=== PATIENT | male | born 1960 | race Caucasian/White ===

== ENCOUNTER 2017-07-04 10:42 | Inpatient (IN) | payer SELFPAY ==
[~2017-07-04] VITALS: Ht 180.3 cm; Wt 61.4 kg
[~2017-07-04 10:42] MED LIST: NAPR500T2 PO
[2017-07-04 10:56] VITALS: BP 108/61; PULSE 98; RESP 20; TEMP 97.9; O2SAT 97
--- NOTE | 2017-07-04 11:17 | PD ---
HPI Chief Complaint: Pain: Acute or Chronic Time Seen by Provider: 11:16 Travel History International Travel<30 days: No Contact w/Intl Traveler<30days: No Traveled to known affect area: No History of Present Illness HPI 57-year-old homeless male with history of alcohol abuse emergency Department with generalized malaise, body aches, and multiple crusting and draining sores to multiple areas of body. Patient states he's been coming on over the past 2 weeks. Patient has had chills. He does not know he's had fever. Patient has history of chronic left hip pain with history of avascular necrosis. He is here today due to sores which are painful and has overall generalized fever and chills. Patient did have 1 drink this morning. Patient has history of seizure from alcohol withdrawal. Patient denies upper respiratory symptoms. Chest pain, shortness of breath, abdominal pain, or nausea or vomiting. Patient has no known drug allergies. PFSH Past Medical History COPD: Yes Diabetes: No Diminished Hearing: No Immune Disorder: No Musculoskeletal: Yes Respiratory: Yes Immunizations Current: No Tetanus Vaccination: < 5 Years Past Surgical History Joint Replacement: Yes (R HIP REPLACEMENT ) Social History Alcohol Use: Yes (today) Tobacco Use: Yes (1/2 PPD ) Substance Use: No Allergies-Medications (Allergen,Severity, Reaction): Coded Allergies: No Known Allergies (Verified Allergy, Unknown, 07/04/17) Reported Meds & Prescriptions Reported Meds & Active Scripts Active Naproxen 500 Mg Tab 500 Mg PO BID PRN Review of Systems Except as stated in HPI: all other systems reviewed are Neg General / Constitutional: Positive: Fever (subjective), Chills Eyes: No: Visual changes HENT: No: Headaches Cardiovascular: No: Chest Pain or Discomfort, Palpitations, Irregular Rhythm, Tachycardia, Diaphoresis Respiratory: No: Cough, Shortness of Breath, Wheezing Gastrointestinal: No: Nausea, Vomiting, Diarrhea, Abdominal Pain Genitourinary: No: Dysuria Musculoskeletal: No: Pain Skin: Positive Lesions (see history present illness), No Rash Neurologic: No: Weakness Psychiatric: No: Depression Endocrine: No: Polydipsia Hematologic/Lymphatic: No: Easy Bruising Physical Exam Narrative GENERAL: Patient appears genuinely ill and possibly septic. SKIN: Warm and dry. Normal color. Decreased turgor with tenting present. Patient has multiple open crusty wounds to both upper and lower extremities and anterior abdomen. There are no signs of deep abscess. The largest wound is on the left anterior lower madden with purulent drainage noted. Wound culture is obtained. HEAD: Atraumatic. Normocephalic. EYES: Pupils equal and round. No scleral icterus. No injection or drainage. ENT: No nasal bleeding or discharge. Mucous membranes pink and moist. Pharynx is clear. Airway is patent. NECK: Trachea midline. Supple and nontender. CARDIOVASCULAR: Regular rate and rhythm. No murmurs gallops or rubs appreciated. RESPIRATORY: No accessory muscle use. Clear to auscultation. Breath sounds equal bilaterally. GASTROINTESTINAL: Abdomen soft, non-tender, nondistended. Hepatic and splenic margins not palpable. MUSCULOSKELETAL: Extremities without clubbing, cyanosis, or edema. No obvious deformities. NEUROLOGICAL: Awake and alert. No obvious cranial nerve deficits. Motor grossly within normal limits. Five out of 5 muscle strength in the arms and legs. Normal speech. PSYCHIATRIC: Appropriate mood and affect; insight and judgment normal. Data Data Last Documented VS Vital Signs Date Time Temp Pulse Resp B/P (MAP) Pulse Ox O2 Delivery O2 Flow Rate FiO2 07/04/17 12:41 97 Room Air 07/04/17 10:56 97.9 98 20 108/61 (77) Orders Orders Sepsis Workup Initiated (07/04/17 ) Electrocardiogram (07/04/17 11:23) Complete Blood Count With Diff (07/04/17 11:23) Comprehensive Metabolic Panel (07/04/17 11:23) Prothrombin Time / Inr (Pt) (07/04/17 11:23) Act Partial Throm Time (Ptt) (07/04/17 11:23) Lactic Acid Sepsis Protocol (07/04/17 11:23) Magnesium (Mg) (07/04/17 11:23) Lipase (07/04/17 11:23) Urinalysis - C+S If Indicated (07/04/17 11:23) Blood Culture (07/04/17 11:23) Wound Culture And Gram Stain (07/04/17 11:23) Chest, Single Ap (07/04/17 11:23) Blood Glucose (07/04/17 11:23) Ecg Monitoring (07/04/17 11:23) Iv Access Insert/Monitor (07/04/17 11:23) Oximetry (07/04/17 11:23) Oxygen Administration (07/04/17 11:23) Morphine Inj (Morphine Inj) (07/04/17 11:30) Ondansetron Inj (Zofran Inj) (07/04/17 11:30) Piperacil-Tazo 4.5 Gm Premix (Zosyn 4.5 (07/04/17 11:23) Vancomycin Inj (Vancomycin Inj) (07/04/17 11:23) Sodium Chlor 0.9% 1000 Ml Inj (Ns 1000 M (07/04/17 11:23) Sodium Chlor 0.9% 1000 Ml Inj (Ns 1000 M (07/04/17 11:23) Thiamine Inj (Thiamine Inj) (07/04/17 11:30) Alcohol Withdrawal Asmt-Ciwa Q4HX18 (07/04/17 11:23) Flumazenil Inj (Romazicon Inj) (07/04/17 11:30) Lorazepam (Ativan) (07/04/17 11:30) Lorazepam Inj (Ativan Inj) (07/04/17 11:30) Lorazepam (Ativan) (07/04/17 11:30) Lorazepam Inj (Ativan Inj) (07/04/17 11:30) Lorazepam Inj (Ativan Inj) (07/04/17 11:30) Lorazepam Inj (Ativan Inj) (07/04/17 11:30) Admit Order (Ed Use Only) (07/04/17 13:38) Labs Laboratory Tests Test 07/04/17 11:30 White Blood Count 12.3 TH/MM3 Red Blood Count 4.06 MIL/MM3 Hemoglobin 14.1 GM/DL Hematocrit 40.7 % Mean Corpuscular Volume 100.3 FL Mean Corpuscular Hemoglobin 34.8 PG Mean Corpuscular Hemoglobin Concent 34.7 % Red Cell Distribution Width 13.1 % Platelet Count 243 TH/MM3 Mean Platelet Volume 9.1 FL Neutrophils (%) (Auto) 63.0 % Lymphocytes (%) (Auto) 23.3 % Monocytes (%) (Auto) 9.5 % Eosinophils (%) (Auto) 3.3 % Basophils (%) (Auto) 0.9 % Neutrophils # (Auto) 7.8 TH/MM3 Lymphocytes # (Auto) 2.9 TH/MM3 Monocytes # (Auto) 1.2 TH/MM3 Eosinophils # (Auto) 0.4 TH/MM3 Basophils # (Auto) 0.1 TH/MM3 CBC Comment DIFF FINAL Differential Comment Prothrombin Time 10.7 SEC Prothromb Time International Ratio 1.1 RATIO Activated Partial Thromboplast Time 30.8 SEC Blood Urea Nitrogen 4 MG/DL Creatinine 0.45 MG/DL Random Glucose 74 MG/DL Total Protein 8.4 GM/DL Albumin 2.9 GM/DL Calcium Level 8.8 MG/DL Magnesium Level 1.7 MG/DL Alkaline Phosphatase 199 U/L Aspartate Amino Transf (AST/SGOT) 88 U/L Alanine Aminotransferase (ALT/SGPT) 32 U/L Total Bilirubin 0.6 MG/DL Sodium Level 134 MEQ/L Potassium Level 4.4 MEQ/L Chloride Level 103 MEQ/L Carbon Dioxide Level 23.3 MEQ/L Anion Gap 8 MEQ/L Estimat Glomerular Filtration Rate 194 ML/MIN Lactic Acid Level 1.1 mmol/L Lipase 323 U/L [facility] Medical Decision Making Medical Screen Exam Complete: Yes Emergency Medical Condition: Yes Medical Record Reviewed: Yes Differential Diagnosis Cellulitis. MRSA. Sepsis. Bacteremia. History of EtOH abuse. Alcohol dependence. Narrative Course Sepsis protocol was initiated based on the patient's history and physical. Labs ordered per sepsis protocol. IV access is obtained patient is given 4.5 g Zosyn IV as well as 1000 mg vancomycin IV. 2 L IV normal saline bolus is ordered. 100 mg thiamine IV is ordered. 5 mg IV morphine is ordered for pain. 4 mg Zofran IV is ordered. CIWA protocol is initiated. CBC shows leukocytosis of 12.3. CMP shows sodium 134, BUN 4, creatinine 0.45. AST is elevated at 88, possible 99. Lipase is normal. Lactic acid is 1.1. Coagulation studies are unremarkable. Chest x-ray shows no acute process. EKG shows normal sinus rhythm without ST changes. Call was placed hospitalist for admission as I feel the patient warrants IV antibiotics based on my exam. Patient discussed with the residents. The patient was accepted for observation status. Diagnosis Primary Impression: Cellulitis Qualified Codes: L03.90 - Cellulitis, unspecified Additional Impressions: MRSA elsewhere/NOS H/O ETOH abuse Admitting Information Admitting Physician Requests: Observation Condition: Stable Slick Brenner Jul 04, 2017 11:17
[2017-07-04] MEDS ORDERED: SODIUM CHLOR 0.9% 1000 ML INJ 1,000 ML IV ONE ×2 (11:23)
[2017-07-04] MEDS ORDERED: VANCOMYCIN INJ 1,000 MG in SODIUM CHLOR 0.9% 250 ML INJ 250 ML IV STA (11:23)
[2017-07-04] MEDS ORDERED: PIPERACIL-TAZO 4.5 GM PREMIX 100 ML IV STA (11:23)
[2017-07-04] MEDS ORDERED: LORazepam 2 MG/ML VIAL IV PUSH PRN ×8 (11:30→14:15)
[2017-07-04] MEDS ORDERED: LORazepam 2 MG TAB PO PRN ×2 (11:30→14:15)
[2017-07-04] MEDS ORDERED: MORPHINE SULFATE 8 MG/ML INJ IV PUSH ONE (11:30)
[2017-07-04] MEDS ORDERED: ONDANSETRON HCL 4 MG/2 ML VIAL IV PUSH ONE (11:30)
[2017-07-04] MEDS ORDERED: LORazepam 1 MG TAB PO PRN ×2 (11:30→14:15)
[2017-07-04] MEDS ORDERED: FLUMAZENIL 0.5 MG/5 ML VIAL IV PUSH PRN ×2 (11:30→14:15)
[2017-07-04] MEDS ORDERED: THIAMINE INJ 100 MG in SODIUM CHLORIDE 0.9% INJ 100 ML IV ONE (11:30)
[2017-07-04 11:52] LABS: AUTOMATED NEUTROPHIL # 7.8 TH/MM3 (1.8-7.7); BASOPHIL # 0.1 TH/MM3 (0-0.2); BASOPHIL % 0.9 % (0.0-2.0); EOSINOPHIL # 0.4 TH/MM3 (0-0.4); EOSINOPHIL % 3.3 % (0.0-4.0); HEMATOCRIT 40.7 % (39.0-51.0); HEMO FLAGS DIFF FINAL; LYMPH % 23.3 % (9.0-44.0); LYMPHOCYTE # 2.9 TH/MM3 (1.0-4.8); MEAN CELL VOLUME 100.3 FL (80.0-100.0); MEAN CORPUSCULAR HEMOGLOBIN 34.8 PG (27.0-34.0); MEAN CORPUSCULAR HGB CONC 34.7 % (32.0-36.0); MONO % 9.5 % (0.0-8.0); PLATELET COUNT 243 TH/MM3 (150-450); RED BLOOD COUNT 4.06 MIL/MM3 (4.50-5.90); RED CELL DISTRIBUTION WIDTH 13.1 % (11.6-17.2); WHITE BLOOD COUNT 12.3 TH/MM3 (4.0-11.0)
[2017-07-04 12:01] LABS: APTT (PATIENT) 30.8 SEC (24.3-30.1); INTERNATIONAL NORMALIZED RATIO 1.1 RATIO; PROTHROMBIN TIME - PATIENT 10.7 SEC (9.8-11.6)
[2017-07-04 12:10] LABS: ALT (GPT) 32 U/L (12-78); ANION GAP 8 MEQ/L (5-15); AST (GOT) 88 U/L (15-37); BICARBONATE 23.3 MEQ/L (21.0-32.0); BLOOD UREA NITROGEN 4 MG/DL (7-18); CHLORIDE 103 MEQ/L (98-107); GLOMERULAR FILTRATION RATE 194 ML/MIN (>89); MAGNESIUM 1.7 MG/DL (1.5-2.5); SODIUM (NA) 134 MEQ/L (136-145)
[2017-07-04 12:11] LABS: ALKALINE PHOSPHATASE 199 U/L (45-117); TOTAL BILIRUBIN ADULT 0.6 MG/DL (0.2-1.0)
--- NOTE | 2017-07-04 12:14 | RADRPT ---
EXAM DATE/TIME: 07/04/2017 11:53 [facility] COMPARISON: No previous studies available for comparison. INDICATIONS : Cough. MEDICAL HISTORY : Chronic obstructive pulmonary disease. Emphysema. SURGICAL HISTORY : None. ENCOUNTER: Initial ACUITY: 1 day PAIN SCORE: 6/10 LOCATION: Bilateral chest FINDINGS: A single view of the chest demonstrates the lungs to be symmetrically aerated without evidence of mas s, infiltrate or effusion. The cardiomediastinal contours are unremarkable. Osseous structures are intact. CONCLUSION: No acute disease. Manuel Dougherty MD on July 04, 2017 at 12:12 Board Certified Radiologist. This report was verified electronically.
[2017-07-04 12:18] LABS: POTASSIUM 4.4 MEQ/L (3.5-5.1)
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
[2017-07-04] MEDS ORDERED: GADODIAMIDE PF 287 MG/ML 10 ML VIAL (for RAD MRI) IVCONTRAST ONE (13:40)
[2017-07-04] MEDS ORDERED: Vancomycin Consult Pharmacy 1 EA OTHER SCH (14:15)
[2017-07-04 14:43] VITALS: BP 129/74
[2017-07-04 14:55] LABS: BLOOD, URINE NEG (NEG); COMMENT (UR) CATH-CULT NOT IND; CULTURE IF INDICATED CATH CULTURE NOT IND; GLUCOSE,URINE NEG (NEG); HYALINE CAST, URINE 1 /lpf (RARE); KETONE, URINE NEG (NEG); NITRITE,URINE NEG (NEG); PH, URINE 5.5 (5.0-8.5); URINE COLOR YELLOW (YELLW/STRAW)
[2017-07-04] MEDS: NICOTINE 14 MG/24 HR PATCH T-DERMAL SCH (15:00)
[2017-07-04 15:38] VITALS: BP 116/63; PULSE 101; RESP 20; TEMP 98; O2SAT 98
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
--- NOTE | 2017-07-04 16:03 | RADRPT ---
EXAM DATE/TIME: 07/04/2017 15:19 [facility] COMPARISON: No previous studies available for comparison. INDICATIONS : Right lower leg pain. MEDICAL HISTORY : ETOH abuse. SURGICAL HISTORY : None. ENCOUNTER: Initial ACUITY: 1 day PAIN SCORE: 6/10 LOCATION: Right tibia/fibula. FINDINGS: There is a central intramedullary lesion in T. tibial metaphysis with well-defined serpiginous border without evidence for endosteal scalloping consistent with a bone infarct. Osseous structures are int act without evidence for acute bony fracture. Visualized joint spaces are maintained. No significant soft tissue normality. CONCLUSION: 1. 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 2. No acute fracture or dislocation. Martin Wilks MD on July 04, 2017 at 15:57 Board Certified Radiologist. This report was verified electronically.
[2017-07-04] MEDS ORDERED: DOCUSATE SODIUM 50 MG/SENNA 8.6 MG TAB PO PRN (16:15)
[2017-07-04] MEDS ORDERED: cloNIDine HCL 0.1 MG TAB PO PRN (16:15)
[2017-07-04] MEDS ORDERED: ONDANSETRON HCL 4 MG/2 ML VIAL IV PUSH PRN (16:15)
[2017-07-04] MEDS: MULTIVITAMIN TAB PO SCH (16:31)
[2017-07-04] MEDS: FOLIC ACID 1 MG TAB PO SCH (16:31)
[2017-07-04] MEDS: PIPERACIL-TAZO 3.375 GM PREMIX 50 ML IV SCH ×2 (16:31→23:14)
[2017-07-04] MEDS: THIAMINE HCL 100 MG TAB PO SCH (16:31)
[2017-07-04] MEDS: HEPARIN SODIUM - SQ 10,000 UNITS/ML VIAL SQ SCH ×2 (16:32→23:14)
[2017-07-04] MEDS: SODIUM CHLOR 0.9% 1000 ML INJ 1,000 ML IV SCH (16:32)
[2017-07-04] MEDS: KETOROLAC TROMETHAMINE 30 MG/ML (IVP) VIAL IV PUSH PRN (19:36)
[2017-07-04] MEDS: SODIUM CHLORIDE 0.9% FLUSH 10 ML FLUSH IV FLUSH PRN (19:36)
[2017-07-04] MEDS: SODIUM CHLORIDE 0.9% FLUSH 10 ML FLUSH IV FLUSH SCH (20:03)
[2017-07-04 20:33] VITALS: BP 146/75; PULSE 81; RESP 18; TEMP 98.3; O2SAT 95
[2017-07-04] MEDS: REMOVE OLD PATCH T-DERMAL SCH (21:00)
[2017-07-04 21:55] VITALS: PULSE 77
[2017-07-04 23:59] VITALS: BP 154/78; PULSE 88; RESP 18; TEMP 98.3; O2SAT 96
[2017-07-05] MEDS: VANCOMYCIN INJ 1,000 MG in SODIUM CHLOR 0.9% 250 ML INJ 250 ML IV SCH ×2 (02:00→14:00)
[2017-07-05] MEDS: SODIUM CHLOR 0.9% 1000 ML INJ 1,000 ML IV SCH ×2 (03:11→10:03)
[2017-07-05 03:21] VITALS: BP 158/74; PULSE 82; RESP 18; TEMP 98.1; O2SAT 92
[2017-07-05] MEDS: KETOROLAC TROMETHAMINE 30 MG/ML (IVP) VIAL IV PUSH PRN ×4 (03:51→23:28)
[2017-07-05] MEDS: PIPERACIL-TAZO 3.375 GM PREMIX 50 ML IV SCH ×4 (05:09→23:28)
[2017-07-05 07:17] LABS: AUTOMATED NEUTROPHIL # 7.1 TH/MM3 (1.8-7.7); BASOPHIL # 0.1 TH/MM3 (0-0.2); BASOPHIL % 0.9 % (0.0-2.0); EOSINOPHIL # 0.2 TH/MM3 (0-0.4); HEMATOCRIT 36.4 % (39.0-51.0); HEMO FLAGS DIFF FINAL; LYMPHOCYTE # 1.7 TH/MM3 (1.0-4.8); MEAN CELL VOLUME 100.6 FL (80.0-100.0); MEAN CORPUSCULAR HEMOGLOBIN 35.2 PG (27.0-34.0); MONO % 12.8 % (0.0-8.0); NEUT % 68.3 % (16.0-70.0); PLATELET COUNT 190 TH/MM3 (150-450); RED BLOOD COUNT 3.61 MIL/MM3 (4.50-5.90); RED CELL DISTRIBUTION WIDTH 13.2 % (11.6-17.2); WHITE BLOOD COUNT 10.4 TH/MM3 (4.0-11.0)
[2017-07-05 07:31] VITALS: BP 158/84; PULSE 78; RESP 20; TEMP 97.9; O2SAT 96
[2017-07-05 07:47] LABS: ALT (GPT) 24 U/L (12-78); ANION GAP 6 MEQ/L (5-15); AST (GOT) 49 U/L (15-37); BICARBONATE 28.5 MEQ/L (21.0-32.0); BLOOD UREA NITROGEN 8 MG/DL (7-18); CHLORIDE 103 MEQ/L (98-107); GLOMERULAR FILTRATION RATE 154 ML/MIN (>89); POTASSIUM 4.1 MEQ/L (3.5-5.1); SODIUM (NA) 137 MEQ/L (136-145)
[2017-07-05 07:59] LABS: ALKALINE PHOSPHATASE 157 U/L (45-117)
[2017-07-05] MEDS: REMOVE OLD PATCH T-DERMAL SCH (09:00)
[2017-07-05] MEDS: SODIUM CHLORIDE 0.9% FLUSH 10 ML FLUSH IV FLUSH SCH ×2 (09:00→21:00)
[2017-07-05] MEDS: NICOTINE 14 MG/24 HR PATCH T-DERMAL SCH (09:37)
[2017-07-05] MEDS: FOLIC ACID 1 MG TAB PO SCH (09:37)
[2017-07-05] MEDS: THIAMINE HCL 100 MG TAB PO SCH (09:37)
[2017-07-05] MEDS: MULTIVITAMIN TAB PO SCH (09:37)
[2017-07-05] MEDS: HEPARIN SODIUM - SQ 10,000 UNITS/ML VIAL SQ SCH ×3 (09:39→23:28)
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
[2017-07-05 11:30] VITALS: BP 158/75; PULSE 67; RESP 20; TEMP 98.3; O2SAT 97
--- NOTE | 2017-07-05 11:50 | RADRPT ---
EXAM DATE/TIME: 07/04/2017 00:00 [place] COMPARISON: No previous studies available for comparison. INDICATIONS : MRSA, Cellulitis, ETOH Abuse TECHNIQUE: Four-cuff ankle and brachial pressures were obtained. Pulse cuff waveform tracings of the ankles were recorded, and ankle-brachial indices were calculated. PRESSURES (mmHg): Brachial (arm): Right 112 Left IV SITE Ankle: Right 192 Left 145 EILEEN: Right 1.71 Left 1.29 TBI: Right 1.09 Left 1.36 PULSED CUFF WAVEFORMS: Demonstrate normal amplitude bilaterally. CONCLUSION: Unremarkable ankle brachial indices. Martin Wilks MD on July 05, 2017 at 11:48 Board Certified Radiologist. This report was verified electronically.
[2017-07-05 15:41] VITALS: BP 189/95; PULSE 82; RESP 21; TEMP 98; O2SAT 93
--- NOTE | 2017-07-05 15:59 | EKG ---
Date Performed: 07/04/2017 Time Performed: 12:56:07 PTAGE: 57 years EKG: Sinus rhythm NORMAL ECG NO PREVIOUS TRACING DOCTOR: Eugene Nolan Interpretating Date/Time 07/05/2017 15:57:46
--- NOTE | 2017-07-05 16:25 | PD.WCN.NOT ---
Wound Consult Description: Wound consult ordered by for Diffuse cellulitis, focal at R hand and R madden Communicated with: Rosario [facility]U H pod ED Recommendation: Please consult Infectious Disease. Cleanse all open wounds (bilateral upper extremities) with normal saline, Apply Xeroform to wound base cover with dry 4x4 gauze secure with rolled gauze/tape. Right madden apply skin prep leave open to air. Additional Information: Patient was seen today in H pod by residential mortgage underwriter and Susy LIU,[facility]. Patient presents with multiple intact scabs to bilateral upper extremities. ~7 superficial small open wounds with pink tissue with the largest measuring ~1cm x ~1cm x~< 0.1cm.Open areas were cleansed with normal saline Xeroform cut to fit applied to wound base,covered with 4x4 gauze secured with rolled gauze tape. Right lower madden area present intact purulent blister ~ 6cm x ~5cm with erythema ~4cm circumferential. Erythema was marked previously and appears reducing in size.Skin prep applied left open to air. Patient tolerated wound care well. Almita Verde [facility] Jul 05, 2017 16:25
[2017-07-05 17:46] VITALS: BP 158/83
[2017-07-05 20:54] VITALS: BP 137/76; PULSE 70; RESP 18; TEMP 98.3; O2SAT 97
--- NOTE | 2017-07-05 21:03 | MB ---
cc: DAVID BAPTISTE MD DATE OF CONSULTATION 07/05/2017 REASON FOR CONSULTATION Multiple skin lesions both hands. HISTORY OF THE PRESENT ILLNESS The patient is a 57-year-old right-hand dominant male admitted to the hospital 2 days ago with history of generalized body pain with chills, nausea, vomiting for the past [id number] days. He gives a history of multiple lesions involving both upper extremities, trunk and scalp which has been opening up and draining purulent material. Complains of pain involving both hands. Denies any injury. Denies any history of similar complaints in the past. PAST MEDICAL AND SURGICAL HISTORY His past medical history and surgical history are noted significant for: 1. COPD. 2. Arthritis. 3. And surgical history significant for right hip replacement. PHYSICAL EXAMINATION GENERAL: The patient is alert, oriented x3. EXTREMITIES: Examination of the left upper extremity reveals multiple wounds with ulceration and crusting over the dorsal aspect of the fingers and hand. There is also evidence of purulent material underneath the skin over the ring finger dorsal aspect. Mild surrounding erythema noted. No surrounding swelling noted. He is able to make a full fist with the fingers. He has full extension of the fingers. Examination of right upper extremity reveals multiple skin lesions with ulcerations and crusting with surrounding erythema. No surrounding swelling noted. He is able to make full fist except for the little finger. no tenderness noted over the proximal phalanx of the little finger. He has full extension of the fingers. He has intact sensation distally. LABORATORY DATA His lab work was reviewed trending down to 10.4 from 12.3. He has neutrophils shift of 63%. X-rays of the right hand was reviewed: no evidence of fracture. questionable lucency involving the cortex of the proximal phalanx little finger. ASSESSMENT A 57-year-old male with multiple skin lesions with crusting involving both hands. The pocket of pus over the left ring finger was unroofed. Dry dressing was applied. The patient needs wound care with dry dressings and no active hand surgical management needed at present time. Hand surgery will follow up on as-needed basis. David Baptiste MD [facility] /5:24 PM 8:09 PM [facility]
[2017-07-06] VITALS (14 sets, daily range): BP systolic 141–202; BP diastolic 73–105; PULSE 61–81; RESP 16–20; TEMP 97.8–98.6; O2SAT 93–98
[2017-07-06] MEDS ORDERED: PHARMACY ORDERED LAB ONE (01:45)
[2017-07-06] MEDS: VANCOMYCIN INJ 1,000 MG in SODIUM CHLOR 0.9% 250 ML INJ 250 ML IV SCH ×3 (02:49→22:20)
[2017-07-06] MEDS: PIPERACIL-TAZO 3.375 GM PREMIX 50 ML IV SCH ×3 (06:26→17:41)
[2017-07-06 07:05] LABS: HEMATOCRIT 37.2 % (39.0-51.0); MEAN CELL VOLUME 102.7 FL (80.0-100.0); MEAN CORPUSCULAR HEMOGLOBIN 34.2 PG (27.0-34.0); MEAN CORPUSCULAR HGB CONC 33.3 % (32.0-36.0); PLATELET COUNT 209 TH/MM3 (150-450); RED BLOOD COUNT 3.62 MIL/MM3 (4.50-5.90); RED CELL DISTRIBUTION WIDTH 13.1 % (11.6-17.2); REVIEW FLAG FINAL; WHITE BLOOD COUNT 11.7 TH/MM3 (4.0-11.0)
[2017-07-06] MEDS: SODIUM CHLOR 0.9% 1000 ML INJ 1,000 ML IV SCH ×2 (08:10→17:04)
[2017-07-06] MEDS: HEPARIN SODIUM - SQ 10,000 UNITS/ML VIAL SQ SCH ×2 (08:28→16:00)
[2017-07-06] MEDS: FOLIC ACID 1 MG TAB PO SCH (08:28)
[2017-07-06] MEDS: THIAMINE HCL 100 MG TAB PO SCH (08:29)
[2017-07-06] MEDS: NICOTINE 14 MG/24 HR PATCH T-DERMAL SCH (08:29)
[2017-07-06] MEDS: SODIUM CHLORIDE 0.9% FLUSH 10 ML FLUSH IV FLUSH SCH ×2 (08:29→21:00)
[2017-07-06] MEDS: REMOVE OLD PATCH T-DERMAL SCH (08:29)
[2017-07-06] MEDS: MULTIVITAMIN TAB PO SCH (08:29)
[2017-07-06] MEDS: KETOROLAC TROMETHAMINE 30 MG/ML (IVP) VIAL IV PUSH PRN ×2 (08:30→19:19)
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
[2017-07-06] MEDS: ACETAMINOPHEN 500 MG CPLT PO PRN (17:39)
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
[2017-07-07] VITALS (9 sets, daily range): BP systolic 98–173; BP diastolic 51–91; PULSE 64–93; RESP 16–24; TEMP 97.8–99.8; O2SAT 89–99
[2017-07-07] MEDS: PIPERACIL-TAZO 3.375 GM PREMIX 50 ML IV SCH ×3 (00:53→11:50)
[2017-07-07] MEDS: SODIUM CHLOR 0.9% 1000 ML INJ 1,000 ML IV SCH ×3 (01:01→16:48)
[2017-07-07] MEDS: RESP: ALBUTEROL 2.5 MG/IPRATROPIUM 0.5 MG NEB (PRN) NEB ×4 (01:13→23:43)
[2017-07-07] MEDS: ACETAMINOPHEN 500 MG CPLT PO PRN ×2 (04:52→21:11)
[2017-07-07] MEDS: VANCOMYCIN INJ 1,000 MG in SODIUM CHLOR 0.9% 250 ML INJ 250 ML IV SCH (04:54)
[2017-07-07 07:12] LABS: HEMATOCRIT 33.7 % (39.0-51.0); MEAN CELL VOLUME 101.3 FL (80.0-100.0); MEAN CORPUSCULAR HEMOGLOBIN 33.9 PG (27.0-34.0); MEAN CORPUSCULAR HGB CONC 33.4 % (32.0-36.0); PLATELET COUNT 200 TH/MM3 (150-450); RED BLOOD COUNT 3.33 MIL/MM3 (4.50-5.90); RED CELL DISTRIBUTION WIDTH 13.2 % (11.6-17.2); REVIEW FLAG FINAL; WHITE BLOOD COUNT 17.7 TH/MM3 (4.0-11.0)
[2017-07-07 07:36] LABS: BICARBONATE 22.9 MEQ/L (21.0-32.0); POTASSIUM 3.4 MEQ/L (3.5-5.1)
[2017-07-07] MEDS: HEPARIN SODIUM - SQ 10,000 UNITS/ML VIAL SQ SCH ×3 (08:00→16:00)
[2017-07-07] MEDS: REMOVE OLD PATCH T-DERMAL SCH (09:00)
[2017-07-07] MEDS: THIAMINE HCL 100 MG TAB PO SCH (11:37)
[2017-07-07] MEDS: MULTIVITAMIN TAB PO SCH (11:37)
[2017-07-07] MEDS: FOLIC ACID 1 MG TAB PO SCH (11:37)
[2017-07-07] MEDS: SODIUM CHLORIDE 0.9% FLUSH 10 ML FLUSH IV FLUSH SCH ×2 (11:37→21:00)
[2017-07-07] MEDS: NICOTINE 14 MG/24 HR PATCH T-DERMAL SCH (11:38)
[2017-07-07] MEDS ORDERED: PHARMACY ORDERED LAB ONE (11:45)
[2017-07-07] MEDS: KETOROLAC TROMETHAMINE 30 MG/ML (IVP) VIAL IV PUSH PRN (11:49)
--- NOTE | 2017-07-07 12:16 | HHI.FPPN ---
Subjective Remarks Patient was seen and evaluated this morning. He is feeling "lousy." He reports vomiting several times and explosive diarrhea overnight. Nurse confirms explosive diarrhea. Diarrhea is described as nonbloody, brown liquid. Patient reports left-sided, non-radiating, sharp chest pain that takes his breath away. He states that chest pain has been present for the past two days but he has forgotten to mention it to anyone until now. He reports shortness of breath, improved by breathing treatments. Patient denies heart palpitations. Patient denies cough, runny nose. All questions were answered. (Samia Trimble MD R1) Objective Vitals Vital Signs Date Time Temp Pulse Resp B/P (MAP) Pulse Ox O2 Delivery O2 Flow Rate FiO2 07/07/17 09:32 99.2 78 20 170/82 (111) 92 07/07/17 07:09 98.4 07/07/17 04:25 97.8 81 18 138/60 (86) 99 07/07/17 03:54 64 07/06/17 23:29 61 07/06/17 23:19 98.1 63 17 151/85 (107) 94 07/06/17 19:53 69 07/06/17 19:42 98.2 67 16 158/73 (101) 96 07/06/17 16:52 98.6 62 20 185/89 (121) 98 07/06/17 16:15 65 I/O 07/06/17 07/06/17 07/06/17 07/07/17 07/07/17 07/07/17 07:00 15:00 23:00 07:00 15:00 23:00 Intake Total 50 ml 300 ml 877 ml 1200 ml Output Total 300 ml 425 ml Balance -250 ml 300 ml 877 ml 775 ml Intake Oral 1200 ml IV Total 50 ml 300 ml 877 ml Output Urine Total 300 ml 425 ml # Bowel Movements 1 3 (Samia Trimble MD R1) Result Diagram: 07/07/17 0632 07/07/17 0632 Imaging Last Impressions Chest X-Ray 07/04/17 1123 Signed Impressions: Service Date/Time: Tuesday, July 04, 2017 11:53 - CONCLUSION: No acute disease. Manuel Dougherty MD Tibia/Fibula X-Ray 07/04/17 0000 Signed Impressions: Service Date/Time: Tuesday, July 04, 2017 15:19 - CONCLUSION: 1. 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 2. No acute fracture or dislocation. Martin Wilks MD Hand X-Ray 07/04/17 0000 Signed Impressions: Service Date/Time: Tuesday, July 04, 2017 15:14 - CONCLUSION: 1. Findings suggesting healing nondisplaced left fifth proximal phalanx fracture . 2. No acute fracture or dislocation. Martin Wilks MD Objective Remarks GENERAL: Well-nourished, well-developed patient. No acute distress. SKIN: 2x2.5 area of pyoderma of the right hand proximal 5th digit. 4x6cm are of pyoderma of the right distal tibia. Erythema and warmth at both places. Multiple other areas of ulceration concerning for cellulitis. All areas tender to palpation per patient. No active bleeding or purulent drainage. HEENT: Atraumatic, normocephalic with extraocular motion intact. Mucus membranes moist. No rhinorrhea. No visible lymphadenopathy or JVD appreciated. CARDIOVASCULAR: Regular rate and rhythm without obvious murmurs, gallops, or rubs. RESPIRATORY: Clear to auscultation bilaterally. No increased work of breathing. GASTROINTESTINAL: Abdomen soft, non-tender, nondistended with positive bowel sounds. No masses appreciated. MUSCULOSKELETAL: No cyanosis or edema. Strength grossly within normal limits. Ambulating well. NEURO/PSYCH: Awake, alert, and oriented x3. Medications and IVs Current Medications Medications (Trade) Dose Ordered Sig/Jozef Route Start Time Stop Time Status Last Admin (Romazicon Inj) 0.2 mg Q1M PRN IV PUSH 07/04/17 11:30 (Ativan) 1 mg Q4H PRN PO 07/04/17 11:30 (Ativan Inj) 1 mg Q4H PRN IV PUSH 07/04/17 11:30 (Ativan) 2 mg Q2H PRN PO 07/04/17 11:30 (Ativan Inj) 2 mg Q2H PRN IV PUSH 07/04/17 11:30 (Ativan Inj) 2 mg Q1H PRN IV PUSH 07/04/17 11:30 (Ativan Inj) 2 mg Q15M PRN IV PUSH 07/04/17 11:30 (NS Flush) 2 ml BID IV FLUSH 07/04/17 21:00 07/07/17 11:37 (NS Flush) 2 ml UNSCH PRN IV FLUSH 07/04/17 14:15 07/04/17 19:36 Sodium Chloride 1,000 ml @ 100 mls/hr Q10H IV 07/04/17 14:03 07/07/17 01:01 Pharmacy Profile Note 0 ml @ 0 mls/hr UNSCH OTHER 07/04/17 14:15 (Tylenol) 500 mg Q4H PRN PO 07/04/17 14:15 07/07/17 04:52 (Heparin Inj) 5,000 units Q8H SQ 07/04/17 16:00 07/06/17 08:28 (Romazicon Inj) 0.2 mg Q1M PRN IV PUSH 07/04/17 14:15 (Theragran) 1 tab DAILY PO 07/04/17 14:15 07/07/17 11:37 (Folate) 1 mg DAILY PO 07/04/17 14:15 07/07/17 11:37 (Vitamin B1) 100 mg DAILY PO 07/04/17 14:15 07/07/17 11:37 (Toradol Inj) 30 mg Q6H PRN IV PUSH 07/04/17 14:15 07/09/17 14:14 07/07/17 11:49 (Habitrol 14 Mg Patch.24 Hr) 1 patch DAILY T-DERMAL 07/04/17 15:00 07/07/17 11:38 Miscellaneous Information 1 DAILY T-DERMAL 07/04/17 21:00 07/05/17 09:00 (Catapres) 0.1 mg Q6H PRN PO 07/04/17 16:15 (Duoneb Neb) 1 ampule Q4HR NEB PRN NEB 07/04/17 16:15 07/07/17 07:23 (Vistaril) 50 mg HS PRN PO 07/04/17 16:15 (Zofran Inj) 4 mg Q6HR PRN IV PUSH 07/04/17 16:15 (Jennyfer-Colace) 2 tab BID PRN PO 07/04/17 16:15 Vancomycin HCl 1000 mg/Sodium Chloride 250 ml @ 250 mls/hr Q8H IV 07/06/17 12:00 07/07/17 04:54 (Pepcid) 20 mg BID PO 07/07/17 21:00 (Samia Tirmble MD R1) Urinary Catheter: No (Samia Trimble MD R1) Vascular Central Line Catheter: No (Samia Trimble MD R1) A/P Assessment and Plan Mr. Zhou is a 57 year old male admitted for multiple areas of purulent cellulitis with focal lesions on the R hand and R madden. (Samia Trimble MD R1) Attending Attestation Patient seen and examined. Case reviewed and discussed with the resident team. Agree with plan of care as discussed with me and documented in the resident note. (Ry Gonzales MD) Problem List: (1) Cellulitis ICD Codes: L03.90 - Cellulitis, unspecified Status: Acute Plan: Patient with skin lesions all over body - see physical exam. Vital signs within normal limits. Labs/Microbiology: * On admission, WBC 12.3, hemoglobin 14.1, hematocrit 40.7, platelet count 243. * CBC on 07/07: WBC 17.7, hemoglobin 11.3, hematocrit 33.7, platelet count 200. * ESR 58. * Lactic acid 1.1. * CRP 4.09. * Wound culture: Staphylococcus Aureus and Group A Beta Strep. Sensitivities available. * Blood culture: No growth to date. Imaging: * Hand x-ray: Findings suggesting healing nondisplaced left fifth proximal phalanx fracture. No acute fracture dislocation. 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 No acute fracture or dislocation. Medications: * Vancomycin 1,000 mg q8hr IV (07/04 - ). * Zosyn 3.375 gm q6hr IV (07/04 - 07/07). * Patient to be discharged on Bactrim. * Acetaminophen 500 mg q4hr PO PRN Pain 1-10/ Fever >101F. * Toradol 30 mg q6hr IV PRN Breakthrough Pain. Orders: * ID consulted: Continue with current antibiotic regimen. (2) Fracture of proximal phalanx of digit of left hand ICD Codes: S62.619A - Displaced fracture of proximal phalanx of unspecified finger, initial encounter for closed fracture Plan: Subacute/healing nondisplaced left fifth proximal phalanx fracture visualized on Hand X-ray. * See Plan for Cellulitis. (3) Chest pain ICD Codes: R07.9 - Chest pain, unspecified Status: Acute Plan: Patient complaining of chest pain 2 days. He "forgot" to mention pain during previous encounters. Differential diagnosis: * Cardiac origin versus pulmonary origin versus malingering. Labs: * Troponin 1 negative. Imaging/studies: * Chest x-ray: No acute disease. * EKG pending. (4) Diarrhea ICD Codes: R19.7 - Diarrhea, unspecified Status: Acute Plan: Explosive diarrhea overnight 07/06. Differential diagnosis: * Alcohol withdrawal versus C. difficile versus enterogastritis Labs: * C. difficile PCR pending. Medications: * Famotidine 20 mg PO BID. * Lactobacillus Acidophilus 1 tab PO q12hr. (5) Chronic left hip pain ICD Codes: M25.552 - Pain in left hip; G89.29 - Other chronic pain Status: Chronic Plan: Patient with history of chronic left hip pain. * For pain control, see Plan for Cellulitis. (6) Alcohol abuse ICD Codes: F10.10 - Alcohol abuse, uncomplicated Status: Chronic Plan: Patient with extensive alcohol abuse and history of withdrawal. Medications: * CIWA protocol in place. * Vitamin supplementation. (7) Tobacco abuse ICD Codes: Z72.0 - Tobacco use Status: Chronic Plan: Patient with extensive tobacco abuse history including 50 years of 1 pack per day. Medications: * Nicotine patch daily, patient acknowledges possible wound healing delayed due to nicotine use. (8) Nutrition, metabolism, and development symptoms ICD Codes: R63.8 - Other symptoms and signs concerning food and fluid intake Status: Acute Plan: Fluids: * Good PO intake. Diet: * Regular diet as tolerated. Electrolytes: * Monitor and replete as necessary. DVT Prophylaxis: * Heparin 5,000 q8hr SQ - patient refusing. (Samia Trimble MD R1) Problem Qualifiers (1) Cellulitis: Qualified Codes: L03.90 - Cellulitis, unspecified Samia Trimble MD R1 Jul 07, 2017 12:16 Ry Gonzales MD Jul 09, 2017 13:39
[2017-07-07] MEDS: FAMOTIDINE 20 MG TAB PO SCH (21:00)
[2017-07-07] MEDS: LACTOBACILLUS ACIDOPHILUS TAB PO SCH (21:00)
[2017-07-08] VITALS (12 sets, daily range): BP systolic 97–165; BP diastolic 68–90; PULSE 71–142; RESP 18–38; TEMP 98–101.6; O2SAT 85–100
[2017-07-08] MEDS: KETOROLAC TROMETHAMINE 30 MG/ML (IVP) VIAL IV PUSH PRN ×2 (01:25→10:04)
[2017-07-08] MEDS: SODIUM CHLOR 0.9% 1000 ML INJ 1,000 ML IV SCH (03:04)
[2017-07-08] MEDS: RESP: ALBUTEROL 2.5 MG/IPRATROPIUM 0.5 MG NEB (PRN) NEB ×4 (04:04→15:25)
[2017-07-08 07:16] LABS: AUTOMATED NEUTROPHIL # 16.1 TH/MM3 (1.8-7.7); BASOPHIL # 0.1 TH/MM3 (0-0.2); BASOPHIL % 0.5 % (0.0-2.0); EOSINOPHIL # 0.1 TH/MM3 (0-0.4); EOSINOPHIL % 0.5 % (0.0-4.0); HEMATOCRIT 35.7 % (39.0-51.0); LYMPH % 7.3 % (9.0-44.0); LYMPHOCYTE # 1.5 TH/MM3 (1.0-4.8); MEAN CORPUSCULAR HEMOGLOBIN 34.8 PG (27.0-34.0); MEAN CORPUSCULAR HGB CONC 33.5 % (32.0-36.0); MONO % 13.5 % (0.0-8.0); NEUT % 78.2 % (16.0-70.0); PLATELET COUNT 193 TH/MM3 (150-450); RED BLOOD COUNT 3.44 MIL/MM3 (4.50-5.90); RED CELL DISTRIBUTION WIDTH 13.3 % (11.6-17.2); WHITE BLOOD COUNT 20.5 TH/MM3 (4.0-11.0)
[2017-07-08 07:22] LABS: HEMO FLAGS AUTO DIFF
[2017-07-08] MEDS: HEPARIN SODIUM - SQ 10,000 UNITS/ML VIAL SQ SCH ×3 (08:00→19:00)
[2017-07-08] MEDS: FOLIC ACID 1 MG TAB PO SCH (08:14)
[2017-07-08] MEDS: MULTIVITAMIN TAB PO SCH (08:14)
[2017-07-08] MEDS: SODIUM CHLORIDE 0.9% FLUSH 10 ML FLUSH IV FLUSH SCH ×2 (08:14→21:04)
[2017-07-08] MEDS: THIAMINE HCL 100 MG TAB PO SCH (08:14)
[2017-07-08] MEDS: LACTOBACILLUS ACIDOPHILUS TAB PO SCH ×2 (08:14→21:05)
[2017-07-08] MEDS: FAMOTIDINE 20 MG TAB PO SCH (08:14)
[2017-07-08] MEDS: REMOVE OLD PATCH T-DERMAL SCH (08:15)
[2017-07-08] MEDS: NICOTINE 14 MG/24 HR PATCH T-DERMAL SCH (08:16)
[2017-07-08 08:48] LABS: SCAN/DIFF AUTO DIFF CONFIRMED
[2017-07-08 09:47] LABS: BICARBONATE 21.1 MEQ/L (21.0-32.0); POTASSIUM 3.2 MEQ/L (3.5-5.1)
[2017-07-08] MEDS ORDERED: PIPERACIL TAZO IV SCH (10:00)
--- NOTE | 2017-07-08 10:21 | HHI.FPPN ---
Subjective Remarks Patient seen and examined this morning. No acute events overnight. Upon arriving to the bedside, nursing staff for medical team patient has become tachypnea and tachycardic. Per report, patient was started on 6 L nasal cannula with oxygen saturations in the low 90s. His heart rate has increased to 111 with a blood pressure of 165/86. Patient currently has baca positive review of systems stating that he has had chest pain, shortness of breath, diarrhea, headaches, and "allover body pain" for the last 4 days. However, patient has only mention the symptoms over the last 24 hours. Upon further investigation chest pain is with his current cough which has developed over the last 24 hours. He does appear anxious, with a tremor and tachycardia resulting in a CIWA score of approximately 11 which is concerning for possible withdrawals. He does endorse increased pain in his right lower extremity which is also concerning for possible osteomyelitis. (Rasta Gilliland MD R2) Objective Vitals Vital Signs Date Time Temp Pulse Resp B/P (MAP) Pulse Ox O2 Delivery O2 Flow Rate FiO2 07/08/17 08:33 98.0 111 38 165/86 (112) 91 07/08/17 07:17 Nasal Cannula 6.00 07/08/17 03:45 71 07/08/17 03:37 98.2 94 18 141/71 (94) 93 07/08/17 00:00 94 07/07/17 23:57 97.9 93 18 146/70 (95) 96 07/07/17 21:30 88 07/07/17 20:03 94 Nasal Cannula 5.00 07/07/17 16:49 99.8 87 24 173/91 (118) 90 07/07/17 12:27 99.8 79 16 147/72 (97) 92 I/O 07/07/17 07/07/17 07/07/17 07/08/17 07/08/17 07/08/17 07:00 15:00 23:00 07:00 15:00 23:00 Intake Total 1200 ml 480 ml Output Total 425 ml 900 ml Balance 775 ml -900 ml 480 ml Intake Oral 1200 ml 480 ml Output Urine Total 425 ml 900 ml # Bowel Movements 3 3 (Rasta Gilliland MD R2) Result Diagram: 07/08/17 0635 07/08/17 0830 Objective Remarks GENERAL: Disheveled gentleman lying in bed in mild respiratory distress. SKIN: 2x2.5 area of pyoderma of the right hand proximal 5th digit. 4x6cm are of pyoderma of the right distal tibia. Erythema and warmth at both places. Multiple other areas of ulceration concerning for cellulitis. All areas tender to palpation per patient. No active bleeding or purulent drainage. All areas appear improved since admission. HEENT: Atraumatic, normocephalic with EOMI. His membranes strep. No rhinorrhea. No visible LAD or JVD appreciated. CARDIOVASCULAR: Tachycardia to 110s with regular rhythm. No MGR appreciated. 2+ pulses in all 4 extremities. RESPIRATORY: Patient With poor aeration bilaterally. Expiratory wheezes bilaterally. Nonproductive cough throughout exam. No crackles or rhonchi. Patient able to converse and full sentences. GASTROINTESTINAL: Abdomen soft, non-tender, nondistended with positive bowel sounds. No masses appreciated. MUSCULOSKELETAL: No cyanosis or edema. Strength grossly within normal limits. Ambulating well. NEURO/PSYCH: Awake, alert, and oriented x3. Normal speech and judgment. Moderate tremor with hand extension, increased from prior exams. (Rasta Gilliland MD R2) A/P Assessment and Plan Mr. Zhou is a 57 year old male admitted for multiple areas of purulent cellulitis with focal lesions on the R hand and R madden. (Rasta Gilliland MD R2) Attending Attestation Patient seen and examined. Case reviewed and discussed with the resident team. Agree with plan of care as discussed with me and documented in the resident note. (Ry Gonzales MD) Problem List: (1) Cellulitis ICD Codes: L03.90 - Cellulitis, unspecified Status: Acute Plan: Patient with skin lesions all over body - see physical exam. Patient with increased pain per report today Labs/Microbiology: * WBC increasing up to 20.5 today * ESR 58. * Lactic acid 1.1. * CRP 4.09. * Wound culture: Staphylococcus Aureus and Group A Beta Strep. Sensitivities available. * Blood culture: No growth to date. * Blood culture 07/08: Ordered Imaging: * Hand x-ray: Findings suggesting healing nondisplaced left fifth proximal phalanx fracture. No acute fracture dislocation. 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 No acute fracture or dislocation. * ABIs: Ordered * MRI of RLE: Ordered * CXR: Ordered Medications: * Vancomycin 1,000 mg q8hr IV (07/04 - ). * Zosyn 3.375 gm q6hr IV (07/04 - 07/07). Restarted due to new onset sepsis(- ) * Patient to be discharged on Bactrim. * Acetaminophen 500 mg q4hr PO PRN Pain 1-10/ Fever >101F. * Toradol 30 mg q6hr IV PRN Breakthrough Pain. Orders: * ID consulted: Continue with current antibiotic regimen. (2) Sepsis ICD Codes: A41.9 - Sepsis, unspecified organism Status: Acute Plan: Patient currently meeting sepsis criteria with leukocytosis, tachypnea, and tachycardia. Suspected source of infection related to areas of cellulitis. -Please see plan as above -Repeat blood cultures, chest x-ray, and sepsis protocol ordered -Patient currently on vancomycin and Zosyn -BP currently stable 156/86 during examination with IV fluids ordered -Wells criteria: 3, moderate risk. Patient refusing heparin over the last 48 hours. Low threshold to order CTA if symptoms due not improve with Ativan administration as currently his appears to be having alcohol withdrawal symptoms. (3) Alcohol abuse ICD Codes: F10.10 - Alcohol abuse, uncomplicated Status: Chronic Plan: Patient with extensive alcohol abuse and history of withdrawal. Patient with increasing CIWA score likely due to withdrawals. Medications: * CIWA protocol in place. * Vitamin supplementation. (4) Fracture of proximal phalanx of digit of left hand ICD Codes: S62.619A - Displaced fracture of proximal phalanx of unspecified finger, initial encounter for closed fracture Plan: Subacute/healing nondisplaced left fifth proximal phalanx fracture visualized on Hand X-ray. * See Plan for Cellulitis. * Hand surgery does not recommend intervention at this time. (5) Chest pain ICD Codes: R07.9 - Chest pain, unspecified Status: Acute Plan: Patient complaining of chest pain 2 days. He "forgot" to mention pain during previous encounters. Differential diagnosis: * Cardiac origin versus pulmonary origin versus malingering. Labs: * Troponin 1 negative 07/07 * Troponin x1: ordered Imaging/studies: * Chest x-ray: Pending * EKG pending. (6) Diarrhea ICD Codes: R19.7 - Diarrhea, unspecified Status: Acute Plan: Explosive diarrhea overnight 07/06. Differential diagnosis: * Alcohol withdrawal versus C. difficile versus enterogastritis Labs: * C. difficile PCR ordered, sample not sent as BMs are semisolid therefore C. difficile infection not likely Medications: * Famotidine 20 mg PO BID. * Lactobacillus Acidophilus 1 tab PO q12hr. (7) Chronic left hip pain ICD Codes: M25.552 - Pain in left hip; G89.29 - Other chronic pain Status: Chronic Plan: Patient with history of chronic left hip pain. * For pain control, see Plan for Cellulitis. (8) Tobacco abuse ICD Codes: Z72.0 - Tobacco use Status: Chronic Plan: Patient with extensive tobacco abuse history including 50 years of 1 pack per day. Medications: * Nicotine patch daily, patient acknowledges possible wound healing delayed due to nicotine use. (9) Nutrition, metabolism, and development symptoms ICD Codes: R63.8 - Other symptoms and signs concerning food and fluid intake Status: Acute Plan: Fluids: * Good PO intake. Diet: * Regular diet as tolerated. Electrolytes: * Monitor and replete as necessary. * Hypokalemia, replaced DVT Prophylaxis: * Heparin 5,000 q8hr SQ - patient refusing. (Rasta Gilliland MD R2) Problem Qualifiers (1) Cellulitis: Qualified Codes: L03.90 - Cellulitis, unspecified (2) Sepsis: Qualified Codes: A41.9 - Sepsis, unspecified organism Rasta Gilliland MD R2 Jul 08, 2017 10:21 Ry Gonzales MD Jul 09, 2017 13:43
[2017-07-08] MEDS ORDERED: POTASSIUM CHLORIDE 10 MEQ CONTROLLED RELEASE TAB PO ONE ×2 (10:30→16:00)
--- NOTE | 2017-07-08 11:07 | RADRPT ---
EXAM DATE/TIME: 07/08/2017 10:07 [facility] COMPARISON: CHEST SINGLE AP, July 04, 2017, 11:53. INDICATIONS : Shortness of breath. MEDICAL HISTORY : Chronic obstructive pulmonary disease. Emphysema. SURGICAL HISTORY : None. ENCOUNTER: Subsequent ACUITY: 4 - 6 days PAIN SCORE: 0/10 LOCATION: Bilateral chest FINDINGS: Extensive pulmonary infiltrates are noted bilaterally suggestive of diffuse pneumonia or severe pulmo nary edema. Clinical correlation is recommended. CONCLUSION: Extensive pulmonary infiltrates are noted bilaterally suggestive of diffuse pneumonia or severe pulmo nary edema. Clinical correlation is recommended. Manuel Dougherty MD on July 08, 2017 at 11:04 Board Certified Radiologist. This report was verified electronically.
[2017-07-08] MEDS ORDERED: FUROSEMIDE 40 MG/4 ML VIAL IV PUSH ONE (11:30)
--- NOTE | 2017-07-08 12:49 | RADRPT ---
EXAM DATE/TIME: 07/08/2017 10:30 [facility] COMPARISON: TIBIA/FIBULA RIGHT (AP/LAT), July 04, 2017, 15:19. INDICATIONS : Cellulitis CONTRAST: 10 cc Omniscan (gadodiamide) IV MEDICAL HISTORY : Chronic obstructive pulmonary disease. SURGICAL HISTORY : Hip replacement. ENCOUNTER: Initial ACUITY: 1 day PAIN SCORE: 5/10 LOCATION: Right leg TECHNIQUE: Multiplanar multisequence MRI examination of the lower leg was performed with and without contrast. FINDINGS: A serpiginous-appearing lesion is noted within the distal tibial metadiaphysis which has the appearan ce of a probable bone infarct. The remainder of the tibia is unremarkable without focal lesion. The f ibula is also unremarkable. There is no evidence of marrow edema to suggest osteomyelitis of the tibi a or fibula. No deep soft tissue abscess collection is noted. Mild cellulitis of the lower calf and u pper ankle posteriorly is noted. Some edema is noted throughout the anterior and posterior tibial mus culature raising the possibility of myositis or muscle strain. Clinical correlation is recommended. CONCLUSION: 1. Some edema is noted throughout the anterior and posterior tibial musculature raising the possibili ty of myositis or muscle strain. Clinical correlation is recommended. 2. Mild cellulitis of the lower calf and upper ankle posteriorly. 3. No evidence of osteomyelitis. 4. Serpiginous-appearing lesion within the distal tibial metadiaphysis which has the appearance of pr obable bone infarct. 5. No soft tissue abscess noted. Manuel Dougherty MD on July 08, 2017 at 12:37 Board Certified Radiologist. This report was verified electronically.
[2017-07-08] MEDS ORDERED: PIPERACILLIN/TAZ 3.375 GM VIAL 3.375 GM in SODIUM CHLORIDE 0.9% INJ 50 ML IV SCH (14:00)
--- NOTE | 2017-07-08 15:24 | RADRPT ---
EXAM DATE/TIME: 07/08/2017 00:00 [facility] COMPARISON: [facility] ANKLE BRACHIAL INDEX, July 04, 2017, 0:00. INDICATIONS : Cellulitis, MRSA TECHNIQUE: Four-cuff ankle and brachial pressures were obtained. Pulse cuff waveform tracings of the ankles were recorded, and ankle-brachial indices were calculated. PRESSURES (mmHg): Brachial (arm): Right IV SITE Left 161 Ankle: Right 149 Left 153 EILEEN: Right 0.93 Left 0.95 TBI: Right 0.85 Left 0.88 PULSED CUFF WAVEFORMS: Demonstrate normal amplitude bilaterally. CONCLUSION: Unremarkable ankle brachial indices. Martin Wilks MD on July 08, 2017 at 15:21 Board Certified Radiologist. This report was verified electronically.
[2017-07-08] MEDS: PIPERACIL-TAZO 3.375 GM PREMIX 50 ML IV SCH ×2 (16:17→21:04)
[2017-07-08 16:19] LABS: BLOOD GAS BASE EXCESS -1.3 mmol/L (-2-2); BLOOD GAS CARBOXYHEMOGLOBIN 1.9 % (0-4); BLOOD GAS HCO3 21 mmol/L (22-26); BLOOD GAS METHEMOGLOBIN 0.8 % (0-2); BLOOD GAS O2 HGB SATURATION 81 % (90-100); BLOOD GAS OXYGEN CONTENT 13.1 Vol % (12.0-20.0); BLOOD GAS PCO2 26 mmHg (38-42); BLOOD GAS PO2 46 mmHg (61-120); BLOOD GAS TOTAL HGB 11.5 G/DL (12.0-16.0); TEMP CORR TO 98.6
[2017-07-08 16:20] LABS: CRITICAL VALUE YES; DRAW SITE LT RADIAL; LITER FLOW 6 L/M; NUMBER OF ARTERIAL PUNCTURES 1; OXYGEN DEVICE NASAL CANNULA; STAT YES; ULNAR PULSE PRESENT
--- NOTE | 2017-07-08 16:37 | RADRPT ---
EXAM DATE/TIME: 07/08/2017 16:24 [facility] COMPARISON: CHEST SINGLE AP, July 08, 2017, 10:07. INDICATIONS : Short of breath. Respiratory distress. MEDICAL HISTORY : None. SURGICAL HISTORY : None. ENCOUNTER: Subsequent ACUITY: 4 - 6 days PAIN SCORE: 8/10 LOCATION: Bilateral chest FINDINGS: A single view of the chest demonstrates heart size within normal limits. Bilateral airspace disease, left greater than right is similar to exam from earlier today. Small effusions. No pneumothorax. CONCLUSION: 1. Bilateral airspace disease similar to earlier exam considering differences in technique. Small eff usions. No pneumothorax. Jax Marcum MD on July 08, 2017 at 16:34 Board Certified Radiologist. This report was verified electronically.
[2017-07-08] MEDS ORDERED: ROCURONIUM INJ 50 MG/5 ML VIAL ONE (16:51)
[2017-07-08] MEDS ORDERED: ETOMIDATE 40 MG/20 ML VIAL ONE (16:51)
[2017-07-08] MEDS ORDERED: ROCURONIUM INJ 100 MG/10 ML VIAL IV ONE (17:00)
[2017-07-08] MEDS ORDERED: ETOMIDATE 40 MG/20 ML VIAL IV PUSH ONE (17:00)
[2017-07-08] MEDS: fentaNYL DRIP 250 ML IV PRN ×2 (17:20→19:00)
[2017-07-08] MEDS: PROPOFOL 1000 MG/100 ML INJ 100 ML IV PRN ×2 (17:20→19:00)
--- NOTE | 2017-07-08 17:49 | PD.PROCEDR ---
Central Line Procedure REASON FOR PROCEDURE Central venous access PROCEDURE PERFORMED Central line placement: Left IJ CVL CONSENT Informed consent for procedure was obtained. The risks and benefits of the procedure were discussed to include but limited to bleeding, clot formation, infection, and even . ANESTHESIA Local injection of 1% Lidocaine DESCRIPTION OF THE PROCEDURE The patient was placed in supine, mild Trendelenburg position. The area was exposed and cleansed with ChloraPrep, times two. Large sterile drape was used to cover the patient, with the site exposed, under sterile conditions including cap, face mask, sterile gown, and sterile gloves. On single attempt, the introducer needle was inserted with negative pressure in syringe and venous flash was obtained. The guide wire was then advanced without any restriction and the needle was removed. The dilator was used without any complications. Using Seldinger technique the antibiotic coated triple-lumen catheter was advanced over the guide wire to a depth of 20 centimeters. The guide wire was removed. All ports were aspirated with dark venous blood return and flushed easily with sterile saline. All ports were capped. Antibiotic disc was placed around central line at puncture site. The central line was secured to the skin with two interrupted 2.0 silk sutures. The area was bandaged with sterile see- through central line bandage. RADIOLOGICAL DATA Ultrasound guidance was used to locate left internal jugular vein. Doppler/ color flow was used to confirm venous flow. COMPLICATIONS: No apparent complications ESTIMATED BLOOD LOSS: Less than 1 cc. Marquis Finn MD Jul 08, 2017 17:49
--- NOTE | 2017-07-08 17:51 | PD.PROCEDR ---
Procedure Note Procedure DATE: 07/08/2017 PROCEDURE: Orotracheal intubation INDICATION: Hypoxemic respiratory failure/acute DETAILS OF PROCEDURE The patient was placed in optimal position and preoxygenated with 100% FiO2 via bag valve mask. At the start oxygen saturation was 100%. The patient was administered 20 mg etomidate IV and 50 milligrams rocuronium IV. I entered the oropharynx with a size 4 GVL glidescope blade and obtained a grade 2 view of the airway. On single attempt a size 8.0 cuffed endotracheal tube was passed through the vocal cords. Correct tube location was confirmed with end tidal CO2 detector and by auscultating over bilateral lung chavarria. The endotracheal tube was secured with adhesive tape at a depth of 24 cm at the lips. The patient was connected to the ventilator. The patient tolerated the procedure well without any apparent complications. Oxygen saturations were maintained greater than 95% all times. STAT chest x-ray pending at time of dictation. Marquis Finn MD Jul 08, 2017 17:50
[2017-07-08] MEDS ORDERED: SODIUM CHLORIDE 0.9% FLUSH 10 ML FLUSH IV FLUSH PRN (18:00)
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
[2017-07-08 18:11] LABS: BLOOD GAS BASE EXCESS -2.1 mmol/L (-2-2); BLOOD GAS CARBOXYHEMOGLOBIN 1.1 % (0-4); BLOOD GAS HCO3 22 mmol/L (22-26); BLOOD GAS METHEMOGLOBIN 1.2 % (0-2); BLOOD GAS O2 HGB SATURATION 96 % (90-100); BLOOD GAS PCO2 40 mmHg (38-42); BLOOD GAS PO2 122 mmHg (61-120); BLOOD GAS TOTAL HGB 11.8 G/DL (12.0-16.0); CRITICAL VALUE NO; DRAW SITE LT RADIAL; FIO2 100 %; NUMBER OF ARTERIAL PUNCTURES 1; OXYGEN DEVICE VENTILATOR; STAT NO; TEMP CORR TO 98.6; ULNAR PULSE PRESENT; VENT SETTINGS PRVC 16/500/5+/1.0IT
[2017-07-08] MEDS ORDERED: POTASSIUM PHOSPHATE MONOBASIC 500 MG TAB PO PRN (18:15)
[2017-07-08] MEDS ORDERED: POTASSIUM PHOSPHATE INJ 30 MMOL in SODIUM CHLOR 0.9% 250 ML INJ 250 ML IV PRN (18:15)
[2017-07-08] MEDS ORDERED: GLUCAGON 1 MG/ML VIAL OTHER PRN (18:15)
[2017-07-08] MEDS ORDERED: POTASSIUM CHLORIDE 25 MEQ EFFERVESCENT TAB PO PRN (18:15)
[2017-07-08] MEDS ORDERED: POTASSIUM CHLOR 40 MEQ PREMIX 100 ML IV PRN (18:15)
[2017-07-08] MEDS ORDERED: MAGNESIUM OXIDE 400 MG TAB PO PRN (18:15)
[2017-07-08] MEDS ORDERED: POTASSIUM PHOSPHATE MONOBASIC 500 MG TAB PO/TUBE PRN (18:15)
[2017-07-08] MEDS ORDERED: POTASSIUM CHLOR 20 MEQ PREMIX 100 ML IV PRN ×2 (18:15)
[2017-07-08] MEDS ORDERED: SODIUM PHOSPHATE INJ 30 MMOL in SODIUM CHLOR 0.9% 250 ML INJ 240 ML IV PRN (18:15)
[2017-07-08] MEDS ORDERED: MAGNESIUM SULFATE INJ 4 GM in SODIUM CHLORIDE 0.9% INJ 92 ML IV PRN (18:15)
--- NOTE | 2017-07-08 18:51 | RADRPT ---
EXAM DATE/TIME: 07/08/2017 18:07 [place] COMPARISON: CHEST SINGLE AP, July 08, 2017, 16:24. INDICATIONS : Central line placement. MEDICAL HISTORY : Chronic Obstructive Pulmonary Disease. Emphysema. SURGICAL HISTORY : None. ENCOUNTER: Subsequent ACUITY: 1 day PAIN SCORE: Non-responsive. LOCATION: Bilateral chest FINDINGS: Lung bases are excluded from the image. Patient has been intubated with ETT at the level of the clavi cles. Interval placement of left IJ central line with tip in the proximal SVC. No significant pneumot horax. Redemonstration of diffuse bilateral patchy airspace disease. Remainder of the exam is unchang ed. CONCLUSION: 1. ETT in good position. 2. Right IJ central line in the proximal SVC without significant pneumothorax. 3. No significant interval change. Martin Wilks MD on July 08, 2017 at 18:48 Board Certified Radiologist. This report was verified electronically.
[2017-07-08] MEDS: MIDAZOLAM 100 MG/100 ML INJ 100 ML IV PRN (19:00)
[2017-07-08] MEDS: VANCOMYCIN INJ 1,250 MG in SODIUM CHLOR 0.9% 250 ML INJ 250 ML IV SCH (19:00)
[2017-07-08] MEDS: RESP: ALBUTEROL 2.5 MG/IPRATROPIUM 0.5 MG NEB (SCH) NEB ×2 (19:53→23:36)
[2017-07-08] MEDS: DOCUSATE SODIUM 100 MG/10 ML UDC PO SCH (21:04)
[2017-07-08] MEDS: CHLORHEXIDINE 0.12% (ORAL KIT) 15 ML CUP MT SCH (21:04)
[2017-07-08] MEDS: ARTIFICIAL TEARS OPTH SOLN 15 ML BTL EACH EYE SCH (21:05)
[2017-07-08] MEDS: POTASSIUM CHLOR 40 MEQ PREMIX 100 ML IV PRN (21:28)
[2017-07-08] MEDS: INSULIN NovoLIN REGULAR SUPPLEMENTAL SCALE SQ SCH (23:55)
[2017-07-09] VITALS (21 sets, daily range): BP systolic 84–106; BP diastolic 56–71; PULSE 106–123; RESP 15–16; TEMP 98.8–102.4; O2SAT 92–100
[2017-07-09] MEDS: ACETAMINOPHEN 500 MG CPLT PO PRN ×2 (00:01→08:51)
[2017-07-09] MEDS: HEPARIN SODIUM - SQ 10,000 UNITS/ML VIAL SQ SCH ×4 (00:01→23:30)
[2017-07-09] MEDS: PROPOFOL 1000 MG/100 ML INJ 100 ML IV PRN (00:54)
[2017-07-09] MEDS: PIPERACIL-TAZO 3.375 GM PREMIX 50 ML IV SCH ×4 (00:54→20:19)
[2017-07-09] MEDS: POTASSIUM CHLOR 40 MEQ PREMIX 100 ML IV PRN (01:35)
[2017-07-09] MEDS: VANCOMYCIN INJ 1,250 MG in SODIUM CHLOR 0.9% 250 ML INJ 250 ML IV SCH ×2 (03:08→17:12)
[2017-07-09] MEDS: RESP: ALBUTEROL 2.5 MG/IPRATROPIUM 0.5 MG NEB (SCH) NEB ×6 (04:01→23:06)
[2017-07-09 05:02] LABS: AUTOMATED NEUTROPHIL # 16.9 TH/MM3 (1.8-7.7); BASOPHIL # 0.1 TH/MM3 (0-0.2); BASOPHIL % 0.5 % (0.0-2.0); EOSINOPHIL # 0.1 TH/MM3 (0-0.4); EOSINOPHIL % 0.5 % (0.0-4.0); LYMPH % 9.9 % (9.0-44.0); LYMPHOCYTE # 2.2 TH/MM3 (1.0-4.8); MEAN CELL VOLUME 102.5 FL (80.0-100.0); MEAN CORPUSCULAR HEMOGLOBIN 34.6 PG (27.0-34.0); MEAN CORPUSCULAR HGB CONC 33.8 % (32.0-36.0); NEUT % 76.1 % (16.0-70.0); PLATELET COUNT 184 TH/MM3 (150-450); RED BLOOD COUNT 3.12 MIL/MM3 (4.50-5.90); RED CELL DISTRIBUTION WIDTH 13.4 % (11.6-17.2); WHITE BLOOD COUNT 22.2 TH/MM3 (4.0-11.0)
[2017-07-09 05:12] LABS: HEMO FLAGS AUTO DIFF
[2017-07-09 05:16] LABS: INTERNATIONAL NORMALIZED RATIO 1.3 RATIO; PROTHROMBIN TIME - PATIENT 12.7 SEC (9.8-11.6)
[2017-07-09 05:18] LABS: APTT (PATIENT) 36.6 SEC (24.3-30.1)
[2017-07-09 05:35] LABS: ALKALINE PHOSPHATASE 104 U/L (45-117); ALT (GPT) 19 U/L (12-78); AMYLASE 79 U/L (25-115); ANION GAP 8 MEQ/L (5-15); AST (GOT) 45 U/L (15-37); BICARBONATE 23.7 MEQ/L (21.0-32.0); BLOOD UREA NITROGEN 11 MG/DL (7-18); CHLORIDE 106 MEQ/L (98-107); GLOMERULAR FILTRATION RATE 78 ML/MIN (>89); MAGNESIUM 1.1 MG/DL (1.5-2.5); POTASSIUM 4.3 MEQ/L (3.5-5.1); SODIUM (NA) 138 MEQ/L (136-145); TOTAL BILIRUBIN ADULT 1.6 MG/DL (0.2-1.0)
[2017-07-09 05:36] LABS: CREATINE KINASE 75 U/L (39-308)
[2017-07-09] MEDS: INSULIN NovoLIN REGULAR SUPPLEMENTAL SCALE SQ SCH ×4 (05:49→23:29)
[2017-07-09] MEDS: ARTIFICIAL TEARS OPTH SOLN 15 ML BTL EACH EYE SCH ×3 (05:49→20:19)
[2017-07-09 06:00] LABS: BANDS 9 % (0-6); BASOPHILS 1 % (0-2); METAMYELOCYTES 2 % (0-1); NEUTROPHIL # MANUAL DIFF 18.2 TH/MM3 (1.8-7.7); POLYS (SEG NEUTROPHILS) 71 % (16-70); WBC DIFF SAMPLE 100
--- NOTE | 2017-07-09 06:01 | HHI.PR ---
Addendum to Inpatient Note Addendum Reason: Additional Documentation Additional Information ALEXANDER NOTE S: Medical Team paged to [facility] at approximately 1600 on 07/09. Medical team at the bedside when ALEXANDER called for respiratory distress. Earlier that morning patient was respiratory distress during morning evaluations with stat troponin, EKG, lactic acid, blood culture, and chest x-ray ordered. Laboratory studies were not completed, however chest x-ray concerning for worsening pneumonia versus pulmonary edema. Patient was administered IV Lasix and his fluid decreased to 5 mL per hour to keep his IV access open. Patient had appropriate response with improved vital signs at approximately 1300. However, patient's IV fluids were not decreased and continued running at 100 mL per hour likely putting him into respiratory distress at the time of NUBIAT. Patient also under the CIWA protocol and is currently exhibiting signs of withdrawal, however per chart patient has not been evaluated and administered Ativan since 1000 this morning. Due to worsening respiratory status, ALEXANDER was called to assist with transport to the ICU. O: Vitals: Temperature 101.6 degrees, 142 bpm, respiratory rate approximately 40 breaths per minute, blood pressure 146/80, oxygen saturation 84% on 10 L. GENERAL: Disheveled man lying in bed in acute respiratory distress unable to speak in complete sentences. SKIN: Warm and dry. Hyperpigmented with multiple areas of cellulitis. HEENT: No visible LAD or JVD appreciated. CARDIOVASCULAR: Tachycardic with regular rhythm. No MGR appreciated. RESPIRATORY: Patient with diffuse crackles bilaterally throughout all lung chavarria. Patient tachypnea to roughly 40 breaths per minute. Increased work of breathing with accessory muscle use. Patient unable to communicate in complete sentences. GASTROINTESTINAL: Abdomen nondistended. MUSCULOSKELETAL: Strength grossly WNL. NEURO/PSYCH: Afocal. Awake, alert, and oriented x3. A/P: Mr. Zhou is a 57 y/o M admitted or alcohol withdrawal and cellulitis presents in acute respiratory failure. -Stat chest x-ray per medical team read, shows worsening pulmonary edema versus pneumonia. -AB.52/26/46/21 -CTA ordered as patient has been refusing his anticoagulation -BiPAP ordered, however due to worsening respiratory status, immediate transfer order to ICU for likely intubation -Speech Pathologist Assistant consulted and contacted for sign out, discussed with Dr. Cha Update: Medical team to evaluate patient in ICU. Patient with worsening respiratory status and requiring intubation at this time. Discussed with Dr. Finn, Speech Pathologist Assistant. Rasta Gilliland MD R2 Jul 09, 2017 06:01
[2017-07-09 06:02] LABS: DOHLE BODIES PRESENT (NONE SEEN); PLATELET ESTIMATE SMEAR NORMAL (NORMAL); PLATELET MORPHOLOGY ENLARGED (NORMAL); SCAN/DIFF FINAL DIFF MANUAL
[2017-07-09 08:04] LABS: BLOOD, URINE SMALL (NEG); GLUCOSE,URINE NEG (NEG); HYALINE CAST, URINE 1 /lpf (RARE); KETONE, URINE NEG (NEG); MUCUS URINE FEW /lpf (OCC); NITRITE,URINE NEG (NEG); PH, URINE 5.5 (5.0-8.5); URINE COLOR YELLOW (YELLW/STRAW)
[2017-07-09 08:10] LABS: COMMENT (UR) CATH-CULT NOT IND; CULTURE IF INDICATED CATH CULTURE NOT IND
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
[2017-07-09] MEDS: DOCUSATE SODIUM 100 MG/10 ML UDC PO SCH ×2 (08:47→20:19)
[2017-07-09] MEDS: REMOVE OLD PATCH T-DERMAL SCH (08:47)
[2017-07-09] MEDS: NICOTINE 14 MG/24 HR PATCH T-DERMAL SCH (08:47)
[2017-07-09] MEDS: FOLIC ACID 1 MG TAB PO SCH (08:47)
[2017-07-09] MEDS: MULTIVITAMIN TAB PO SCH (08:47)
[2017-07-09] MEDS: LACTOBACILLUS ACIDOPHILUS TAB PO SCH ×2 (08:47→20:19)
[2017-07-09] MEDS: SODIUM CHLORIDE 0.9% FLUSH 10 ML FLUSH IV FLUSH SCH ×3 (08:48→20:19)
[2017-07-09] MEDS: LANSOPRAZOLE SOLUTAB 30 MG TAB NG SCH (08:48)
--- NOTE | 2017-07-09 09:19 | PD.PROCEDR ---
Procedure Note Procedure Procedure: Fiberoptic Bronchoscopy Diagnosis: Hypoxemic respiratory failure Indications: Same Consent: Emergent Anesthesia: See [facility] Description of the Procedure: The patient was sedated and mechanically ventilated. The patient was placed on 100% FIO2 and a volume control mode of ventilation. The fiberoptic bronchoscopy was inserted via 8.0 ETT. The trachea, right and left mainstem bronchi, and sub-segmental bronchi were evaluated. The endobronchial anatomy was normal. Findings: Thick yellowish moderate secretions. Normal anatomy BAL samples: 2 The patient tolerated the procedure well with no hemodynamic instability or hypoxia. There were no immediate complications noted. At the conclusion of the procedure, the patient was placed back on their pre-procedure ventilatory settings. There was minimal EBL. A chest x-ray has been ordered. I personally performed the procedure. Gale Beauchamp MD Jul 09, 2017 09:19
[2017-07-09] MEDS: CHLORHEXIDINE 0.12% (ORAL KIT) 15 ML CUP MT SCH ×2 (10:00→20:19)
--- NOTE | 2017-07-09 10:30 | RADRPT ---
EXAM DATE/TIME: 07/09/2017 09:17 [facility] COMPARISON: CHEST SINGLE AP, July 08, 2017, 18:07. INDICATIONS : Post bronchoscope MEDICAL HISTORY : Chronic obstructive pulmonary disease. SURGICAL HISTORY : None. ENCOUNTER: Subsequent ACUITY: 2 days PAIN SCORE: Non-responsive. LOCATION: chest FINDINGS: Diffuse infiltrates are noted bilaterally consistent with severe pulmonary edema or pneumonia. No pne umothorax is noted. An endotracheal tube has its tip 4 cm above the david in good position. A left i nternal jugular central line has its tip in the superior vena cava. The nasogastric tube has its tip below the diaphragm. The heart is stable. CONCLUSION: Diffuse pulmonary infiltrates consistent with severe pulmonary edema or pneumonia. Clinical correlati on is recommended. Manuel Dougherty MD on July 09, 2017 at 10:26 Board Certified Radiologist. This report was verified electronically.
[2017-07-09 11:06] LABS: BLOOD, URINE MOD (NEG); COMMENT (UR) CATH-CULT NOT IND; CULTURE IF INDICATED CATH CULTURE NOT IND; GLUCOSE,URINE NEG (NEG); KETONE, URINE NEG (NEG); MUCUS URINE FEW /lpf (OCC); NITRITE,URINE NEG (NEG); PH, URINE 5.5 (5.0-8.5); SQUAMOUS EPITHELIAL CELL URINE 1 /hpf (0-5); URINE COLOR YELLOW (YELLW/STRAW)
--- NOTE | 2017-07-09 11:48 | HHI.FPPN ---
Subjective Remarks Nursing states patient underwent bronchoscopy earlier this morning. A Kurtz was placed and he is now tube feeding with Jevity. Patient currently sedated on propofol. (John Martin MD, R3) Objective Vitals Vital Signs Date Time Temp Pulse Resp B/P (MAP) Pulse Ox O2 Delivery O2 Flow Rate FiO2 07/09/17 10:02 99 90 07/09/17 10:00 117 07/09/17 09:10 99 100 07/09/17 08:00 121 07/09/17 08:00 101.9 121 16 105/69 (81) 93 07/09/17 08:00 123 106/59 (75) 07/09/17 08:00 50 07/09/17 07:57 92 50 07/09/17 06:00 118 07/09/17 05:04 95 50 07/09/17 04:00 100.6 114 15 102/71 (81) 94 07/09/17 04:00 50 07/09/17 04:00 114 07/09/17 02:00 113 84/58 (67) 07/09/17 02:00 106 07/09/17 00:48 98 50 07/09/17 00:00 50 07/09/17 00:00 102.4 113 15 97/65 (76) 99 07/09/17 00:00 113 07/08/17 22:00 70 07/08/17 22:00 106 07/08/17 21:21 100 100 07/08/17 20:00 113 97/68 (78) 07/08/17 20:00 100.8 113 19 97/68 (78) 100 Manual Cuff/Auscultation 07/08/17 20:00 100 07/08/17 20:00 113 07/08/17 17:15 100 100 07/08/17 17:10 100 07/08/17 17:00 131 07/08/17 16:16 101.6 142 18 146/80 (102) 85 07/08/17 12:56 98.9 126 20 156/90 (112) 94 I/O 07/08/17 07/08/17 07/08/17 07/09/17 07/09/17 07/09/17 07:00 15:00 23:00 07:00 15:00 23:00 Intake Total 480 ml 682.5 ml 688.1 ml 50 ml Output Total 300 ml Balance 480 ml 682.5 ml 388.1 ml 50 ml Intake Oral 480 ml 320 ml IV Total 362.5 ml 688.1 ml 50 ml Output Urine Total 300 ml # Bowel Movements 0 (John Martin MD, R3) Result Diagram: 07/09/17 0435 07/09/17 0435 Imaging Last 24 hours Impressions Chest X-Ray 07/09/17 0000 Signed Impressions: Service Date/Time: Sunday, July 09, 2017 09:17 - CONCLUSION: Diffuse pulmonary infiltrates consistent with severe pulmonary edema or pneumonia. Clinical correlation is recommended. Manuel Dougherty MD Chest X-Ray 07/08/17 1753 Signed Impressions: Service Date/Time: Saturday, July 08, 2017 18:07 - CONCLUSION: 1. ETT in good position. 2. Right IJ central line in the proximal SVC without significant pneumothorax. 3. No significant interval change. Martin Wilks MD Objective Remarks GENERAL: Disheveled male intubated and sedated. SKIN: 2x2.5 area of pyoderma of the right hand proximal 5th digit. 4x6cm are of pyoderma of the right distal tibia. Improving Erythema at both places. Multiple other areas of ulceration concerning for No active bleeding or purulent drainage. All areas appear improved since admission. HEENT: Atraumatic, normocephalic. No visible LAD or JVD appreciated. CARDIOVASCULAR: RRR. No MGR appreciated. 2+ pulses in all 4 extremities. RESPIRATORY: slightly coarse anteriorly GASTROINTESTINAL: Abdomen soft, non-tender, nondistended with positive bowel sounds. No masses appreciated. MUSCULOSKELETAL: No cyanosis or edema. Strength grossly within normal limits. Ambulating well. NEURO/PSYCH: intubated and sedated (John Martin MD, R3) Date of Insertion: Jul 09, 2017 (John Martin MD, R3) A/P Assessment and Plan Mr. Zhou is a 57 year old male with previous history of alcohol abuse being admitted for multiple areas of purulent cellulitis with focal lesions on the R hand and R madden. Transferred to ICU and intubated with on 07/09 secondary to respiratory failure. Critical care primary managers at this time. (John Martin MD, R3) Attending Attestation Patient seen and examined. Case reviewed and discussed with the resident team. Agree with plan of care as discussed with me and documented in the resident note. (Ry Gonzales MD) Problem List: (1) Respiratory failure ICD Codes: J96.90 - Respiratory failure, unspecified, unspecified whether with hypoxia or hypercapnia Status: Acute Plan: Current management by CC. Currently on propofol at 50 mu./kg per minute, fentanyl at 250 mg an hour and midazolam drips at 5 mg an hour for sedation/analgesia was intubated. Planned discontinuation of propofol secondary to hypotension Bronchoscopy performed 07/09, results pending (2) Elevated troponin ICD Codes: R74.8 - Abnormal levels of other serum enzymes Status: Acute Plan: Care transferred to CC. Troponin 0.12-->0.71-->0.64 ECHO ordered (3) Cellulitis ICD Codes: L03.90 - Cellulitis, unspecified Status: Acute Plan: Patient with skin lesions all over body - see physical exam. Improvement daily. Labs/Microbiology: * ESR 58. * Lactic acid 1.1. * CRP 4.09. * Wound culture: Staphylococcus Aureus and Group A Beta Strep. Sensitivities available. * Blood culture: No growth to date. * Blood culture 07/08: Ordered Imaging: * Hand x-ray: Findings suggesting healing nondisplaced left fifth proximal phalanx fracture. No acute fracture dislocation. 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 No acute fracture or dislocation. * ABIs: Ordered * MRI of RLE: edema throughout the anterior and posterior tibial musculature raising concern for myositis or muscle strain. Mild cellulitis. No osteo. * CXR: Ordered Medications: * Vancomycin 1,000 mg q8hr IV (07/04 - ). * Zosyn 3.375 gm q6hr IV (07/04 - 07/07). Restarted due to new onset sepsis(- ) * Acetaminophen 500 mg q4hr PO PRN Pain 1-10/ Fever >101F. * Toradol 30 mg q6hr IV PRN Breakthrough Pain. Orders: * ID consulted: Continue with current antibiotic regimen. (4) Sepsis ICD Codes: A41.9 - Sepsis, unspecified organism Status: Acute Plan: Patient currently meeting sepsis criteria with leukocytosis, tachypnea, and tachycardia. Suspected source of infection related to areas of cellulitis. -Please see plan as above -Patient currently on vancomycin and Zosyn -Wells criteria: 3, moderate risk. Patient previously refusing heparin. Low threshold to order CTA. (5) Alcohol abuse ICD Codes: F10.10 - Alcohol abuse, uncomplicated Status: Chronic Plan: Patient with extensive alcohol abuse and history of withdrawal. Patient with increasing CIWA score likely due to withdrawals. Medications: * CIWA protocol in place. * Vitamin supplementation. (6) Fracture of proximal phalanx of digit of left hand ICD Codes: S62.619A - Displaced fracture of proximal phalanx of unspecified finger, initial encounter for closed fracture Plan: Subacute/healing nondisplaced left fifth proximal phalanx fracture visualized on Hand X-ray. * See Plan for Cellulitis. * Hand surgery does not recommend intervention at this time. (7) Diarrhea ICD Codes: R19.7 - Diarrhea, unspecified Status: Acute Plan: Explosive diarrhea overnight 07/06. Differential diagnosis: * Alcohol withdrawal versus C. difficile versus enterogastritis Labs: * C. difficile PCR ordered, sample not sent as BMs are semisolid therefore C. difficile infection not likely Medications: * Famotidine 20 mg PO BID. * Lactobacillus Acidophilus 1 tab PO q12hr. (8) Chronic left hip pain ICD Codes: M25.552 - Pain in left hip; G89.29 - Other chronic pain Status: Chronic Plan: Patient with history of chronic left hip pain. * For pain control, see Plan for Cellulitis. (9) Tobacco abuse ICD Codes: Z72.0 - Tobacco use Status: Chronic Plan: Patient with extensive tobacco abuse history including 50 years of 1 pack per day. Medications: * Nicotine patch daily, patient acknowledges possible wound healing delayed due to nicotine use. (10) Nutrition, metabolism, and development symptoms ICD Codes: R63.8 - Other symptoms and signs concerning food and fluid intake Status: Acute Plan: Fluids: * Per CC Diet: * Jevity tube feeds Electrolytes: * Monitor and replete as necessary. DVT Prophylaxis: * Heparin 5,000 q8hr SQ - (John Martin MD, R3) Problem Qualifiers (1) Respiratory failure: Qualified Codes: J96.01 - Acute respiratory failure with hypoxia (2) Cellulitis: Qualified Codes: L03.90 - Cellulitis, unspecified (3) Sepsis: Qualified Codes: A41.9 - Sepsis, unspecified organism John Martin MD, R3 Jul 09, 2017 11:48 Ry Gonzales MD Jul 09, 2017 13:50
[2017-07-09] MEDS: THIAMINE HCL 100 MG TAB PO SCH (12:36)
--- NOTE | 2017-07-09 12:47 | HHI.FPPN ---
Addendum to progress note ADDENDUM Reason for addendum: Additonal documentation Additional information OFF SERVICE NOTE: Patient is 57 year old alcoholic, and likely homeless, male admitted 07/05 with multiple areas of cellulitis and alcohol abuse. Hand surgery saw the infection of the hand and had no surgical intervention was needed. Imaging studies of the hand show a previous fracture. MRI of the lower extremity did not show osteomylelitis. ID was consulted and the patient was continued on vanc and zosyn. The patient's infection appeared to be improving with abx, however on 07/09/17 at 0600, the patient had a change in status. A halicat was called (see halicat note). He was determined to have acute respiratoy failure. A stat chest xray showed worsening pulmonary edema. His troponins also mildly bumped. CC was immediately contacted for intubation and they resumed care of this patient. He is currently in the ICU. The patient had a bronchoscopy on 07/[address] Beauchamp. Results pending in the EMR currently. A ibanez was recently placed b/c of retention and [facility] John Martin MD, R3 Jul 09, 2017 12:47
[2017-07-09] MEDS: SODIUM CHLOR 0.9% 1000 ML INJ 1,000 ML IV SCH (12:57)
[2017-07-09] MEDS: MIDAZOLAM 100 MG/100 ML INJ 100 ML IV PRN (17:13)
[2017-07-09] MEDS: DEXTROSE 50% IN WATER 50 ML VIAL(D50) IV PUSH PRN ×2 (17:49→18:05)
[2017-07-10] VITALS (20 sets, daily range): BP systolic 79–137; BP diastolic 39–78; PULSE 63–114; RESP 15–22; TEMP 97.5–103; O2SAT 98–100
[2017-07-10] MEDS: PIPERACIL-TAZO 3.375 GM PREMIX 50 ML IV SCH ×4 (01:17→21:30)
[2017-07-10] MEDS: RESP: ALBUTEROL 2.5 MG/IPRATROPIUM 0.5 MG NEB (SCH) NEB ×6 (02:53→23:17)
[2017-07-10] MEDS: ACETAMINOPHEN 500 MG CPLT PO PRN (03:16)
[2017-07-10] MEDS: VANCOMYCIN INJ 1,250 MG in SODIUM CHLOR 0.9% 250 ML INJ 250 ML IV SCH (03:43)
[2017-07-10] MEDS ORDERED: PHARMACY ORDERED LAB ONE (03:45)
[2017-07-10 04:18] LABS: BLOOD GAS BASE EXCESS -2.3 mmol/L (-2-2); BLOOD GAS CARBOXYHEMOGLOBIN 1.2 % (0-4); BLOOD GAS HCO3 24 mmol/L (22-26); BLOOD GAS METHEMOGLOBIN 1.1 % (0-2); BLOOD GAS O2 HGB SATURATION 95 % (90-100); BLOOD GAS OXYGEN CONTENT 13.6 Vol % (12.0-20.0); BLOOD GAS PCO2 54 mmHg (38-42); BLOOD GAS PO2 102 mmHg (61-120); BLOOD GAS TOTAL HGB 10.1 G/DL (12.0-16.0); TEMP CORR TO 98.6
[2017-07-10 04:20] LABS: CRITICAL VALUE YES; DRAW SITE RT RADIAL; FIO2 50 %; NUMBER OF ARTERIAL PUNCTURES 1; OXYGEN DEVICE VENTILATOR; STAT NO; ULNAR PULSE PRESENT; VENT SETTINGS PRVC16/500/1.2/+8
[2017-07-10 04:54] LABS: AUTOMATED NEUTROPHIL # 12.2 TH/MM3 (1.8-7.7); BASOPHIL # 0.1 TH/MM3 (0-0.2); BASOPHIL % 0.7 % (0.0-2.0); EOSINOPHIL # 0.3 TH/MM3 (0-0.4); EOSINOPHIL % 1.7 % (0.0-4.0); HEMATOCRIT 29.4 % (39.0-51.0); HEMO FLAGS DIFF FINAL; LYMPH % 8.1 % (9.0-44.0); LYMPHOCYTE # 1.3 TH/MM3 (1.0-4.8); MEAN CELL VOLUME 103.8 FL (80.0-100.0); MEAN CORPUSCULAR HEMOGLOBIN 34.6 PG (27.0-34.0); MEAN CORPUSCULAR HGB CONC 33.4 % (32.0-36.0); MONO % 11.9 % (0.0-8.0); NEUT % 77.6 % (16.0-70.0); PLATELET COUNT 184 TH/MM3 (150-450); RED BLOOD COUNT 2.83 MIL/MM3 (4.50-5.90); RED CELL DISTRIBUTION WIDTH 13.6 % (11.6-17.2); WHITE BLOOD COUNT 15.8 TH/MM3 (4.0-11.0)
[2017-07-10] MEDS: ARTIFICIAL TEARS OPTH SOLN 15 ML BTL EACH EYE SCH ×3 (04:57→21:32)
[2017-07-10] MEDS: fentaNYL DRIP 250 ML IV PRN (04:57)
[2017-07-10] MEDS: MIDAZOLAM 100 MG/100 ML INJ 100 ML IV PRN (04:57)
[2017-07-10 05:27] LABS: BICARBONATE 25.9 MEQ/L (21.0-32.0); POTASSIUM 3.9 MEQ/L (3.5-5.1)
[2017-07-10 05:28] LABS: VANCOMYCIN TROUGH 19.5 MCG/ML (5.0-10.0)
--- NOTE | 2017-07-10 05:28 | RADRPT ---
EXAM DATE/TIME: 07/10/2017 03:54 [facility] COMPARISON: CHEST SINGLE AP, July 09, 2017, 9:17. INDICATIONS : Shortness of breath, possible pulmonary disease. MEDICAL HISTORY : Chronic obstructive pulmonary disease. SURGICAL HISTORY : None. ENCOUNTER: Subsequent ACUITY: 3 days PAIN SCORE: Non-responsive. LOCATION: Bilateral chest FINDINGS: The ET tube, NG tube and left internal jugular central line are well placed. There is diffuse mixed i nterstitial and alveolar consolidation. The costophrenic angles are grossly clear. CONCLUSION: Diffuse consolidation likely related to edema. Compared to the prior exam, there has been some improv ement. Adan James MD on July 10, 2017 at 5:25 Board Certified Radiologist. This report was verified electronically.
[2017-07-10] MEDS: INSULIN NovoLIN REGULAR SUPPLEMENTAL SCALE SQ SCH ×3 (05:29→18:51)
[2017-07-10] MEDS: RESP: ALBUTEROL 2.5 MG/3 ML NEB (PRN) NEB (05:30)
[2017-07-10] MEDS ORDERED: methylPREDNISolone SOD SUCC 125 MG/2 ML VIAL IV PUSH ONE (05:45)
[2017-07-10] MEDS: HEPARIN SODIUM - SQ 10,000 UNITS/ML VIAL SQ SCH ×2 (08:00→16:20)
[2017-07-10] MEDS: SODIUM CHLOR 0.9% 1000 ML INJ 1,000 ML IV SCH (08:03)
[2017-07-10] MEDS: SODIUM CHLORIDE 0.9% FLUSH 10 ML FLUSH IV FLUSH SCH ×3 (09:00→21:31)
[2017-07-10] MEDS: FOLIC ACID 1 MG TAB PO SCH (09:00)
[2017-07-10] MEDS: REMOVE OLD PATCH T-DERMAL SCH (09:00)
[2017-07-10] MEDS: LACTULOSE SYRUP 20 GM/30 ML CUP PO SCH ×2 (09:30→21:00)
[2017-07-10] MEDS: LANSOPRAZOLE SOLUTAB 30 MG TAB NG SCH (09:34)
[2017-07-10] MEDS: THIAMINE HCL 100 MG TAB PO SCH (09:34)
[2017-07-10] MEDS: MULTIVITAMIN TAB PO SCH (09:34)
[2017-07-10] MEDS: CHLORHEXIDINE 0.12% (ORAL KIT) 15 ML CUP MT SCH ×2 (09:34→21:31)
[2017-07-10] MEDS: DOCUSATE SODIUM 100 MG/10 ML UDC PO SCH ×2 (09:34→21:31)
[2017-07-10] MEDS: LACTOBACILLUS ACIDOPHILUS TAB PO SCH ×2 (09:34→21:32)
[2017-07-10] MEDS: NICOTINE 14 MG/24 HR PATCH T-DERMAL SCH (09:35)
[2017-07-10] MEDS ORDERED: FUROSEMIDE 40 MG/4 ML VIAL IV PUSH ONE (09:45)
[2017-07-10] MEDS ORDERED: TERBUTALINE INJ 1 MG/ML AMP SQ PRN (09:45)
[2017-07-10] MEDS ORDERED: NOREPINEPHRINE INJ 8 MG in SODIUM CHLOR 0.9% 250 ML INJ 246 ML IV PRN (09:45)
[2017-07-10] MEDS ORDERED: NOREPINEPHRINE INJ 8 MG in SODIUM CHLOR 0.9% 250 ML INJ 242 ML IV PRN (10:00)
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
[2017-07-10] MEDS ORDERED: IOHEXOL 350 MG/ML 10 ML VIAL (for RAD DIAG) IVCONTRAST ONE (10:41)
--- NOTE | 2017-07-10 10:43 | RADRPT ---
EXAM DATE/TIME: 07/10/2017 10:13 [facility] COMPARISON: No previous studies available for comparison. INDICATIONS : Altered mental status. RADIATION DOSE: 48.24 CTDIvol (mGy) MEDICAL HISTORY : Non-responsive. SURGICAL HISTORY : Non-responsive. ENCOUNTER: Initial ACUITY: 1 day PAIN SCALE: Non-responsive LOCATION: Bilateral head TECHNIQUE: Multiple contiguous axial images were obtained of the head. Using automated exposure control and adj ustment of the mA and/or kV according to patient size, radiation dose was kept as low as reasonably a chievable to obtain optimal diagnostic quality images. DICOM format image data is available electro nically for review and comparison. FINDINGS: CEREBRUM: Mild to moderate diffuse cerebral atrophy. The ventricles are normal for age. No evidence of midline shift, mass lesion, hemorrhage or acute infarction. No extra-axial fluid collections are seen. POSTERIOR FOSSA: The cerebellum and brainstem are intact. The 4th ventricle is midline. The cerebellopontine angle i s unremarkable. EXTRACRANIAL: The visualized portion of the orbits is intact. Mild mucoperiosteal thickening involving the maxillar y sinuses and left frontal sinus. The mastoid air cells are opacified bilaterally. No evidence for er osive bony change. SKULL: The calvaria is intact. No evidence of skull fracture. CONCLUSION: 1. Moderate diffuse cerebral atrophy, slightly out of proportion to age. 2. Bilateral mastoiditis. 3. Paranasal sinus mucosal disease. 4. No acute intracranial abnormality. Martin Wilks MD on July 10, 2017 at 10:37 Board Certified Radiologist. This report was verified electronically.
--- NOTE | 2017-07-10 10:58 | RADRPT ---
EXAM DATE/TIME: 07/10/2017 10:23 [facility] COMPARISON: No previous studies available for comparison. INDICATIONS : Respiratory distress. IV CONTRAST: 73 cc Omnipaque 350 (iohexol) IV RADIATION DOSE: 23.29 CTDIvol (mGy) MEDICAL HISTORY : Non-responsive. SURGICAL HISTORY : Non-responsive. ENCOUNTER: Initial ACUITY: 1 day PAIN SCALE: Non-responsive LOCATION: Bilateral chest TECHNIQUE: Volumetric scanning of the chest was performed using a pulmonary embolism protocol MIP images were re constructed. Using automated exposure control and adjustment of the mA and/or kV according to patien t size, radiation dose was kept as low as reasonably achievable to obtain optimal diagnostic quality images. DICOM format image data is available electronically for review and comparison. Follow-up recommendations for detected pulmonary nodules are based at a minimum on nodule size and pa tient risk factors according to Fleischner Society Guidelines. FINDINGS: There is no evidence of central pulmonary emboli. Marked bibasilar consolidative changes with small bilateral pleural effusions. Extensive interstitial changes in both mid and upper lung zones. Extensive mediastinal adenopathy and AP window adenopathy. There is hilar adenopathy on the right. There is no pericardial effusion The portion of the upper abdominal contents visualized unremarkable CONCLUSION: There is no central pulmonary emboli Bibasilar consolidative changes and small bilateral pleural effusions Diffuse interstitial changes, almost honeycomb pattern in both lungs Extensive mediastinal adenopathy. Does this patient have an underlying neoplasm. Jorge Coates MD FACR on July 10, 2017 at 10:52 Board Certified Radiologist. This report was verified electronically.
--- NOTE | 2017-07-10 14:48 | ECHRPT ---
Indication: endocarditis CONCLUSIONS Normal left ventricular size. The left ventricular systolic function is low normal (EF 50%). Mild mitral valve regurgitation. No aortic valve regurgitation. There is mild tricuspid valve regurgitation. The estimated pulmonary arterial pressure is 35 mmHg. No evidence of endocarditis. BP: / HR: Rhythm: MEASUREMENTS (Male / Female) Normal Values Technical Quality:Good 2D ECHO LV Diastolic Diameter PLAX 3.0 cm 4.2 - 5.9 / 3.9 - 5.3 cm LV Systolic Diameter PLAX 2.5 cm IVS Diastolic Thickness 1.5 cm 0.6 - 1.0 / 0.6 - 0.9 cm LVPW Diastolic Thickness 1.1 cm 0.6 - 1.0 / 0.6 - 0.9 cm LV Relative Wall Thickness 0.9 RV Internal Dim ED PLAX 1.9 cm M-MODE Aortic Root Diameter MM 3.6 cm LA Systolic Diameter MM 2.6 cm LA Ao Ratio MM 0.7 AV Cusp Separation MM 1.9 cm DOPPLER Mitral E Point Velocity 92.8 cm/s Mitral A Point Velocity 97.7 cm/s Mitral E to A Ratio 0.9 LV E' Lateral Velocity 11.5 cm/s Mitral E to LV E' Lateral Ratio 8.1 LV E' Septal Velocity 7.9 cm/s Mitral E to LV E' Septal Ratio 11.7 TR Peak Velocity 252.0 cm/s TR Peak Gradient 25.4 mmHg Right Atrial Pressure 10.0 mmHg Pulmonary Artery Systolic Pressu 35.4 mmHg Right Ventricular Systolic Press 35.4 mmHg FINDINGS LEFT VENTRICLE Normal left ventricular size. The left ventricular systolic function is low normal (EF 50%). RIGHT VENTRICLE Normal right ventricular size and systolic function. LEFT ATRIUM The left atrial size is normal. RIGHT ATRIUM The right atrial size is normal. ATRIAL SEPTUM Normal atrial septal thickness without atrial level shunting by limited color doppler interrogation. AORTA The aortic root and proximal ascending aorta are normal in size on limited imaging. MITRAL VALVE Structurally normal mitral valve. Mild mitral valve regurgitation. AORTIC VALVE Trileaflet aortic valve. No aortic valve regurgitation. TRICUSPID VALVE Structurally normal tricuspid valve. There is mild tricuspid valve regurgitation. The estimated pulmonary arterial pressure is 35.4 mmHg. PULMONARY VALVE No pulmonary valve regurgitation or stenosis. VESSELS The inferior vena cava is normal in size. PERICARDIUM No pericardial effusion. Ramila Garsia MD, FACC (Electronically Signed) Final Date:10 July 2017 14:46
[2017-07-10 14:49] LABS: CKMB 6.6 NG/ML (0.5-3.6)
--- NOTE | 2017-07-10 15:00 | HHI.FPPN ---
Subjective Remarks Patient unable to be interviewed this AM due to intubation. Updated on status by Dr. Beauchamp who stated that the patient was having issues with ventilation leading to adjustment of the ventilator. He became unresponsive this AM and a stat CT brain was pending. (Chiqui Aguirre MD R1) Objective Vitals Vital Signs Date Time Temp Pulse Resp B/P (MAP) Pulse Ox O2 Delivery O2 Flow Rate FiO2 07/10/17 11:44 99 45 07/10/17 11:30 99 100 07/10/17 10:00 98 07/10/17 08:19 98 40 07/10/17 08:00 98.7 101 16 94/55 (68) 100 07/10/17 08:00 101 92/52 (65) 07/10/17 08:00 100 07/10/17 08:00 102 07/10/17 06:00 99 07/10/17 05:38 99 50 07/10/17 04:52 98 50 07/10/17 04:00 103.0 112 17 92/54 (67) 98 07/10/17 04:00 100 07/10/17 04:00 112 07/10/17 02:00 114 07/10/17 02:00 114 92/56 (68) 07/10/17 01:11 100 50 07/10/17 00:00 113 07/10/17 00:00 100 07/10/17 00:00 98.3 113 16 89/55 (66) 100 07/09/17 22:42 100 50 07/09/17 22:00 111 07/09/17 20:00 100 07/09/17 20:00 99.9 110 16 89/56 (67) 100 07/09/17 20:00 113 89/56 (67) 07/09/17 20:00 110 07/09/17 19:50 100 50 07/09/17 18:00 109 07/09/17 16:41 100 50 07/09/17 16:00 50 07/09/17 16:00 98.8 109 16 91/58 (69) 100 07/09/17 16:00 109 I/O 07/09/17 07/09/17 07/09/17 07/10/17 07/10/17 07/10/17 06:59 14:59 22:59 06:59 14:59 22:59 Intake Total 688.1 ml 150 ml 863.0 ml 1141.5 ml 120 ml Output Total 300 ml 1375 ml 550 ml Balance 388.1 ml 150 ml -512.0 ml 591.5 ml 120 ml IV Total 688.1 ml 150 ml 725.0 ml 662.5 ml 120 ml Tube Feeding 138 ml 359 ml Other 120 ml Output Urine Total 300 ml 1375 ml 550 ml # Bowel Movements 0 0 0 (Chiqui Aguirre MD R1) Result Diagram: 07/10/17 0340 07/10/17 0340 Imaging Last Impressions Chest X-Ray 07/10/17 0600 Signed Impressions: Service Date/Time: Monday, July 10, 2017 03:54 - CONCLUSION: Diffuse consolidation likely related to edema. Compared to the prior exam, there has been some improvement. Adan James MD Head CT 07/10/17 0000 Signed Impressions: Service Date/Time: Monday, July 10, 2017 10:13 - CONCLUSION: 1. Moderate diffuse cerebral atrophy, slightly out of proportion to age. 2. Bilateral mastoiditis. 3. Paranasal sinus mucosal disease. 4. No acute intracranial abnormality. Martin Wilks MD Lower Extremity MRI 07/08/17 0000 Signed Impressions: Service Date/Time: Saturday, July 08, 2017 10:30 - CONCLUSION: 1. Some edema is noted throughout the anterior and posterior tibial musculature raising the possibility of myositis or muscle strain. Clinical correlation is recommended. 2. Mild cellulitis of the lower calf and upper ankle posteriorly. 3. No evidence of osteomyelitis. 4. Serpiginous-appearing lesion within the distal tibial metadiaphysis which has the appearance of probable bone infarct. 5. No soft tissue abscess noted. Manuel Dougherty MD CT Angiography 07/08/17 0000 Signed Impressions: Service Date/Time: Monday, July 10, 2017 10:23 - CONCLUSION: There is no central pulmonary emboli Bibasilar consolidative changes and small bilateral pleural effusions Diffuse interstitial changes, almost honeycomb pattern in both lungs Extensive mediastinal adenopathy. Does this patient have an underlying neoplasm. Jorge Coates MD FACR Tibia/Fibula X-Ray 07/04/17 0000 Signed Impressions: Service Date/Time: Tuesday, July 04, 2017 15:19 - CONCLUSION: 1. 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 2. No acute fracture or dislocation. Martin Wilks MD Hand X-Ray 07/04/17 0000 Signed Impressions: Service Date/Time: Tuesday, July 04, 2017 15:14 - CONCLUSION: 1. Findings suggesting healing nondisplaced left fifth proximal phalanx fracture . 2. No acute fracture or dislocation. Martin Wilks MD Objective Remarks GENERAL: Disheveled male intubated and non-responsive. SKIN: 2x2.5 area of pyoderma of the right hand proximal 5th digit. 4x6cm are of pyoderma of the right distal tibia. Improving Erythema at both places. Multiple other areas of ulceration concerning for No active bleeding or purulent drainage. HEENT: Atraumatic, normocephalic. No visible LAD or JVD appreciated. CARDIOVASCULAR: RRR. No MGR appreciated. 2+ pulses in all 4 extremities. RESPIRATORY: slightly coarse anteriorly GASTROINTESTINAL: Abdomen soft, nondistended with positive bowel sounds. No masses appreciated. MUSCULOSKELETAL: No cyanosis or edema. Strength grossly within normal limits. (Chiqui Aguirre MD R1) Date of Insertion: Jul 09, 2017 (Chiqui Aguirre MD R1) Line: Central Venous Catheter Side: Left Location: Internal, Jugular (Chiqui Aguirre MD R1) A/P Assessment and Plan Mr. Zhou is a 57 year old male with previous history of alcohol abuse being admitted for multiple areas of purulent cellulitis with focal lesions on the R hand and R madden. Transferred to ICU and intubated with on 07/09 secondary to respiratory failure. Critical care primary managers at this time. (Chiqui Aguirre MD R1) Attending Attestation Patient seen and examined. Case reviewed and discussed with the resident team. Agree with plan of care as discussed with me and documented in the resident note. (Ry Gonzales MD) Problem List: (1) Altered mental status ICD Codes: R41.82 - Altered mental status, unspecified Status: Acute Plan: CC managing: States that it is likely acute toxic metabolic encephalopathy likely secondary to hypoxemia. Patient unresponsive although off sedation since [address] brain w/o contrast on 07/10 showed moderate diffuse cerebral atrophy, slightly out of proportion to age. (2) Respiratory failure ICD Codes: J96.90 - Respiratory failure, unspecified, unspecified whether with hypoxia or hypercapnia Status: Acute Plan: Current management by CC. * Currently on propofol at 50 mu./kg per minute, fentanyl at 250 mg an hour and midazolam drips at 5 mg an hour for sedation/analgesia was intubated. Off since 529 due to change in mental status * CXR on 07/10 showed continued pulmonary edema- Lasix 40mg IV * Bronchoscopy performed 07/09, showed thick yellow secretions and normal anatomy. Cx pending (3) Elevated troponin ICD Codes: R74.8 - Abnormal levels of other serum enzymes Status: Acute Plan: Care transferred to CC. * Troponin 0.12-->0.71-->0.64 * ECHO ordered and pending (4) Cellulitis ICD Codes: L03.90 - Cellulitis, unspecified Status: Acute Plan: Patient with skin lesions all over body - see physical exam. Improvement daily. Labs/Microbiology: * ESR 58. * Lactic acid 1.1. * CRP 4.09. * Wound culture: Staphylococcus Aureus and Group A Beta Strep. Sensitivities available. * Blood culture: No growth to date. * Blood culture 07/08: Ordered Imaging: * Hand x-ray: Findings suggesting healing nondisplaced left fifth proximal phalanx fracture. No acute fracture dislocation. 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 No acute fracture or dislocation. * ABIs: Ordered * MRI of RLE: edema throughout the anterior and posterior tibial musculature raising concern for myositis or muscle strain. Mild cellulitis. No osteo. * CXR: Ordered Medications: * Vancomycin 1,000 mg q8hr IV (07/04 - ). * Zosyn 3.375 gm q6hr IV (07/04 - 07/07). Restarted due to new onset sepsis(- ) * Acetaminophen 500 mg q4hr PO PRN Pain 1-10/ Fever >101F. * Toradol 30 mg q6hr IV PRN Breakthrough Pain. Orders: * ID consulted: Continue with current antibiotic regimen. (5) Sepsis ICD Codes: A41.9 - Sepsis, unspecified organism Status: Acute Plan: Patient currently meeting sepsis criteria with leukocytosis, tachypnea, and tachycardia. Suspected source of infection related to areas of cellulitis. -Please see plan as above -Patient currently on vancomycin and Zosyn -Wells criteria: 3, moderate risk. Patient previously refusing heparin. Low threshold to order CTA. (6) Alcohol abuse ICD Codes: F10.10 - Alcohol abuse, uncomplicated Status: Chronic Plan: Patient with extensive alcohol abuse and history of withdrawal. Patient with increasing CIWA score likely due to withdrawals. Medications: * CIWA protocol in place. * Vitamin supplementation. (7) Fracture of proximal phalanx of digit of left hand ICD Codes: S62.619A - Displaced fracture of proximal phalanx of unspecified finger, initial encounter for closed fracture Plan: Subacute/healing nondisplaced left fifth proximal phalanx fracture visualized on Hand X-ray. * See Plan for Cellulitis. * Hand surgery does not recommend intervention at this time. (8) Diarrhea ICD Codes: R19.7 - Diarrhea, unspecified Status: Acute Plan: Explosive diarrhea overnight 07/06. Differential diagnosis: * Alcohol withdrawal versus C. difficile versus enterogastritis Labs: * C. difficile PCR ordered, sample not sent as BMs are semisolid therefore C. difficile infection not likely Medications: * Famotidine 20 mg PO BID. * Lactobacillus Acidophilus 1 tab PO q12hr. (9) Chronic left hip pain ICD Codes: M25.552 - Pain in left hip; G89.29 - Other chronic pain Status: Chronic Plan: Patient with history of chronic left hip pain. * For pain control, see Plan for Cellulitis. (10) Tobacco abuse ICD Codes: Z72.0 - Tobacco use Status: Chronic Plan: Patient with extensive tobacco abuse history including 50 years of 1 pack per day. Medications: * Nicotine patch daily, patient acknowledges possible wound healing delayed due to nicotine use. (11) Nutrition, metabolism, and development symptoms ICD Codes: R63.8 - Other symptoms and signs concerning food and fluid intake Status: Acute Plan: Fluids: * Per CC Diet: * Jevity tube feeds Electrolytes: * Monitor and replete as necessary. DVT Prophylaxis: * Heparin 5,000 q8hr SQ GI prophylaxis: * Lansoprazole (Chiqui Aguirre MD R1) Problem Qualifiers (1) Respiratory failure: Qualified Codes: J96.01 - Acute respiratory failure with hypoxia (2) Cellulitis: Qualified Codes: L03.90 - Cellulitis, unspecified (3) Sepsis: Qualified Codes: A41.9 - Sepsis, unspecified organism Chiqui Aguirre MD R1 Jul 10, 2017 15:00 Ry Gonzales MD Jul 12, 2017 08:49
[2017-07-10 15:04] LABS: BLOOD GAS BASE EXCESS -1.8 mmol/L (-2-2); BLOOD GAS CARBOXYHEMOGLOBIN 1.1 % (0-4); BLOOD GAS HCO3 24 mmol/L (22-26); BLOOD GAS O2 HGB SATURATION 95 % (90-100); BLOOD GAS OXYGEN CONTENT 13.2 Vol % (12.0-20.0); BLOOD GAS PCO2 57 mmHg (38-42); BLOOD GAS PO2 101 mmHg (61-120); BLOOD GAS TOTAL HGB 9.8 G/DL (12.0-16.0); TEMP CORR TO 98.6
[2017-07-10 15:05] LABS: CRITICAL VALUE YES; OXYGEN DEVICE VENTILATOR
[2017-07-10 15:06] LABS: DRAW SITE ART LINE; FIO2 45 %; STAT NO; ULNAR PULSE PRESENT
[2017-07-10 17:16] LABS: BLOOD GAS BASE EXCESS -2.2 mmol/L (-2-2); BLOOD GAS HCO3 23 mmol/L (22-26); BLOOD GAS METHEMOGLOBIN 1.1 % (0-2); BLOOD GAS O2 HGB SATURATION 96 % (90-100); BLOOD GAS OXYGEN CONTENT 13.9 Vol % (12.0-20.0); BLOOD GAS PCO2 50 mmHg (38-42); BLOOD GAS PO2 128 mmHg (61-120); BLOOD GAS TOTAL HGB 10.1 G/DL (12.0-16.0); CRITICAL VALUE YES; OXYGEN DEVICE VENTILATOR; TEMP CORR TO 98.6
[2017-07-10 17:17] LABS: DRAW SITE ART LINE; FIO2 45 %
[2017-07-10 17:18] LABS: STAT NO
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
[2017-07-11] VITALS (17 sets, daily range): BP systolic 94–144; BP diastolic 49–86; PULSE 54–89; RESP 21–22; TEMP 98.2–99; O2SAT 91–100
[2017-07-11] MEDS: RESP: ALBUTEROL 2.5 MG/IPRATROPIUM 0.5 MG NEB (SCH) NEB ×5 (03:34→20:06)
[2017-07-11] MEDS: MIDAZOLAM 100 MG/100 ML INJ 100 ML IV PRN ×2 (04:10→19:38)
[2017-07-11 04:18] LABS: BLOOD GAS BASE EXCESS -2.9 mmol/L (-2-2); BLOOD GAS CARBOXYHEMOGLOBIN 0.6 % (0-4); BLOOD GAS HCO3 22 mmol/L (22-26); BLOOD GAS METHEMOGLOBIN 0.9 % (0-2); BLOOD GAS O2 HGB SATURATION 98 % (90-100); BLOOD GAS OXYGEN CONTENT 16.1 Vol % (12.0-20.0); BLOOD GAS PCO2 39 mmHg (38-42); BLOOD GAS PO2 404 mmHg (61-120); BLOOD GAS TOTAL HGB 10.9 G/DL (12.0-16.0); CRITICAL VALUE NO; OXYGEN DEVICE VENTILATOR; TEMP CORR TO 98.6
[2017-07-11 04:19] LABS: DRAW SITE ART LINE; FIO2 45 %; STAT NO; ULNAR PULSE PRESENT; VENT SETTINGS PRVC22/575/0.8/+8
[2017-07-11] MEDS: PIPERACIL-TAZO 3.375 GM PREMIX 50 ML IV SCH ×4 (04:31→19:45)
--- NOTE | 2017-07-11 05:08 | RADRPT ---
EXAM DATE/TIME: 07/11/2017 03:55 [facility] COMPARISON: CHEST SINGLE AP, July 10, 2017, 3:54. INDICATIONS : Short of breath. MEDICAL HISTORY : Chronic obstructive pulmonary disease. SURGICAL HISTORY : None. ENCOUNTER: Subsequent ACUITY: 1 week PAIN SCORE: 0/10 LOCATION: Bilateral chest FINDINGS: The ET tube, NG tube and left internal jugular central line are well placed. The heart size is normal . Lungs demonstrate diffuse mixed interstitial and alveolar consolidation being worse at the bases. T his process appears to have worsened. CONCLUSION: Suspected worsening edema. Adan James MD on July 11, 2017 at 5:06 Board Certified Radiologist. This report was verified electronically.
[2017-07-11] MEDS: ARTIFICIAL TEARS OPTH SOLN 15 ML BTL EACH EYE SCH ×3 (05:24→22:00)
[2017-07-11] MEDS: INSULIN NovoLIN REGULAR SUPPLEMENTAL SCALE SQ SCH ×4 (05:24→17:41)
[2017-07-11 07:51] LABS: HEMATOCRIT 31.3 % (39.0-51.0); MEAN CELL VOLUME 103.3 FL (80.0-100.0); MEAN CORPUSCULAR HEMOGLOBIN 34.1 PG (27.0-34.0); PLATELET COUNT 203 TH/MM3 (150-450); RED BLOOD COUNT 3.03 MIL/MM3 (4.50-5.90); RED CELL DISTRIBUTION WIDTH 13.5 % (11.6-17.2); REVIEW FLAG FINAL
[2017-07-11] MEDS: SODIUM CHLOR 0.9% 1000 ML INJ 1,000 ML IV SCH (08:03)
[2017-07-11 08:29] LABS: BICARBONATE 25.5 MEQ/L (21.0-32.0); MAGNESIUM 2.1 MG/DL (1.5-2.5); POTASSIUM 3.5 MEQ/L (3.5-5.1)
[2017-07-11] MEDS: LACTULOSE SYRUP 20 GM/30 ML CUP PO SCH ×2 (08:49→19:47)
[2017-07-11] MEDS: DOCUSATE SODIUM 100 MG/10 ML UDC PO SCH ×2 (08:49→19:47)
[2017-07-11] MEDS: THIAMINE HCL 100 MG TAB PO SCH (08:49)
[2017-07-11] MEDS: MULTIVITAMIN TAB PO SCH (08:49)
[2017-07-11] MEDS: FOLIC ACID 1 MG TAB PO SCH (08:49)
[2017-07-11] MEDS: LANSOPRAZOLE SOLUTAB 30 MG TAB NG SCH (08:49)
[2017-07-11] MEDS: CHLORHEXIDINE 0.12% (ORAL KIT) 15 ML CUP MT SCH ×2 (08:50→19:46)
[2017-07-11] MEDS: SODIUM CHLORIDE 0.9% FLUSH 10 ML FLUSH IV FLUSH SCH ×3 (08:50→19:47)
[2017-07-11] MEDS: HEPARIN SODIUM - SQ 10,000 UNITS/ML VIAL SQ SCH ×3 (08:50→16:32)
[2017-07-11] MEDS: REMOVE OLD PATCH T-DERMAL SCH (08:51)
[2017-07-11] MEDS: NICOTINE 14 MG/24 HR PATCH T-DERMAL SCH (08:51)
[2017-07-11] MEDS: LACTOBACILLUS ACIDOPHILUS TAB PO SCH ×2 (08:51→19:47)
--- NOTE | 2017-07-11 11:25 | HHI.FPPN ---
Subjective Remarks On examination this morning. Patient was responsive, but did open his eyes to sternal rub. Nurse reported that overnight patient had awakened and was agitated therefore was placed back on sedation. (Chiqui Aguirre MD R1) Objective Vitals Vital Signs Date Time Temp Pulse Resp B/P (MAP) Pulse Ox O2 Delivery O2 Flow Rate FiO2 07/11/17 10:00 60 07/11/17 08:08 93 45 07/11/17 08:00 45 07/11/17 08:00 80 97/59 (72) 94/49 (64) 07/11/17 08:00 60 07/11/17 08:00 98.8 71 22 113/65 (81) 92 99/57 (71) 07/11/17 06:00 68 07/11/17 04:00 99.0 62 22 118/66 (83) 100 114/57 (76) 07/11/17 04:00 45 07/11/17 04:00 62 07/11/17 02:00 58 07/11/17 01:30 63 98/49 07/11/17 01:09 100 45 07/11/17 00:00 98.6 68 22 144/86 (105) 100 142/70 (94) 07/11/17 00:00 68 07/11/17 00:00 45 07/10/17 22:00 63 07/10/17 20:38 100 45 07/10/17 20:00 45 07/10/17 20:00 98.2 66 22 137/78 (97) 99 125/61 (82) 07/10/17 20:00 66 07/10/17 18:00 75 07/10/17 16:20 77 82/40 07/10/17 16:00 45 07/10/17 16:00 72 07/10/17 16:00 97.5 70 18 87/54 (65) 99 79/39 (52) 07/10/17 14:56 98 45 07/10/17 14:00 80 07/10/17 14:00 80 92/52 (65) 07/10/17 12:00 100 07/10/17 12:00 90 07/10/17 12:00 97.6 88 15 92/58 (69) 98 07/10/17 11:44 99 45 07/10/17 11:30 99 100 I/O 07/10/17 07/10/17 07/10/17 07/11/17 07/11/17 07/11/17 07:00 15:00 23:00 07:00 15:00 23:00 Intake Total 1261.5 ml 170 ml 360 ml Output Total 550 ml 1500.0 ml 450 ml Balance 711.5 ml -1330.0 ml -90 ml IV Total 782.5 ml 50 ml 125 ml Tube Feeding 359 ml 0 ml 235 ml Other 120 ml 120 ml Output Urine Total 550 ml 1500 ml 450 ml Stool Total 0 ml Tube Feeding Residual Discard 0 ml # Bowel Movements 0 (Chiqui Aguirre MD R1) Result Diagram: 07/11/17 0736 07/11/17 0736 Imaging Last Impressions Chest X-Ray 07/11/17 0600 Signed Impressions: Service Date/Time: Tuesday, July 11, 2017 03:55 - CONCLUSION: Suspected worsening edema. Adan James MD Head CT 07/10/17 0000 Signed Impressions: Service Date/Time: Monday, July 10, 2017 10:13 - CONCLUSION: 1. Moderate diffuse cerebral atrophy, slightly out of proportion to age. 2. Bilateral mastoiditis. 3. Paranasal sinus mucosal disease. 4. No acute intracranial abnormality. Martin Wilks MD Lower Extremity MRI 07/08/17 0000 Signed Impressions: Service Date/Time: Saturday, July 08, 2017 10:30 - CONCLUSION: 1. Some edema is noted throughout the anterior and posterior tibial musculature raising the possibility of myositis or muscle strain. Clinical correlation is recommended. 2. Mild cellulitis of the lower calf and upper ankle posteriorly. 3. No evidence of osteomyelitis. 4. Serpiginous-appearing lesion within the distal tibial metadiaphysis which has the appearance of probable bone infarct. 5. No soft tissue abscess noted. Manuel Dougherty MD CT Angiography 07/08/17 0000 Signed Impressions: Service Date/Time: Monday, July 10, 2017 10:23 - CONCLUSION: There is no central pulmonary emboli Bibasilar consolidative changes and small bilateral pleural effusions Diffuse interstitial changes, almost honeycomb pattern in both lungs Extensive mediastinal adenopathy. Does this patient have an underlying neoplasm. Jorge Coates MD FACR Tibia/Fibula X-Ray 07/04/17 0000 Signed Impressions: Service Date/Time: Tuesday, July 04, 2017 15:19 - CONCLUSION: 1. 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 2. No acute fracture or dislocation. Martin Wilks MD Hand X-Ray 07/04/17 0000 Signed Impressions: Service Date/Time: Tuesday, July 04, 2017 15:14 - CONCLUSION: 1. Findings suggesting healing nondisplaced left fifth proximal phalanx fracture . 2. No acute fracture or dislocation. Martin Wilks MD Objective Remarks GENERAL: Disheveled male intubated and sedated. Opened eyes to sternal rub. SKIN: 2x2.5 area of pyoderma of the right hand proximal 5th digit. 4x6cm are of pyoderma of the right distal tibia. Improving Erythema at both places. Multiple other areas of ulceration concerning for No active bleeding or purulent drainage. HEENT: Atraumatic, normocephalic. No visible LAD or JVD appreciated. CARDIOVASCULAR: RRR. No MGR appreciated. 2+ pulses in all 4 extremities. RESPIRATORY: slightly coarse anteriorly GASTROINTESTINAL: Abdomen soft, nondistended with positive bowel sounds. No masses appreciated. MUSCULOSKELETAL: No cyanosis or edema. Strength grossly within normal limits. Procedures Bronchoscopy on 07/09 (Chiqui Aguirre MD R1) Date of Insertion: Jul 09, 2017 (Chiqui Aguirre MD R1) Line: Central Venous Catheter Side: Left Location: Internal, Jugular (Chiqui Aguirre MD R1) A/P Assessment and Plan Mr. Zhou is a 57 year old male with previous history of alcohol abuse being admitted for multiple areas of purulent cellulitis with focal lesions on the R hand and R madden. Transferred to ICU and intubated with on 07/09 secondary to respiratory failure. Critical care primary managers at this time. (Chiqui Aguirre MD R1) Attending Attestation Patient seen and examined. Case reviewed and discussed with the resident team. Agree with plan of care as discussed with me and documented in the resident note. (Ry Gonzales MD) Problem List: (1) Altered mental status ICD Codes: R41.82 - Altered mental status, unspecified Status: Acute Plan: CC managing: States that it is likely acute toxic metabolic encephalopathy likely secondary to hypoxemia. Patient unresponsive on 07/10 although off sedation since 0530 that morning. Was able to wake up overnight and was placed back on sedation. CT brain w/o contrast on 07/10 showed moderate diffuse cerebral atrophy, slightly out of proportion to age. (2) Respiratory failure ICD Codes: J96.90 - Respiratory failure, unspecified, unspecified whether with hypoxia or hypercapnia Status: Acute Plan: Current management by CC. * Currently on propofol at 50 mu./kg per minute, fentanyl at 250 mg an hour and midazolam drips at 5 mg an hour for sedation/analgesia was intubated. * CXR on 07/11 showed worsening pulmonary edema- on Lasix 40mg IV * Bronchoscopy performed 07/09, showed thick yellow secretions and normal anatomy. Cx pending (3) Elevated troponin ICD Codes: R74.8 - Abnormal levels of other serum enzymes Status: Acute Plan: Care transferred to CC. * Troponin 0.12-->0.71-->0.64 * ECHO on 07/10 showed EF of 50%, mild mitral valve regurgitation, mild tricuspid valve regurgitation, no evidence of endocarditis. (4) Cellulitis ICD Codes: L03.90 - Cellulitis, unspecified Status: Acute Plan: Patient with skin lesions all over body - see physical exam. Improvement daily. Labs/Microbiology: * ESR 58. * Lactic acid 1.1. * CRP 4.09. * Wound culture: Staphylococcus Aureus and Group A Beta Strep. Sensitivities available. * Blood culture: No growth to date. * Blood culture 07/08: Ordered Imaging: * Hand x-ray: Findings suggesting healing nondisplaced left fifth proximal phalanx fracture. No acute fracture dislocation. 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 No acute fracture or dislocation. * ABIs: Ordered * MRI of RLE: edema throughout the anterior and posterior tibial musculature raising concern for myositis or muscle strain. Mild cellulitis. No osteo. * CXR: Ordered Medications: * Vancomycin 1,000 mg q8hr IV (07/04 - ). * Zosyn 3.375 gm q6hr IV (07/04 - 07/07). Restarted due to new onset sepsis(- ) * Acetaminophen 500 mg q4hr PO PRN Pain 1-10/ Fever >101F. * Toradol 30 mg q6hr IV PRN Breakthrough Pain. Orders: * ID consulted: Continue with current antibiotic regimen. (5) Sepsis ICD Codes: A41.9 - Sepsis, unspecified organism Status: Acute Plan: Patient currently meeting sepsis criteria with leukocytosis, tachypnea, and tachycardia. Suspected source of infection related to areas of cellulitis. -Please see plan as above -Patient currently on vancomycin and Zosyn -Wells criteria: 3, moderate risk. Patient previously refusing heparin. Low threshold to order CTA. (6) Alcohol abuse ICD Codes: F10.10 - Alcohol abuse, uncomplicated Status: Chronic Plan: Patient with extensive alcohol abuse and history of withdrawal. Patient with increasing CIWA score likely due to withdrawals. Medications: * CIWA protocol in place. * Vitamin supplementation. (7) Fracture of proximal phalanx of digit of left hand ICD Codes: S62.619A - Displaced fracture of proximal phalanx of unspecified finger, initial encounter for closed fracture Plan: Subacute/healing nondisplaced left fifth proximal phalanx fracture visualized on Hand X-ray. * See Plan for Cellulitis. * Hand surgery does not recommend intervention at this time. (8) Diarrhea ICD Codes: R19.7 - Diarrhea, unspecified Status: Acute Plan: Explosive diarrhea overnight 07/06. Differential diagnosis: * Alcohol withdrawal versus C. difficile versus enterogastritis Labs: * C. difficile PCR ordered, sample not sent as BMs are semisolid therefore C. difficile infection not likely Medications: * Famotidine 20 mg PO BID. * Lactobacillus Acidophilus 1 tab PO q12hr. (9) Chronic left hip pain ICD Codes: M25.552 - Pain in left hip; G89.29 - Other chronic pain Status: Chronic Plan: Patient with history of chronic left hip pain. * For pain control, see Plan for Cellulitis. (10) Tobacco abuse ICD Codes: Z72.0 - Tobacco use Status: Chronic Plan: Patient with extensive tobacco abuse history including 50 years of 1 pack per day. Medications: * Nicotine patch daily, patient acknowledges possible wound healing delayed due to nicotine use. (11) Nutrition, metabolism, and development symptoms ICD Codes: R63.8 - Other symptoms and signs concerning food and fluid intake Status: Acute Plan: Fluids: * Per CC Diet: * Jevity tube feeds Electrolytes: * Monitor and replete as necessary. DVT Prophylaxis: * Heparin 5,000 q8hr SQ GI prophylaxis: * Lansoprazole (Chiqui Aguirre MD R1) Problem Qualifiers (1) Respiratory failure: Qualified Codes: J96.01 - Acute respiratory failure with hypoxia (2) Cellulitis: Qualified Codes: L03.90 - Cellulitis, unspecified (3) Sepsis: Qualified Codes: A41.9 - Sepsis, unspecified organism Chiqui Aguirre MD R1 Jul 11, 2017 11:25 Ry Gonzales MD Jul 12, 2017 09:25
--- NOTE | 2017-07-11 18:08 | HHI.IDPN ---
Subjective Subjective Remarks reconsulted 2/2 febrile illness, leukocytosis event noted Pt developped acute resp distress on Jul 08, was intubated, palced on mech vent was having fever of 102, blood clx from 07/08 with NGTD Also acute urinary retention - now with ibanez: AU not cw infx Pt ruled in for AMI by enzymes CTA showed basilar consolidative changes and small bilateral pleural effusions , diffuse interstitial changes, almost honeycomb pattern in both lungs and extensive mediastinal adenopathy. spp BAL: all negative stains leg/pneumococcal negative as well 2 D echo w/o e/o endocarditis Antibiotics vancomycin zosyn Allergies: Coded Allergies: No Known Allergies (Verified Allergy, Unknown, 07/04/17) Objective . Vital Signs Date Time Temp Pulse Resp B/P (MAP) Pulse Ox O2 Delivery O2 Flow Rate FiO2 07/11/17 15:53 91 45 07/11/17 14:00 54 97/59 (72) 94/49 (64) 07/11/17 14:00 56 108/63 (78) 104/50 (68) 07/11/17 14:00 55 07/11/17 12:00 62 07/11/17 12:00 98.4 66 21 103/61 (75) 96 109/50 (69) 07/11/17 12:00 45 07/11/17 11:59 100 45 07/11/17 10:00 60 07/11/17 08:08 93 45 07/11/17 08:00 45 07/11/17 08:00 80 97/59 (72) 94/49 (64) 07/11/17 08:00 60 07/11/17 08:00 98.8 71 22 113/65 (81) 92 99/57 (71) 07/11/17 06:00 68 07/11/17 04:00 99.0 62 22 118/66 (83) 100 114/57 (76) 07/11/17 04:00 45 07/11/17 04:00 62 07/11/17 02:00 58 07/11/17 01:30 63 98/49 07/11/17 01:09 100 45 07/11/17 00:00 98.6 68 22 144/86 (105) 100 142/70 (94) 07/11/17 00:00 68 07/11/17 00:00 45 07/10/17 22:00 63 07/10/17 20:38 100 45 07/10/17 20:00 45 07/10/17 20:00 98.2 66 22 137/78 (97) 99 125/61 (82) 07/10/17 20:00 66 07/10/17 18:00 75 . Laboratory Tests Test 07/10/17 03:40 07/11/17 07:36 White Blood Count 15.8 TH/MM3 12.0 TH/MM3 Red Blood Count 2.83 MIL/MM3 3.03 MIL/MM3 Hemoglobin 9.8 GM/DL 10.3 GM/DL Hematocrit 29.4 % 31.3 % Mean Corpuscular Volume 103.8 FL 103.3 FL Mean Corpuscular Hemoglobin 34.6 PG 34.1 PG Mean Corpuscular Hemoglobin Concent 33.4 % 33.0 % Red Cell Distribution Width 13.6 % 13.5 % Platelet Count 184 TH/MM3 203 TH/MM3 Mean Platelet Volume 10.3 FL 10.4 FL Neutrophils (%) (Auto) 77.6 % Lymphocytes (%) (Auto) 8.1 % Monocytes (%) (Auto) 11.9 % Eosinophils (%) (Auto) 1.7 % Basophils (%) (Auto) 0.7 % Neutrophils # (Auto) 12.2 TH/MM3 Lymphocytes # (Auto) 1.3 TH/MM3 Monocytes # (Auto) 1.9 TH/MM3 Eosinophils # (Auto) 0.3 TH/MM3 Basophils # (Auto) 0.1 TH/MM3 CBC Comment DIFF FINAL Differential Comment Laboratory Tests Test 07/10/17 03:40 07/10/17 13:37 07/11/17 07:36 Blood Urea Nitrogen 15 MG/DL 26 MG/DL Creatinine 1.07 MG/DL 1.26 MG/DL Random Glucose 82 MG/DL 178 MG/DL Calcium Level 8.2 MG/DL 9.4 MG/DL Sodium Level 140 MEQ/L 143 MEQ/L Potassium Level 3.9 MEQ/L 3.5 MEQ/L Chloride Level 109 MEQ/L 111 MEQ/L Carbon Dioxide Level 25.9 MEQ/L 25.5 MEQ/L Anion Gap 5 MEQ/L 7 MEQ/L Estimat Glomerular Filtration Rate 71 ML/MIN 59 ML/MIN Ammonia 16 MCMOL/L 12 MCMOL/L Total Creatine Kinase 326 U/L Creatine Kinase MB 6.6 NG/ML Creatine Kinase MB % 2.0 % Phosphorus Level 2.6 MG/DL Magnesium Level 2.1 MG/DL Microbiology Date/Time Source Procedure Growth Status 07/09/17 09:15 Bronchial Washings Other Acid Fast Stain - Final NO ACID FAST BACILLI SEEN Resulted 07/09/17 09:15 Bronchial Washings Other Mycobacterial Culture Pending Resulted 07/09/17 09:15 Bronchial Washings Other Fungal Smear - Final NO FUNGAL ELEMENTS SEEN. Resulted 07/09/17 09:15 Bronchial Washings Other Fungal Culture Pending Resulted 07/09/17 09:15 Bronchial Washings Other Gram Stain - Final Complete 07/09/17 09:15 Bronchial Washings Other Bronchial Culture - Final NO GROWTH IN 48 HOURS. Complete 07/09/17 07:40 Urine Clean Catch Legionella Antigen - Final PRESUMPTIVE NEGATIVE FOR LEGIONELLA P... Complete 07/09/17 07:40 Urine Clean Catch Streptococcus pneumoniae Antigen (M - Final PRESUMPTIVE NEGATIVE FOR STREPTOCOCCU... Complete Imaging Last Impressions Chest X-Ray 07/11/17 0600 Signed Impressions: Service Date/Time: Tuesday, July 11, 2017 03:55 - CONCLUSION: Suspected worsening edema. Adan James MD Head CT 07/10/17 0000 Signed Impressions: Service Date/Time: Monday, July 10, 2017 10:13 - CONCLUSION: 1. Moderate diffuse cerebral atrophy, slightly out of proportion to age. 2. Bilateral mastoiditis. 3. Paranasal sinus mucosal disease. 4. No acute intracranial abnormality. Martin Wilks MD Lower Extremity MRI 07/08/17 0000 Signed Impressions: Service Date/Time: Saturday, July 08, 2017 10:30 - CONCLUSION: 1. Some edema is noted throughout the anterior and posterior tibial musculature raising the possibility of myositis or muscle strain. Clinical correlation is recommended. 2. Mild cellulitis of the lower calf and upper ankle posteriorly. 3. No evidence of osteomyelitis. 4. Serpiginous-appearing lesion within the distal tibial metadiaphysis which has the appearance of probable bone infarct. 5. No soft tissue abscess noted. Manuel Dougherty MD CT Angiography 07/08/17 0000 Signed Impressions: Service Date/Time: Monday, July 10, 2017 10:23 - CONCLUSION: There is no central pulmonary emboli Bibasilar consolidative changes and small bilateral pleural effusions Diffuse interstitial changes, almost honeycomb pattern in both lungs Extensive mediastinal adenopathy. Does this patient have an underlying neoplasm. Jorge Coates MD FACR Tibia/Fibula X-Ray 07/04/17 0000 Signed Impressions: Service Date/Time: Tuesday, July 04, 2017 15:19 - CONCLUSION: 1. 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 2. No acute fracture or dislocation. Martin Wilks MD Hand X-Ray 07/04/17 0000 Signed Impressions: Service Date/Time: Tuesday, July 04, 2017 15:14 - CONCLUSION: 1. Findings suggesting healing nondisplaced left fifth proximal phalanx fracture . 2. No acute fracture or dislocation. Martin Wilks MD Physical Exam CONSTITUTIONAL/GENERAL: This is an adequately nourished patient, sedated, [facility] TUBES/LINES/DRAINS: SKIN: No jaundice, rashes, or lesions. Ecchymoses on upper extremities. Multiple skin lesions inclusing b/l hands, R tibia are healing, dry and w/o eryteham Skin temperature appropriate. Not diaphoretic. HEAD: Atraumatic. Normocephalic. EYES: Pupils equal and round and reactive. Extraocular motions intact. ? mild scleral icterus. No injection or drainage. Fundi not examined. ENT: Hearing grossly normal. Nose without bleeding or purulent drainage. Throat without visible erythema, exudates, masses, or lesions. NECK: Trachea midline. Supple, nontender. CARDIOVASCULAR: Regular rate and rhythm without murmurs, gallops, or rubs. No JVD. Peripheral pulses symmetric. RESPIRATORY/CHEST: Symmetric, unlabored respirations. Clear to auscultation. Breath sounds equal bilaterally. No wheezes, rales, or rhonchi. GASTROINTESTINAL: Abdomen soft, non-tender, nondistended. No hepato-splenomegaly , or palpable masses. No guarding. Bowel sounds present. GENITOURINARY: Without palpable bladder distension. Ibanez in place with clear yellowurine MUSCULOSKELETAL: Extremities without clubbing, cyanosis, or edema. No joint tenderness or effusion noted. No calf tenderness. No mottling or clubbing. LYMPHATICS: No palpable cervical or supraclavicular adenopathy. NEUROLOGICAL: sedated. PSYCHIATRIC: unable to assess Assessment & Plan Remarks RIF infection - improving on abx R madden infection - also improving with conservative tx New acute VDRF New NSTEMI Critically ill, unstable Mediastinal lymphadenopathy - oncology is involeve cont abx will adjust per clx fu blood clx azithromycin chk influenza Julia Bush MD Jul 11, 2017 18:08
[2017-07-11] MEDS: fentaNYL DRIP 250 ML IV PRN (19:37)
--- NOTE | 2017-07-11 21:05 | MB ---
cc: NELLY VILLEGAS DATE OF CONSULTATION 07/08/17 REASON FOR CONSULTATION Abnormal chest x-ray and CT scan. HISTORY OF PRESENT ILLNESS Mr. Zhou is a 57-year-old male with known history of COPD. He is homeless, was brought to the emergency department for nausea and vomiting. The patient was admitted with altered mental status and acute metabolic encephalopathy with evidence of hypoxic and hypercarbic respiratory failure requiring intubation and mechanical ventilation. The patient is presently on ventilatory support. A CT scan of the chest revealed honeycombing and extensive mediastinal adenopathy. I am asked to see the patient at this time for same. PAST MEDICAL HISTORY 1. COPD, 2. Anxiety, depression, 3. Osteoarthritis left hip. 4. As mentioned he is homeless. ALLERGIES None to medication. FAMILY HISTORY Mother of a brain malignancy. Father not known to the patient. SOCIAL HISTORY Smokes a pack of cigarettes a day for the last 50 years as well as drinks six beers a day. REVIEW OF SYSTEMS 12-point review of systems as per HPI and past history otherwise negative. PHYSICAL EXAMINATION GENERAL: The patient is sedated on ventilatory support. VITAL SIGNS: Temperature is 98.4, pulse 60, respiration 18, blood pressure 115/70. HEENT: Exam unremarkable. Eyes without icterus. NECK: Without adenopathy or thyroid enlargement. Central trachea. CHEST: Scattered rhonchi bilaterally. CARDIAC: PMI not appreciated. S1, S2 audible. No murmur or rub. ABDOMEN: Lax, audible bowel sounds. EXTREMITIES: No clubbing, cyanosis or edema. LABORATORY DATA White count 12,000, hemoglobin 10, hematocrit 31, platelets at 203,000. Sodium 143, potassium 3.5, BUN 26, creatinine 1.2, INR 1.3. IMAGING STUDIES CT scan of the chest done on July 10 was without evidence of for pulmonary emboli. Diffuse interstitial change, honeycombing in both lungs is noted with extensive mediastinal adenopathy. IMPRESSION 1. Respiratory failure 2. COPD. 3. Extensive fibrotic change and honeycombing both lungs 4. Mediastinal adenopathy, significance unclear 5. Metabolic encephalopathy. PLAN The patient is on ventilatory support at present. Underlying infection should be treated on empiric basis together with pulmonary toilet and weaning process initiated as tolerated. Depending on the length of stay on ventilatory support, decision needs to be made if a biopsy procedure need be done of the mediastinal lymph nodes would be very feasible depending on his condition. Honeycomb lung by definition is end-stage and I do not believe a lung biopsy would be very helpful given the advanced lung disease. However, if one would choose a healthy part of the lung and biopsy that that may be revealing. Sampling of a mediastinal lymph nodes would be helpful as well. However, once the patient is relatively stable he could be taken to the operating room and bronchoscopy undertaken, endobronchial lesion may be found and that can be biopsied or aspiration of the subcarinal lymph nodes may be undertaken as well. The patient's prognosis overall is poor. I do thank you for asking me to partake in Mr. Zhou's care. Nelly Villegas MD WWW/ /7:22 PM /8:45 PM
[2017-07-11] MEDS: AZITHROMYCIN INJ 500 MG in SODIUM CHLOR 0.9% 250 ML INJ 250 ML IV SCH (23:44)
[2017-07-12] VITALS (50 sets, daily range): BP systolic 118–161; BP diastolic 48–108; PULSE 54–91; RESP 8–28; TEMP 97.7–99.4; O2SAT 98–100
[2017-07-12] MEDS: HEPARIN SODIUM - SQ 10,000 UNITS/ML VIAL SQ SCH ×4 (00:45→23:55)
[2017-07-12] MEDS: PIPERACIL-TAZO 3.375 GM PREMIX 50 ML IV SCH ×4 (00:45→20:58)
[2017-07-12] MEDS: RESP: ALBUTEROL 2.5 MG/IPRATROPIUM 0.5 MG NEB (SCH) NEB ×4 (01:25→14:34)
[2017-07-12] MEDS: ARTIFICIAL TEARS OPTH SOLN 15 ML BTL EACH EYE SCH ×3 (05:38→20:58)
[2017-07-12] MEDS: INSULIN NovoLIN REGULAR SUPPLEMENTAL SCALE SQ SCH ×5 (05:38→23:55)
[2017-07-12] MEDS: fentaNYL DRIP 250 ML IV PRN ×2 (07:06→21:01)
[2017-07-12] MEDS: REMOVE OLD PATCH T-DERMAL SCH (09:00)
[2017-07-12] MEDS: DOCUSATE SODIUM 100 MG/10 ML UDC PO SCH ×2 (09:00→19:52)
[2017-07-12] MEDS: FOLIC ACID 1 MG TAB PO SCH (09:43)
[2017-07-12] MEDS: CHLORHEXIDINE 0.12% (ORAL KIT) 15 ML CUP MT SCH ×2 (09:43→20:59)
[2017-07-12] MEDS: LACTOBACILLUS ACIDOPHILUS TAB PO SCH ×2 (09:43→19:52)
[2017-07-12] MEDS: NICOTINE 14 MG/24 HR PATCH T-DERMAL SCH (09:44)
[2017-07-12] MEDS: THIAMINE HCL 100 MG TAB PO SCH (09:44)
[2017-07-12] MEDS: MULTIVITAMIN TAB PO SCH (09:44)
[2017-07-12] MEDS: LANSOPRAZOLE SOLUTAB 30 MG TAB NG SCH (09:44)
[2017-07-12] MEDS: LACTULOSE SYRUP 20 GM/30 ML CUP PO SCH ×2 (09:44→19:53)
[2017-07-12] MEDS: SODIUM CHLORIDE 0.9% FLUSH 10 ML FLUSH IV FLUSH SCH ×3 (09:45→19:53)
--- NOTE | 2017-07-12 11:21 | HHI.FPPN ---
Subjective Remarks Saw and examined pt this morning. He is currently intubated and sedated. He opening his eye to my voice. Nodded when I asked if he had abdominal pain. (Chiqui Aguirre MD R1) Objective Vitals Vital Signs Date Time Temp Pulse Resp B/P (MAP) Pulse Ox O2 Delivery O2 Flow Rate FiO2 07/12/17 08:31 100 40 07/12/17 06:00 61 07/12/17 04:00 98.2 75 28 159/93 (115) 100 07/12/17 04:00 75 07/12/17 04:00 45 07/12/17 03:57 100 40 07/12/17 02:00 70 07/12/17 01:25 100 40 07/12/17 00:00 45 07/12/17 00:00 98.0 72 25 150/84 (106) 100 151/72 (98) 07/12/17 00:00 72 07/11/17 22:00 89 07/11/17 20:06 95 45 07/11/17 20:00 98.2 57 22 127/70 (89) 97 108/78 (88) 07/11/17 20:00 57 07/11/17 20:00 45 07/11/17 18:00 58 07/11/17 16:00 98.5 54 22 115/69 (84) 97 98/61 (73) 07/11/17 16:00 45 07/11/17 16:00 59 07/11/17 15:53 91 45 07/11/17 14:00 54 97/59 (72) 94/49 (64) 07/11/17 14:00 56 108/63 (78) 104/50 (68) 07/11/17 14:00 55 07/11/17 12:00 62 07/11/17 12:00 98.4 66 21 103/61 (75) 96 109/50 (69) 07/11/17 12:00 45 07/11/17 11:59 100 45 I/O 07/11/17 07/11/17 07/11/17 07/12/17 07/12/17 07/12/17 07:00 15:00 23:00 07:00 15:00 23:00 Intake Total 480 ml 150 ml 120 ml 803.5 ml Output Total 450 ml 550.0 ml 750 ml Balance 30 ml 150 ml -430.0 ml 53.5 ml IV Total 245 ml 150 ml 723.5 ml Tube Feeding 235 ml 0 ml 80 ml Other 120 ml Output Urine Total 450 ml 550 ml 550 ml Stool Total 0 ml 200 ml Tube Feeding Residual Discard 0 ml # Bowel Movements 1 1 (Chiqui Aguirre MD R1) Result Diagram: 07/11/17 0736 07/11/17 0736 Imaging Last Impressions Chest X-Ray 07/11/17 0600 Signed Impressions: Service Date/Time: Tuesday, July 11, 2017 03:55 - CONCLUSION: Suspected worsening edema. Adan James MD Head CT 07/10/17 0000 Signed Impressions: Service Date/Time: Monday, July 10, 2017 10:13 - CONCLUSION: 1. Moderate diffuse cerebral atrophy, slightly out of proportion to age. 2. Bilateral mastoiditis. 3. Paranasal sinus mucosal disease. 4. No acute intracranial abnormality. Martin Wilks MD Lower Extremity MRI 07/08/17 0000 Signed Impressions: Service Date/Time: Saturday, July 08, 2017 10:30 - CONCLUSION: 1. Some edema is noted throughout the anterior and posterior tibial musculature raising the possibility of myositis or muscle strain. Clinical correlation is recommended. 2. Mild cellulitis of the lower calf and upper ankle posteriorly. 3. No evidence of osteomyelitis. 4. Serpiginous-appearing lesion within the distal tibial metadiaphysis which has the appearance of probable bone infarct. 5. No soft tissue abscess noted. Manuel Dougherty MD CT Angiography 07/08/17 0000 Signed Impressions: Service Date/Time: Monday, July 10, 2017 10:23 - CONCLUSION: There is no central pulmonary emboli Bibasilar consolidative changes and small bilateral pleural effusions Diffuse interstitial changes, almost honeycomb pattern in both lungs Extensive mediastinal adenopathy. Does this patient have an underlying neoplasm. Jorge Coates MD FACR Tibia/Fibula X-Ray 07/04/17 0000 Signed Impressions: Service Date/Time: Tuesday, July 04, 2017 15:19 - CONCLUSION: 1. 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 2. No acute fracture or dislocation. Martin Wilks MD Hand X-Ray 07/04/17 0000 Signed Impressions: Service Date/Time: Tuesday, July 04, 2017 15:14 - CONCLUSION: 1. Findings suggesting healing nondisplaced left fifth proximal phalanx fracture . 2. No acute fracture or dislocation. Martin Wilks MD Objective Remarks GENERAL: Disheveled male intubated and sedated. Opened eyes to voice, nodded in response to questions. SKIN: 2x2.5 area of pyoderma of the right hand proximal 5th digit. 4x6cm are of pyoderma of the right distal tibia. No Erythema at both places. Multiple other areas of ulceration. No active bleeding or purulent drainage. HEENT: Atraumatic, normocephalic. No visible LAD or JVD appreciated. CARDIOVASCULAR: RRR. No MGR appreciated. 2+ pulses in all 4 extremities. RESPIRATORY: slightly coarse anteriorly GASTROINTESTINAL: Abdomen soft, guarding (patient nodded yes in response to whether there was pain), nondistended with positive bowel sounds. No masses appreciated. MUSCULOSKELETAL: No cyanosis or edema. Strength grossly within normal limits. Procedures Bronchoscopy on 07/09 (Chiqui Aguirre MD R1) Date of Insertion: Jul 09, 2017 (Chiqui Aguirre MD R1) Line: Central Venous Catheter Side: Left Location: Internal, Jugular (Chiqui Aguirre MD R1) A/P Assessment and Plan Mr. Zhou is a 57 year old male with previous history of alcohol abuse being admitted for multiple areas of purulent cellulitis with focal lesions on the R hand and R madden. Transferred to ICU and intubated with on 07/09 secondary to respiratory failure. Critical care primary managers at this time. (Chiqui Aguirre MD R1) Attending Attestation Patient seen and examined. Case reviewed and discussed with the resident team. Agree with plan of care as discussed with me and documented in the resident note. (Ry Gonzales MD) Problem List: (1) Respiratory failure ICD Codes: J96.90 - Respiratory failure, unspecified, unspecified whether with hypoxia or hypercapnia Status: Acute Plan: Current management by CC. * Currently on propofol at 50 mu./kg per minute, fentanyl at 250 mg an hour and midazolam drips at 5 mg an hour for sedation/analgesia was intubated. * CPAP trial to be started today 07/12 * CXR on 07/11 showed worsening pulmonary edema- on Lasix 40mg IV * CT Pulm Angiogram on 07/10 showed no central pulmonary emboli, Bibasilar consolidative changes and small bilateral pleural effusions, Diffuse interstitial changes, almost honeycomb pattern in both lungs, and Extensive mediastinal adenopathy. * Bronchoscopy performed 07/09, showed thick yellow secretions and normal anatomy. * Bronchial cx- NG in 2 days * Fungal cx pending * Mycobacterial cx pending * Negative for Influenza A and B Ag * Pulmonology consulted, appreciate recs * Underlying infection should be treated on empiric basis together with pulmonary toilet and weaning process initiated as tolerated. * decision needs to be made if a biopsy procedure need be done of the mediastinal lymph nodes * once the patient is relatively stable he could be taken to the operating room and bronchoscopy undertaken, endobronchial lesion may be found and that can be biopsied or aspiration of the subcarinal lymph nodes may be undertaken as well. (2) Altered mental status ICD Codes: R41.82 - Altered mental status, unspecified Status: Acute Plan: CC managing: States that it is likely acute toxic metabolic encephalopathy likely secondary to hypoxemia. Patient unresponsive on 07/10 although off sedation since 0530 that morning. Was able to wake up overnight and was placed back on sedation. On 07/12 patient awake and nodded to questioning. CT brain w/o contrast on 07/10 showed moderate diffuse cerebral atrophy, slightly out of proportion to age. (3) Elevated troponin ICD Codes: R74.8 - Abnormal levels of other serum enzymes Status: Acute Plan: Care transferred to . * Troponin 0.12-->0.71-->0.64 * ECHO on 07/10 showed EF of 50%, mild mitral valve regurgitation, mild tricuspid valve regurgitation, no evidence of endocarditis. (4) Cellulitis ICD Codes: L03.90 - Cellulitis, unspecified Status: Acute Plan: Patient with skin lesions all over body - see physical exam. Improvement daily. Labs/Microbiology: * ESR 58. * Lactic acid 1.1. * CRP 4.09. * Wound culture: Staphylococcus Aureus and Group A Beta Strep. Sensitivities available. * Blood culture: No growth to date. * Blood culture 07/08: Ordered Imaging: * Hand x-ray: Findings suggesting healing nondisplaced left fifth proximal phalanx fracture. No acute fracture dislocation. 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 No acute fracture or dislocation. * ABIs: Ordered * MRI of RLE: edema throughout the anterior and posterior tibial musculature raising concern for myositis or muscle strain. Mild cellulitis. No osteo. * CXR: Ordered Medications: * Vancomycin dosed by pharmacy IV (07/04 - ). * Zosyn 3.375 gm q6hr IV (07/04 - 07/07). Restarted due to new onset sepsis(- ) * Azithromycin 500mg q24h (07/11- ) * Acetaminophen 500 mg q4hr PO PRN Pain 1-10/ Fever >101F. * Toradol 30 mg q6hr IV PRN Breakthrough Pain. Orders: * ID consulted: Continue with current antibiotic regimen. Added Azithromycin (5) Sepsis ICD Codes: A41.9 - Sepsis, unspecified organism Status: Acute Plan: Patient currently meeting sepsis criteria with leukocytosis, tachypnea, and tachycardia. Suspected source of infection related to areas of cellulitis. -Please see plan as above -Patient currently on vancomycin and Zosyn -Wells criteria: 3, moderate risk. Patient previously refusing heparin. Low threshold to order CTA. (6) Alcohol abuse ICD Codes: F10.10 - Alcohol abuse, uncomplicated Status: Chronic Plan: Patient with extensive alcohol abuse and history of withdrawal. Patient with increasing CIWA score likely due to withdrawals. Medications: * CIWA protocol in place. * Vitamin supplementation. (7) Fracture of proximal phalanx of digit of left hand ICD Codes: S62.619A - Displaced fracture of proximal phalanx of unspecified finger, initial encounter for closed fracture Plan: Subacute/healing nondisplaced left fifth proximal phalanx fracture visualized on Hand X-ray. * See Plan for Cellulitis. * Hand surgery does not recommend intervention at this time. (8) Diarrhea ICD Codes: R19.7 - Diarrhea, unspecified Status: Acute Plan: Explosive diarrhea overnight 07/06. Differential diagnosis: * Alcohol withdrawal versus C. difficile versus enterogastritis Labs: * C. difficile PCR ordered, sample not sent as BMs are semisolid therefore C. difficile infection not likely Medications: * Famotidine 20 mg PO BID. * Lactobacillus Acidophilus 1 tab PO q12hr. (9) Chronic left hip pain ICD Codes: M25.552 - Pain in left hip; G89.29 - Other chronic pain Status: Chronic Plan: Patient with history of chronic left hip pain. * For pain control, see Plan for Cellulitis. (10) Tobacco abuse ICD Codes: Z72.0 - Tobacco use Status: Chronic Plan: Patient with extensive tobacco abuse history including 50 years of 1 pack per day. Medications: * Nicotine patch daily, patient acknowledges possible wound healing delayed due to nicotine use. (11) Nutrition, metabolism, and development symptoms ICD Codes: R63.8 - Other symptoms and signs concerning food and fluid intake Status: Acute Plan: Fluids: * Per CC Diet: * Jevity tube feeds Electrolytes: * Monitor and replete as necessary. DVT Prophylaxis: * Heparin 5,000 q8hr SQ GI prophylaxis: * Lansoprazole (Chiqui Aguirre MD R1) Problem Qualifiers (1) Respiratory failure: Qualified Codes: J96.01 - Acute respiratory failure with hypoxia (2) Cellulitis: Qualified Codes: L03.90 - Cellulitis, unspecified (3) Sepsis: Qualified Codes: A41.9 - Sepsis, unspecified organism Chiqui Aguirre MD R1 Jul 12, 2017 11:21 Ry Gonzales MD Jul 12, 2017 21:07
[2017-07-12] MEDS: VANCOMYCIN 1,000 MG/NS 250 ML IV SCH ×2 (12:45)
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
[2017-07-12] MEDS ORDERED: POTASSIUM CHLORIDE 25 MEQ EFFERVESCENT TAB PO ONE (17:15)
[2017-07-12] MEDS ORDERED: FUROSEMIDE 40 MG/4 ML VIAL IV PUSH ONE (17:15)
--- NOTE | 2017-07-12 19:35 | HHI.PR ---
Subjective Remarks ON THRE VENT SEDATED Objective Vital Signs Date Time Temp Pulse Resp B/P (MAP) Pulse Ox O2 Delivery O2 Flow Rate FiO2 07/12/17 19:00 62 07/12/17 18:00 68 07/12/17 17:30 62 07/12/17 17:00 72 07/12/17 16:30 81 07/12/17 16:30 81 8 131/69 (89) 99 144/66 (92) 07/12/17 16:15 84 10 134/67 (89) 99 153/73 (99) 07/12/17 16:00 91 07/12/17 16:00 99.1 91 14 145/76 (99) 100 161/80 (107) 07/12/17 16:00 45 07/12/17 15:45 85 9 145/73 (97) 98 150/72 (98) 07/12/17 15:30 67 07/12/17 15:30 67 10 146/74 (98) 100 143/85 (104) 07/12/17 15:15 69 22 155/80 (105) 100 138/80 (99) 07/12/17 15:00 77 07/12/17 15:00 77 22 158/80 (106) 100 152/82 (105) 07/12/17 14:45 69 22 144/74 (97) 100 134/77 (96) 07/12/17 14:35 100 40 07/12/17 14:30 78 22 150/81 (104) 100 135/108 (117) 07/12/17 14:30 78 07/12/17 14:15 60 22 156/84 (108) 100 143/87 (105) 07/12/17 14:00 56 07/12/17 14:00 56 22 148/77 (100) 98 133/78 (96) 07/12/17 13:30 57 07/12/17 13:00 61 07/12/17 13:00 61 22 157/81 (106) 100 145/82 (103) 07/12/17 12:45 56 22 142/77 (98) 100 152/71 (98) 07/12/17 12:31 100 40 07/12/17 12:30 59 22 148/78 (101) 100 157/75 (102) 07/12/17 12:15 58 22 146/77 (100) 100 156/79 (104) 07/12/17 12:00 54 07/12/17 12:00 97.7 54 22 151/78 (102) 99 130/106 (114) 07/12/17 12:00 45 07/12/17 11:45 58 22 142/74 (96) 98 135/91 (106) 07/12/17 11:30 83 07/12/17 11:30 83 25 157/84 (108) 100 119/48 (71) 07/12/17 11:00 54 22 129/68 (88) 99 118/101 (107) 07/12/17 11:00 54 07/12/17 10:45 59 22 143/77 (99) 100 123/87 (99) 07/12/17 10:30 61 07/12/17 10:30 61 22 134/74 (94) 99 125/75 (92) 07/12/17 10:15 61 22 135/72 (93) 98 118/77 (91) 07/12/17 10:00 71 22 141/79 (99) 99 148/82 (104) 07/12/17 10:00 71 07/12/17 09:45 65 23 138/73 (94) 99 141/72 (95) 07/12/17 09:30 63 07/12/17 09:30 63 22 141/71 (94) 99 138/72 (94) 07/12/17 09:15 57 22 145/76 (99) 99 142/72 (95) 07/12/17 09:00 59 07/12/17 09:00 59 22 133/75 (94) 100 145/78 (100) 07/12/17 08:45 58 22 149/74 (99) 100 140/76 (97) 07/12/17 08:31 100 40 07/12/17 08:30 61 07/12/17 08:30 61 22 151/79 (103) 100 153/78 (103) 07/12/17 08:15 57 22 146/76 (99) 100 147/74 (98) 07/12/17 08:00 62 07/12/17 08:00 07/12/17 08:00 07/12/17 08:00 45 07/12/17 08:00 98.9 62 22 151/82 (105) 100 146/80 (102) 07/12/17 07:30 59 07/12/17 07:00 70 07/12/17 06:00 61 07/12/17 04:00 98.2 75 28 159/93 (115) 100 07/12/17 04:00 75 07/12/17 04:00 45 07/12/17 03:57 100 40 07/12/17 02:00 70 07/12/17 01:25 100 40 07/12/17 00:00 45 07/12/17 00:00 98.0 72 25 150/84 (106) 100 151/72 (98) 07/12/17 00:00 72 07/11/17 22:00 89 07/11/17 20:06 95 45 07/11/17 20:00 98.2 57 22 127/70 (89) 97 108/78 (88) 07/11/17 20:00 57 07/11/17 20:00 45 I/O 07/11/17 07/11/17 07/11/17 07/12/17 07/12/17 07/12/17 07:00 15:00 23:00 07:00 15:00 23:00 Intake Total 480 ml 150 ml 120 ml 803.5 ml 242 ml Output Total 450 ml 550.0 ml 750 ml 1750 ml Balance 30 ml 150 ml -430.0 ml 53.5 ml -1508 ml IV Total 245 ml 150 ml 723.5 ml Tube Feeding 235 ml 0 ml 80 ml 122 ml Other 120 ml 120 ml Output Urine Total 450 ml 550 ml 550 ml 1750 ml Stool Total 0 ml 200 ml Tube Feeding Residual Discard 0 ml # Bowel Movements 1 1 2 Result Diagram: 07/11/1773507/11/1736 Objective Remarks GENERAL: SKIN: Warm and dry. HEAD: Atraumatic. Normocephalic. EYES: Pupils equal and round. No scleral icterus. No injection or drainage. ENT: No nasal bleeding or discharge. Mucous membranes pink and moist. NECK: Trachea midline. No JVD. CARDIOVASCULAR: Regular rate and rhythm. RESPIRATORY: No accessory muscle use. Clear to auscultation. Breath sounds equal bilaterally. GASTROINTESTINAL: Abdomen soft, non-tender, nondistended. Hepatic and splenic margins not palpable. MUSCULOSKELETAL: Extremities without clubbing, cyanosis, or edema. No obvious deformities. NEUROLOGICAL: Awake and alert. No obvious cranial nerve deficits. Motor grossly within normal limits. Five out of 5 muscle strength in the arms and legs. Normal speech. PSYCHIATRIC: Appropriate mood and affect; insight and judgment normal. Assessment and Plan Assessment and Plan RESPIRATORY FAILURE PNA MEDIASTINAL ADENOPATHY PLAN VENT SUPPORT ANTIBX BRONCHOSCOPY WHEN POSSIBLE Nelly Villegas MD Jul 12, 2017 19:35
[2017-07-12] MEDS: FUROSEMIDE 40 MG/4 ML VIAL IV PUSH SCH (19:52)
[2017-07-12] MEDS: METOCLOPRAMIDE HCL 10 MG/2 ML VIAL IV PUSH SCH (20:57)
[2017-07-12] MEDS: AZITHROMYCIN INJ 500 MG in SODIUM CHLOR 0.9% 250 ML INJ 250 ML IV SCH (21:00)
[2017-07-13] VITALS (25 sets, daily range): BP systolic 104–171; BP diastolic 58–96; PULSE 67–106; RESP 6–28; TEMP 97.9–98.7; O2SAT 92–100
[2017-07-13] MEDS: PIPERACIL-TAZO 3.375 GM PREMIX 50 ML IV SCH ×4 (01:30→22:11)
[2017-07-13] MEDS: MIDAZOLAM 100 MG/100 ML INJ 100 ML IV PRN (01:32)
[2017-07-13 04:50] LABS: AUTOMATED NEUTROPHIL # 8.6 TH/MM3 (1.8-7.7); BASOPHIL # 0.1 TH/MM3 (0-0.2); BASOPHIL % 0.7 % (0.0-2.0); EOSINOPHIL # 0.3 TH/MM3 (0-0.4); EOSINOPHIL % 2.2 % (0.0-4.0); HEMATOCRIT 31.2 % (39.0-51.0); HEMO FLAGS DIFF FINAL; LYMPH % 16.5 % (9.0-44.0); MEAN CELL VOLUME 100.5 FL (80.0-100.0); MEAN CORPUSCULAR HEMOGLOBIN 34.1 PG (27.0-34.0); MEAN CORPUSCULAR HGB CONC 33.9 % (32.0-36.0); MONO % 7.9 % (0.0-8.0); NEUT % 72.7 % (16.0-70.0); PLATELET COUNT 255 TH/MM3 (150-450); RED BLOOD COUNT 3.11 MIL/MM3 (4.50-5.90); RED CELL DISTRIBUTION WIDTH 13.5 % (11.6-17.2); WHITE BLOOD COUNT 11.9 TH/MM3 (4.0-11.0)
[2017-07-13 05:24] LABS: BICARBONATE 31.9 MEQ/L (21.0-32.0); MAGNESIUM 1.4 MG/DL (1.5-2.5)
[2017-07-13 05:26] LABS: POTASSIUM 2.7 MEQ/L (3.5-5.1)
[2017-07-13] MEDS: VANCOMYCIN 1,000 MG/NS 250 ML IV SCH ×2 (05:38)
[2017-07-13] MEDS: METOCLOPRAMIDE HCL 10 MG/2 ML VIAL IV PUSH SCH ×3 (05:39→22:12)
[2017-07-13] MEDS: POTASSIUM CHLOR 40 MEQ PREMIX 100 ML IV PRN ×4 (05:39→19:17)
[2017-07-13] MEDS: ARTIFICIAL TEARS OPTH SOLN 15 ML BTL EACH EYE SCH ×3 (05:40→22:13)
[2017-07-13] MEDS: INSULIN NovoLIN REGULAR SUPPLEMENTAL SCALE SQ SCH ×3 (06:00→18:00)
[2017-07-13] MEDS: fentaNYL DRIP 250 ML IV PRN (06:34)
[2017-07-13] MEDS: LACTOBACILLUS ACIDOPHILUS TAB PO SCH ×2 (07:54→22:11)
[2017-07-13] MEDS: NICOTINE 14 MG/24 HR PATCH T-DERMAL SCH (07:54)
[2017-07-13] MEDS: LANSOPRAZOLE SOLUTAB 30 MG TAB NG SCH (07:54)
[2017-07-13] MEDS: THIAMINE HCL 100 MG TAB PO SCH (07:54)
[2017-07-13] MEDS: FOLIC ACID 1 MG TAB PO SCH (07:54)
[2017-07-13] MEDS: MULTIVITAMIN TAB PO SCH (07:54)
[2017-07-13] MEDS: SODIUM CHLORIDE 0.9% FLUSH 10 ML FLUSH IV FLUSH SCH ×3 (07:55→22:10)
[2017-07-13] MEDS: HEPARIN SODIUM - SQ 10,000 UNITS/ML VIAL SQ SCH ×2 (07:55→17:10)
[2017-07-13] MEDS: FUROSEMIDE 40 MG/4 ML VIAL IV PUSH SCH ×2 (07:55→22:11)
[2017-07-13] MEDS: REMOVE OLD PATCH T-DERMAL SCH (07:56)
[2017-07-13] MEDS: CHLORHEXIDINE 0.12% (ORAL KIT) 15 ML CUP MT SCH ×2 (07:56→22:10)
[2017-07-13] MEDS: RESP: ALBUTEROL 2.5 MG/3 ML NEB (PRN) NEB ×2 (08:07→20:02)
[2017-07-13] MEDS: DOCUSATE SODIUM 100 MG/10 ML UDC PO SCH ×2 (09:00→21:00)
[2017-07-13] MEDS: LACTULOSE SYRUP 20 GM/30 ML CUP PO SCH ×2 (09:00→21:00)
[2017-07-13] MEDS: MAGNESIUM SULFATE INJ 2 GM in SODIUM CHLORIDE 0.9% INJ 96 ML IV PRN (09:42)
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
--- NOTE | 2017-07-13 16:40 | HHI.FPPN ---
Subjective Remarks Mr. Zhou was mildly tachycardic (HR in 90's-100's) with mild HTN overnight. Discussed with nursing staff; patient was restarted on 50 ug of Fentanyl this morning with plans to uptitrate as needed. Patient would orient to sound but was otherwise not responsive at time of exam. (Juan Cowan MD, R3) Objective Vitals Vital Signs Date Time Temp Pulse Resp B/P (MAP) Pulse Ox O2 Delivery O2 Flow Rate FiO2 07/13/17 13:00 91 07/13/17 12:00 40 07/13/17 12:00 98 07/13/17 12:00 98.7 98 9 145/72 (96) 96 114/96 (102) 07/13/17 11:59 96 40 07/13/17 11:00 102 07/13/17 11:00 102 17 151/73 (99) 92 153/71 (98) 07/13/17 10:00 97 07/13/17 10:00 97 10 160/76 (104) 93 144/68 (93) 07/13/17 09:00 97 07/13/17 09:00 97 13 144/86 (105) 97 152/71 (98) 07/13/17 08:02 40 07/13/17 08:02 97 40 07/13/17 08:00 98.7 79 23 156/79 (104) 98 153/76 (101) 07/13/17 08:00 40 07/13/17 08:00 79 07/13/17 08:00 07/13/17 07:00 80 22 126/63 (84) 96 124/58 (80) 07/13/17 07:00 80 07/13/17 06:00 72 07/13/17 04:35 96 40 07/13/17 04:00 40 07/13/17 04:00 97.9 71 22 135/77 (96) 94 144/70 (94) 07/13/17 04:00 71 07/13/17 02:00 67 105/62 (76) 104/58 (73) 07/13/17 02:00 67 07/13/17 01:16 92 40 07/13/17 00:00 40 07/13/17 00:00 106 07/13/17 00:00 98.0 106 28 171/93 (119) 97 162/88 (112) 07/12/17 22:00 71 07/12/17 20:06 98 40 07/12/17 20:00 64 07/12/17 20:00 40 07/12/17 20:00 99.4 64 22 130/74 (92) 98 135/70 (91) 07/12/17 20:00 64 130/74 (92) 135/70 (91) 07/12/17 19:00 62 07/12/17 18:00 68 07/12/17 17:30 62 07/12/17 17:00 72 I/O 07/12/17 07/12/17 07/12/17 07/13/17 07/13/17 07/13/17 07:00 15:00 23:00 07:00 15:00 23:00 Intake Total 803.5 ml 792 ml 678.5 ml 200 ml Output Total 750 ml 1750 ml 5600 ml Balance 53.5 ml -958 ml -4921.5 ml 200 ml IV Total 723.5 ml 550 ml 606.5 ml 200 ml Tube Feeding 80 ml 122 ml 72 ml Other 120 ml Output Urine Total 550 ml 1750 ml 5600 ml Stool Total 200 ml # Bowel Movements 1 2 1 (Juan Cowan MD, R3) Result Diagram: 07/13/175 07/13/17 0415 Imaging Last Impressions Chest X-Ray 07/11/17 0600 Signed Impressions: Service Date/Time: Tuesday, July 11, 2017 03:55 - CONCLUSION: Suspected worsening edema. Adan James MD Head CT 07/10/17 0000 Signed Impressions: Service Date/Time: Monday, July 10, 2017 10:13 - CONCLUSION: 1. Moderate diffuse cerebral atrophy, slightly out of proportion to age. 2. Bilateral mastoiditis. 3. Paranasal sinus mucosal disease. 4. No acute intracranial abnormality. Martin Wilks MD Lower Extremity MRI 07/08/17 0000 Signed Impressions: Service Date/Time: Saturday, July 08, 2017 10:30 - CONCLUSION: 1. Some edema is noted throughout the anterior and posterior tibial musculature raising the possibility of myositis or muscle strain. Clinical correlation is recommended. 2. Mild cellulitis of the lower calf and upper ankle posteriorly. 3. No evidence of osteomyelitis. 4. Serpiginous-appearing lesion within the distal tibial metadiaphysis which has the appearance of probable bone infarct. 5. No soft tissue abscess noted. Manuel Dougherty MD CT Angiography 07/08/17 0000 Signed Impressions: Service Date/Time: Monday, July 10, 2017 10:23 - CONCLUSION: There is no central pulmonary emboli Bibasilar consolidative changes and small bilateral pleural effusions Diffuse interstitial changes, almost honeycomb pattern in both lungs Extensive mediastinal adenopathy. Does this patient have an underlying neoplasm. Jorge Coates MD FACR Tibia/Fibula X-Ray 07/04/17 0000 Signed Impressions: Service Date/Time: Tuesday, July 04, 2017 15:19 - CONCLUSION: 1. 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 2. No acute fracture or dislocation. Martin Wilks MD Hand X-Ray 07/04/17 0000 Signed Impressions: Service Date/Time: Tuesday, July 04, 2017 15:14 - CONCLUSION: 1. Findings suggesting healing nondisplaced left fifth proximal phalanx fracture . 2. No acute fracture or dislocation. Martin Wilks MD Objective Remarks GENERAL: Disheveled male intubated Neuro: No focal CN defects. Patient awake, would orient to sound. Patient would not follow commands. Motor/sensory function of extremities not assessed. SKIN: Multiple areas of extremity bruising. No active bleeding or visible purulent drainage. HEENT: Atraumatic, normocephalic. No visible LAD or JVD appreciated. CARDIOVASCULAR: RRR. No MGR appreciated. 2+ pulses in all 4 extremities. RESPIRATORY: slightly coarse anteriorly GASTROINTESTINAL: Abdomen firm to palpation; nondistended with positive bowel sounds. No masses appreciated. MUSCULOSKELETAL: No cyanosis or edema. Strength grossly within normal limits. Procedures Bronchoscopy on 07/09 (Juan Cowan MD, R3) Date of Insertion: Jul 09, 2017 (Juan Cowan MD, R3) Line: Central Venous Catheter Side: Left Location: Internal, Jugular (Juan Cowan MD, R3) A/P Assessment and Plan Mr. Zhou is a 57 year old male with previous history of alcohol abuse being admitted for multiple areas of purulent cellulitis with focal lesions on the R hand and R madden. Transferred to ICU and intubated with on 07/09 secondary to respiratory failure. Critical care primary managing at this time. (Juan Cowan MD, R3) Attending Attestation Patient seen and examined. Case reviewed and discussed with the resident team. Agree with plan of care as discussed with me and documented in the resident note. (Ry Gonzales MD) Problem List: (1) Respiratory failure ICD Codes: J96.90 - Respiratory failure, unspecified, unspecified whether with hypoxia or hypercapnia Status: Acute Plan: Current management by CC. * Currently on fentanyl and midazolam sedation/analgesia while intubated. * CPAP trials * CXR on 07/11 showed worsening pulmonary edema- on Lasix 40mg IV BID * CT Pulm Angiogram on 07/10 showed no central pulmonary emboli, Bibasilar consolidative changes and small bilateral pleural effusions, Diffuse interstitial changes, almost honeycomb pattern in both lungs, and Extensive mediastinal adenopathy. * Bronchoscopy performed 07/09, showed thick yellow secretions and normal anatomy. * Negative for Influenza A and B Ag Pulmonology consulted, appreciate recs * Underlying infection should be treated on empiric basis together with pulmonary toilet and weaning process initiated as tolerated. * decision needs to be made if a biopsy procedure need be done of the mediastinal lymph nodes * once the patient is relatively stable he could be taken to the operating room and bronchoscopy undertaken, endobronchial lesion may be found and that can be biopsied or aspiration of the subcarinal lymph nodes may be undertaken as well. Cultures: 07/09- Fungal- negative to date 07/09- Acid fast- negative to date 07/09- Bronchial culture/gram stain- negative to date Flu swab 07/12- negative (2) Altered mental status ICD Codes: R41.82 - Altered mental status, unspecified Status: Acute Plan: CC managing: Continue sedation with Fentanyl/ midazolam for sedation/analgesia with daily sedation vacation -Continue lactulose BID Impression: Unclear etiology. PMH alcohol and polysubstance use CT brain w/o contrast on 07/10 showed moderate diffuse cerebral atrophy, slightly out of proportion to age. Alcohol 87, Tox screen - THC positive, Ammonia 34 07/10 metabolic panel without severe derangements ABG on admission- pH 7.52, O2 46, CO2 26 (3) Elevated troponin ICD Codes: R74.8 - Abnormal levels of other serum enzymes Status: Acute Plan: Care transferred to . * Troponin 0.12-->0.71-->0.64 * ECHO on 07/10 showed EF of 50%, mild mitral valve regurgitation, mild tricuspid valve regurgitation, no evidence of endocarditis. (4) Cellulitis ICD Codes: L03.90 - Cellulitis, unspecified Status: Acute Plan: Patient with multiple skin lesions- see physical exam. Improvement daily. Labs/Microbiology: * ESR 58. * Lactic acid 1.1. * CRP 4.09. * Wound culture: Staphylococcus Aureus and Group A Beta Strep. Sensitivities available. * Blood culture: No growth to date. * Blood culture 07/08: Ordered Imaging: * Hand x-ray: Findings suggesting healing nondisplaced left fifth proximal phalanx fracture. No acute fracture dislocation. 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 No acute fracture or dislocation. * ABIs: Ordered * MRI of RLE: edema throughout the anterior and posterior tibial musculature raising concern for myositis or muscle strain. Mild cellulitis. No osteo. * CXR: Ordered Medications: * Vancomycin dosed by pharmacy IV (07/04 - ). * Zosyn 3.375 gm q6hr IV (07/04 - 07/07). Restarted due to new onset sepsis(- ) * Azithromycin 500mg q24h (07/11- ) * Acetaminophen 500 mg q4hr PO PRN Pain 1-10/ Fever >101F. * Toradol 30 mg q6hr IV PRN Breakthrough Pain. (5) Sepsis ICD Codes: A41.9 - Sepsis, unspecified organism Status: Acute Plan: Patient currently meeting sepsis criteria with leukocytosis, tachypnea, and tachycardia. Suspected source of infection related to areas of cellulitis. -Please see plan as above -ID consulted: Patient currently on Vancomycin, Zosyn, Azithromycin (6) Alcohol abuse ICD Codes: F10.10 - Alcohol abuse, uncomplicated Status: Chronic Plan: Patient with extensive alcohol abuse and history of withdrawal. Medications: * [facility] protocol in place. * Continue Vitamin supplementation. (7) Fracture of proximal phalanx of digit of left hand ICD Codes: S62.619A - Displaced fracture of proximal phalanx of unspecified finger, initial encounter for closed fracture Plan: Subacute/healing nondisplaced left fifth proximal phalanx fracture visualized on Hand X-ray. * See Plan for Cellulitis. * Hand surgery does not recommend intervention at this time. (8) Diarrhea ICD Codes: R19.7 - Diarrhea, unspecified Status: Acute Plan: Explosive diarrhea overnight 07/06. Differential diagnosis: * Alcohol withdrawal versus C. difficile versus enterogastritis Labs: * C. difficile PCR ordered, sample not sent as BMs are semisolid therefore C. difficile infection not likely Medications: * Famotidine 20 mg PO BID. * Lactobacillus Acidophilus 1 tab PO q12hr. (9) Chronic left hip pain ICD Codes: M25.552 - Pain in left hip; G89.29 - Other chronic pain Status: Chronic Plan: Patient with history of chronic left hip pain. * For pain control, see Plan for Cellulitis. (10) Tobacco abuse ICD Codes: Z72.0 - Tobacco use Status: Chronic Plan: Patient with extensive tobacco abuse history including 50 years of 1 pack per day. Medications: * Nicotine patch daily, patient acknowledges possible wound healing delayed due to nicotine use. (11) Nutrition, metabolism, and development symptoms ICD Codes: R63.8 - Other symptoms and signs concerning food and fluid intake Status: Acute Plan: Fluids: * Per CC Diet: * Jevity tube feeds Electrolytes: * Monitor and replete as necessary. DVT Prophylaxis: * Heparin 5,000 q8hr SQ GI prophylaxis: * Lansoprazole (Juan Cowan MD, R3) Problem Qualifiers (1) Respiratory failure: Qualified Codes: J96.01 - Acute respiratory failure with hypoxia (2) Cellulitis: Qualified Codes: L03.90 - Cellulitis, unspecified (3) Sepsis: Qualified Codes: A41.9 - Sepsis, unspecified organism Juan Cowan MD, R3 Jul 13, 2017 16:40 Ry Gonzales MD Jul 13, 2017 19:48
--- NOTE | 2017-07-13 18:12 | HHI.PR ---
Subjective Remarks ON THRE VENT SEDATED Objective Vital Signs Date Time Temp Pulse Resp B/P (MAP) Pulse Ox O2 Delivery O2 Flow Rate FiO2 07/13/17 17:03 96 40 07/13/17 13:00 91 07/13/17 12:00 40 07/13/17 12:00 98 07/13/17 12:00 98.7 98 9 145/72 (96) 96 114/96 (102) 07/13/17 11:59 96 40 07/13/17 11:00 102 07/13/17 11:00 102 17 151/73 (99) 92 153/71 (98) 07/13/17 10:00 97 07/13/17 10:00 97 10 160/76 (104) 93 144/68 (93) 07/13/17 09:00 97 07/13/17 09:00 97 13 144/86 (105) 97 152/71 (98) 07/13/17 08:02 40 07/13/17 08:02 97 40 07/13/17 08:00 98.7 79 23 156/79 (104) 98 153/76 (101) 07/13/17 08:00 40 07/13/17 08:00 79 07/13/17 08:00 07/13/17 07:00 80 22 126/63 (84) 96 124/58 (80) 07/13/17 07:00 80 07/13/17 06:00 72 07/13/17 04:35 96 40 07/13/17 04:00 40 07/13/17 04:00 97.9 71 22 135/77 (96) 94 144/70 (94) 07/13/17 04:00 71 07/13/17 02:00 67 105/62 (76) 104/58 (73) 07/13/17 02:00 67 07/13/17 01:16 92 40 07/13/17 00:00 40 07/13/17 00:00 106 07/13/17 00:00 98.0 106 28 171/93 (119) 97 162/88 (112) 07/12/17 22:00 71 07/12/17 20:06 98 40 07/12/17 20:00 64 07/12/17 20:00 40 07/12/17 20:00 99.4 64 22 130/74 (92) 98 135/70 (91) 07/12/17 20:00 64 130/74 (92) 135/70 (91) 07/12/17 19:00 62 I/O 07/12/17 07/12/17 07/12/17 07/13/17 07/13/17 07/13/17 07:00 15:00 23:00 07:00 15:00 23:00 Intake Total 803.5 ml 792 ml 678.5 ml 200 ml Output Total 750 ml 1750 ml 5600 ml Balance 53.5 ml -958 ml -4921.5 ml 200 ml IV Total 723.5 ml 550 ml 606.5 ml 200 ml Tube Feeding 80 ml 122 ml 72 ml Other 120 ml Output Urine Total 550 ml 1750 ml 5600 ml Stool Total 200 ml # Bowel Movements 1 2 1 Result Diagram: 07/13/17 0415 07/13/17 1622 Objective Remarks GENERAL: SKIN: Warm and dry. HEAD: Atraumatic. Normocephalic. EYES: Pupils equal and round. No scleral icterus. No injection or drainage. ENT: No nasal bleeding or discharge. Mucous membranes pink and moist. NECK: Trachea midline. No JVD. CARDIOVASCULAR: Regular rate and rhythm. RESPIRATORY: No accessory muscle use. Clear to auscultation. Breath sounds equal bilaterally. GASTROINTESTINAL: Abdomen soft, non-tender, nondistended. Hepatic and splenic margins not palpable. MUSCULOSKELETAL: Extremities without clubbing, cyanosis, or edema. No obvious deformities. NEUROLOGICAL: Awake and alert. No obvious cranial nerve deficits. Motor grossly within normal limits. Five out of 5 muscle strength in the arms and legs. Normal speech. PSYCHIATRIC: Appropriate mood and affect; insight and judgment normal. Assessment and Plan Assessment and Plan RESPIRATORY FAILURE PNA MEDIASTINAL ADENOPATHY PLAN VENT SUPPORT ANTIBX BRONCHOSCOPY WHEN POSSIBLE Nelly Villegas MD Jul 13, 2017 18:12
--- NOTE | 2017-07-13 20:01 | HHI.IDPN ---
Subjective Subjective Remarks reconsulted 2/2 febrile illness, leukocytosis event noted Pt developped acute resp distress on Jul 08, was intubated, palced on mech vent was having fever of 102, blood clx from 07/08 with NGTD Also acute urinary retention - now with ibanez: AU not cw infx Pt ruled in for AMI by enzymes CTA showed basilar consolidative changes and small bilateral pleural effusions , diffuse interstitial changes, almost honeycomb pattern in both lungs and extensive mediastinal adenopathy. spp BAL: all negative stains leg/pneumococcal negative as well 2 D echo w/o e/o endocarditis he is tolerating CPAP trial;s WBC going down Antibiotics vancomycin zosyn Allergies: Coded Allergies: No Known Allergies (Verified Allergy, Unknown, 07/04/17) Objective . Vital Signs Date Time Temp Pulse Resp B/P (MAP) Pulse Ox O2 Delivery O2 Flow Rate FiO2 07/13/17 18:00 84 10 161/78 (105) 95 148/70 (96) 07/13/17 18:00 84 07/13/17 17:03 96 40 07/13/17 17:00 95 07/13/17 17:00 95 14 158/76 (103) 94 149/69 (95) 07/13/17 16:01 99 07/13/17 16:00 98.6 99 13 161/81 (107) 93 150/70 (96) 07/13/17 16:00 40 07/13/17 16:00 103 07/13/17 15:00 99 07/13/17 15:00 99 12 144/75 (98) 97 151/70 (97) 07/13/17 14:00 91 07/13/17 14:00 91 6 127/72 (90) 96 131/62 (85) 07/13/17 13:00 91 07/13/17 13:00 91 7 132/73 (92) 93 134/65 (88) 07/13/17 12:00 40 07/13/17 12:00 98 07/13/17 12:00 98.7 98 9 145/72 (96) 96 114/96 (102) 07/13/17 11:59 96 40 07/13/17 11:00 102 07/13/17 11:00 102 17 151/73 (99) 92 153/71 (98) 07/13/17 10:00 97 12/21/17 10:00 97 10 160/76 (104) 93 144/68 (93) 07/13/17 09:00 97 07/13/17 09:00 97 13 144/86 (105) 97 152/71 (98) 07/13/17 08:02 40 07/13/17 08:02 97 40 07/13/17 08:00 98.7 79 23 156/79 (104) 98 153/76 (101) 07/13/17 08:00 40 07/13/17 08:00 79 07/13/17 08:00 07/13/17 07:00 80 22 126/63 (84) 96 124/58 (80) 07/13/17 07:00 80 07/13/17 06:00 72 07/13/17 04:35 96 40 07/13/17 04:00 40 07/13/17 04:00 97.9 71 22 135/77 (96) 94 144/70 (94) 07/13/17 04:00 71 07/13/17 02:00 67 105/62 (76) 104/58 (73) 07/13/17 02:00 67 07/13/17 01:16 92 40 07/13/17 00:00 40 07/13/17 00:00 106 07/13/17 00:00 98.0 106 28 171/93 (119) 97 162/88 (112) 07/12/17 22:00 71 07/12/17 20:06 98 40 07/12/17 20:00 64 07/12/17 20:00 40 07/12/17 20:00 99.4 64 22 130/74 (92) 98 135/70 (91) 07/12/17 20:00 64 130/74 (92) 135/70 (91) 07/13/17 07/13/17 07/14/17 15:00 23:00 07:00 Intake Total 250 ml 510 ml Output Total 2800 ml Balance 250 ml -2290 ml IV Total 250 ml 100 ml Tube Feeding 410 ml Output Urine Total 2800 ml # Bowel Movements 0 . Laboratory Tests Test 07/13/17 04:15 White Blood Count 11.9 TH/MM3 Red Blood Count 3.11 MIL/MM3 Hemoglobin 10.6 GM/DL Hematocrit 31.2 % Mean Corpuscular Volume 100.5 FL Mean Corpuscular Hemoglobin 34.1 PG Mean Corpuscular Hemoglobin Concent 33.9 % Red Cell Distribution Width 13.5 % Platelet Count 255 TH/MM3 Mean Platelet Volume 10.5 FL Neutrophils (%) (Auto) 72.7 % Lymphocytes (%) (Auto) 16.5 % Monocytes (%) (Auto) 7.9 % Eosinophils (%) (Auto) 2.2 % Basophils (%) (Auto) 0.7 % Neutrophils # (Auto) 8.6 TH/MM3 Lymphocytes # (Auto) 2.0 TH/MM3 Monocytes # (Auto) 0.9 TH/MM3 Eosinophils # (Auto) 0.3 TH/MM3 Basophils # (Auto) 0.1 TH/MM3 CBC Comment DIFF FINAL Differential Comment Laboratory Tests Test 07/13/17 04:15 07/13/17 16:22 Blood Urea Nitrogen 32 MG/DL Creatinine 1.30 MG/DL Random Glucose 80 MG/DL Calcium Level 9.7 MG/DL Phosphorus Level 1.9 MG/DL Magnesium Level 1.4 MG/DL Sodium Level 150 MEQ/L Potassium Level 2.7 MEQ/L 3.1 MEQ/L Chloride Level 110 MEQ/L Carbon Dioxide Level 31.9 MEQ/L Anion Gap 8 MEQ/L Estimat Glomerular Filtration Rate 57 ML/MIN Microbiology Date/Time Source Procedure Growth Status 07/12/17 02:30 Nasal Washing Influenza Types A,B Antigen (ROBERTO) - Final NEGATIVE FOR FLU A AND B ANTIGEN.... Complete Imaging Last Impressions Chest X-Ray 07/11/17 0600 Signed Impressions: Service Date/Time: Tuesday, July 11, 2017 03:55 - CONCLUSION: Suspected worsening edema. Adan James MD Head CT 07/10/17 0000 Signed Impressions: Service Date/Time: Monday, July 10, 2017 10:13 - CONCLUSION: 1. Moderate diffuse cerebral atrophy, slightly out of proportion to age. 2. Bilateral mastoiditis. 3. Paranasal sinus mucosal disease. 4. No acute intracranial abnormality. Martin Wilks MD Lower Extremity MRI 07/08/17 0000 Signed Impressions: Service Date/Time: Saturday, July 08, 2017 10:30 - CONCLUSION: 1. Some edema is noted throughout the anterior and posterior tibial musculature raising the possibility of myositis or muscle strain. Clinical correlation is recommended. 2. Mild cellulitis of the lower calf and upper ankle posteriorly. 3. No evidence of osteomyelitis. 4. Serpiginous-appearing lesion within the distal tibial metadiaphysis which has the appearance of probable bone infarct. 5. No soft tissue abscess noted. Manuel Dougherty MD CT Angiography 07/08/17 0000 Signed Impressions: Service Date/Time: Monday, July 10, 2017 10:23 - CONCLUSION: There is no central pulmonary emboli Bibasilar consolidative changes and small bilateral pleural effusions Diffuse interstitial changes, almost honeycomb pattern in both lungs Extensive mediastinal adenopathy. Does this patient have an underlying neoplasm. Jorge Coates MD FACR Tibia/Fibula X-Ray 07/04/17 0000 Signed Impressions: Service Date/Time: Tuesday, July 04, 2017 15:19 - CONCLUSION: 1. 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 2. No acute fracture or dislocation. Martin Wilks MD Hand X-Ray 07/04/17 0000 Signed Impressions: Service Date/Time: Tuesday, July 04, 2017 15:14 - CONCLUSION: 1. Findings suggesting healing nondisplaced left fifth proximal phalanx fracture . 2. No acute fracture or dislocation. Martin Wilks MD Physical Exam CONSTITUTIONAL/GENERAL: This is an adequately nourished patient, sedated, intubated on mech vent'n TUBES/LINES/DRAINS: SKIN: No jaundice, rashes, or lesions. Ecchymoses on upper extremities. Multiple skin lesions inclusing b/l hands, R tibia are healing, dry and w/o eryteham Skin temperature appropriate. Not diaphoretic. HEAD: Atraumatic. Normocephalic. EYES: Pupils equal and round and reactive. Extraocular motions intact. ? mild scleral icterus. No injection or drainage. Fundi not examined. ENT: Hearing grossly normal. Nose without bleeding or purulent drainage. Throat without visible erythema, exudates, masses, or lesions. NECK: Trachea midline. Supple, nontender. CARDIOVASCULAR: Regular rate and rhythm without murmurs, gallops, or rubs. No JVD. Peripheral pulses symmetric. RESPIRATORY/CHEST: Symmetric, unlabored respirations. Clear to auscultation. Breath sounds equal bilaterally. No wheezes, rales, or rhonchi. GASTROINTESTINAL: Abdomen soft, non-tender, nondistended. No hepato-splenomegaly , or palpable masses. No guarding. Bowel sounds present. GENITOURINARY: Without palpable bladder distension. Ibanez in place with clear yellowurine MUSCULOSKELETAL: Extremities without clubbing, cyanosis, or edema. No joint tenderness or effusion noted. No calf tenderness. No mottling or clubbing. LYMPHATICS: No palpable cervical or supraclavicular adenopathy. NEUROLOGICAL: sedated. PSYCHIATRIC: unable to assess Assessment & Plan Remarks RIF infection - improving on abx R madden infection - also improving with conservative tx New acute VDRF New NSTEMI Critically ill, unstable Mediastinal lymphadenopathy - oncology is involved hans proctor for now anticipate transition to po abx soon Julia Bush MD Jul 13, 2017 20:01
[2017-07-13] MEDS ORDERED: FREE WATER G-TUBE SCH (22:00)
[2017-07-13] MEDS: SODIUM CHLOR 0.9% 1000 ML INJ 1,000 ML IV SCH ×2 (22:11→22:15)
[2017-07-14] VITALS (17 sets, daily range): BP systolic 101–187; BP diastolic 53–93; PULSE 65–91; RESP 7–41; TEMP 98.5–99.7; O2SAT 91–99
[2017-07-14] MEDS: HEPARIN SODIUM - SQ 10,000 UNITS/ML VIAL SQ SCH ×4 (00:56→23:27)
[2017-07-14] MEDS: PIPERACIL-TAZO 3.375 GM PREMIX 50 ML IV SCH ×4 (03:22→21:33)
[2017-07-14] MEDS: fentaNYL DRIP 250 ML IV PRN ×2 (04:38→17:56)
[2017-07-14] MEDS: INSULIN NovoLIN REGULAR SUPPLEMENTAL SCALE SQ SCH ×5 (06:00→23:29)
--- NOTE | 2017-07-14 06:31 | RADRPT ---
EXAM DATE/TIME: 07/14/2017 04:46 [facility] COMPARISON: CHEST SINGLE AP, July 11, 2017, 3:55. INDICATIONS : [place] for respiratory disease. MEDICAL HISTORY : Chronic obstructive pulmonary disease. SURGICAL HISTORY : None. ENCOUNTER: Subsequent ACUITY: 2 weeks PAIN SCORE: Non-responsive. LOCATION: chest FINDINGS: Endotracheal tube tip is 7-8 cm above the david. Nasogastric tube descends in the stomach. Left neck central line is stable in good position. There has been improvement in aeration with decrease in con fluence of bilateral perihilar and basilar infiltrates. Cardiac contours are grossly satisfactory. CONCLUSION: Significant improvement in aeration Adan Peña MD on July 14, 2017 at 6:28 Board Certified Radiologist. This report was verified electronically.
[2017-07-14 06:48] LABS: BICARBONATE 38.8 MEQ/L (21.0-32.0); POTASSIUM 3.1 MEQ/L (3.5-5.1)
[2017-07-14] MEDS: ARTIFICIAL TEARS OPTH SOLN 15 ML BTL EACH EYE SCH ×3 (06:48→21:34)
[2017-07-14] MEDS: METOCLOPRAMIDE HCL 10 MG/2 ML VIAL IV PUSH SCH ×3 (06:49→21:33)
[2017-07-14] MEDS: SODIUM CHLOR 0.9% 1000 ML INJ 1,000 ML IV SCH (08:03)
[2017-07-14] MEDS: REMOVE OLD PATCH T-DERMAL SCH (09:00)
[2017-07-14] MEDS: LACTOBACILLUS ACIDOPHILUS TAB PO SCH ×2 (09:41→21:34)
[2017-07-14] MEDS: LACTULOSE SYRUP 20 GM/30 ML CUP PO SCH ×2 (09:41→21:34)
[2017-07-14] MEDS: THIAMINE HCL 100 MG TAB PO SCH (09:41)
[2017-07-14] MEDS: MULTIVITAMIN TAB PO SCH (09:41)
[2017-07-14] MEDS: FOLIC ACID 1 MG TAB PO SCH (09:42)
[2017-07-14] MEDS: DOCUSATE SODIUM 100 MG/10 ML UDC PO SCH ×2 (09:42→21:00)
[2017-07-14] MEDS: FUROSEMIDE 40 MG/4 ML VIAL IV PUSH SCH ×2 (09:42→21:34)
[2017-07-14] MEDS: MAGNESIUM SULFATE INJ 2 GM in SODIUM CHLORIDE 0.9% INJ 96 ML IV PRN (09:42)
[2017-07-14] MEDS: NICOTINE 14 MG/24 HR PATCH T-DERMAL SCH (09:43)
[2017-07-14] MEDS: LANSOPRAZOLE SOLUTAB 30 MG TAB NG SCH (09:43)
[2017-07-14] MEDS: SODIUM CHLORIDE 0.9% FLUSH 10 ML FLUSH IV FLUSH SCH ×3 (09:43→21:33)
[2017-07-14] MEDS: DEXMEDETOMIDINE INJ 200 MCG in SODIUM CHLORIDE 0.9% INJ 50 ML IV PRN ×2 (10:01→14:15)
[2017-07-14] MEDS: CHLORHEXIDINE 0.12% (ORAL KIT) 15 ML CUP MT SCH ×2 (10:02→21:33)
[2017-07-14 12:58] LABS: BLOOD GAS BASE EXCESS 8.5 mmol/L (-2-2); BLOOD GAS CARBOXYHEMOGLOBIN 1.2 % (0-4); BLOOD GAS HCO3 31 mmol/L (22-26); BLOOD GAS O2 HGB SATURATION 93 % (90-100); BLOOD GAS OXYGEN CONTENT 15.2 Vol % (12.0-20.0); BLOOD GAS PCO2 35 mmHg (38-42); BLOOD GAS PO2 65 mmHg (61-120); BLOOD GAS TOTAL HGB 11.6 G/DL (12.0-16.0); TEMP CORR TO 98.6
[2017-07-14 12:59] LABS: CRITICAL VALUE YES; DRAW SITE ART LINE; FIO2 35 %; NUMBER OF ARTERIAL PUNCTURES 0; OXYGEN DEVICE VENTILATOR; STAT NO; ULNAR PULSE PRESENT; VENT SETTINGS CPAP/PEEP5/PS8
[2017-07-14] MEDS: MIDAZOLAM 100 MG/100 ML INJ 100 ML IV PRN (15:53)
--- NOTE | 2017-07-14 15:59 | HHI.FPPN ---
Subjective Remarks Patient seen and examined before noon. Being weaned off vent to CPAP, tolerating well so far. Sedation vacations. Much more alert this morning. Responds to yes/no questions. Not in pain. Wants tube taken out. (Archie Castaneda MD) Objective Vitals Vital Signs Date Time Temp Pulse Resp B/P (MAP) Pulse Ox O2 Delivery O2 Flow Rate FiO2 07/14/17 15:10 35 07/14/17 15:07 97 35 07/14/17 12:00 50 07/14/17 08:06 99 35 07/14/17 08:00 50 07/14/17 06:00 84 07/14/17 04:03 96 50 07/14/17 04:00 86 07/14/17 04:00 50 07/14/17 04:00 98.5 86 7 126/72 (90) 97 130/60 (83) 07/14/17 02:00 91 07/14/17 02:00 87 119/69 (86) 120/56 (77) 07/14/17 02:00 87 07/14/17 00:44 95 50 07/14/17 00:00 50 07/14/17 00:00 98.6 91 8 117/70 (86) 91 118/59 (78) 07/14/17 00:00 91 07/13/17 22:00 94 07/13/17 20:00 98.4 79 9 146/77 (100) 97 139/70 (93) 07/13/17 20:00 50 07/13/17 20:00 07/13/17 20:00 79 07/13/17 19:52 100 50 07/13/17 18:00 84 10 161/78 (105) 95 148/70 (96) 07/13/17 18:00 84 07/13/17 17:03 96 40 07/13/17 17:00 95 07/13/17 17:00 95 14 158/76 (103) 94 149/69 (95) 07/13/17 16:01 99 07/13/17 16:00 98.6 99 13 161/81 (107) 93 150/70 (96) 07/13/17 16:00 40 07/13/17 16:00 103 I/O 07/13/17 07/13/17 07/13/17 07/14/1722/17 12/22/17 07:00 15:00 23:00 07:00 15:00 23:00 Intake Total 678.5 ml 250 ml 660 ml 909 ml 185 ml Output Total 5600 ml 2800 ml 2550 ml Balance -4921.5 ml 250 ml -2140 ml -1641 ml 185 ml IV Total 606.5 ml 250 ml 250 ml 300 ml 185 ml Tube Feeding 72 ml 410 ml 489 ml Other 120 ml Output Urine Total 5600 ml 2800 ml 2550 ml # Bowel Movements 1 0 (Archie Castaneda MD) Result Diagram: 07/13/17 0415 07/14/17 0510 Imaging Last Impressions Chest X-Ray 07/14/17 0600 Signed Impressions: Service Date/Time: Friday, July 14, 2017 04:46 - CONCLUSION: Significant improvement in aeration Adan Peña MD Head CT 07/10/17 0000 Signed Impressions: Service Date/Time: Monday, July 10, 2017 10:13 - CONCLUSION: 1. Moderate diffuse cerebral atrophy, slightly out of proportion to age. 2. Bilateral mastoiditis. 3. Paranasal sinus mucosal disease. 4. No acute intracranial abnormality. Martin Wilks MD Lower Extremity MRI 07/08/17 0000 Signed Impressions: Service Date/Time: Saturday, July 08, 2017 10:30 - CONCLUSION: 1. Some edema is noted throughout the anterior and posterior tibial musculature raising the possibility of myositis or muscle strain. Clinical correlation is recommended. 2. Mild cellulitis of the lower calf and upper ankle posteriorly. 3. No evidence of osteomyelitis. 4. Serpiginous-appearing lesion within the distal tibial metadiaphysis which has the appearance of probable bone infarct. 5. No soft tissue abscess noted. Manuel Dougherty MD CT Angiography 07/08/17 0000 Signed Impressions: Service Date/Time: Monday, July 10, 2017 10:23 - CONCLUSION: There is no central pulmonary emboli Bibasilar consolidative changes and small bilateral pleural effusions Diffuse interstitial changes, almost honeycomb pattern in both lungs Extensive mediastinal adenopathy. Does this patient have an underlying neoplasm. Jorge Coates MD FACR Tibia/Fibula X-Ray 07/04/17 0000 Signed Impressions: Service Date/Time: Tuesday, July 04, 2017 15:19 - CONCLUSION: 1. 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 2. No acute fracture or dislocation. Martin Wilks MD Hand X-Ray 07/04/17 0000 Signed Impressions: Service Date/Time: Tuesday, July 04, 2017 15:14 - CONCLUSION: 1. Findings suggesting healing nondisplaced left fifth proximal phalanx fracture . 2. No acute fracture or dislocation. Martin Wilks MD Objective Remarks GENERAL: Disheveled male intubated Neuro: No focal CN defects. Patient awake, alert, responding to yes/no questions. Motor/sensory function of extremities not assessed. SKIN: Multiple areas of extremity bruising. No active bleeding or visible purulent drainage. HEENT: Atraumatic, normocephalic. No visible LAD or JVD appreciated. CARDIOVASCULAR: RRR. No MGR appreciated. 2+ pulses in all 4 extremities. RESPIRATORY: bronchial breath sounds anteriorly but otherwise clear with no crackles or wheezes GASTROINTESTINAL: Abdomen firm to palpation; nondistended with positive bowel sounds. No masses appreciated. MUSCULOSKELETAL: No cyanosis or edema. Strength grossly within normal limits. Procedures Bronchoscopy on 07/09 (Archie Castaneda MD) Date of Insertion: Jul 09, 2017 (Archie Castaneda MD) Line: Central Venous Catheter Side: Left Location: Internal, Jugular (Archie Castaneda MD) A/P Assessment and Plan 57 yo male with h/o alcohol and substance abuse presenting with: (Archie Castaneda MD) Attending Attestation Patient seen and examined. Case reviewed and discussed with the resident team. Agree with plan of care as discussed with me and documented in the resident note. (Ry Gonzales MD) Problem List: (1) Respiratory failure ICD Codes: J96.90 - Respiratory failure, unspecified, unspecified whether with hypoxia or hypercapnia Status: Resolved Plan: Improving CT Pulm Angiogram on 07/10 showed no central pulmonary emboli, Bibasilar consolidative changes and small bilateral pleural effusions, Diffuse interstitial changes, almost honeycomb pattern in both lungs, and Extensive mediastinal adenopathy Bronchoscopy performed 07/09, showed thick yellow secretions and normal anatomy. Negative for Influenza A and B Ag CCM consulted, appreciate recs * Currently on fentanyl and midazolam sedation/analgesia while intubated. * CPAP trials * CXR on 07/11 showed worsening pulmonary edema- on Lasix 40mg IV BID Pulmonology consulted, appreciate recs * Underlying infection should be treated on empiric basis together with pulmonary toilet and weaning process initiated as tolerated * decision needs to be made if a biopsy procedure need be done of the mediastinal lymph nodes - to asses once patient extubated * once the patient is relatively stable he could be taken to the operating room and bronchoscopy undertaken, endobronchial lesion may be found and that can be biopsied or aspiration of the subcarinal lymph nodes may be undertaken as well. Cultures: 07/09- Fungal- negative to date 07/09- Acid fast- negative to date 07/09- Bronchial culture/gram stain- negative to date Flu swab 07/12- negative (2) Altered mental status ICD Codes: R41.82 - Altered mental status, unspecified Status: Acute Plan: Unclear etiology. PMH alcohol and polysubstance use CT brain w/o contrast on 07/10 showed moderate diffuse cerebral atrophy, slightly out of proportion to age. Alcohol 87, Tox screen - THC positive, Ammonia 34 07/10 metabolic panel without severe derangements ABG on admission- pH 7.52, O2 46, CO2 26 CC managing: Continue sedation with Fentanyl/ midazolam for sedation/analgesia with daily sedation vacation -Continue lactulose BID Impression: (3) Elevated troponin ICD Codes: R74.8 - Abnormal levels of other serum enzymes Status: Acute Plan: Troponin 0.12-->0.71-->0.64 ECHO on 07/10 showed EF of 50%, mild mitral valve regurgitation, mild tricuspid valve regurgitation, no evidence of endocarditis Likely related to sepsis, low suspicion for CA at this time * Consider repeat troponin or EKG based on clinical course (4) Cellulitis ICD Codes: L03.90 - Cellulitis, unspecified Status: Acute Plan: Patient with multiple skin lesions; see H&P exam. Wound culture: Staphylococcus Aureus and Group A Beta Strep. Sensitivities available. Blood culture 07/04 and 07/08 - no growth Hand x-ray: Findings suggesting healing nondisplaced left fifth proximal phalanx fracture. No acute fracture dislocation. Tibia/fibula x-ray: Probable bone infarct in the distal right tibia. No acute fracture or dislocation. ABIs: Ordered MRI of RLE: edema throughout the anterior and posterior tibial musculature raising concern for myositis or muscle strain. Mild cellulitis. No osteo. ID consulted, recs appreciated * Continue Zosyn * Discontinue Azithromycin and vancomycin * Expect transition to PO antibiotics soon Antibiotic history * Vancomycin dosed by pharmacy IV (07/04 - 07/14) * Zosyn 3.375 gm q6hr IV (07/04 - present) * Azithromycin 500mg q24h (07/11-07/14) * Acetaminophen 500 mg q4hr PO PRN Pain 1-10/ Fever >101F. (5) Sepsis ICD Codes: A41.9 - Sepsis, unspecified organism Status: Resolved Plan: Patient met sepsis criteria. Suspected source of infection related to areas of cellulitis. -Please see plan as above (6) Alcohol abuse ICD Codes: F10.10 - Alcohol abuse, uncomplicated Status: Chronic Plan: Patient with extensive alcohol abuse and history of withdrawal. Medications: * [facility] protocol in place. * Continue Vitamin supplementation. (7) Fracture of proximal phalanx of digit of left hand ICD Codes: S62.619A - Displaced fracture of proximal phalanx of unspecified finger, initial encounter for closed fracture Plan: Subacute/healing nondisplaced left fifth proximal phalanx fracture visualized on Hand X-ray. * See Plan for Cellulitis. * Hand surgery does not recommend intervention at this time (8) Diarrhea ICD Codes: R19.7 - Diarrhea, unspecified Status: Acute Plan: Explosive diarrhea 07/06 C. difficile PCR ordered, later discontinued as subsequent BMs are semisolid therefore C. difficile infection not likely Medications * Famotidine 20 mg PO BID. * Lactobacillus Acidophilus 1 tab PO q12hr. (9) Chronic left hip pain ICD Codes: M25.552 - Pain in left hip; G89.29 - Other chronic pain Status: Chronic Plan: Patient with history of chronic left hip pain. * For pain control, see Plan for Cellulitis. (10) Tobacco abuse ICD Codes: Z72.0 - Tobacco use Status: Chronic Plan: Patient with extensive tobacco abuse history including 50 years of 1 pack per day. Medications: * Nicotine patch daily, patient acknowledges possible wound healing delayed due to nicotine use. (11) Nutrition, metabolism, and development symptoms ICD Codes: R63.8 - Other symptoms and signs concerning food and fluid intake Status: Acute Plan: Fluids: Per [facility] Diet: Jevity tube feeds Electrolytes: Monitor and replete as necessary. DVT Prophylaxis: Heparin 5,000 q8hr SQ GI prophylaxis: Lansoprazole (Archie Castaneda MD) Problem Qualifiers (1) Respiratory failure: Qualified Codes: J96.01 - Acute respiratory failure with hypoxia (2) Cellulitis: Qualified Codes: L03.90 - Cellulitis, unspecified (3) Sepsis: Qualified Codes: A41.9 - Sepsis, unspecified organism Archie Castaneda MD Jul 14, 2017 15:59 Ry Gonzales MD Jul 18, 2017 09:02
--- NOTE | 2017-07-14 16:07 | HHI.PR ---
Subjective Remarks ON THRE VENT SEDATED Objective Vital Signs Date Time Temp Pulse Resp B/P (MAP) Pulse Ox O2 Delivery O2 Flow Rate FiO2 07/14/17 15:10 35 07/14/17 15:07 97 35 07/14/17 12:00 50 07/14/17 08:06 99 35 07/14/17 08:00 50 07/14/17 06:00 84 07/14/17 04:03 96 50 07/14/17 04:00 86 07/14/17 04:00 50 07/14/17 04:00 98.5 86 7 126/72 (90) 97 130/60 (83) 07/14/17 02:00 91 07/14/17 02:00 87 119/69 (86) 120/56 (77) 07/14/17 02:00 87 07/14/17 00:44 95 50 07/14/17 00:00 50 07/14/17 00:00 98.6 91 8 117/70 (86) 91 118/59 (78) 07/14/17 00:00 91 07/13/17 22:00 94 07/13/17 20:00 98.4 79 9 146/77 (100) 97 139/70 (93) 07/13/17 20:00 50 07/13/17 20:00 07/13/17 20:00 79 07/13/17 19:52 100 50 07/13/17 18:00 84 10 161/78 (105) 95 148/70 (96) 07/13/17 18:00 84 07/13/17 17:03 96 40 07/13/17 17:00 95 07/13/17 17:00 95 14 158/76 (103) 94 149/69 (95) I/O 07/13/17 07/13/17 07/13/17 07/14/17 07/14/17 07/14/17 07:00 15:00 23:00 07:00 15:00 23:00 Intake Total 678.5 ml 250 ml 660 ml 909 ml 185 ml Output Total 5600 ml 2800 ml 2550 ml Balance -4921.5 ml 250 ml -2140 ml -1641 ml 185 ml IV Total 606.5 ml 250 ml 250 ml 300 ml 185 ml Tube Feeding 72 ml 410 ml 489 ml Other 120 ml Output Urine Total 5600 ml 2800 ml 2550 ml # Bowel Movements 1 0 Result Diagram: 07/13/17 0415 07/14/17 0510 Objective Remarks GENERAL: SKIN: Warm and dry. HEAD: Atraumatic. Normocephalic. EYES: Pupils equal and round. No scleral icterus. No injection or drainage. ENT: No nasal bleeding or discharge. Mucous membranes pink and moist. NECK: Trachea midline. No JVD. CARDIOVASCULAR: Regular rate and rhythm. RESPIRATORY: No accessory muscle use. Clear to auscultation. Breath sounds equal bilaterally. GASTROINTESTINAL: Abdomen soft, non-tender, nondistended. Hepatic and splenic margins not palpable. MUSCULOSKELETAL: Extremities without clubbing, cyanosis, or edema. No obvious deformities. NEUROLOGICAL: Awake and alert. No obvious cranial nerve deficits. Motor grossly within normal limits. Five out of 5 muscle strength in the arms and legs. Normal speech. PSYCHIATRIC: Appropriate mood and affect; insight and judgment normal. Assessment and Plan Assessment and Plan RESPIRATORY FAILURE PNA MEDIASTINAL ADENOPATHY PLAN VENT SUPPORT ANTIBX BRONCHOSCOPY WHEN POSSIBLE Nelly Villegas MD Jul 14, 2017 16:07
[2017-07-14] MEDS ORDERED: PHARMACY ORDERED LAB ONE (17:45)
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
[2017-07-14] MEDS: POTASSIUM CHLOR 40 MEQ PREMIX 100 ML IV PRN (23:26)
[2017-07-15] VITALS (24 sets, daily range): BP systolic 85–178; BP diastolic 48–85; PULSE 61–92; RESP 12–41; TEMP 97.3–99; O2SAT 94–100
[2017-07-15] MEDS: POTASSIUM CHLOR 40 MEQ PREMIX 100 ML IV PRN ×3 (01:28→12:07)
[2017-07-15] MEDS: PIPERACIL-TAZO 3.375 GM PREMIX 50 ML IV SCH ×3 (03:31→14:39)
[2017-07-15 04:47] LABS: BLOOD GAS BASE EXCESS 10.7 mmol/L (-2-2); BLOOD GAS CARBOXYHEMOGLOBIN 0.8 % (0-4); BLOOD GAS HCO3 34 mmol/L (22-26); BLOOD GAS O2 HGB SATURATION 96 % (90-100); BLOOD GAS PCO2 41 mmHg (38-42); BLOOD GAS PO2 105 mmHg (61-120); TEMP CORR TO 98.6
[2017-07-15 04:48] LABS: OXYGEN DEVICE VENTILATOR
[2017-07-15 04:49] LABS: DRAW SITE ART LINE; FIO2 50 %; STAT NO
[2017-07-15] MEDS: INSULIN NovoLIN REGULAR SUPPLEMENTAL SCALE SQ SCH ×3 (06:00→18:00)
[2017-07-15] MEDS: METOCLOPRAMIDE HCL 10 MG/2 ML VIAL IV PUSH SCH ×3 (06:25→21:40)
[2017-07-15] MEDS: MIDAZOLAM 100 MG/100 ML INJ 100 ML IV PRN (06:25)
[2017-07-15] MEDS: fentaNYL DRIP 250 ML IV PRN (06:25)
[2017-07-15] MEDS: ARTIFICIAL TEARS OPTH SOLN 15 ML BTL EACH EYE SCH ×3 (06:25→21:41)
--- NOTE | 2017-07-15 06:46 | RADRPT ---
EXAM DATE/TIME: 07/15/2017 03:50 [place] COMPARISON: CHEST SINGLE AP, July 14, 2017, 4:46. INDICATIONS : Shortness of breath, possible pulmonary disease. MEDICAL HISTORY : Chronic obstructive pulmonary disease. SURGICAL HISTORY : None. ENCOUNTER: Subsequent ACUITY: 2 weeks PAIN SCORE: Non-responsive. LOCATION: Bilateral chest FINDINGS: Endotracheal tube nasogastric tube and left central line remain in place. Aeration is improved with d ecrease in confluence of basilar infiltrates. Cardiac contours are stable. CONCLUSION: Improving aeration. Adan Peña MD on July 15, 2017 at 6:43 Board Certified Radiologist. This report was verified electronically.
[2017-07-15 07:18] LABS: AUTOMATED NEUTROPHIL # 12.9 TH/MM3 (1.8-7.7); BASOPHIL # 0.1 TH/MM3 (0-0.2); BASOPHIL % 0.5 % (0.0-2.0); EOSINOPHIL # 0.3 TH/MM3 (0-0.4); EOSINOPHIL % 1.7 % (0.0-4.0); HEMATOCRIT 32.6 % (39.0-51.0); HEMO FLAGS DIFF FINAL; LYMPH % 14.6 % (9.0-44.0); LYMPHOCYTE # 2.6 TH/MM3 (1.0-4.8); MEAN CELL VOLUME 101.2 FL (80.0-100.0); MEAN CORPUSCULAR HEMOGLOBIN 33.3 PG (27.0-34.0); MEAN CORPUSCULAR HGB CONC 32.9 % (32.0-36.0); MONO % 9.8 % (0.0-8.0); NEUT % 73.4 % (16.0-70.0); PLATELET COUNT 294 TH/MM3 (150-450); RED BLOOD COUNT 3.22 MIL/MM3 (4.50-5.90); RED CELL DISTRIBUTION WIDTH 13.9 % (11.6-17.2); WHITE BLOOD COUNT 17.5 TH/MM3 (4.0-11.0)
[2017-07-15 07:40] LABS: ANION GAP 9 MEQ/L (5-15)
[2017-07-15 07:41] LABS: ALKALINE PHOSPHATASE 175 U/L (45-117); ALT (GPT) 46 U/L (12-78); AST (GOT) 78 U/L (15-37); BICARBONATE 33.5 MEQ/L (21.0-32.0); BLOOD UREA NITROGEN 34 MG/DL (7-18); CHLORIDE 114 MEQ/L (98-107); GLOMERULAR FILTRATION RATE 46 ML/MIN (>89); MAGNESIUM 2.5 MG/DL (1.5-2.5); POTASSIUM 3.1 MEQ/L (3.5-5.1); TOTAL BILIRUBIN ADULT 0.7 MG/DL (0.2-1.0)
[2017-07-15 07:49] LABS: SODIUM (NA) 156 MEQ/L (136-145)
[2017-07-15] MEDS: SODIUM CHLOR 0.9% 1000 ML INJ 1,000 ML IV SCH (08:03)
[2017-07-15] MEDS: CHLORHEXIDINE 0.12% (ORAL KIT) 15 ML CUP MT SCH (08:55)
[2017-07-15] MEDS: SODIUM CHLORIDE 0.9% FLUSH 10 ML FLUSH IV FLUSH SCH ×3 (08:55→21:41)
[2017-07-15] MEDS: HEPARIN SODIUM - SQ 10,000 UNITS/ML VIAL SQ SCH ×2 (08:55→17:02)
[2017-07-15] MEDS: FUROSEMIDE 40 MG/4 ML VIAL IV PUSH SCH ×2 (08:56→21:40)
[2017-07-15] MEDS: LANSOPRAZOLE SOLUTAB 30 MG TAB NG SCH (08:56)
[2017-07-15] MEDS: SODIUM CHLORIDE 0.9% FLUSH 10 ML FLUSH IV FLUSH PRN (08:56)
[2017-07-15] MEDS: FOLIC ACID 1 MG TAB PO SCH (08:57)
[2017-07-15] MEDS: DOCUSATE SODIUM 100 MG/10 ML UDC PO SCH ×2 (08:57→21:41)
[2017-07-15] MEDS: MULTIVITAMIN TAB PO SCH (08:57)
[2017-07-15] MEDS: LACTULOSE SYRUP 20 GM/30 ML CUP PO SCH ×2 (08:57→21:41)
[2017-07-15] MEDS: THIAMINE HCL 100 MG TAB PO SCH (08:57)
[2017-07-15] MEDS: LACTOBACILLUS ACIDOPHILUS TAB PO SCH ×2 (08:57→21:41)
[2017-07-15] MEDS: REMOVE OLD PATCH T-DERMAL SCH (08:58)
[2017-07-15] MEDS: FREE WATER OG-TUBE SCH ×3 (08:58→21:00)
[2017-07-15] MEDS: NICOTINE 14 MG/24 HR PATCH T-DERMAL SCH (08:58)
--- NOTE | 2017-07-15 11:01 | HHI.FPPN ---
Subjective Remarks Saw and examined patient this morning. Patient still intubated and sedated. Had failed CPAP trial yesterday. Patient Shake and has had no blurring by encounter with him this morning even when I was not asking any questions. He did nod to indicate that he was uncomfortable and ready to be extubated. (Chiqui Aguirre MD R1) Objective Vitals Vital Signs Date Time Temp Pulse Resp B/P (MAP) Pulse Ox O2 Delivery O2 Flow Rate FiO2 07/15/17 08:45 96 35 07/15/17 06:00 61 07/15/17 04:05 98 50 07/15/17 04:00 99.0 76 24 116/64 (81) 99 109/58 (75) 07/15/17 04:00 50 07/15/17 04:00 76 07/15/17 02:00 80 07/15/17 00:25 100 50 07/15/17 00:00 50 07/15/17 00:00 72 07/15/17 00:00 98.9 72 33 85/50 (62) 96 92/48 (63) 07/14/17 22:00 72 07/14/17 20:18 99 50 07/14/17 20:00 72 07/14/17 20:00 50 07/14/17 20:00 99.0 72 41 101/55 (70) 95 107/53 (71) 07/14/17 18:00 66 07/14/17 16:00 35 07/14/17 16:00 65 07/14/17 16:00 99.2 65 16 187/93 (124) 96 182/81 (114) 07/14/17 15:10 35 07/14/17 15:07 97 35 07/14/17 14:00 73 07/14/17 12:00 79 07/14/17 12:00 99.7 79 21 166/83 (110) 94 164/74 (104) 07/14/17 12:00 50 I/O 07/14/17 07/14/17 07/14/17 07/15/17 07/15/17 07/15/17 07:00 15:00 23:00 07:00 15:00 23:00 Intake Total 909 ml 185 ml 50 ml 1345 ml Output Total 2550 ml 1400 ml Balance -1641 ml 185 ml 50 ml -55 ml IV Total 300 ml 185 ml 50 ml 600 ml Tube Feeding 489 ml 685 ml Other 120 ml 60 ml Output Urine Total 2550 ml 1400 ml (Chiqui Aguirre MD R1) Result Diagram: 07/15/17 0615 07/15/17 0839 Objective Remarks GENERAL: Disheveled male intubated Neuro: No focal CN defects. Patient awake, alert, responding to yes/no questions. Motor/sensory function of extremities not assessed. SKIN: Multiple areas of extremity bruising. No active bleeding or visible purulent drainage. HEENT: Atraumatic, normocephalic. No visible LAD or JVD appreciated. CARDIOVASCULAR: RRR. No MGR appreciated. 2+ pulses in all 4 extremities. RESPIRATORY: bronchial breath sounds anteriorly but otherwise clear with no crackles or wheezes GASTROINTESTINAL: Abdomen firm to palpation; nondistended with positive bowel sounds. No masses appreciated. MUSCULOSKELETAL: No cyanosis or edema. Strength grossly within normal limits. Procedures Bronchoscopy on 07/09 (Chiqui Aguirre MD R1) Date of Insertion: Jul 09, 2017 (Chiqui Aguirre MD R1) Line: Central Venous Catheter Side: Left Location: Internal, Jugular (Chiqui Aguirre MD R1) A/P Assessment and Plan 57 yo male with h/o alcohol and substance abuse presenting with: (Chiqui Aguirre MD R1) Attending Attestation Patient seen and examined. Case reviewed and discussed with the resident team. Agree with plan of care as discussed with me and documented in the resident note. (Ry Gonzales MD) Problem List: (1) Respiratory failure ICD Codes: J96.90 - Respiratory failure, unspecified, unspecified whether with hypoxia or hypercapnia Status: Resolved Plan: Improving CT Pulm Angiogram on 07/10 showed no central pulmonary emboli, Bibasilar consolidative changes and small bilateral pleural effusions, Diffuse interstitial changes, almost honeycomb pattern in both lungs, and Extensive mediastinal adenopathy Bronchoscopy performed 07/09, showed thick yellow secretions and normal anatomy. Negative for Influenza A and B Ag CCM consulted, appreciate recs * Currently on fentanyl and midazolam sedation/analgesia while intubated. * Will continue CPAP trials * CXR on 07/11 showed worsening pulmonary edema- on Lasix 40mg IV BID * CXR on 07/15 showed improved aeration. Pulmonology consulted, appreciate recs * Underlying infection should be treated on empiric basis together with pulmonary toilet and weaning process initiated as tolerated * decision needs to be made if a biopsy procedure need be done of the mediastinal lymph nodes - to asses once patient extubated * once the patient is relatively stable he could be taken to the operating room and bronchoscopy undertaken, endobronchial lesion may be found and that can be biopsied or aspiration of the subcarinal lymph nodes may be undertaken as well. Cultures: 07/09- Fungal- negative to date 07/09- Acid fast- negative to date 07/09- Bronchial culture/gram stain- negative to date Flu swab 07/12- negative (2) Altered mental status ICD Codes: R41.82 - Altered mental status, unspecified Status: Acute Plan: Unclear etiology. PMH alcohol and polysubstance use CT brain w/o contrast on 07/10 showed moderate diffuse cerebral atrophy, slightly out of proportion to age. Alcohol 87, Tox screen - THC positive, Ammonia 34 07/10 metabolic panel without severe derangements ABG on admission- pH 7.52, O2 46, CO2 26 CC managing: Continue sedation with Fentanyl/ midazolam for sedation/analgesia with daily sedation vacation -Continue lactulose BID (3) Elevated troponin ICD Codes: R74.8 - Abnormal levels of other serum enzymes Status: Acute Plan: Troponin 0.12-->0.71-->0.64 ECHO on 07/10 showed EF of 50%, mild mitral valve regurgitation, mild tricuspid valve regurgitation, no evidence of endocarditis Likely related to sepsis, low suspicion for [facility] at this time * Consider repeat troponin or EKG based on clinical course (4) Cellulitis ICD Codes: L03.90 - Cellulitis, unspecified Status: Acute Plan: Patient with multiple skin lesions; see H&P exam. Wound culture: Staphylococcus Aureus and Group A Beta Strep. Sensitivities available. Blood culture 07/04 and 07/08 - no growth Hand x-ray: Findings suggesting healing nondisplaced left fifth proximal phalanx fracture. No acute fracture dislocation. Tibia/fibula x-ray: Probable bone infarct in the distal right tibia. No acute fracture or dislocation. ABIs: Ordered MRI of RLE: edema throughout the anterior and posterior tibial musculature raising concern for myositis or muscle strain. Mild cellulitis. No osteo. ID consulted, recs appreciated * Continue Zosyn * Discontinue Azithromycin and vancomycin * Expect transition to PO antibiotics soon Antibiotic history * Vancomycin dosed by pharmacy IV (07/04 - 07/14) * Zosyn 3.375 gm q6hr IV (07/04 - present) * Azithromycin 500mg q24h (07/11-07/14) * Acetaminophen 500 mg q4hr PO PRN Pain 1-10/ Fever >101F. (5) Sepsis ICD Codes: A41.9 - Sepsis, unspecified organism Status: Resolved Plan: Patient met sepsis criteria. Suspected source of infection related to areas of cellulitis. -Please see plan as above (6) Alcohol abuse ICD Codes: F10.10 - Alcohol abuse, uncomplicated Status: Chronic Plan: Patient with extensive alcohol abuse and history of withdrawal. Medications: * [facility] protocol in place. * Continue Vitamin supplementation. (7) Fracture of proximal phalanx of digit of left hand ICD Codes: S62.619A - Displaced fracture of proximal phalanx of unspecified finger, initial encounter for closed fracture Plan: Subacute/healing nondisplaced left fifth proximal phalanx fracture visualized on Hand X-ray. * See Plan for Cellulitis. * Hand surgery does not recommend intervention at this time (8) Diarrhea ICD Codes: R19.7 - Diarrhea, unspecified Status: Acute Plan: Explosive diarrhea 07/06 C. difficile PCR ordered, later discontinued as subsequent BMs are semisolid therefore C. difficile infection not likely Medications * Famotidine 20 mg PO BID. * Lactobacillus Acidophilus 1 tab PO q12hr. (9) Chronic left hip pain ICD Codes: M25.552 - Pain in left hip; G89.29 - Other chronic pain Status: Chronic Plan: Patient with history of chronic left hip pain. * For pain control, see Plan for Cellulitis. (10) Tobacco abuse ICD Codes: Z72.0 - Tobacco use Status: Chronic Plan: Patient with extensive tobacco abuse history including 50 years of 1 pack per day. Medications: * Nicotine patch daily, patient acknowledges possible wound healing delayed due to nicotine use. (11) Nutrition, metabolism, and development symptoms ICD Codes: R63.8 - Other symptoms and signs concerning food and fluid intake Status: Acute Plan: Fluids: Per [facility] Diet: Jevity tube feeds Electrolytes: hypernatremic, started on free water today. Monitor and replete as necessary. DVT Prophylaxis: Heparin 5,000 q8hr SQ GI prophylaxis: Lansoprazole (Chiqui Aguirre MD R1) Problem Qualifiers (1) Respiratory failure: Qualified Codes: J96.01 - Acute respiratory failure with hypoxia (2) Cellulitis: Qualified Codes: L03.90 - Cellulitis, unspecified (3) Sepsis: Qualified Codes: A41.9 - Sepsis, unspecified organism Chiqui Aguirre MD R1 Jul 15, 2017 11:01 Ry Gonzales MD Jul 18, 2017 09:05
[2017-07-15] MEDS ORDERED: DEXTROSE 5% IN WATER INJ 250 ML IV SCH (13:45)
[2017-07-15] MEDS ORDERED: DEXTROSE 5% IN WATE 1000ML INJ 1,000 ML IV SCH (14:15)
[2017-07-15] MEDS: DEXTROSE 5% IN WATE 1000ML INJ 1,000 ML IV SCH (14:41)
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
[2017-07-15] MEDS: LORazepam 2 MG/ML VIAL IV PUSH PRN (17:37)
[2017-07-15] MEDS: ACETAMINOPHEN 1000 MG/100 ML 100 ML IV SCH (17:38)
--- NOTE | 2017-07-15 17:43 | HHI.PR ---
Subjective Remarks 57 YOWM with RF,COPD,Sepsis, increased Troponin Extubated today Hungry Failed swallow eval no fever Objective Vital Signs Vital Signs Date Time Temp Pulse Resp B/P (MAP) Pulse Ox O2 Delivery O2 Flow Rate FiO2 07/15/17 16:00 98.7 86 27 168/84 (112) 96 165/85 (111) 07/15/17 16:00 86 07/15/17 15:00 76 20 157/82 (107) 96 159/80 (106) 07/15/17 14:00 78 13 134/67 (89) 95 138/71 (93) 07/15/17 14:00 78 07/15/17 13:00 88 13 139/71 (93) 97 144/69 (94) 07/15/17 12:45 96 Nasal Cannula 4.00 07/15/17 12:45 97 Nasal Cannula 4 36 07/15/17 12:00 35 07/15/17 12:00 98.7 87 12 126/64 (84) 95 132/62 (85) 07/15/17 12:00 87 07/15/17 11:44 97 35 07/15/17 11:00 92 16 143/65 (91) 97 126/62 (83) 07/15/17 10:00 87 07/15/17 10:00 87 19 134/70 (91) 94 125/63 (83) 07/15/17 09:00 77 18 137/73 (94) 96 134/66 (88) 07/15/17 08:45 96 35 07/15/17 08:45 35 07/15/17 08:00 98.1 65 41 96/57 (70) 96 98/48 (65) 07/15/17 08:00 65 07/15/17 08:00 50 07/15/17 07:00 82 21 128/64 (85) 99 131/60 (83) 07/15/17 06:00 61 07/15/17 04:05 98 50 07/15/17 04:00 99.0 76 24 116/64 (81) 99 109/58 (75) 07/15/17 04:00 50 07/15/17 04:00 76 07/15/17 02:00 80 07/15/17 00:25 100 50 07/15/17 00:00 50 07/15/17 00:00 72 07/15/17 00:00 98.9 72 33 85/50 (62) 96 92/48 (63) 07/14/17 22:00 72 07/14/17 20:18 99 50 07/14/17 20:00 72 07/14/17 20:00 50 07/14/17 20:00 99.0 72 41 101/55 (70) 95 107/53 (71) 07/14/17 18:00 66 I/O 07/14/17 07/14/17 07/14/17 07/15/17 07/15/17 07/15/17 07:00 15:00 23:00 07:00 15:00 23:00 Intake Total 909 ml 185 ml 50 ml 1345 ml 757 ml Output Total 2550 ml 1400 ml Balance -1641 ml 185 ml 50 ml -55 ml 757 ml IV Total 300 ml 185 ml 50 ml 600 ml 363 ml Tube Feeding 489 ml 685 ml 194 ml Other 120 ml 60 ml 200 ml Output Urine Total 2550 ml 1400 ml Result Diagram: 07/15/17 0615 07/15/17 0839 Objective Remarks GENERAL: MBMN WM, mild sob SKIN: Warm and dry. HEAD: Normocephalic. EYES: No scleral icterus. No injection or drainage. NECK: Supple, trachea midline. No JVD or lymphadenopathy. CARDIOVASCULAR: Regular rate and rhythm without murmurs, gallops, or rubs. RESPIRATORY: Breath sounds equal bilaterally. No accessory muscle use. Scattered rhonchi GASTROINTESTINAL: Abdomen soft, non-tender, nondistended. MUSCULOSKELETAL: No cyanosis, or edema. BACK: Nontender without obvious deformity. No CVA tenderness. A/P Assessment and Plan Resp failure, s/p extubation 07/15 COPD Sepsis Increased Troponin ETOH use PLAN: Aerosol nebs Cont Abx Supplement 02 IS Will rechck swallowing Rancho aSldana MD Jul 15, 2017 17:43
--- NOTE | 2017-07-15 17:46 | HHI.FPPN ---
Addendum to progress note ADDENDUM Reason for addendum: Additonal documentation Additional information Subjective: Patient was extubated by Dr. Beauchamp who requested that he be reevaluated per DNR status. When we saw him, he constantly complained of thirst and requested water to drink. He also complained of pain all over. He had an equivocal bedside swallow test earlier with his nurse and is pending an official ST bedside swallow test so we gave him some ice chips. He remains NPO until evaluation by speech therapy. On further discussion, he stated that he does not want to be intubated but will allow chest compressions. Patient will be monitored overnight in the ICU with plan to transfer to the floor in the morning after being evaluated by his primary hospital team. Assessment: 57 y/o male recently extubated after respiratory failure Objective: Vitals: P 66, BP: 178/84, 100% on 4L by NC Resp: CTAB, weak effort CV: RRR Psych: AOx3 Plan Continue supplemental oxygen, titrate as needed Hydralazine 20mg IV Q4h prn SBP>160 Ativan 1mg Q4h prn agitation Offirmev 1000mg Q6h scheduled Psych consult in the am for capacity ST consult in the am Carolin Hawthorne MD R2 Jul 15, 2017 17:46
[2017-07-15] MEDS ORDERED: hydrALAZINE HCL 20 MG/ML VIAL IV PRN (18:00)
[2017-07-15] MEDS ORDERED: LABETALOL HCL 100 MG/20 ML VIAL IV PRN (18:00)
--- NOTE | 2017-07-15 20:23 | HHI.IDPN ---
Subjective Subjective Remarks extubated co being thursty afebrile WBC up to 17 K Antibiotics vancomycin zosyn Allergies: Coded Allergies: No Known Allergies (Verified Allergy, Unknown, 07/04/17) Objective . Vital Signs Date Time Temp Pulse Resp B/P (MAP) Pulse Ox O2 Delivery O2 Flow Rate FiO2 07/15/17 19:59 99 Nasal Cannula 2.00 07/15/17 18:00 72 14 147/74 (98) 100 140/78 (98) 07/15/17 18:00 72 07/15/17 17:00 80 23 178/84 (115) 98 170/80 (110) 07/15/17 16:00 98.7 86 27 168/84 (112) 96 165/85 (111) 07/15/17 16:00 86 07/15/17 15:00 76 20 157/82 (107) 96 159/80 (106) 07/15/17 14:00 78 13 134/67 (89) 95 138/71 (93) 07/15/17 14:00 78 07/15/17 13:00 88 13 139/71 (93) 97 144/69 (94) 07/15/17 12:45 96 Nasal Cannula 4.00 07/15/17 12:45 97 Nasal Cannula 4 36 07/15/17 12:00 35 07/15/17 12:00 98.7 87 12 126/64 (84) 95 132/62 (85) 07/15/17 12:00 87 07/15/17 11:44 97 35 07/15/17 11:00 92 16 143/65 (91) 97 126/62 (83) 07/15/17 10:00 87 07/15/17 10:00 87 19 134/70 (91) 94 125/63 (83) 07/15/17 09:00 77 18 137/73 (94) 96 134/66 (88) 07/15/17 08:45 96 35 07/15/17 08:45 35 07/15/17 08:00 98.1 65 41 96/57 (70) 96 98/48 (65) 07/15/17 08:00 65 07/15/17 08:00 50 07/15/17 07:00 82 21 128/64 (85) 99 131/60 (83) 07/15/17 06:00 61 07/15/17 04:05 98 50 07/15/17 04:00 99.0 76 24 116/64 (81) 99 109/58 (75) 07/15/17 04:00 50 07/15/17 04:00 76 07/15/17 02:00 80 07/15/17 00:25 100 50 07/15/17 00:00 50 07/15/17 00:00 72 07/15/17 00:00 98.9 72 33 85/50 (62) 96 92/48 (63) 07/14/17 22:00 72 07/15/17 07/15/17 07/16/17 15:00 23:00 07:00 Intake Total 857 ml 522 ml Output Total 1175 ml Balance 857 ml -653 ml IV Total 463 ml 322 ml Tube Feeding 194 ml Other 200 ml 200 ml Output Urine Total 1175 ml . Laboratory Tests Test 07/15/17 06:15 White Blood Count 17.5 TH/MM3 Red Blood Count 3.22 MIL/MM3 Hemoglobin 10.7 GM/DL Hematocrit 32.6 % Mean Corpuscular Volume 101.2 FL Mean Corpuscular Hemoglobin 33.3 PG Mean Corpuscular Hemoglobin Concent 32.9 % Red Cell Distribution Width 13.9 % Platelet Count 294 TH/MM3 Mean Platelet Volume 10.8 FL Neutrophils (%) (Auto) 73.4 % Lymphocytes (%) (Auto) 14.6 % Monocytes (%) (Auto) 9.8 % Eosinophils (%) (Auto) 1.7 % Basophils (%) (Auto) 0.5 % Neutrophils # (Auto) 12.9 TH/MM3 Lymphocytes # (Auto) 2.6 TH/MM3 Monocytes # (Auto) 1.7 TH/MM3 Eosinophils # (Auto) 0.3 TH/MM3 Basophils # (Auto) 0.1 TH/MM3 CBC Comment DIFF FINAL Differential Comment Laboratory Tests Test 07/14/17 05:10 07/14/17 21:50 07/15/17 06:15 07/15/17 08:39 Blood Urea Nitrogen 28 MG/DL 34 MG/DL Creatinine 1.35 MG/DL 1.56 MG/DL Random Glucose 147 MG/DL 133 MG/DL Calcium Level 8.8 MG/DL 9.1 MG/DL Sodium Level 152 MEQ/L 156 MEQ/L Potassium Level 3.1 MEQ/L 2.6 MEQ/L 3.1 MEQ/L 3.1 MEQ/L Chloride Level 108 MEQ/L 114 MEQ/L Carbon Dioxide Level 38.8 MEQ/L 33.5 MEQ/L Anion Gap 5 MEQ/L 9 MEQ/L Estimat Glomerular Filtration Rate 54 ML/MIN 46 ML/MIN Total Protein 8.5 GM/DL Albumin 2.1 GM/DL Phosphorus Level 2.6 MG/DL Magnesium Level 2.5 MG/DL Alkaline Phosphatase 175 U/L Aspartate Amino Transf (AST/SGOT) 78 U/L Alanine Aminotransferase (ALT/SGPT) 46 U/L Total Bilirubin 0.7 MG/DL Test 07/15/17 18:45 Potassium Level 3.6 MEQ/L Imaging Last Impressions Chest X-Ray 07/15/17 0600 Signed Impressions: Service Date/Time: Saturday, July 15, 2017 03:50 - CONCLUSION: Improving aeration. Adan Peña MD Head CT 07/10/17 0000 Signed Impressions: Service Date/Time: Monday, July 10, 2017 10:13 - CONCLUSION: 1. Moderate diffuse cerebral atrophy, slightly out of proportion to age. 2. Bilateral mastoiditis. 3. Paranasal sinus mucosal disease. 4. No acute intracranial abnormality. Martin Wilks MD Lower Extremity MRI 07/08/17 0000 Signed Impressions: Service Date/Time: Saturday, July 08, 2017 10:30 - CONCLUSION: 1. Some edema is noted throughout the anterior and posterior tibial musculature raising the possibility of myositis or muscle strain. Clinical correlation is recommended. 2. Mild cellulitis of the lower calf and upper ankle posteriorly. 3. No evidence of osteomyelitis. 4. Serpiginous-appearing lesion within the distal tibial metadiaphysis which has the appearance of probable bone infarct. 5. No soft tissue abscess noted. Manuel Dougherty MD CT Angiography 07/08/17 0000 Signed Impressions: Service Date/Time: Monday, July 10, 2017 10:23 - CONCLUSION: There is no central pulmonary emboli Bibasilar consolidative changes and small bilateral pleural effusions Diffuse interstitial changes, almost honeycomb pattern in both lungs Extensive mediastinal adenopathy. Does this patient have an underlying neoplasm. Jorge Coates MD FACR Tibia/Fibula X-Ray 07/04/17 0000 Signed Impressions: Service Date/Time: Tuesday, July 04, 2017 15:19 - CONCLUSION: 1. 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 2. No acute fracture or dislocation. Martin Wilks MD Hand X-Ray 07/04/17 0000 Signed Impressions: Service Date/Time: Tuesday, July 04, 2017 15:14 - CONCLUSION: 1. Findings suggesting healing nondisplaced left fifth proximal phalanx fracture . 2. No acute fracture or dislocation. Martin Wilks MD Physical Exam CONSTITUTIONAL/GENERAL: This is an adequately nourished patient, TUBES/LINES/DRAINS: SKIN: No jaundice, rashes, or lesions. Ecchymoses on upper extremities. Multiple skin lesions inclusing b/l hands, R tibia are healing, dry and w/o eryteham Skin temperature appropriate. Not diaphoretic. CARDIOVASCULAR: Regular rate and rhythm without murmurs, gallops, or rubs. No JVD. Peripheral pulses symmetric. RESPIRATORY/CHEST: Symmetric, unlabored respirations. Clear to auscultation. Breath sounds equal bilaterally. No wheezes, rales, or rhonchi. GASTROINTESTINAL: Abdomen soft, non-tender, nondistended. No hepato-splenomegaly , or palpable masses. No guarding. Bowel sounds present. GENITOURINARY: Without palpable bladder distension. Catheter in place with clear yellowurine MUSCULOSKELETAL: Extremities without clubbing, cyanosis, or edema. No joint tenderness or effusion noted. No calf tenderness. No mottling or clubbing. LYMPHATICS: No palpable cervical or supraclavicular adenopathy. NEUROLOGICAL: awake,a alert, communicates PSYCHIATRIC: calm Assessment & Plan Remarks RIF infection - improved on abx R madden infection - also improving with conservative tx New acute VDRF - successfully extubated New NSTEMI Critically ill, stable Mediastinal lymphadenopathy - oncology is involved Worsening luekocytosis PNA - improved clinically and radiologically monitr WBC complete Julia Trinidad MD Jul 15, 2017 20:23
[2017-07-16] VITALS (13 sets, daily range): BP systolic 130–166; BP diastolic 68–93; PULSE 63–79; RESP 14–21; TEMP 96.3–97.9; O2SAT 97–100
[2017-07-16] MEDS: HEPARIN SODIUM - SQ 10,000 UNITS/ML VIAL SQ SCH ×4 (00:45→23:30)
[2017-07-16] MEDS: LORazepam 2 MG/ML VIAL IV PUSH PRN ×2 (00:45→04:40)
[2017-07-16] MEDS: ACETAMINOPHEN 1000 MG/100 ML 100 ML IV SCH ×2 (00:45→06:30)
[2017-07-16] MEDS: FREE WATER OG-TUBE SCH ×4 (03:00→21:00)
[2017-07-16] MEDS: INSULIN NovoLIN REGULAR SUPPLEMENTAL SCALE SQ SCH ×2 (06:00)
[2017-07-16] MEDS: ARTIFICIAL TEARS OPTH SOLN 15 ML BTL EACH EYE SCH ×3 (06:00→23:30)
[2017-07-16] MEDS: METOCLOPRAMIDE HCL 10 MG/2 ML VIAL IV PUSH SCH ×3 (06:30→21:25)
[2017-07-16] MEDS: CHLORHEXIDINE 0.12% (ORAL KIT) 15 ML CUP MT SCH ×2 (08:00→20:00)
[2017-07-16] MEDS: SODIUM CHLOR 0.9% 1000 ML INJ 1,000 ML IV SCH (08:03)
--- NOTE | 2017-07-16 08:18 | RADRPT ---
EXAM DATE/TIME: 07/16/2017 07:49 [facility] COMPARISON: CT BRAIN W/O CONTRAST, July 10, 2017, 10:13. INDICATIONS : Trauma, fall today. RADIATION DOSE: 52.13 CTDIvol (mGy) MEDICAL HISTORY : Chronic obstructive pulmonary disease. SURGICAL HISTORY : hip replacement ENCOUNTER: Subsequent ACUITY: 1 day PAIN SCALE: 5/10 LOCATION: Bilateral head TECHNIQUE: Multiple contiguous axial images were obtained of the head. Using automated exposure control and adj ustment of the mA and/or kV according to patient size, radiation dose was kept as low as reasonably a chievable to obtain optimal diagnostic quality images. DICOM format image data is available electro nically for review and comparison. FINDINGS: CEREBRUM: Mild central and cortical atrophy No evidence of midline shift, mass lesion, hemorrhage or acute infa rction. No extra-axial fluid collections are seen. POSTERIOR FOSSA: The cerebellum and brainstem are intact. The 4th ventricle is midline. The cerebellopontine angle i s unremarkable. EXTRACRANIAL: The visualized portion of the orbits is intact. Minimal sinus disease is present. Bilateral mastoid mucoperiosteal thickening is evident SKULL: The calvaria is intact. No evidence of skull fracture. CONCLUSION: Atrophy with maxillary sinus disease and Underated mastoids. Negative for acute process. Jorge Coates MD FACR on July 16, 2017 at 8:14 Board Certified Radiologist. This report was verified electronically.
[2017-07-16] MEDS: DOCUSATE SODIUM 100 MG/10 ML UDC PO SCH ×2 (09:00→21:00)
[2017-07-16] MEDS: REMOVE OLD PATCH T-DERMAL SCH (09:00)
[2017-07-16] MEDS: SODIUM CHLORIDE 0.9% FLUSH 10 ML FLUSH IV FLUSH SCH ×3 (09:22→21:24)
[2017-07-16] MEDS: FUROSEMIDE 40 MG/4 ML VIAL IV PUSH SCH (09:23)
[2017-07-16] MEDS: NICOTINE 14 MG/24 HR PATCH T-DERMAL SCH (09:23)
[2017-07-16] MEDS: LACTULOSE SYRUP 20 GM/30 ML CUP PO SCH (09:23)
[2017-07-16] MEDS: FOLIC ACID 1 MG TAB PO SCH (09:23)
[2017-07-16] MEDS: MULTIVITAMIN TAB PO SCH (09:23)
[2017-07-16] MEDS: LANSOPRAZOLE SOLUTAB 30 MG TAB NG SCH (09:23)
[2017-07-16] MEDS: THIAMINE HCL 100 MG TAB PO SCH (09:23)
[2017-07-16] MEDS: LACTOBACILLUS ACIDOPHILUS TAB PO SCH ×2 (09:23→21:23)
[2017-07-16] MEDS ORDERED: LORazepam 2 MG TAB PO PRN (10:00)
[2017-07-16] MEDS ORDERED: LORazepam 2 MG/ML VIAL IV PUSH PRN ×4 (10:00)
[2017-07-16] MEDS ORDERED: LORazepam 1 MG TAB PO PRN (10:00)
[2017-07-16 10:04] LABS: AUTOMATED NEUTROPHIL # 14.7 TH/MM3 (1.8-7.7); BASOPHIL # 0.2 TH/MM3 (0-0.2); EOSINOPHIL # 0.6 TH/MM3 (0-0.4); EOSINOPHIL % 3.1 % (0.0-4.0); HEMATOCRIT 35.2 % (39.0-51.0); HEMO FLAGS DIFF FINAL; LYMPH % 11.6 % (9.0-44.0); LYMPHOCYTE # 2.2 TH/MM3 (1.0-4.8); MEAN CELL VOLUME 102.7 FL (80.0-100.0); MEAN CORPUSCULAR HGB CONC 33.1 % (32.0-36.0); MONO % 8.5 % (0.0-8.0); NEUT % 75.8 % (16.0-70.0); PLATELET COUNT 338 TH/MM3 (150-450); RED BLOOD COUNT 3.43 MIL/MM3 (4.50-5.90); RED CELL DISTRIBUTION WIDTH 14.1 % (11.6-17.2); WHITE BLOOD COUNT 19.3 TH/MM3 (4.0-11.0)
[2017-07-16 10:23] LABS: ANION GAP 7 MEQ/L (5-15); AST (GOT) 85 U/L (15-37); BLOOD UREA NITROGEN 36 MG/DL (7-18); CHLORIDE 109 MEQ/L (98-107); GLOMERULAR FILTRATION RATE 46 ML/MIN (>89); MAGNESIUM 2.2 MG/DL (1.5-2.5); POTASSIUM 3.1 MEQ/L (3.5-5.1); SODIUM (NA) 150 MEQ/L (136-145)
[2017-07-16 10:24] LABS: ALT (GPT) 56 U/L (12-78)
[2017-07-16 10:26] LABS: ALKALINE PHOSPHATASE 193 U/L (45-117); TOTAL BILIRUBIN ADULT 0.6 MG/DL (0.2-1.0)
[2017-07-16] MEDS: POTASSIUM CHLOR 40 MEQ PREMIX 100 ML IV PRN (10:29)
[2017-07-16] MEDS ORDERED: POTASSIUM CHLOR 40 MEQ PREMIX 100 ML IV ONE (11:30)
[2017-07-16] MEDS: DEXTROSE 5% IN WATE 1000ML INJ 1,000 ML IV SCH (11:43)
--- NOTE | 2017-07-16 16:01 | HHI.PR ---
Subjective Remarks 57 YOWM with RF,COPD,Sepsis, increased Troponin Extubated 07/15 transferred to Floor Started po no fever Objective Vital Signs Vital Signs Date Time Temp Pulse Resp B/P (MAP) Pulse Ox O2 Delivery O2 Flow Rate FiO2 07/16/17 13:15 96.5 67 20 140/80 (100) 100 07/16/17 11:00 72 21 158/79 (105) 100 07/16/17 11:00 72 07/16/17 10:00 77 18 166/74 (104) 100 07/16/17 10:00 77 07/16/17 09:00 66 07/16/17 09:00 66 18 156/93 (114) 100 07/16/17 08:41 100 Nasal Cannula 2.00 07/16/17 08:27 63 07/16/17 08:00 97.9 63 14 164/89 (114) 100 07/16/17 08:00 79 07/16/17 07:00 100 Nasal Cannula 2.00 07/16/17 07:00 66 07/16/17 07:00 66 15 130/72 (91) 99 07/16/17 04:00 97.5 63 20 135/68 (90) 100 07/16/17 04:00 63 07/16/17 02:00 64 07/16/17 00:00 70 07/16/17 00:00 97.6 70 19 152/81 (104) 97 Arterial Line 07/15/17 22:00 67 07/15/17 20:00 97 Nasal Cannula 3.00 07/15/17 20:00 79 07/15/17 20:00 97.3 79 21 166/84 (111) 98 153/80 (104) 07/15/17 19:59 99 Nasal Cannula 2.00 07/15/17 18:00 72 14 147/74 (98) 100 140/78 (98) 07/15/17 18:00 72 07/15/17 17:00 80 23 178/84 (115) 98 170/80 (110) I/O 07/15/17 07/15/17 07/15/17 07/16/17 07/16/17 07/16/17 07:00 15:00 23:00 07:00 15:00 23:00 Intake Total 1345 ml 857 ml 522 ml 120 ml 1222 ml Output Total 1400 ml 1175 ml 650 ml 850 ml Balance -55 ml 857 ml -653 ml -530 ml 372 ml Intake Oral 120 ml 956 ml IV Total 600 ml 463 ml 322 ml 266 ml Tube Feeding 685 ml 194 ml Other 60 ml 200 ml 200 ml Output Urine Total 1400 ml 1175 ml 650 ml 850 ml # Voids 1 # Bowel Movements 3 2 Result Diagram: 07/16/17 0950 07/16/17 0950 Objective Remarks GENERAL: MBMN WM, mild sob SKIN: Warm and dry. HEAD: Normocephalic. EYES: No scleral icterus. No injection or drainage. NECK: Supple, trachea midline. No JVD or lymphadenopathy. CARDIOVASCULAR: Regular rate and rhythm without murmurs, gallops, or rubs. RESPIRATORY: Breath sounds equal bilaterally. No accessory muscle use. Scattered rhonchi GASTROINTESTINAL: Abdomen soft, non-tender, nondistended. MUSCULOSKELETAL: No cyanosis, or edema. BACK: Nontender without obvious deformity. No CVA tenderness. A/P Assessment and Plan Resp failure, s/p extubation 07/15 COPD Sepsis Increased Troponin ETOH use PLAN: Aerosol nebs Cont Abx Supplement 02 IS Rancho Saldana MD Jul 16, 2017 16:01
[2017-07-16] MEDS: FAMOTIDINE 20 MG TAB PO SCH (21:23)
[2017-07-17] VITALS (7 sets, daily range): BP systolic 121–140; BP diastolic 59–78; PULSE 56–70; RESP 18–21; TEMP 96.2–97.6; O2SAT 94–100
--- NOTE | 2017-07-17 01:33 | HHI.FPPN ---
Subjective Remarks Progress note for 07/16. Patient seen and examined on 07/16 prior to 1200. Overnight was extubated, tolerated well. This morning awake and alert to answer questions. Wants to be allowed to drink fluids, but awaiting swallow eval. Uncomfortable dry mouth. Otherwise feeling okay. No CP or SOB. (Archie Castaneda MD) Objective Vitals Vital Signs Date Time Temp Pulse Resp B/P (MAP) Pulse Ox O2 Delivery O2 Flow Rate FiO2 07/17/17 00:00 97.2 63 18 121/59 (79) 100 07/16/17 21:39 Nasal Cannula 2.00 07/16/17 20:00 97.0 66 18 133/77 (95) 97 07/16/17 16:00 96.3 77 20 146/85 (105) 100 07/16/17 13:15 96.5 67 20 140/80 (100) 100 07/16/17 12:19 Nasal Cannula 2.00 07/16/17 11:00 72 21 158/79 (105) 100 07/16/17 11:00 72 07/16/17 10:00 77 18 166/74 (104) 100 07/16/17 10:00 77 07/16/17 09:00 66 07/16/17 09:00 66 18 156/93 (114) 100 07/16/17 08:41 100 Nasal Cannula 2.00 07/16/17 08:27 63 07/16/17 08:00 97.9 63 14 164/89 (114) 100 07/16/17 08:00 79 07/16/17 07:00 100 Nasal Cannula 2.00 07/16/17 07:00 66 07/16/17 07:00 66 15 130/72 (91) 99 07/16/17 04:00 97.5 63 20 135/68 (90) 100 07/16/17 04:00 63 07/16/17 02:00 64 I/O 07/16/17 07/16/17 07/16/17 07/17/17 07/17/17 07/17/17 07:00 15:00 23:00 07:00 15:00 23:00 Intake Total 120 ml 1222 ml Output Total 650 ml 850 ml Balance -530 ml 372 ml Intake Oral 120 ml 956 ml IV Total 266 ml Output Urine Total 650 ml 850 ml # Voids 1 # Bowel Movements 3 2 (Archie Castaneda MD) Result Diagram: 07/16/17 0950 07/16/17 0950 Imaging Last Impressions Head CT 07/16/17 0000 Signed Impressions: Service Date/Time: Sunday, July 16, 2017 07:49 - CONCLUSION: Atrophy with maxillary sinus disease and Underated mastoids. Negative for acute process. Jorge Coates MD FACR Chest X-Ray 07/15/17 0600 Signed Impressions: Service Date/Time: Saturday, July 15, 2017 03:50 - CONCLUSION: Improving aeration. Adan Peña MD Lower Extremity MRI 07/08/17 0000 Signed Impressions: Service Date/Time: Saturday, July 08, 2017 10:30 - CONCLUSION: 1. Some edema is noted throughout the anterior and posterior tibial musculature raising the possibility of myositis or muscle strain. Clinical correlation is recommended. 2. Mild cellulitis of the lower calf and upper ankle posteriorly. 3. No evidence of osteomyelitis. 4. Serpiginous-appearing lesion within the distal tibial metadiaphysis which has the appearance of probable bone infarct. 5. No soft tissue abscess noted. Manuel Dougherty MD CT Angiography 07/08/17 0000 Signed Impressions: Service Date/Time: Monday, July 10, 2017 10:23 - CONCLUSION: There is no central pulmonary emboli Bibasilar consolidative changes and small bilateral pleural effusions Diffuse interstitial changes, almost honeycomb pattern in both lungs Extensive mediastinal adenopathy. Does this patient have an underlying neoplasm. Jorge Coates MD FACR Tibia/Fibula X-Ray 07/04/17 0000 Signed Impressions: Service Date/Time: Tuesday, July 04, 2017 15:19 - CONCLUSION: 1. 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 2. No acute fracture or dislocation. Martin Wilks MD Hand X-Ray 07/04/17 0000 Signed Impressions: Service Date/Time: Tuesday, July 04, 2017 15:14 - CONCLUSION: 1. Findings suggesting healing nondisplaced left fifth proximal phalanx fracture . 2. No acute fracture or dislocation. Martin Wilks MD Objective Remarks GENERAL: Disheveled male sitting up in bed, restrained, NAD Neuro: No focal CN defects. Patient awake, alert. Oriented x3. Moves all extremities without difficulty (once unrestrained). SKIN: Multiple areas of extremity bruising. No active bleeding or visible purulent drainage. HEENT: Atraumatic, normocephalic. No visible LAD or JVD appreciated. CARDIOVASCULAR: RRR. No MGR appreciated. 2+ pulses in all 4 extremities. RESPIRATORY: CTAB with no crackles or wheezes GASTROINTESTINAL: Abdomen firm to palpation; nondistended with positive bowel sounds. No masses appreciated. MUSCULOSKELETAL: No cyanosis or edema. Procedures Bronchoscopy on 07/09 (Archie Castaneda MD) Date of Insertion: Jul 09, 2017 (Archie Castaneda MD) Line: Central Venous Catheter Side: Left Location: Internal, Jugular (Archie Castaneda MD) A/P Assessment and Plan 57 yo male with h/o alcohol and substance abuse presenting with: (Archie Castaneda MD) Attending Attestation Patient seen and examined. Case reviewed and discussed with the resident team. Agree with plan of care as discussed with me and documented in the resident note. (Ry Gonzales MD) Problem List: (1) Respiratory failure ICD Codes: J96.90 - Respiratory failure, unspecified, unspecified whether with hypoxia or hypercapnia Status: Resolved Plan: Resolved, tolerated extubation well CT Pulm Angiogram on 07/10 showed no central pulmonary emboli, Bibasilar consolidative changes and small bilateral pleural effusions, Diffuse interstitial changes, almost honeycomb pattern in both lungs, and Extensive mediastinal adenopathy Bronchoscopy performed 07/09, showed thick yellow secretions and normal anatomy. Negative for Influenza A and B Ag [facility] consulted, appreciate recs * Currently extubated, [facility] to sign off * CXR on 07/11 showed worsening pulmonary edema- on Lasix 40mg IV BID * CXR on 07/15 showed improved aeration. Pulmonology consulted, appreciate recs * Underlying infection should be treated on empiric basis together with pulmonary toilet and weaning process initiated as tolerated * decision needs to be made if a biopsy procedure need be done of the mediastinal lymph nodes - to asses once patient extubated * once the patient is relatively stable he could be taken to the operating room and bronchoscopy undertaken, endobronchial lesion may be found and that can be biopsied or aspiration of the subcarinal lymph nodes may be undertaken as well. Cultures: 07/09- Fungal- negative to date 07/09- Acid fast- negative to date 07/09- Bronchial culture/gram stain- negative to date Flu swab 07/12- negative (2) Altered mental status ICD Codes: R41.82 - Altered mental status, unspecified Status: Acute Plan: Resolved Unclear etiology. PMH alcohol and polysubstance use CT brain w/o contrast on 07/10 showed moderate diffuse cerebral atrophy, slightly out of proportion to age. Alcohol 87, Tox screen - THC positive, Ammonia 34 07/10 metabolic panel without severe derangements ABG on admission- pH 7.52, O2 46, CO2 26 -Ativan PRN for agitation/tremor; likely outside of window for further alcohol withdrawal -Discontinue lactulose as ammonia was always normal (3) Elevated troponin ICD Codes: R74.8 - Abnormal levels of other serum enzymes Status: Acute Plan: Troponin 0.12-->0.71-->0.64 ECHO on 07/10 showed EF of 50%, mild mitral valve regurgitation, mild tricuspid valve regurgitation, no evidence of endocarditis Likely related to sepsis, low suspicion for CO at this time * Consider repeat troponin or EKG based on clinical course (4) Cellulitis ICD Codes: L03.90 - Cellulitis, unspecified Status: Acute Plan: Patient with multiple skin lesions; see H&P exam. Wound culture: Staphylococcus Aureus and Group A Beta Strep. Sensitivities available. Blood culture 07/04 and 07/08 - no growth Hand x-ray: Findings suggesting healing nondisplaced left fifth proximal phalanx fracture. No acute fracture dislocation. Tibia/fibula x-ray: Probable bone infarct in the distal right tibia. No acute fracture or dislocation. ABIs: Ordered MRI of RLE: edema throughout the anterior and posterior tibial musculature raising concern for myositis or muscle strain. Mild cellulitis. No osteo. ID consulted, recs appreciated * Stopped Zosyn * Monitor clinical status and labs; probably no need for further Abx Antibiotic history * Vancomycin dosed by pharmacy IV (07/04 - 07/14) * Zosyn 3.375 gm q6hr IV (07/04 - 07/15) * Azithromycin 500mg q24h (07/11-07/14) * Acetaminophen 500 mg q4hr PO PRN Pain 1-10/ Fever >101F. (5) Sepsis ICD Codes: A41.9 - Sepsis, unspecified organism Status: Resolved Plan: Patient met sepsis criteria. Suspected source of infection related to areas of cellulitis. -See plan as above (6) Alcohol abuse ICD Codes: F10.10 - Alcohol abuse, uncomplicated Status: Chronic Plan: Patient with extensive alcohol abuse and history of withdrawal. * Continue Vitamin supplementation * Ativan PRN for agitation/tremor (7) Fracture of proximal phalanx of digit of left hand ICD Codes: S62.619A - Displaced fracture of proximal phalanx of unspecified finger, initial encounter for closed fracture Plan: Subacute/healing nondisplaced left fifth proximal phalanx fracture visualized on Hand X-ray. * See Plan for Cellulitis. * Hand surgery does not recommend intervention at this time (8) Diarrhea ICD Codes: R19.7 - Diarrhea, unspecified Status: Acute Plan: Explosive diarrhea 07/06 C. difficile PCR ordered, later discontinued as subsequent BMs are semisolid therefore C. difficile infection not likely Medications * Famotidine 20 mg PO BID * Lactobacillus Acidophilus 1 tab PO q12hr (9) Chronic left hip pain ICD Codes: M25.552 - Pain in left hip; G89.29 - Other chronic pain Status: Chronic Plan: Patient with history of chronic left hip pain. * For pain control, see Plan for Cellulitis. (10) Tobacco abuse ICD Codes: Z72.0 - Tobacco use Status: Chronic Plan: Patient with extensive tobacco abuse history including 50 years of 1 pack per day. Medications: * Nicotine patch daily, patient acknowledges possible wound healing delayed due to nicotine use. (11) Nutrition, metabolism, and development symptoms ICD Codes: R63.8 - Other symptoms and signs concerning food and fluid intake Status: Acute Plan: Fluids: Per [facility] Diet: Regular basic; ST - puree with nectar thick liquid Electrolytes: hypernatremic, continue to encourage PO fluids, D5W at 50 cc/hr. Monitor and replete as necessary. DVT Prophylaxis: Heparin 5,000 q8hr SQ GI prophylaxis: Pepcid (Archie Castaneda MD) Problem Qualifiers (1) Respiratory failure: Qualified Codes: J96.01 - Acute respiratory failure with hypoxia (2) Cellulitis: Qualified Codes: L03.90 - Cellulitis, unspecified (3) Sepsis: Qualified Codes: A41.9 - Sepsis, unspecified organism Archie Castaneda MD Jul 17, 2017 01:33 Ry Gonzales MD Jul 18, 2017 09:12
[2017-07-17] MEDS: FREE WATER OG-TUBE SCH ×4 (03:00→21:00)
[2017-07-17] MEDS: DEXTROSE 5% IN WATE 1000ML INJ 1,000 ML IV SCH ×2 (06:00→09:57)
[2017-07-17] MEDS: ARTIFICIAL TEARS OPTH SOLN 15 ML BTL EACH EYE SCH ×3 (06:00→21:57)
[2017-07-17] MEDS: METOCLOPRAMIDE HCL 10 MG/2 ML VIAL IV PUSH SCH ×3 (06:00→21:57)
[2017-07-17 07:51] LABS: AUTOMATED NEUTROPHIL # 14.6 TH/MM3 (1.8-7.7); BASOPHIL # 0.2 TH/MM3 (0-0.2); BASOPHIL % 1.1 % (0.0-2.0); EOSINOPHIL # 0.7 TH/MM3 (0-0.4); EOSINOPHIL % 3.4 % (0.0-4.0); HEMATOCRIT 35.5 % (39.0-51.0); HEMO FLAGS DIFF FINAL; LYMPH % 13.8 % (9.0-44.0); LYMPHOCYTE # 2.7 TH/MM3 (1.0-4.8); MEAN CELL VOLUME 100.3 FL (80.0-100.0); MEAN CORPUSCULAR HEMOGLOBIN 33.1 PG (27.0-34.0); MEAN CORPUSCULAR HGB CONC 33.1 % (32.0-36.0); MONO % 8.1 % (0.0-8.0); NEUT % 73.6 % (16.0-70.0); PLATELET COUNT 322 TH/MM3 (150-450); RED BLOOD COUNT 3.54 MIL/MM3 (4.50-5.90); RED CELL DISTRIBUTION WIDTH 13.9 % (11.6-17.2); WHITE BLOOD COUNT 19.9 TH/MM3 (4.0-11.0)
[2017-07-17] MEDS: CHLORHEXIDINE 0.12% (ORAL KIT) 15 ML CUP MT SCH ×2 (08:00→20:00)
[2017-07-17] MEDS: SODIUM CHLOR 0.9% 1000 ML INJ 1,000 ML IV SCH (08:03)
[2017-07-17 08:18] LABS: ALKALINE PHOSPHATASE 187 U/L (45-117); ALT (GPT) 50 U/L (12-78); ANION GAP 5 MEQ/L (5-15); AST (GOT) 83 U/L (15-37); BICARBONATE 32.9 MEQ/L (21.0-32.0); BLOOD UREA NITROGEN 24 MG/DL (7-18); CHLORIDE 100 MEQ/L (98-107); GLOMERULAR FILTRATION RATE 60 ML/MIN (>89); MAGNESIUM 2.1 MG/DL (1.5-2.5); POTASSIUM 3.5 MEQ/L (3.5-5.1); SODIUM (NA) 138 MEQ/L (136-145); TOTAL BILIRUBIN ADULT 0.6 MG/DL (0.2-1.0)
[2017-07-17] MEDS: SODIUM CHLORIDE 0.9% FLUSH 10 ML FLUSH IV FLUSH SCH ×3 (09:00→21:56)
[2017-07-17] MEDS: REMOVE OLD PATCH T-DERMAL SCH (09:00)
[2017-07-17] MEDS: NICOTINE 14 MG/24 HR PATCH T-DERMAL SCH (09:06)
[2017-07-17] MEDS: DOCUSATE SODIUM 100 MG/10 ML UDC PO SCH ×2 (09:07→21:00)
[2017-07-17] MEDS: FOLIC ACID 1 MG TAB PO SCH (09:07)
[2017-07-17] MEDS: MULTIVITAMIN TAB PO SCH (09:07)
[2017-07-17] MEDS: THIAMINE HCL 100 MG TAB PO SCH (09:07)
[2017-07-17] MEDS: HEPARIN SODIUM - SQ 10,000 UNITS/ML VIAL SQ SCH ×3 (09:07→21:59)
[2017-07-17] MEDS: LACTOBACILLUS ACIDOPHILUS TAB PO SCH ×2 (09:07→21:55)
[2017-07-17] MEDS: FAMOTIDINE 20 MG TAB PO SCH ×2 (09:07→21:55)
[2017-07-17] MEDS: guaiFENesin E.R. 600 MG TAB PO SCH ×2 (10:02→21:55)
--- NOTE | 2017-07-17 14:30 | HHI.IDPN ---
Subjective Subjective Remarks pt developped liquid diarrhea, abdominal pain afebrile WBC up to 19 K Antibiotics stopped Allergies: Coded Allergies: No Known Allergies (Verified Allergy, Unknown, 07/04/17) Objective . Vital Signs Date Time Temp Pulse Resp B/P (MAP) Pulse Ox O2 Delivery O2 Flow Rate FiO2 07/17/17 12:00 96.9 67 20 130/77 (94) 100 07/17/17 08:50 100 Nasal Cannula 2.00 07/17/17 08:00 56 07/17/17 07:46 96.9 70 21 133/66 (88) 100 07/17/17 04:00 97.3 64 18 125/64 (84) 95 07/17/17 00:00 97.2 63 18 121/59 (79) 100 07/16/17 21:39 Nasal Cannula 2.00 07/16/17 20:00 97.0 66 18 133/77 (95) 97 07/16/17 16:00 96.3 77 20 146/85 (105) 100 07/17/17 07/17/17 07/18/17 15:00 23:00 07:00 Intake Total 870 ml Output Total 900 ml Balance -30 ml Intake Oral 870 ml Output Urine Total 900 ml . Laboratory Tests Test 07/16/17 09:50 07/17/17 07:35 White Blood Count 19.3 TH/MM3 19.9 TH/MM3 Red Blood Count 3.43 MIL/MM3 3.54 MIL/MM3 Hemoglobin 11.7 GM/DL 11.7 GM/DL Hematocrit 35.2 % 35.5 % Mean Corpuscular Volume 102.7 FL 100.3 FL Mean Corpuscular Hemoglobin 34.0 PG 33.1 PG Mean Corpuscular Hemoglobin Concent 33.1 % 33.1 % Red Cell Distribution Width 14.1 % 13.9 % Platelet Count 338 TH/MM3 322 TH/MM3 Mean Platelet Volume 10.9 FL 11.1 FL Neutrophils (%) (Auto) 75.8 % 73.6 % Lymphocytes (%) (Auto) 11.6 % 13.8 % Monocytes (%) (Auto) 8.5 % 8.1 % Eosinophils (%) (Auto) 3.1 % 3.4 % Basophils (%) (Auto) 1.0 % 1.1 % Neutrophils # (Auto) 14.7 TH/MM3 14.6 TH/MM3 Lymphocytes # (Auto) 2.2 TH/MM3 2.7 TH/MM3 Monocytes # (Auto) 1.6 TH/MM3 1.6 TH/MM3 Eosinophils # (Auto) 0.6 TH/MM3 0.7 TH/MM3 Basophils # (Auto) 0.2 TH/MM3 0.2 TH/MM3 CBC Comment DIFF FINAL DIFF FINAL Differential Comment Laboratory Tests Test 07/15/17 18:45 07/16/17 09:50 07/17/17 07:35 Potassium Level 3.6 MEQ/L 3.1 MEQ/L 3.5 MEQ/L Blood Urea Nitrogen 36 MG/DL 24 MG/DL Creatinine 1.57 MG/DL 1.25 MG/DL Random Glucose 140 MG/DL 89 MG/DL Total Protein 9.2 GM/DL 8.1 GM/DL Albumin 2.4 GM/DL 2.2 GM/DL Calcium Level 9.5 MG/DL 9.3 MG/DL Phosphorus Level 3.4 MG/DL 3.9 MG/DL Magnesium Level 2.2 MG/DL 2.1 MG/DL Alkaline Phosphatase 193 U/L 187 U/L Aspartate Amino Transf (AST/SGOT) 85 U/L 83 U/L Alanine Aminotransferase (ALT/SGPT) 56 U/L 50 U/L Total Bilirubin 0.6 MG/DL 0.6 MG/DL Sodium Level 150 MEQ/L 138 MEQ/L Chloride Level 109 MEQ/L 100 MEQ/L Carbon Dioxide Level 34.0 MEQ/L 32.9 MEQ/L Anion Gap 7 MEQ/L 5 MEQ/L Estimat Glomerular Filtration Rate 46 ML/MIN 60 ML/MIN Imaging Last Impressions Head CT 07/16/17 0000 Signed Impressions: Service Date/Time: Sunday, July 16, 2017 07:49 - CONCLUSION: Atrophy with maxillary sinus disease and Underated mastoids. Negative for acute process. Jorge Coates MD FACR Chest X-Ray 07/15/17 0600 Signed Impressions: Service Date/Time: Saturday, July 15, 2017 03:50 - CONCLUSION: Improving aeration. Adan Peña MD Lower Extremity MRI 07/08/17 0000 Signed Impressions: Service Date/Time: Saturday, July 08, 2017 10:30 - CONCLUSION: 1. Some edema is noted throughout the anterior and posterior tibial musculature raising the possibility of myositis or muscle strain. Clinical correlation is recommended. 2. Mild cellulitis of the lower calf and upper ankle posteriorly. 3. No evidence of osteomyelitis. 4. Serpiginous-appearing lesion within the distal tibial metadiaphysis which has the appearance of probable bone infarct. 5. No soft tissue abscess noted. Manuel Dougherty MD CT Angiography 07/08/17 0000 Signed Impressions: Service Date/Time: Monday, July 10, 2017 10:23 - CONCLUSION: There is no central pulmonary emboli Bibasilar consolidative changes and small bilateral pleural effusions Diffuse interstitial changes, almost honeycomb pattern in both lungs Extensive mediastinal adenopathy. Does this patient have an underlying neoplasm. Jorge Coates MD FACR Tibia/Fibula X-Ray 07/04/17 0000 Signed Impressions: Service Date/Time: Tuesday, July 04, 2017 15:19 - CONCLUSION: 1. 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 2. No acute fracture or dislocation. Martin Wilks MD Hand X-Ray 07/04/17 0000 Signed Impressions: Service Date/Time: Tuesday, July 04, 2017 15:14 - CONCLUSION: 1. Findings suggesting healing nondisplaced left fifth proximal phalanx fracture . 2. No acute fracture or dislocation. Martin Wilks MD Physical Exam CONSTITUTIONAL/GENERAL: This is an adequately nourished patient, TUBES/LINES/DRAINS: SKIN: No jaundice, rashes, or lesions. Ecchymoses on upper extremities. Multiple skin lesions inclusing b/l hands, R tibia are healing, dry and w/o eryteham Skin temperature appropriate. Not diaphoretic. CARDIOVASCULAR: Regular rate and rhythm without murmurs, gallops, or rubs. No JVD. Peripheral pulses symmetric. RESPIRATORY/CHEST: Symmetric, unlabored respirations. Clear to auscultation. Breath sounds equal bilaterally. No wheezes, rales, or rhonchi. GASTROINTESTINAL: Abdomen soft, moderately diffusely tender to palpation in RLQ , LLQ, quite distended. No hepato-splenomegaly, or palpable masses. No guarding. Bowel sounds present. GENITOURINARY: Without palpable bladder distension. Catheter in place with clear yellow urine MUSCULOSKELETAL: Extremities without clubbing, cyanosis, or edema. No joint tenderness or effusion noted. No calf tenderness. No mottling or clubbing. LYMPHATICS: No palpable cervical or supraclavicular adenopathy. NEUROLOGICAL: awake,a alert, communicates approprietely PSYCHIATRIC: calm Assessment & Plan Remarks RIF infection - improved on abx R madden infection - also improving with conservative tx New acute VDRF - successfully extubated New NSTEMI Critically ill, stable Mediastinal lymphadenopathy - oncology is involved Worsening luekocytosis PNA - improved clinically and radiologically Abx associated diarrhea monitor WBC r/o C.diff considcer start empiric tx if high index of suspicion CT abd/pel with persistent pain, luekocytoasis and negative c.diff to w/u for colitis Julia Bush MD Jul 17, 2017 14:30
--- NOTE | 2017-07-17 14:33 | HHI.FPPN ---
Subjective Remarks Saw and examined patient this morning. Patient states that he is doing ok. He would like to know what is going on with his body, especially his lungs and would be amenable to having a procedure done. However, if he goes into respiratory failure again he would not want to be intubated. He states that he is having some chest pain bilaterally and a cough, no SOB. Otherwise, no other complaints today. (Chiqui Aguirre MD R1) Objective Vitals Vital Signs Date Time Temp Pulse Resp B/P (MAP) Pulse Ox O2 Delivery O2 Flow Rate FiO2 07/17/17 12:00 96.9 67 20 130/77 (94) 100 07/17/17 08:50 100 Nasal Cannula 2.00 07/17/17 08:00 56 07/17/17 07:46 96.9 70 21 133/66 (88) 100 07/17/17 04:00 97.3 64 18 125/64 (84) 95 07/17/17 00:00 97.2 63 18 121/59 (79) 100 07/16/17 21:39 Nasal Cannula 2.00 07/16/17 20:00 97.0 66 18 133/77 (95) 97 07/16/17 16:00 96.3 77 20 146/85 (105) 100 I/O 07/16/17 07/16/17 07/16/17 07/17/17 07/17/17 07/17/17 07:00 15:00 23:00 07:00 15:00 23:00 Intake Total 120 ml 1222 ml 1080 ml 870 ml Output Total 650 ml 850 ml 600 ml 900 ml Balance -530 ml 372 ml 480 ml -30 ml Intake Oral 120 ml 956 ml 1080 ml 870 ml IV Total 266 ml Output Urine Total 650 ml 850 ml 600 ml 900 ml # Voids 1 # Bowel Movements 3 2 1 (Chiqui Aguirre MD R1) Result Diagram: 07/17/1735 07/17/17 0735 Objective Remarks GENERAL: Disheveled male sitting up in bed, NAD Neuro: No focal CN defects. Patient awake, alert. Oriented x3. Moves all extremities without difficulty. SKIN: Multiple areas of extremity bruising. No active bleeding or visible purulent drainage. HEENT: Atraumatic, normocephalic. No visible LAD or JVD appreciated. CARDIOVASCULAR: RRR. No MGR appreciated. 2+ pulses in all 4 extremities. RESPIRATORY: Course breath sounds bilaterally GASTROINTESTINAL: Abdomen firm to palpation; nondistended with positive bowel sounds. Nontender. No masses appreciated. MUSCULOSKELETAL: No cyanosis or edema. Procedures Bronchoscopy on 07/09 (Chiqui Aguirre MD R1) Date of Insertion: Jul 09, 2017 (Chiqui Aguirre MD R1) Line: Central Venous Catheter Side: Left Location: Internal, Jugular (Chiqui Aguirre MD R1) A/P Assessment and Plan 57 yo male with h/o alcohol and substance abuse presenting with: (Chiqui Aguirre MD R1) Attending Attestation Patient seen and examined. Case reviewed and discussed with the resident team. Agree with plan of care as discussed with me and documented in the resident note. (Ry Gonzales MD) Problem List: (1) Respiratory failure ICD Codes: J96.90 - Respiratory failure, unspecified, unspecified whether with hypoxia or hypercapnia Status: Resolved Plan: Resolved, tolerated extubation well CT Pulm Angiogram on 07/10 showed no central pulmonary emboli, Bibasilar consolidative changes and small bilateral pleural effusions, Diffuse interstitial changes, almost honeycomb pattern in both lungs, and Extensive mediastinal adenopathy Bronchoscopy performed 07/09, showed thick yellow secretions and normal anatomy. Negative for Influenza A and B Ag [facility] consulted, appreciate recs * Currently extubated, [facility] to sign off * CXR on 07/11 showed worsening pulmonary edema- on Lasix 40mg IV BID * CXR on 07/15 showed improved aeration. Pulmonology consulted, appreciate recs * Underlying infection should be treated on empiric basis together with pulmonary toilet and weaning process initiated as tolerated * decision needs to be made if a biopsy procedure need be done of the mediastinal lymph nodes - to asses once patient extubated * once the patient is relatively stable he could be taken to the operating room and bronchoscopy undertaken, endobronchial lesion may be found and that can be biopsied or aspiration of the subcarinal lymph nodes may be undertaken as well. Cultures: 07/09- Fungal- negative to date 07/09- Acid fast- negative to date 07/09- Bronchial culture/gram stain- negative to date Flu swab 07/12- negative (2) Altered mental status ICD Codes: R41.82 - Altered mental status, unspecified Status: Acute Plan: Resolved Unclear etiology. PMH alcohol and polysubstance use CT brain w/o contrast on 07/10 showed moderate diffuse cerebral atrophy, slightly out of proportion to age. Alcohol 87, Tox screen - THC positive, Ammonia 34 07/10 metabolic panel without severe derangements ABG on admission- pH 7.52, O2 46, CO2 26 -Ativan PRN for agitation/tremor; likely outside of window for further alcohol withdrawal -Discontinue lactulose as ammonia was always normal (3) Elevated troponin ICD Codes: R74.8 - Abnormal levels of other serum enzymes Status: Acute Plan: Troponin 0.12-->0.71-->0.64 ECHO on 07/10 showed EF of 50%, mild mitral valve regurgitation, mild tricuspid valve regurgitation, no evidence of endocarditis Likely related to sepsis, low suspicion for UT at this time * Consider repeat troponin or EKG based on clinical course (4) Cellulitis ICD Codes: L03.90 - Cellulitis, unspecified Status: Acute Plan: Patient with multiple skin lesions; see H&P exam. Wound culture: Staphylococcus Aureus and Group A Beta Strep. Sensitivities available. Blood culture 07/04 and 07/08 - no growth Hand x-ray: Findings suggesting healing nondisplaced left fifth proximal phalanx fracture. No acute fracture dislocation. Tibia/fibula x-ray: Probable bone infarct in the distal right tibia. No acute fracture or dislocation. ABIs: Ordered MRI of RLE: edema throughout the anterior and posterior tibial musculature raising concern for myositis or muscle strain. Mild cellulitis. No osteo. ID consulted, recs appreciated * Stopped Zosyn * Monitor clinical status and labs; probably no need for further Abx Antibiotic history * Vancomycin dosed by pharmacy IV (07/04 - 07/14) * Zosyn 3.375 gm q6hr IV (07/04 - 07/15) * Azithromycin 500mg q24h (07/11-07/14) * Acetaminophen 500 mg q4hr PO PRN Pain 1-10/ Fever >101F. (5) Sepsis ICD Codes: A41.9 - Sepsis, unspecified organism Status: Resolved Plan: Patient met sepsis criteria. Suspected source of infection related to areas of cellulitis. -See plan as above (6) Alcohol abuse ICD Codes: F10.10 - Alcohol abuse, uncomplicated Status: Chronic Plan: Patient with extensive alcohol abuse and history of withdrawal. * Continue Vitamin supplementation * Ativan PRN for agitation/tremor (7) Fracture of proximal phalanx of digit of left hand ICD Codes: S62.619A - Displaced fracture of proximal phalanx of unspecified finger, initial encounter for closed fracture Plan: Subacute/healing nondisplaced left fifth proximal phalanx fracture visualized on Hand X-ray. * See Plan for Cellulitis. * Hand surgery does not recommend intervention at this time (8) Diarrhea ICD Codes: R19.7 - Diarrhea, unspecified Status: Acute Plan: Explosive diarrhea 07/06 C. difficile PCR ordered, later discontinued as subsequent BMs are semisolid therefore C. difficile infection not likely Medications * Famotidine 20 mg PO BID * Lactobacillus Acidophilus 1 tab PO q12hr (9) Chronic left hip pain ICD Codes: M25.552 - Pain in left hip; G89.29 - Other chronic pain Status: Chronic Plan: Patient with history of chronic left hip pain. * For pain control, see Plan for Cellulitis. (10) Tobacco abuse ICD Codes: Z72.0 - Tobacco use Status: Chronic Plan: Patient with extensive tobacco abuse history including 50 years of 1 pack per day. Medications: * Nicotine patch daily, patient acknowledges possible wound healing delayed due to nicotine use. (11) Nutrition, metabolism, and development symptoms ICD Codes: R63.8 - Other symptoms and signs concerning food and fluid intake Status: Acute Plan: Fluids: Per [facility] Diet: Regular basic; ST - puree with nectar thick liquid Electrolytes: hypernatremic, continue to encourage PO fluids, D5W at 50 cc/hr. Monitor and replete as necessary. DVT Prophylaxis: Heparin 5,000 q8hr SQ GI prophylaxis: Pepcid (Chiqui Aguirre MD R1) Problem Qualifiers (1) Respiratory failure: Qualified Codes: J96.01 - Acute respiratory failure with hypoxia (2) Cellulitis: Qualified Codes: L03.90 - Cellulitis, unspecified (3) Sepsis: Qualified Codes: A41.9 - Sepsis, unspecified organism Chiqui Aguirre MD R1 Jul 17, 2017 14:33 Ry Gonzales MD Jul 18, 2017 09:14
--- NOTE | 2017-07-17 14:42 | HHI.PR ---
Subjective Remarks 57 YOWM with RF,COPD,Sepsis, increased Troponin Extubated 07/15 Does't like pureed food Breathing better no fever Objective Vital Signs Vital Signs Date Time Temp Pulse Resp B/P (MAP) Pulse Ox O2 Delivery O2 Flow Rate FiO2 07/17/17 12:00 96.9 67 20 130/77 (94) 100 07/17/17 08:50 100 Nasal Cannula 2.00 07/17/17 08:00 56 07/17/17 07:46 96.9 70 21 133/66 (88) 100 07/17/17 04:00 97.3 64 18 125/64 (84) 95 07/17/17 00:00 97.2 63 18 121/59 (79) 100 07/16/17 21:39 Nasal Cannula 2.00 07/16/17 20:00 97.0 66 18 133/77 (95) 97 07/16/17 16:00 96.3 77 20 146/85 (105) 100 I/O 07/16/17 07/16/17 07/16/17 07/17/17 07/17/17 07/17/17 07:00 15:00 23:00 07:00 15:00 23:00 Intake Total 120 ml 1222 ml 1080 ml 870 ml Output Total 650 ml 850 ml 600 ml 900 ml Balance -530 ml 372 ml 480 ml -30 ml Intake Oral 120 ml 956 ml 1080 ml 870 ml IV Total 266 ml Output Urine Total 650 ml 850 ml 600 ml 900 ml # Voids 1 # Bowel Movements 3 2 1 Result Diagram: 07/17/17 0735 07/17/17 0735 Objective Remarks GENERAL: MBMN WM, mild sob SKIN: Warm and dry. HEAD: Normocephalic. EYES: No scleral icterus. No injection or drainage. NECK: Supple, trachea midline. No JVD or lymphadenopathy. CARDIOVASCULAR: Regular rate and rhythm without murmurs, gallops, or rubs. RESPIRATORY: Breath sounds equal bilaterally. No accessory muscle use. Scattered rhonchi GASTROINTESTINAL: Abdomen soft, non-tender, nondistended. MUSCULOSKELETAL: No cyanosis, or edema. BACK: Nontender without obvious deformity. No CVA tenderness. A/P Assessment and Plan Resp failure, s/p extubation 07/15 COPD Sepsis Increased Troponin ETOH use PLAN: Aerosol nebs Cont Abx Supplement 02 IS Rancho Saldana MD Jul 17, 2017 14:42
[2017-07-17] MEDS: LORazepam 2 MG/ML VIAL IV PUSH PRN (22:07)
[2017-07-18 00:10] VITALS: BP 133/75; PULSE 62; RESP 17; TEMP 96.7; O2SAT 96
[2017-07-18] MEDS: FREE WATER OG-TUBE SCH ×2 (02:58→09:00)
[2017-07-18 04:05] VITALS: BP 130/70; PULSE 68; RESP 18; TEMP 97.9; O2SAT 96
[2017-07-18] MEDS: METOCLOPRAMIDE HCL 10 MG/2 ML VIAL IV PUSH SCH (05:42)
[2017-07-18] MEDS: ARTIFICIAL TEARS OPTH SOLN 15 ML BTL EACH EYE SCH (05:42)
[2017-07-18 07:46] VITALS: O2SAT 99
[2017-07-18 07:58] VITALS: BP 124/82; PULSE 75; RESP 21; TEMP 96.9; O2SAT 97
[2017-07-18] MEDS: FOLIC ACID 1 MG TAB PO SCH (07:59)
[2017-07-18] MEDS: THIAMINE HCL 100 MG TAB PO SCH (07:59)
[2017-07-18] MEDS: DEXTROSE 5% IN WATE 1000ML INJ 1,000 ML IV SCH (07:59)
[2017-07-18] MEDS: NICOTINE 14 MG/24 HR PATCH T-DERMAL SCH (07:59)
[2017-07-18] MEDS: CHLORHEXIDINE 0.12% (ORAL KIT) 15 ML CUP MT SCH (08:00)
[2017-07-18] MEDS: HEPARIN SODIUM - SQ 10,000 UNITS/ML VIAL SQ SCH (08:00)
[2017-07-18] MEDS: MULTIVITAMIN TAB PO SCH (08:00)
[2017-07-18] MEDS: LACTOBACILLUS ACIDOPHILUS TAB PO SCH (08:00)
[2017-07-18] MEDS: DOCUSATE SODIUM 100 MG/10 ML UDC PO SCH (08:00)
[2017-07-18] MEDS: guaiFENesin E.R. 600 MG TAB PO SCH (08:00)
[2017-07-18] MEDS: FAMOTIDINE 20 MG TAB PO SCH (08:00)
[2017-07-18] MEDS: SODIUM CHLOR 0.9% 1000 ML INJ 1,000 ML IV SCH (08:03)
[2017-07-18] MEDS: REMOVE OLD PATCH T-DERMAL SCH (08:06)
[2017-07-18] MEDS: SODIUM CHLORIDE 0.9% FLUSH 10 ML FLUSH IV FLUSH SCH ×2 (09:00)
--- NOTE | 2017-07-18 10:19 | PD.WCN.NOT ---
Wound Consult Description: Wound consult ordered by for possible DTI to Sacral area Communicated with: Adan aBer, covering for Recommendation: 1) Please encourage patient to reposition and offload for comfort. 2) Cleanse all wounds with normal saline,Pat dry. 3) Apply skin prep to all intact eschar ( R elbow,Left post ear) BID 4) Right lower extremity wound cleanse with normal saline ,pat dry apply skin prep to periwound , to 2 open card puncher wounds cover with Maxsorb cut to fit wound base,secure with dry dressing change every 5-7 days or as needed for exudate. 5) Unstagable Sacral wound cleanse with normal saline pat dry ,Apply Santyl samreen thick to wound base cover with fluffed moist gauze secure with dry dressing change Daily. 6)Follow up with out patient wound center. Additional Information: Patient was seen today by racebook writer and Adan Baer for possible DTI to sacral area.Assessment finding presents 2 card puncher wounds to R lower extremity madden area ~0.5cm x ~0.4cm scant serous drainage noted Erythema decreased and periwound is blanchable.Wound cleansed with normal saline Maxsorb cut to fit applied to wound bases covered with dry dressing signed and dated.R elbow present intact adhered black eschar measurements are 3.4cm x 2.6cm no drainage or odor noted skin prep applied.Sacrum presents unstageable pressure related injury measuring 8.8cm x 6.2cm x unknown.Wound is 100% adhered yellow slough .Periwound intact and blanchable fungal rash noted to perineal/groin area. Patient verbalized to Risk Mgr that this sore on bottom has been there for months " Wasn't hurting in ED so did not report to any Nurse or physician".Sacrum cleansed with normal saline pat dry skin prep applied Santyl not available at this time. Covered with sacral foam for comfort signed and dated.Adan Baer will change dressing when Santyl is available. Susy Blackwell [facility] Jul 18, 2017 10:19
[2017-07-18 11:32] VITALS: BP 124/71; PULSE 69; RESP 19; TEMP 98; O2SAT 100
[2017-07-18] MEDS ORDERED: ARTIFICIAL TEARS OPTH SOLN 15 ML BTL EACH EYE PRN (11:45)
[2017-07-18 12:00] VITALS: PULSE 68
[2017-07-18] MEDS ORDERED: AZIT500T2 PO (14:42)
[2017-07-18] MEDS ORDERED: VENTAER INH (14:42)
--- NOTE | 2017-07-18 14:43 | HHI.DCPOC ---
Discharge Care Plan Diagnosis: (1) Cellulitis (2) Altered mental status (3) Respiratory failure (4) Sepsis (5) Tobacco abuse (6) H/O ETOH abuse Goals to Promote Your Health * To prevent worsening of your condition and complications * To maintain your health at the optimal level Directions to Meet Your Goals Take your medications as prescribed Follow your dietary instruction Follow activity as directed Keep your appointments as scheduled Take your immunizations and boosters as scheduled If your symptoms worsen call your PCP, if no PCP go to Urgent Care Center or Emergency Room Smoking is Dangerous to Your Health. Avoid second hand smoke Call the 24-hour hour crisis hotline for domestic abuse at Archie Castaneda MD Jul 18, 2017 2:43 pm
--- NOTE | 2017-07-18 15:04 | HHI.FPPN ---
Subjective Remarks No acute events overnight. Coughs occasionally but overall feels well. Loose BM yesterday had resolved. No CP/SOB/abdominal pain. (Archie Castaneda MD) Objective Vitals Vital Signs Date Time Temp Pulse Resp B/P (MAP) Pulse Ox O2 Delivery O2 Flow Rate FiO2 07/18/17 12:00 68 07/18/17 11:32 98.0 69 19 124/71 (88) 100 07/18/17 08:10 98 Room Air 07/18/17 07:58 96.9 75 21 124/82 (96) 97 07/18/17 07:46 99 07/18/17 04:05 97.9 68 18 130/70 (90) 96 07/18/17 00:10 96.7 62 17 133/75 (94) 96 07/17/17 20:14 96.2 67 18 140/68 (92) 94 07/17/17 16:00 97.6 62 20 128/78 (95) 100 I/O 07/17/17 07/17/17 07/17/17 07/18/17 07/18/17 07/18/17 07:00 15:00 23:00 07:00 15:00 23:00 Intake Total 1080 ml 870 ml 800 ml 580 ml 1020 ml Output Total 600 ml 900 ml 2900 ml 500 ml 803 ml Balance 480 ml -30 ml -2100 ml 80 ml 217 ml Intake Oral 1080 ml 870 ml 800 ml 580 ml 1020 ml Output Urine Total 600 ml 900 ml 2900 ml 500 ml 800 ml Stool Total 3 ml # Voids 2 # Bowel Movements 1 1 1 (Archie Castaneda MD) Result Diagram: 07/17/17 0735 07/17/17 0735 Imaging Last Impressions Head CT 07/16/17 0000 Signed Impressions: Service Date/Time: Sunday, July 16, 2017 07:49 - CONCLUSION: Atrophy with maxillary sinus disease and Underated mastoids. Negative for acute process. Jorge Coates MD FACR Chest X-Ray 07/15/17 0600 Signed Impressions: Service Date/Time: Saturday, July 15, 2017 03:50 - CONCLUSION: Improving aeration. Adan Peña MD Lower Extremity MRI 07/08/17 0000 Signed Impressions: Service Date/Time: Saturday, July 08, 2017 10:30 - CONCLUSION: 1. Some edema is noted throughout the anterior and posterior tibial musculature raising the possibility of myositis or muscle strain. Clinical correlation is recommended. 2. Mild cellulitis of the lower calf and upper ankle posteriorly. 3. No evidence of osteomyelitis. 4. Serpiginous-appearing lesion within the distal tibial metadiaphysis which has the appearance of probable bone infarct. 5. No soft tissue abscess noted. Manuel Dougherty MD CT Angiography 07/08/17 0000 Signed Impressions: Service Date/Time: Monday, July 10, 2017 10:23 - CONCLUSION: There is no central pulmonary emboli Bibasilar consolidative changes and small bilateral pleural effusions Diffuse interstitial changes, almost honeycomb pattern in both lungs Extensive mediastinal adenopathy. Does this patient have an underlying neoplasm. Jorge Coates MD FACR Tibia/Fibula X-Ray 07/04/17 0000 Signed Impressions: Service Date/Time: Tuesday, July 04, 2017 15:19 - CONCLUSION: 1. 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 2. No acute fracture or dislocation. Martin Wilks MD Hand X-Ray 07/04/17 0000 Signed Impressions: Service Date/Time: Tuesday, July 04, 2017 15:14 - CONCLUSION: 1. Findings suggesting healing nondisplaced left fifth proximal phalanx fracture . 2. No acute fracture or dislocation. Martin Wilks MD Objective Remarks GENERAL: Disheveled male sitting up in bed, NAD Neuro: No focal CN defects. Patient awake, alert. Oriented x3. Moves all extremities without difficulty. SKIN: Multiple areas of extremity bruising. No active bleeding or visible purulent drainage. HEENT: Atraumatic, normocephalic. No visible LAD or JVD appreciated. CARDIOVASCULAR: RRR. No MGR appreciated. 2+ pulses in all 4 extremities. RESPIRATORY: Bronchial breath sounds bilaterally, diffuse wheezing, no crackles GASTROINTESTINAL: Abdomen firm to palpation; nondistended with positive bowel sounds. Nontender. No masses appreciated. MUSCULOSKELETAL: No cyanosis or edema Procedures Bronchoscopy on 07/09 Medications and IVs Current Medications Medications (Trade) Dose Ordered Sig/Jozef Route Start Time Stop Time Status Last Admin (Romazicon Inj) 0.2 mg Q1M PRN IV PUSH 07/04/17 11:30 (NS Flush) 2 ml BID IV FLUSH 07/04/17 21:00 07/17/17 21:56 (NS Flush) 2 ml UNSCH PRN IV FLUSH 07/04/17 14:15 07/15/17 08:56 Sodium Chloride 1,000 ml @ 5 mls/hr Q24H IV 07/04/17 14:03 07/13/17 22:15 (Tylenol) 500 mg Q4H PRN PO 07/04/17 14:15 07/10/17 03:16 (Heparin Inj) 5,000 units Q8H SQ 07/04/17 16:00 07/18/17 08:00 (Romazicon Inj) 0.2 mg Q1M PRN IV PUSH 07/04/17 14:15 (Theragran) 1 tab DAILY PO 07/04/17 14:15 07/18/17 08:00 (Folate) 1 mg DAILY PO 07/04/17 14:15 07/18/17 07:59 (Vitamin B1) 100 mg DAILY PO 07/04/17 14:15 07/18/17 07:59 (Habitrol 14 Mg Patch.24 Hr) 1 patch DAILY T-DERMAL 07/04/17 15:00 07/18/17 07:59 Miscellaneous Information 1 DAILY T-DERMAL 07/04/17 21:00 07/18/17 08:06 (Catapres) 0.1 mg Q6H PRN PO 07/04/17 16:15 07/15/17 17:10 (Zofran Inj) 4 mg Q6HR PRN IV PUSH 07/04/17 16:15 (Lactinex) 1 tab Q12HR PO 07/07/17 21:00 07/18/17 08:00 (Peridex 0.12% Liq) 15 ml BID@08,20 MT 07/08/17 20:00 07/18/17 08:00 (Albuterol Neb) 2.5 mg Q2HR NEB PRN NEB 07/08/17 17:00 07/13/17 20:02 (NS Flush) DAILY IV FLUSH 07/09/17 09:00 07/16/17 09:22 (NS Flush) UNSCH PRN IV FLUSH 07/08/17 18:00 07/15/17 08:56 (D50w (Vial) Inj) 50 ml UNSCH PRN IV PUSH 07/08/17 18:15 07/09/17 18:05 (Glucagon Inj) 1 mg UNSCH PRN OTHER 07/08/17 18:15 (Colace Liq) 100 mg Q12HR PO 07/08/17 21:00 07/17/17 09:07 (Free Water) 200 ml Q6H OG-TUBE 07/15/17 09:00 07/15/17 08:58 Dextrose 1,000 ml @ 50 mls/hr Q20H IV 07/15/17 14:15 07/18/17 07:59 (Ativan Inj) 1 mg Q4H PRN IV PUSH 07/15/17 17:30 07/17/17 22:07 (Pepcid) 20 mg BID PO 07/16/17 21:00 07/19/17 20:59 07/18/17 08:00 (Mucinex Er) 600 mg BID PO 07/17/17 09:45 07/18/17 08:00 (Tears Naturale Opth Soln) 1 drop Q8HR PRN EACH EYE 07/18/17 11:45 (Archie Castaneda MD) Date of Insertion: Jul 09, 2017 (Archie Castaneda MD) Line: Central Venous Catheter Side: Left Location: Internal, Jugular (Archie Castaneda MD) A/P Assessment and Plan 57 yo male with h/o alcohol and substance abuse presenting with: (Archie Castaneda MD) Attending Attestation Patient seen and examined. Case reviewed and discussed with the resident team. Agree with plan of care as discussed with me and documented in the resident note. (Ry Gonazles MD) Problem List: (1) Respiratory failure ICD Codes: J96.90 - Respiratory failure, unspecified, unspecified whether with hypoxia or hypercapnia Status: Resolved Plan: Resolved, extubated 07/15 (2) Mediastinal lymphadenopathy ICD Codes: R59.0 - Localized enlarged lymph nodes Plan: CT pulmonary angiogram noted mediastinal lymphadenopathy and honeycombing , overall very suspicious for malignancy - Pulmonology consulted regarding possible biopsy - Discussed findings with patient and likely need for biopsy to rule in/out diagnosis of cancer. Patient declines biopsy and expresses understanding that he may have a cancer which could continue to grow and potentially be fatal if not properly diagnosed or treated. He would prefer to not know and prioritizes leaving the hospital sooner. (3) Altered mental status ICD Codes: R41.82 - Altered mental status, unspecified Status: Resolved Plan: Resolved Unclear etiology. PMH alcohol and polysubstance use CT brain w/o contrast on 07/10 showed moderate diffuse cerebral atrophy, slightly out of proportion to age. Alcohol 87, Tox screen - THC positive, Ammonia 34 07/10 metabolic panel without severe derangements ABG on admission- pH 7.52, O2 46, CO2 26 -Counselled patient about alcohol use (4) Cellulitis ICD Codes: L03.90 - Cellulitis, unspecified Status: Acute Plan: Patient with multiple skin lesions; see H&P exam. Wound culture: Staphylococcus Aureus and Group A Beta Strep. Sensitivities available. Blood culture 07/04 and 07/08 - no growth Hand x-ray: Findings suggesting healing nondisplaced left fifth proximal phalanx fracture. No acute fracture dislocation. Tibia/fibula x-ray: Probable bone infarct in the distal right tibia. No acute fracture or dislocation. ABIs: Ordered MRI of RLE: edema throughout the anterior and posterior tibial musculature raising concern for myositis or muscle strain. Mild cellulitis. No osteo. ID consulted, recs appreciated * Stopped Zosyn * Ordered C diff PCR due to diarrhea, but now BM semisolid so likely not C diff * Increasing leukocytosis, unclear etiology, clinically well * Monitor clinical status and labs; probably no need for further Abx Due to wheezing and smoking history, will discharge with Azithromycin 500 mg PO x5 days and albuterol inhaler Antibiotic history * Vancomycin dosed by pharmacy IV (07/04 - 07/14) * Zosyn 3.375 gm q6hr IV (07/04 - 07/15) * Azithromycin 500mg q24h (07/11-07/14) * Acetaminophen 500 mg q4hr PO PRN Pain 1-10/ Fever >101F. (5) Sepsis ICD Codes: A41.9 - Sepsis, unspecified organism Status: Resolved Plan: Patient met sepsis criteria. Suspected source of infection related to areas of cellulitis. -See plan as above (6) Elevated troponin ICD Codes: R74.8 - Abnormal levels of other serum enzymes Status: Acute Plan: Troponin 0.12-->0.71-->0.64 ECHO on 07/10 showed EF of 50%, mild mitral valve regurgitation, mild tricuspid valve regurgitation, no evidence of endocarditis Likely related to sepsis, low suspicion for SD at this time * Consider repeat troponin or EKG based on clinical course (7) Alcohol abuse ICD Codes: F10.10 - Alcohol abuse, uncomplicated Status: Chronic Plan: Patient with extensive alcohol abuse and history of withdrawal. * Balanced diet on discharge, avoid excessive drinking (8) Fracture of proximal phalanx of digit of left hand ICD Codes: S62.619A - Displaced fracture of proximal phalanx of unspecified finger, initial encounter for closed fracture Plan: Subacute/healing nondisplaced left fifth proximal phalanx fracture visualized on Hand X-ray. * See Plan for Cellulitis. * Hand surgery does not recommend intervention at this time (9) Diarrhea ICD Codes: R19.7 - Diarrhea, unspecified Status: Resolved Plan: Explosive diarrhea 07/06 C. difficile PCR ordered, later discontinued as subsequent BMs are semisolid therefore C. difficile infection not likely Outpatient follow up (10) Chronic left hip pain ICD Codes: M25.552 - Pain in left hip; G89.29 - Other chronic pain Status: Chronic Plan: Patient with history of chronic left hip pain. * Naproxen PRN (11) Tobacco abuse ICD Codes: Z72.0 - Tobacco use Status: Chronic Plan: Patient with extensive tobacco abuse history including 50 years of 1 pack per day. Medications: * Nicotine patch daily, patient acknowledges possible wound healing delayed due to nicotine use. (Archie Castaneda MD) Problem Qualifiers (1) Respiratory failure: Qualified Codes: J96.01 - Acute respiratory failure with hypoxia (2) Cellulitis: Qualified Codes: L03.90 - Cellulitis, unspecified (3) Sepsis: Qualified Codes: A41.9 - Sepsis, unspecified organism Archie Castaneda MD Jul 18, 2017 15:04 Ry Gonzales MD Jul 18, 2017 16:38
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
[2017-07-20 19:58] LABS: CRITICAL VALUE YES
== END 2017-07-18 15:55 | disposition home or self-care (01) | DRG 853 ==
LOC: NEPC 10:42 → NEDA 13:39 → NEPFCDU 14:42 → NEPHCDU 14:44 → OBSVTOIN 07-08 12:02 → HIMN 07-08 16:45 → N07A 07-16 12:34
PROVIDERS: ADMIT Family Medicine; ATTEND Family Medicine
PROC: 0BH17EZ Insertion of Endotracheal Airway into Trachea, Via Natural or Artificial Opening (ICD-10-PCS; principal; 2017-07-08)
PROC: 5A1955Z Respiratory Ventilation, Greater than 96 Consecutive Hours (ICD-10-PCS; 2017-07-08)
PROC: 02HV33Z Insertion of Infusion Device into Superior Vena Cava, Percutaneous Approach (ICD-10-PCS; 2017-07-08)
PROC: B544ZZA Ultrasonography of Left Jugular Veins, Guidance (ICD-10-PCS; 2017-07-08)
PROC: 0B9M8ZX Drainage of Bilateral Lungs, Via Natural or Artificial Opening Endoscopic, Diagnostic (ICD-10-PCS; 2017-07-09)
DX: A41.9 Sepsis, unspecified organism (principal); J96.01 Acute respiratory failure with hypoxia; G92 Toxic encephalopathy; J44.0 Chronic obstructive pulmonary disease with (acute) lower respiratory infection; J18.9 Pneumonia, unspecified organism; E87.1 Hypo-osmolality and hyponatremia; L03.90 Cellulitis, unspecified; B95.62 Methicillin resistant Staphylococcus aureus infection as the cause of diseases classified elsewhere; B95.0 Streptococcus, group A, as the cause of diseases classified elsewhere; F10.239 Alcohol dependence with withdrawal, unspecified; Y90.8 Blood alcohol level of 240 mg/100 ml or more; S62.619A Displaced fracture of proximal phalanx of unspecified finger, initial encounter for closed fracture; Y04.0XXA Assault by unarmed brawl or fight, initial encounter; D53.9 Nutritional anemia, unspecified; F32.9 Major depressive disorder, single episode, unspecified; R59.0 Localized enlarged lymph nodes; E87.6 Hypokalemia; M16.12 Unilateral primary osteoarthritis, left hip; Z59.0 Homelessness; F17.210 Nicotine dependence, cigarettes, uncomplicated; F12.90 Cannabis use, unspecified, uncomplicated; F41.9 Anxiety disorder, unspecified; R19.7 Diarrhea, unspecified; R33.9 Retention of urine, unspecified; E83.42 Hypomagnesemia; R68.2 Dry mouth, unspecified; Z96.641 Presence of right artificial hip joint
CPT/HCPCS: 31500; 31624; 36556; 36600; 36620; 70450; 71010; 71275; 73130; 73590; 73720; 76937; 80048; 80053; 80074; 80202; 80307; 81001; 82140; 82150; 82550; 82552; 82607; 82746; 82805; 82948; 83605; 83690; 83735; 83880; 84100; 84132; 84443; 84484; 85007; 85025; 85027; 85384; 85610; 85652; 85730; 86140; 86403; 87015; 87040; 87070; 87102; 87116; 87147; 87186; 87205; 87206; 87449; 87641; 87804; 93005; 93306; 93922; 94002; 94003; 94150; 94640; 94664; 94667; 94668; A9579; G8987-GP; G8988-GP; J0131; J0456; J1644; J1885; J1940; J2060; J2250; J2270; J2405; J2543; J2765; J2930; J3010; J3370; J3411; J3475; J3480; J7030; J7050; J7070; J7613; Q9967

== ENCOUNTER 2017-08-08 08:56 | Emergency (ER) | payer SELFPAY ==
[~2017-08-08] VITALS: Ht 180.3 cm; Wt 60.0 kg
[~2017-08-08 08:56] MED LIST changes: +AZIT500T2 PO; +VENTAER INH
[2017-08-08 09:12] VITALS: BP 133/72; PULSE 99; RESP 18; TEMP 98.3; O2SAT 99
--- NOTE | 2017-08-08 09:32 | PD ---
HPI Chief Complaint: Skin Problem Time Seen by Provider: 09:09 Travel History International Travel<30 days: No Contact w/Intl Traveler<30days: No Traveled to known affect area: No History of Present Illness HPI This patient complains of a wound in his sacral area. He's had a long time. He was recently hospitalized but states that he had it prior to arriving at the hospital. Patient is homeless but stated [employer]. He says he is trying to stay on his side so he doesn't put pressure on it. Is not having fever or active drainage from the area. Severity is moderate. No alleviating factors. Duration is weeks to months. Symptoms exacerbated by him lying on it and having pressure on it. Denies alcohol today. Was drinking yesterday. PFSH Past Medical History Anxiety: Yes Depression: Yes COPD: Yes Diabetes: No Diminished Hearing: No Immune Disorder: No Musculoskeletal: Yes Neurologic: No Psychiatric: Yes Respiratory: Yes Immunizations Current: No ?: Not Past Surgical History Joint Replacement: Yes (R HIP REPLACEMENT ) Other Surgery: Yes (r hip replacement 2011) Social History Alcohol Use: Yes (2 beers daily) Tobacco Use: Yes (1/2 PPD ) Substance Use: No Allergies-Medications (Allergen,Severity, Reaction): Coded Allergies: No Known Allergies (Verified Allergy, Unknown, 07/04/17) Reported Meds & Prescriptions Reported Meds & Active Scripts Active Review of Systems General / Constitutional: No: Fever Eyes: No: Visual changes HENT: No: Headaches Cardiovascular: No: Chest Pain or Discomfort Respiratory: No: Shortness of Breath Gastrointestinal: No: Abdominal Pain Genitourinary: No: Dysuria Musculoskeletal: Positive: Pain Skin: No Rash Neurologic: No: Weakness Psychiatric: Positive: Substance Abuse, No: Depression Endocrine: No: Polydipsia Hematologic/Lymphatic: No: Easy Bruising Physical Exam Narrative GENERAL: Well-nourished, well-developed patient in no apparent distress. SKIN: Focused skin assessment reveals no rash and nodules. Skin is Warm and dry. HEAD: Atraumatic. Normocephalic. EYES: Pupils equal and round. No scleral icterus. No injection or drainage. ENT: No nasal bleeding or discharge. Mucous membranes pink and moist. NECK: Trachea midline. No JVD. CARDIOVASCULAR: Regular rate and rhythm. No murmur appreciated. RESPIRATORY: No accessory muscle use. Clear to auscultation. Breath sounds equal bilaterally. GASTROINTESTINAL: Abdomen soft, non-tender, nondistended. Hepatic and splenic margins not palpable. MUSCULOSKELETAL: No obvious deformities. No clubbing. No cyanosis. No edema. NEUROLOGICAL: Awake and alert. No obvious cranial nerve deficits. Motor grossly within normal limits. Normal speech. PSYCHIATRIC: Appropriate mood and affect; insight and judgment normal. Has a few dried scabbed skin lesions. One on the right tibia. One on the right hand. Sacral area: Patient has a stage II decubitus in the sacral region. It is a 6 x 3 cm. There is no active drainage or fluctuance. There is some yellow fibrinous coating. Data Data Last Documented VS Vital Signs Date Time Temp Pulse Resp B/P (MAP) Pulse Ox O2 Delivery O2 Flow Rate FiO2 08/08/17 09:13 101 18 08/08/17 09:12 98.3 133/72 (92) 99 Room Air Orders Orders Iv Access Insert/Monitor (08/08/17 09:24) Complete Blood Count With Diff (08/08/17 09:24) Basic Metabolic Panel (Bmp) (08/08/17 09:24) Alcohol (Ethanol) (08/08/17 09:24) Wound Culture And Gram Stain (08/08/17 09:24) Blood Culture (08/08/17 09:24) Labs Laboratory Tests Test 08/08/17 09:30 White Blood Count 24.0 TH/MM3 Red Blood Count 3.79 MIL/MM3 Hemoglobin 12.8 GM/DL Hematocrit 37.1 % Mean Corpuscular Volume 97.9 FL Mean Corpuscular Hemoglobin 33.8 PG Mean Corpuscular Hemoglobin Concent 34.5 % Red Cell Distribution Width 14.3 % Platelet Count 340 TH/MM3 Mean Platelet Volume 8.5 FL Neutrophils (%) (Auto) 76.0 % Lymphocytes (%) (Auto) 12.2 % Monocytes (%) (Auto) 6.7 % Eosinophils (%) (Auto) 4.2 % Basophils (%) (Auto) 0.9 % Neutrophils # (Auto) 18.3 TH/MM3 Lymphocytes # (Auto) 2.9 TH/MM3 Monocytes # (Auto) 1.6 TH/MM3 Eosinophils # (Auto) 1.0 TH/MM3 Basophils # (Auto) 0.2 TH/MM3 CBC Comment DIFF FINAL Differential Comment Blood Urea Nitrogen 5 MG/DL Creatinine 1.09 MG/DL Random Glucose 92 MG/DL Calcium Level 9.6 MG/DL Sodium Level 136 MEQ/L Potassium Level 3.6 MEQ/L Chloride Level 103 MEQ/L Carbon Dioxide Level 22.7 MEQ/L Anion Gap 10 MEQ/L Estimat Glomerular Filtration Rate 70 ML/MIN Ethyl Alcohol Level LESS THAN 3 MG/DL MDM Medical Decision Making Medical Screen Exam Complete: Yes Emergency Medical Condition: Yes Medical Record Reviewed: Yes Differential Diagnosis Decubitus ulcer, cellulitis, abscess Narrative Course I have reviewed the patient's electronic medical record. Reviewed his admission history and physical and discharge summary from recent admission. He was discharged July 18, 2017 IV placed CBC shows leukocytosis of 24,000. He has had leukocytosis the last bunch of blood draws. The last admitting team felt this was due to noninfectious origin such as his undiagnosed malignancy that he refuses to get worked up. Metabolic profile is normal Alcohol level is negative 2 blood cultures sent Wound culture of decubitus sent however there is no significant drainage and I suspect this will be polymicrobial are not particularly helpful He has had MRSA in the past Planning on a week of Bactrim DS Patient should go to wound care. Compliance will be challenging given his alcohol consumption and homeless status I don't have clinical suspicion of something like sepsis or abscess or osteomyelitis. His decub is only stage II and does not look infected I believe he is stable for outpatient follow-up. He should follow-up with primary care physician and work on his alcohol abuse and follow-up with wound care clinic. It's unclear if he will do any of this. Diagnosis Primary Impression: Sacral decubitus ulcer, stage II Additional Impression: Leukocytosis Qualified Codes: D72.829 - Elevated white blood cell count, unspecified Additional Instructions: Follow-up with primary care Follow wound care clinic Avoid alcohol use Keep pressure off the sacral skin breakdown Med/Other Pt SpecificInfo: Prescription(s) given Scripts Sulfamethoxazole-Trimethoprim (Bactrim DS) 800-160 Mg Tab 1 TAB PO BID for Infection, #14 TAB 0 Refills Prov: Adal Still MD 08/08/17 Disposition: 01 DISCHARGE HOME Condition: Stable Adal Still MD Aug 08, 2017 09:32
[2017-08-08 09:49] LABS: AUTOMATED NEUTROPHIL # 18.3 TH/MM3 (1.8-7.7); BASOPHIL # 0.2 TH/MM3 (0-0.2); BASOPHIL % 0.9 % (0.0-2.0); EOSINOPHIL % 4.2 % (0.0-4.0); HEMATOCRIT 37.1 % (39.0-51.0); HEMOGLOBIN 12.8 GM/DL (13.0-17.0); LYMPH % 12.2 % (9.0-44.0); LYMPHOCYTE # 2.9 TH/MM3 (1.0-4.8); MEAN CELL VOLUME 97.9 FL (80.0-100.0); MEAN CORPUSCULAR HEMOGLOBIN 33.8 PG (27.0-34.0); MEAN CORPUSCULAR HGB CONC 34.5 % (32.0-36.0); MEAN PLATELET VOLUME 8.5 FL (7.0-11.0); MONO % 6.7 % (0.0-8.0); MONOCYTE # 1.6 TH/MM3 (0-0.9); PLATELET COUNT 340 TH/MM3 (150-450); RED BLOOD COUNT 3.79 MIL/MM3 (4.50-5.90); RED CELL DISTRIBUTION WIDTH 14.3 % (11.6-17.2)
[2017-08-08 10:07] LABS: BICARBONATE 22.7 MEQ/L (21.0-32.0); BLOOD UREA NITROGEN 5 MG/DL (7-18); CALCIUM 9.6 MG/DL (8.5-10.1); CHLORIDE 103 MEQ/L (98-107); CREATININE 1.09 MG/DL (0.60-1.30); GLOMERULAR FILTRATION RATE 70 ML/MIN (>89); GLUCOSE,RANDOM 92 MG/DL (74-106); SODIUM (NA) 136 MEQ/L (136-145)
[2017-08-08] MEDS ORDERED: BACT800T5 PO (13:47)
== END 2017-08-08 14:37 | disposition home or self-care (01) ==
LOC: NEPE 08:56
DX: L89.152 Pressure ulcer of sacral region, stage 2 (principal); D72.829 Elevated white blood cell count, unspecified; F17.200 Nicotine dependence, unspecified, uncomplicated; Z86.14 Personal history of Methicillin resistant Staphylococcus aureus infection
CPT/HCPCS: 80048; 80307; 85025; 86403; 87040; 87070; 87186; 99283

== ENCOUNTER 2017-08-19 11:19 | Inpatient (IN) | payer SELFPAY ==
[~2017-08-19] VITALS: Ht 177.8 cm; Wt 67.3 kg
[~2017-08-19 11:19] MED LIST changes: -AZIT500T2 PO; +BACT800T5 PO; -NAPR500T2 PO; -VENTAER INH
[2017-08-19 11:43] VITALS: BP 125/56; PULSE 103; RESP 17; TEMP 97.8; O2SAT 99
--- NOTE | 2017-08-19 12:14 | PD ---
HPI Chief Complaint: Wound/Suture/Staple Re-Check Time Seen by Provider: 11:58 Travel History International Travel<30 days: No Contact w/Intl Traveler<30days: No Traveled to known affect area: No History of Present Illness HPI 57-year-old male complains of diarrhea, buttock wound. Patient has history of chronic sacral decubitus ulcer. Patient was admitted to [facility] and discharged in June 2017. Patient was seen in emergency room in July 2017 and was discharged home with prescription for Bactrim DS. Patient however has not filled the prescription. Patient states that he had persistent diarrhea and persistent decubitus ulcer. Patient denies any fever chills. Patient denies headache. Patient denies any chest pain or shortness of breath. Patient states that he has intermittent abdominal cramping. Patient denies any dysuria or frequency. Patient has generalized malaise and weakness and difficulty in ambulating. Patient is homeless. PFSH Past Medical History Anxiety: Yes Depression: Yes COPD: Yes Diabetes: No Diminished Hearing: No Immune Disorder: No Musculoskeletal: Yes Neurologic: No Psychiatric: Yes Respiratory: Yes Immunizations Current: No Past Surgical History Joint Replacement: Yes (R HIP REPLACEMENT ) Other Surgery: Yes (r hip replacement 2011) Social History Alcohol Use: Yes (2 beers daily) Tobacco Use: Yes (1/2 PPD ) Substance Use: No Allergies-Medications (Allergen,Severity, Reaction): Coded Allergies: No Known Allergies (Verified Allergy, Unknown, 07/04/17) Reported Meds & Prescriptions Reported Meds & Active Scripts Active No Active Prescriptions or Reported Medications Review of Systems General / Constitutional: No: Fever Eyes: No: Visual changes HENT: No: Headaches Cardiovascular: No: Chest Pain or Discomfort Respiratory: No: Shortness of Breath Gastrointestinal: No: Abdominal Pain Genitourinary: No: Dysuria Musculoskeletal: No: Pain Skin: No Rash Neurologic: No: Weakness Psychiatric: No: Depression Endocrine: No: Polydipsia Hematologic/Lymphatic: No: Easy Bruising Physical Exam Narrative GENERAL: Well-nourished, well-developed patient. SKIN: Focused skin assessment warm/dry. HEAD: Normocephalic. EYES: No scleral icterus. No injection or drainage. NECK: Supple, trachea midline. No JVD or lymphadenopathy. CARDIOVASCULAR: Regular rate and rhythm without murmurs, gallops, or rubs. RESPIRATORY: Breath sounds equal bilaterally. No accessory muscle use. GASTROINTESTINAL: Abdomen soft, non-tender, nondistended. MUSCULOSKELETAL: No cyanosis, or edema. BACK: Nontender without obvious deformity. No CVA tenderness. Patient has a large ulcer lesion on the sacrococcyx area. No active bleeding. A lot of skin erythematous surrounding the buttock and groin area. The groin area and lower extremity is cover with stool. Data Data Last Documented VS Vital Signs Date Time Temp Pulse Resp B/P (MAP) Pulse Ox O2 Delivery O2 Flow Rate FiO2 08/19/17 11:43 97.8 103 17 125/56 (79) 99 Room Air Orders Orders Electrocardiogram (08/19/17 12:05) Complete Blood Count With Diff (08/19/17 12:05) Comprehensive Metabolic Panel (08/19/17 12:05) Prothrombin Time / Inr (Pt) (08/19/17 12:05) Act Partial Throm Time (Ptt) (08/19/17 12:05) Blood Culture (08/19/17 12:05) Urinalysis - C+S If Indicated (08/19/17 12:05) Thyroid Stimulating Hormone (08/19/17 12:05) Enteric Path (Stool) (08/19/17 12:05) C Diff Toxin Pcr (08/19/17 12:05) Chest, Single Ap (08/19/17 12:05) Iv Access Insert/Monitor (08/19/17 12:05) Ecg Monitoring (08/19/17 12:05) Oximetry (08/19/17 12:05) Sodium Chlor 0.9% 1000 Ml Inj (Ns 1000 M (08/19/17 12:15) Vancomycin Inj (Vancomycin Inj) (08/19/17 12:15) Wound Culture And Gram Stain (08/19/17 12:34) Morphine Inj (Morphine Inj) (08/19/17 13:15) Ondansetron Inj (Zofran Inj) (08/19/17 13:15) Potassium Chloride (Kcl) (08/19/17 15:00) Potassium Chlor 20 Meq Premix (Kcl 20 Me (08/19/17 15:00) Labs Laboratory Tests Test 08/19/17 12:20 White Blood Count 27.3 TH/MM3 Red Blood Count 3.97 MIL/MM3 Hemoglobin 13.2 GM/DL Hematocrit 38.2 % Mean Corpuscular Volume 96.2 FL Mean Corpuscular Hemoglobin 33.2 PG Mean Corpuscular Hemoglobin Concent 34.5 % Red Cell Distribution Width 14.0 % Platelet Count 332 TH/MM3 Mean Platelet Volume 8.5 FL Neutrophils (%) (Auto) 81.8 % Lymphocytes (%) (Auto) 9.9 % Monocytes (%) (Auto) 6.8 % Eosinophils (%) (Auto) 1.2 % Basophils (%) (Auto) 0.3 % Neutrophils # (Auto) 22.3 TH/MM3 Lymphocytes # (Auto) 2.7 TH/MM3 Monocytes # (Auto) 1.9 TH/MM3 Eosinophils # (Auto) 0.3 TH/MM3 Basophils # (Auto) 0.1 TH/MM3 CBC Comment DIFF FINAL Differential Comment Prothrombin Time 10.5 SEC Prothromb Time International Ratio 1.0 RATIO Activated Partial Thromboplast Time 28.1 SEC Blood Urea Nitrogen 3 MG/DL Creatinine 0.67 MG/DL Random Glucose 83 MG/DL Total Protein 7.9 GM/DL Albumin 2.8 GM/DL Calcium Level 9.2 MG/DL Alkaline Phosphatase 181 U/L Aspartate Amino Transf (AST/SGOT) 19 U/L Alanine Aminotransferase (ALT/SGPT) 14 U/L Total Bilirubin 0.6 MG/DL Sodium Level 133 MEQ/L Potassium Level 2.8 MEQ/L Chloride Level 100 MEQ/L Carbon Dioxide Level 26.6 MEQ/L Anion Gap 6 MEQ/L Estimat Glomerular Filtration Rate 122 ML/MIN Thyroid Stimulating Hormone 3rd Gen 0.850 uIU/ML MDM Medical Decision Making Medical Screen Exam Complete: Yes Emergency Medical Condition: Yes Medical Record Reviewed: Yes Interpretation(s) No acute disease Last Impressions Chest X-Ray 08/19/17 1205 Signed Impressions: Service Date/Time: Saturday, August 19, 2017 12:33 - CONCLUSION: No acute disease. Tory Gordon MD 1500 p.m. CBC WBC 27.3. 81 neutrophil. Sodium 133. Potassium 2.8. Alkaline phosphatase 181. Differential Diagnosis Differential diagnosis including decubitus ulcer, gastroenteritis, dehydration, electrolyte imbalance, sepsis. Narrative Course 57-year-old male with chronic decubitus ulcer and diarrhea. Patient is homeless. Normal saline solution 100 cc an hour. Vancomycin 1 g IV given. KCl 40 mEq by mouth given. KCl 20 mEq IV given. Diagnosis Primary Impression: Decubitus ulcer Qualified Codes: L89.152 - Pressure ulcer of sacral region, stage 2 Additional Impressions: Gastroenteritis Hypokalemia Admitting Information Admitting Physician Requests: Admit Scripts No Active Prescriptions or Reported Meds Luis Saha MD Aug 19, 2017 12:14
[2017-08-19] MEDS ORDERED: SODIUM CHLOR 0.9% 1000 ML INJ 1,000 ML IV SCH (12:15)
[2017-08-19] MEDS ORDERED: VANCOMYCIN 1 GM/200 ML INJ 200 ML IV ONE (12:15)
--- NOTE | 2017-08-19 13:05 | RADRPT ---
EXAM DATE/TIME: 08/19/2017 12:33 [facility] COMPARISON: CHEST SINGLE AP, July 15, 2017, 3:50. INDICATIONS : Short of Breath MEDICAL HISTORY : Chronic obstructive pulmonary disease. SURGICAL HISTORY : hip replacement ENCOUNTER: Initial ACUITY: 1 day PAIN SCORE: 0/10 LOCATION: chest FINDINGS: AP semiupright portable view of the chest demonstrates exclusion of the right costophrenic angle and the extreme left costophrenic angle. The lungs appear well inflated and clear. Heart size is normal. There has been interval removal of a previous left-sided central line and endotracheal tube. CONCLUSION: No acute disease. Tory Gordon MD on August 19, 2017 at 13:01 Board Certified Radiologist. This report was verified electronically.
[2017-08-19] MEDS ORDERED: MORPHINE SULFATE 2 MG/ML INJ IV PUSH ONE (13:15)
[2017-08-19] MEDS ORDERED: ONDANSETRON HCL 4 MG/2 ML VIAL IV PUSH ONE (13:15)
[2017-08-19 13:30] LABS: AUTOMATED NEUTROPHIL # 22.3 TH/MM3 (1.8-7.7); BASOPHIL # 0.1 TH/MM3 (0-0.2); BASOPHIL % 0.3 % (0.0-2.0); EOSINOPHIL # 0.3 TH/MM3 (0-0.4); EOSINOPHIL % 1.2 % (0.0-4.0); HEMATOCRIT 38.2 % (39.0-51.0); HEMOGLOBIN 13.2 GM/DL (13.0-17.0); LYMPH % 9.9 % (9.0-44.0); LYMPHOCYTE # 2.7 TH/MM3 (1.0-4.8); MEAN CELL VOLUME 96.2 FL (80.0-100.0); MEAN CORPUSCULAR HEMOGLOBIN 33.2 PG (27.0-34.0); MEAN CORPUSCULAR HGB CONC 34.5 % (32.0-36.0); MEAN PLATELET VOLUME 8.5 FL (7.0-11.0); MONO % 6.8 % (0.0-8.0); MONOCYTE # 1.9 TH/MM3 (0-0.9); NEUT % 81.8 % (16.0-70.0); PLATELET COUNT 332 TH/MM3 (150-450); RED BLOOD COUNT 3.97 MIL/MM3 (4.50-5.90); WHITE BLOOD COUNT 27.3 TH/MM3 (4.0-11.0)
[2017-08-19 13:43] LABS: PROTHROMBIN TIME - PATIENT 10.5 SEC (9.8-11.6)
[2017-08-19 14:03] LABS: ALBUMIN 2.8 GM/DL (3.4-5.0); ALKALINE PHOSPHATASE 181 U/L (45-117); ALT (GPT) 14 U/L (12-78); AST (GOT) 19 U/L (15-37); BICARBONATE 26.6 MEQ/L (21.0-32.0); BLOOD UREA NITROGEN 3 MG/DL (7-18); CALCIUM 9.2 MG/DL (8.5-10.1); CHLORIDE 100 MEQ/L (98-107); CREATININE 0.67 MG/DL (0.60-1.30); GLOMERULAR FILTRATION RATE 122 ML/MIN (>89); GLUCOSE,RANDOM 83 MG/DL (74-106); SODIUM (NA) 133 MEQ/L (136-145); TOTAL BILIRUBIN ADULT 0.6 MG/DL (0.2-1.0); TOTAL PROTEIN 7.9 GM/DL (6.4-8.2)
[2017-08-19 15:00] VITALS: BP 130/73; PULSE 92; RESP 17; O2SAT 100
[2017-08-19] MEDS ORDERED: POTASSIUM CHLOR 20 MEQ PREMIX 100 ML IV ONE (15:00)
[2017-08-19] MEDS ORDERED: POTASSIUM CHLORIDE 20 MEQ CONTROLLED RELEASE TAB PO ONE (15:00)
--- NOTE | 2017-08-19 15:21 | HHI.HP ---
HPI Service Family Medicine Primary Care Physician No Primary Care Physician Admission Diagnosis cubitus ulcer. Gastroenteritis. Hypokalemia. Diagnoses: International Travel<30 Days: No Contact w/Intl Traveler<30days: No Known Affected Area: No History of Present Illness Patient is a 57 year-old M with PMhx of COPD and alcohol abuse presented to the ED with c/o severe diarrhea ( episodes every 10 mins) associated with sharp constant umbilical abdominal pain. Patient stated that the diarrhea began in July 04 and has worsened since his prior discharge. Patient also with c/o of worsening pain of sacral ulcer, describes pains as sharp/stabbing, burning, rates pain as 10/10. Pt has a chronic decubitus ulcer in sacral area that was present before last admission (according to wound care note on 07/18). Wound care note on 07/18: Sacrum presents unstageable pressure related injury measuring 8.8cm x 6.2cm x unknown. Wound is 100% adhered yellow slough .Periwound intact and blanchable fungal rash noted to perineal/groin area. Patient verbalized to Anesthesiologist [facility] Care that this sore on bottom has been there for months " Wasn't hurting in ED so did not report to any Nurse or physician". Denies fever. Patient endorses vomiting (1 the sodium this morning), chronic symptoms of night sweats, chills, productive cough cough. Patient also reports a 30 pound weight loss in the past 2 months. Patient came to the ED for further evaluation of diarrhea and treatment for sacral ulcer pain. Review of Systems Constitutional: COMPLAINS OF: Weight loss (30lbs within the last 2 months), Chills, DENIES: Fever, Change in appetite Eyes: COMPLAINS OF: Blurred vision (1 wk ago, resolved), DENIES: Vision loss Ears, nose, mouth, throat: DENIES: Hearing loss, Throat pain, Ear Pain Respiratory: COMPLAINS OF: Cough (chronic), Sputum production, Shortness of breath Cardiovascular: COMPLAINS OF: Chest pain (3 days, left side of chest, sharp, last 10mins ), DENIES: Lower Extremity Edema Gastrointestinal: COMPLAINS OF: Abdominal pain, Diarrhea, Vomiting, DENIES: Bloody stools, Nausea Genitourinary: COMPLAINS OF: Urinary frequency, DENIES: Dysuria Musculoskeletal: COMPLAINS OF: Joint pain, DENIES: Muscle aches (left hip) Integumentary: COMPLAINS OF: Rash (buttock) Neurologic: COMPLAINS OF: Headache Past Family Social History Past Medical History COPD Alcohol Abuse OA of L hip Past Surgical History R hip replacement, 7 yr ago Allergies: Coded Allergies: No Known Allergies (Verified Allergy, Unknown, 07/04/17) Family History Mother - Brain malignancy Father - Unknown malignancy Sister - Unknown malignancy Social History From [place], been in [facility] for 2 years. Currently homeless. Tobacco - 1 ppd for 50 years Alcohol - 6 beers per day, history of withdrawal Illicit Drugs -Denies Physical Exam Vital Signs Vital Signs Date Time Temp Pulse Resp B/P (MAP) Pulse Ox O2 Delivery O2 Flow Rate FiO2 08/19/17 11:43 97.8 103 17 125/56 (79) 99 Room Air Physical Exam GENERAL: Thin Male laying in bed, in no apparent distress. SKIN: rash, small wound covered in right elbow. well healing wound in Right madden (previous area of cellulitis). Cool and dry. HEAD: Atraumatic. Normocephalic. EYES: Pupils equal round and reactive. Extraocular motions intact. No scleral icterus. No injection or drainage. ENT: Nose without bleeding, purulent drainage or septal hematoma. Throat without erythema, tonsillar hypertrophy or exudate. Uvula midline. Airway patent. NECK: Trachea midline. No JVD or lymphadenopathy. Supple, nontender, no meningeal signs. CARDIOVASCULAR: Regular rate and rhythm without murmurs, gallops, or rubs. RESPIRATORY: Wheezes through out lung chavarria, coarse breath sounds BL. GASTROINTESTINAL: Abdomen soft, non-tender, nondistended. No hepato-splenomegaly , or palpable masses. No guarding. MUSCULOSKELETAL: Extremities dirty, without clubbing, cyanosis, or edema. No joint tenderness, effusion, or edema noted. No calf tenderness. Negative Homans sign bilaterally. NEUROLOGICAL: Awake and alert. Cranial nerves II through XII intact. Motor and sensory grossly within normal limits. Five out of 5 muscle strength in all muscle groups. Normal speech. Laboratory Laboratory Tests Test 08/19/17 12:20 White Blood Count 27.3 Red Blood Count 3.97 Hemoglobin 13.2 Hematocrit 38.2 Mean Corpuscular Volume 96.2 Mean Corpuscular Hemoglobin 33.2 Mean Corpuscular Hemoglobin Concent 34.5 Red Cell Distribution Width 14.0 Platelet Count 332 Mean Platelet Volume 8.5 Neutrophils (%) (Auto) 81.8 Lymphocytes (%) (Auto) 9.9 Monocytes (%) (Auto) 6.8 Eosinophils (%) (Auto) 1.2 Basophils (%) (Auto) 0.3 Neutrophils # (Auto) 22.3 Lymphocytes # (Auto) 2.7 Monocytes # (Auto) 1.9 Eosinophils # (Auto) 0.3 Basophils # (Auto) 0.1 CBC Comment DIFF FINAL Differential Comment Prothrombin Time 10.5 Prothromb Time International Ratio 1.0 Activated Partial Thromboplast Time 28.1 Blood Urea Nitrogen 3 Creatinine 0.67 Random Glucose 83 Total Protein 7.9 Albumin 2.8 Calcium Level 9.2 Alkaline Phosphatase 181 Aspartate Amino Transf (AST/SGOT) 19 Alanine Aminotransferase (ALT/SGPT) 14 Total Bilirubin 0.6 Sodium Level 133 Potassium Level 2.8 Chloride Level 100 Carbon Dioxide Level 26.6 Anion Gap 6 Estimat Glomerular Filtration Rate 122 Thyroid Stimulating Hormone 3rd Gen 0.850 Date/Time Source Procedure Growth Status 08/19/17 12:20 Blood Peripheral Aerobic Blood Culture Pending Received 08/19/17 12:20 Blood Peripheral Anaerobic Blood Culture Pending Received 08/19/17 12:20 Wound Buttock Gram Stain Pending Received 08/19/17 12:20 Wound Buttock Wound Culture Pending Received Result Diagram: 08/19/17 1220 08/19/17 1220 Imaging Last Impressions Chest X-Ray 08/19/17 1205 Signed Impressions: Service Date/Time: Saturday, August 19, 2017 12:33 - CONCLUSION: No acute disease. MD Christ Andrews VTE Risk Assessment Caprini VTE Risk Assessment: Mod/High Risk (score >= 2) Caprini Risk Assessment Model Point Value = 1 Point Value = 2 Point Value = 3 Point Value = 5 Age 41-60 Minor surgery BMI > 25 kg/m2 Swollen legs Varicose veins or History of unexplained or recurrent spontaneous Oral contraceptives or hormone replacement Sepsis (< 1 month) Serious lung disease, including pneumonia (< 1 month) Abnormal pulmonary function Acute myocardial infarction Congestive heart failure (< 1 month) History of inflammatory bowel disease Medical patient at bed rest Age 61-74 Arthroscopic surgery Major open surgery (> 45 min) Laparoscopic surgery (> 45 min) Malignancy Confined to bed (> 72 hours) Immobilizing plaster cast Central venous access Age >= 75 History of VTE Family history of VTE Factor V Leiden Prothrombin [id number] Lupus anticoagulant Anticardiolipin antibodies Elevated serum homocysteine Heparin-induced thrombocytopenia Other congenital or acquired thrombophilia Stroke (< 1 month) Elective arthroplasty Hip, pelvis, or leg fracture Acute spinal cord injury (< 1 month) Prophylaxis Regimen Total Risk Factor Score Risk Level Prophylaxis Regimen 0-1 Low Early ambulation 2 Moderate Order ONE of the following: *Sequential Compression Device (SCD) *Heparin 5000 units SQ BID 3-4 Higher Order ONE of the following medications: *Heparin 5000 units SQ TID *Enoxaparin/Lovenox 40 mg SQ daily (WT < 150 kg, CrCl > 30 mL/min) *Enoxaparin/Lovenox 30 mg SQ daily (WT < 150 kg, CrCl > 10-29 mL/min) *Enoxaparin/Lovenox 30 mg SQ BID (WT < 150 kg, CrCl > 30 mL/min) AND/OR *Sequential Compression Device (SCD) 5 or more Highest Order ONE of the following medications: *Heparin 5000 units SQ TID (Preferred with Epidurals) *Enoxaparin/Lovenox 40 mg SQ daily (WT < 150 kg, CrCl > 30 mL/min) *Enoxaparin/Lovenox 30 mg SQ daily (WT < 150 kg, CrCl > 10-29 mL/min) *Enoxaparin/Lovenox 30 mg SQ BID (WT < 150 kg, CrCl > 30 mL/min) AND *Sequential Compression Device (SCD) Assessment and Plan Assessment and Plan Patient is a 57 year-old M with PMhx of COPD and alcohol abuse presented to the ED with c/o severe diarrhea ( episodes every 10 mins) associated with sharp constant umbilical abdominal pain. Pt also with c/o increasing pain decubitus ulcer in the sacral area. Pt found to be hypokalemic in the ED. Code Status Full code Discussed Condition With SDW Dr. Sosa 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 -Patient found to be C. difficile Positive on PCR -Patient placed on contact isolation -Flagyl 500 mg po every 8hr (2) Decubitus ulcer ICD Codes: L89.90 - Pressure ulcer of unspecified site, unspecified stage Status: Acute Plan: Patient afebrile Patient with sacral ulcer, stage II on exam Follow-up with wound culture and blood culture Wound care consulted, recommendations appreciated (3) COPD (chronic obstructive pulmonary disease) ICD Codes: J44.9 - Chronic obstructive pulmonary disease, unspecified Status: Chronic Plan: Continue with DuoNeb and albuterol -CXR : no acute disease -f/u sputum cx (4) Hypokalemia ICD Codes: E87.6 - Hypokalemia Status: Acute Plan: Patient with potassium of 2.8 Patient received 100 mg of 20 mEq potassium chloride in the ED. s/p 40mEq kcl x1 Follow up repeat potassium, Replete as needed Patient placed on telemetry (5) Chest pain ICD Codes: R07.9 - Chest pain, unspecified Status: Acute Plan: Pt with complaints of left-sided chest pain. Currently patient denies chest pain. -Follow up serial troponin and EKGs - placed on telemetry (6) Leukocytosis, unspecified ICD Codes: D72.829 - Elevated white blood cell count, unspecified Plan: Patient with history of increased white blood cell count noted as well on prior admission. Will continue to follow Consider consulting heme onc (7) Tobacco abuse ICD Codes: Z72.0 - Tobacco use Status: Chronic Plan: Nicotine patch ordered (8) Alcohol abuse ICD Codes: F10.10 - Alcohol abuse, uncomplicated Status: Chronic Plan: CIWA protocol Rally pack (9) Nutrition, metabolism, and development symptoms ICD Codes: R63.8 - Other symptoms and signs concerning food and fluid intake Status: Acute Plan: Fluids: 100mls/hr Electrolytes: low K, replete as need, f/u repeat K Diet: regular diet DVT ppx: lovenox Physician Certification 2 Midnight Certification Type: Admission for Inpatient Services Order for Inpatient Services The services are ordered in accordance with Medicare regulations or non- Medicare payer requirements, as applicable. In the case of services not specified as inpatient-only, they are appropriately provided as inpatient services in accordance with the 2-midnight benchmark. Estimated LOS (days): 4 days is the estimated time the patient will need to remain in the hospital, assuming treatment plan goals are met and no additional complications. Post-Hospital Plan: Not yet determined Problem Qualifiers (1) Decubitus ulcer: Qualified Codes: L89.152 - Pressure ulcer of sacral region, stage 2 Nathalie Loving MD, R1 Aug 19, 2017 15:21
[2017-08-19 15:58] LABS: BILIRUBIN, URINE NEG (NEG); BLOOD, URINE NEG (NEG); GLUCOSE,URINE NEG (NEG); HYALINE CAST, URINE 1 /lpf (RARE); KETONE, URINE NEG (NEG); MUCUS URINE FEW /lpf (OCC); NITRITE,URINE NEG (NEG); PH, URINE 6.5 (5.0-8.5); URINE COLOR YELLOW (YELLW/STRAW); URINE LEUKOCYTE ESTERASE NEG (NEG)
[2017-08-19] MEDS: SODIUM CHLOR 0.9% 1000 ML INJ 1,000 ML IV SCH (16:06)
[2017-08-19] MEDS ORDERED: ACETAMINOPHEN 325 MG TAB PO PRN (16:15)
[2017-08-19] MEDS ORDERED: ONDANSETRON HCL 4 MG/2 ML VIAL IVP PRN (16:15)
[2017-08-19] MEDS ORDERED: LORazepam 2 MG/ML VIAL IV PUSH PRN ×4 (16:15)
[2017-08-19] MEDS ORDERED: FLUMAZENIL 0.5 MG/5 ML VIAL IV PUSH PRN (16:15)
[2017-08-19] MEDS ORDERED: LORazepam 2 MG TAB PO PRN (16:15)
[2017-08-19] MEDS ORDERED: NALOXONE HCL 0.4 MG/ML AMP IV PUSH PRN ×2 (16:15→16:30)
[2017-08-19] MEDS ORDERED: SODIUM CHLORIDE 0.9% FLUSH 10 ML FLUSH IV FLUSH PRN (16:15)
[2017-08-19] MEDS ORDERED: LORazepam 1 MG TAB PO PRN (16:15)
[2017-08-19] MEDS ORDERED: IBUPROFEN 400 MG TAB PO PRN (16:30)
[2017-08-19] MEDS ORDERED: RESP: ALBUTEROL 2.5 MG/3 ML NEB (PRN) INH (16:30)
[2017-08-19] MEDS ORDERED: NICOTINE 21 MG/24 HR PATCH TD SCH (16:30)
[2017-08-19] MEDS: REMOVE OLD NICODERM (NICOTINE) PATCH T-DERMAL SCH (17:00)
[2017-08-19] MEDS: THIAMINE INJ 100 MG in SODIUM CHLORIDE 0.9% INJ 100 ML IV SCH (17:16)
[2017-08-19] MEDS: NICOTINE 21 MG/24 HR PATCH TD SCH (17:16)
[2017-08-19] MEDS: ENOXAPARIN SODIUM 40 MG/0.4 ML SYRINGE SQ SCH (17:16)
[2017-08-19] MEDS: metroNIDAZOLE 500 MG TAB PO SCH ×2 (17:16→22:13)
[2017-08-19 18:00] VITALS: BP 131/69; PULSE 91; RESP 18; TEMP 97.9; O2SAT 99
[2017-08-19] MEDS: MULTIVITAMIN INJ 10 ML, FOLIC ACID INJ 1 MG in SODIUM CHLORID 0.9% 500 ML INJ 500 ML IV SCH (18:18)
[2017-08-19] MEDS: oxyCODONE/ACETAMINOPHEN 5 MG/325 MG TAB PO PRN (18:19)
[2017-08-19 20:00] VITALS: BP 121/63; PULSE 92; RESP 18; TEMP 98.1; O2SAT 97
[2017-08-19] MEDS: RESP: ALBUTEROL 2.5 MG/IPRATROPIUM 0.5 MG NEB (SCH) INH (20:36)
[2017-08-19 20:37] LABS: BICARBONATE 24.7 MEQ/L (21.0-32.0); BLOOD UREA NITROGEN 3 MG/DL (7-18); CALCIUM 8.6 MG/DL (8.5-10.1); CHLORIDE 104 MEQ/L (98-107); CREATININE 0.69 MG/DL (0.60-1.30); GLOMERULAR FILTRATION RATE 118 ML/MIN (>89); GLUCOSE,RANDOM 129 MG/DL (74-106); SODIUM (NA) 137 MEQ/L (136-145)
[2017-08-19 20:42] LABS: TROPONIN I LESS THAN 0.02 NG/ML (0.02-0.05)
--- NOTE | 2017-08-19 20:43 | HHI.FPPN ---
Subjective Remarks Medicine attending note: Patient seen and examined with nursing staff. 57-year- old self-described homeless person admitted through the emergency room with what he describes as diarrhea every 10 minutes and a very painful ulcer on his buttock. Records from his 07/08-07/18/17 admission were reviewed and notable findings included patient being admitted for multiple areas of bacterial cellulitis with a rather rapid respiratory decompensation requiring mechanical ventilation, the differential diagnosis included sepsis, alcohol related, and pulmonary edema. Patient's cultures at the time from his skin wounds revealed group A beta strep and staph aureus pansensitive. Patient at the time was on vancomycin, azithromycin, and Zosyn. Patient was discharged with instructions to take Bactrim. Patient has had a known ulcer/sore on his buttocks he dates to the June admission. Complaining of severe pain. Please refer to resident history and physical for complete discussion of past medical history, family history, social history and review of systems. Objective Vitals Vital Signs Date Time Temp Pulse Resp B/P (MAP) Pulse Ox O2 Delivery O2 Flow Rate FiO2 08/19/17 18:33 08/19/17 18:00 97.9 91 18 131/69 (89) 99 08/19/17 15:00 92 17 130/73 (92) 100 Room Air 08/19/17 11:43 97.8 103 17 125/56 (79) 99 Room Air Result Diagram: 08/19/17 1220 08/19/17 1220 Objective Remarks Vital signs noted. Gen. appearance: Older than stated age gentleman who has evidence of cachexia, generally weak in hospital bed. Position himself on his left side. HEENT: Cachectic appearing, oropharynx no localized lesions. Lungs: Diminished clear breath sounds, hyperresonant to percussion. Cardiac: Distant S1-S2, no S3. Abdomen: Appearance notable for traumatic scar right mid abdomen. Hypertympanic to percussion, describes general discomfort on palpation in all areas. Sacral area: Has a complex ulcer measuring approximately 6.5 x 4 cm with a 2 cm deeper area more superiorly. The majority of the ulcer appears to have clean granulation tissue there is a raised border. There is odor to the area. The central deep area palpates to go well into the subcutaneous tissue. All painful to palpate. Suspect stage 3+. Right elbow has an erythematous area. Right lateral hip over a previous surgical scar has an erythematous area these would be considered stage I. Lower extremities without edema, decreased pulses, evidence of dirt in the inter -toe spaces. Labs are reviewed which reveal a leukocytosis of 27,300 left shift, hemoglobin 13.2 platelets 332,000. Potassium 2.8 Elevated alkaline phosphatase 181. A/P Assessment and Plan Attending clinical assessment: Profuse diarrhea with a positive PCR assay for C. difficile. Exposed to multiple antibiotics over the last month. Complex sacral decubitus stage III plus Stage I ulcers right elbow and right hip Hypokalemia Abnormal CT of the chest June 2017 suspicious for possible malignancy. Patient refused any type of diagnostic workup. History of excessive EtOH. COPD Social issues, self describes himself "homeless". Patient seen and examined. Case will be reviewed and discussed with the resident team. Agree with current plan of care as to be discussed with me and documented in the resident note. 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 -Patient found to be C. difficile Positive on PCR -Patient placed on contact isolation -Flagyl 500 mg po every 8hr (2) Decubitus ulcer ICD Codes: L89.90 - Pressure ulcer of unspecified site, unspecified stage Status: Acute Plan: Patient afebrile Patient with sacral ulcer, stage II on exam Follow-up with wound culture and blood culture Wound care consulted, recommendations appreciated (3) COPD (chronic obstructive pulmonary disease) ICD Codes: J44.9 - Chronic obstructive pulmonary disease, unspecified Status: Chronic Plan: Continue with DuoNeb and albuterol -CXR : no acute disease -f/u sputum cx (4) Hypokalemia ICD Codes: E87.6 - Hypokalemia Status: Acute Plan: Patient with potassium of 2.8 Patient received 100 mg of 20 mEq potassium chloride in the ED. s/p 40mEq kcl x1 Follow up repeat potassium, Replete as needed Patient placed on telemetry (5) Chest pain ICD Codes: R07.9 - Chest pain, unspecified Status: Acute Plan: Pt with complaints of left-sided chest pain. Currently patient denies chest pain. -Follow up serial troponin and EKGs - placed on telemetry (6) Leukocytosis, unspecified ICD Codes: D72.829 - Elevated white blood cell count, unspecified Plan: Patient with history of increased white blood cell count noted as well on prior admission. Will continue to follow Consider consulting heme onc (7) Tobacco abuse ICD Codes: Z72.0 - Tobacco use Status: Chronic Plan: Nicotine patch ordered (8) Alcohol abuse ICD Codes: F10.10 - Alcohol abuse, uncomplicated Status: Chronic Plan: CIWA protocol Rally pack (9) Nutrition, metabolism, and development symptoms ICD Codes: R63.8 - Other symptoms and signs concerning food and fluid intake Status: Acute Plan: Fluids: 100mls/hr Electrolytes: low K, replete as need, f/u repeat K Diet: regular diet DVT ppx: lovenox Problem Qualifiers (1) Decubitus ulcer: Qualified Codes: L89.152 - Pressure ulcer of sacral region, stage 2 Clay Steve MD Aug 19, 2017 20:42
[2017-08-19] MEDS: SODIUM CHLORIDE 0.9% FLUSH 10 ML FLUSH IV FLUSH SCH (21:00)
[2017-08-19] MEDS: MORPHINE SULFATE 2 MG/ML INJ IV PUSH PRN (22:14)
[2017-08-20] VITALS (8 sets, daily range): BP systolic 116–149; BP diastolic 51–85; PULSE 61–100; RESP 18; TEMP 97–98.3; O2SAT 91–100
[2017-08-20] MEDS: RESP: ALBUTEROL 2.5 MG/IPRATROPIUM 0.5 MG NEB (SCH) INH ×6 (00:10→20:20)
[2017-08-20] MEDS: SODIUM CHLOR 0.9% 1000 ML INJ 1,000 ML IV SCH ×2 (01:43→12:11)
[2017-08-20 04:44] LABS: AUTOMATED NEUTROPHIL # 13.1 TH/MM3 (1.8-7.7); BASOPHIL # 0.1 TH/MM3 (0-0.2); BASOPHIL % 0.6 % (0.0-2.0); EOSINOPHIL # 0.5 TH/MM3 (0-0.4); EOSINOPHIL % 2.6 % (0.0-4.0); HEMATOCRIT 31.8 % (39.0-51.0); HEMOGLOBIN 10.6 GM/DL (13.0-17.0); LYMPH % 15.1 % (9.0-44.0); LYMPHOCYTE # 2.7 TH/MM3 (1.0-4.8); MEAN CORPUSCULAR HEMOGLOBIN 32.4 PG (27.0-34.0); MEAN CORPUSCULAR HGB CONC 33.4 % (32.0-36.0); MEAN PLATELET VOLUME 8.3 FL (7.0-11.0); MONO % 9.2 % (0.0-8.0); MONOCYTE # 1.7 TH/MM3 (0-0.9); NEUT % 72.5 % (16.0-70.0); PLATELET COUNT 236 TH/MM3 (150-450); RED BLOOD COUNT 3.28 MIL/MM3 (4.50-5.90); RED CELL DISTRIBUTION WIDTH 13.9 % (11.6-17.2); WHITE BLOOD COUNT 18.1 TH/MM3 (4.0-11.0)
[2017-08-20 05:17] LABS: ALKALINE PHOSPHATASE 128 U/L (45-117); ALT (GPT) 10 U/L (12-78); AST (GOT) 17 U/L (15-37); BICARBONATE 24.6 MEQ/L (21.0-32.0); BLOOD UREA NITROGEN 7 MG/DL (7-18); CALCIUM 7.6 MG/DL (8.5-10.1); CHLORIDE 109 MEQ/L (98-107); CREATININE 0.66 MG/DL (0.60-1.30); GLOMERULAR FILTRATION RATE 124 ML/MIN (>89); GLUCOSE,RANDOM 78 MG/DL (74-106); SODIUM (NA) 139 MEQ/L (136-145); TOTAL BILIRUBIN ADULT 0.3 MG/DL (0.2-1.0)
[2017-08-20] MEDS: metroNIDAZOLE 500 MG TAB PO SCH (06:50)
[2017-08-20] MEDS: oxyCODONE/ACETAMINOPHEN 10 MG/325 MG TAB PO PRN ×4 (06:50→23:13)
[2017-08-20] MEDS: NICOTINE 21 MG/24 HR PATCH TD SCH (08:57)
[2017-08-20] MEDS: POTASSIUM CHLORIDE 10 MEQ CONTROLLED RELEASE TAB PO SCH ×2 (08:57→23:11)
[2017-08-20] MEDS: VANCOMYCIN 500 MG VIAL (FOR ORAL USE ONLY) PO SCH ×4 (08:57→23:12)
[2017-08-20] MEDS: REMOVE OLD NICODERM (NICOTINE) PATCH T-DERMAL SCH (08:58)
[2017-08-20] MEDS: SODIUM CHLORIDE 0.9% FLUSH 10 ML FLUSH IV FLUSH SCH ×2 (08:59→23:10)
[2017-08-20] MEDS ORDERED: INFLUENZA VIRUS VACCINE (QUADRIVALENT) 0.5 ML SYR IM ONE (10:00)
--- NOTE | 2017-08-20 12:13 | EKG ---
Date Performed: 08/19/2017 Time Performed: 12:54:31 PTAGE: 57 years EKG: Sinus rhythm NORMAL ECG PREVIOUS TRACING : 07/04/2017 12.56 Since the prior tracing, there has been no significant matthews DOCTOR: Hakan Keyes Interpretating Date/Time 08/20/2017 12:12:37
--- NOTE | 2017-08-20 12:13 | EKG ---
Date Performed: 08/19/2017 Time Performed: 22:00:27 PTAGE: 57 years EKG: SINUS TACHYCARDIA ABNORMAL RHYTHM ECG PREVIOUS TRACING : 08/19/2017 12.54 Since the prior tracing, there has been no significant matthews DOCTOR: Hakan Keyes Interpretating Date/Time 08/20/2017 12:12:45
--- NOTE | 2017-08-20 12:14 | EKG ---
Date Performed: 08/20/2017 Time Performed: 05:25:38 PTAGE: 57 years EKG: Sinus rhythm . Normal ECG PREVIOUS TRACING : 08/19/2017 22.00 Since the prior tracing, there has been no significant matthews DOCTOR: Hakan Keyes Interpretating Date/Time 08/20/2017 12:12:54
--- NOTE | 2017-08-20 13:50 | HHI.FPPN ---
Subjective Remarks Pt seen and examined this morning. He has been afebrile, vital signs have been stable. He reports that he continues to have diarrhea, not sure of color of stools as he has not been checking them, he endorses abdominal discomfort. He endorses feeling short of breath, but breathing treatments have been helping. (Jose F Josue MD R3) Objective Vitals Vital Signs Date Time Temp Pulse Resp B/P (MAP) Pulse Ox O2 Delivery O2 Flow Rate FiO2 08/20/17 12:00 97.7 88 18 132/64 (86) 99 08/20/17 08:00 87 08/20/17 08:00 97.8 97 18 149/85 (106) 100 08/20/17 04:00 98.3 96 18 118/63 (81) 98 08/20/17 00:00 98.2 100 18 116/60 (78) 98 08/19/17 20:00 98.1 92 18 121/63 (82) 97 08/19/17 18:33 08/19/17 18:00 97.9 91 18 131/69 (89) 99 08/19/17 15:00 92 17 130/73 (92) 100 Room Air I/O 08/19/17 08/19/17 08/19/17 08/20/17 08/20/17 08/20/17 07:00 15:00 23:00 07:00 15:00 23:00 Intake Total 100 ml 510.2 ml 1000 ml Balance 100 ml 510.2 ml 1000 ml Intake IV Total 100 ml 510.2 ml 1000 ml # Voids 4 # Bowel Movements 2 (Jose F Josue MD R3) Result Diagram: 08/20/1741608/20/17416 Objective Remarks GENERAL: Thin Male laying in bed, in no apparent distress. SKIN: small ulcerated wound over medial right elbow, covered with clear occlusive dressing. Well healing wound in Right madden (previous area of cellulitis). Cool and dry. HEAD: Atraumatic. Normocephalic. EYES: Extraocular motions intact. No scleral icterus. No injection or drainage. ENT: Nose without bleeding, purulent drainage or septal hematoma. Throat without erythema, tonsillar hypertrophy or exudate. Uvula midline. Airway patent. NECK: Trachea midline. No JVD or lymphadenopathy. Supple, nontender, no meningeal signs. CARDIOVASCULAR: Regular rate and rhythm without murmurs, gallops, or rubs. RESPIRATORY: Diminished breath sounds. No wheezing appreciated. GASTROINTESTINAL: Abdomen soft, non-tender, nondistended. No palpable masses. No guarding. BACK: on prior exam pt noted to have a sacral ulcer, stage 3, about 6.5 x 4 cm with granulation tissue present. MUSCULOSKELETAL: Extremities dirty, without clubbing, cyanosis, or edema. No calf tenderness. Negative Homans sign bilaterally. NEUROLOGICAL: Awake and alert. Normal speech. (Jose F Josue MD R3) A/P Assessment and Plan Attending clinical assessment: Profuse diarrhea with a positive PCR assay for C. difficile. Exposed to multiple antibiotics over the last month. Complex sacral decubitus stage III plus Stage I ulcers right elbow and right hip Hypokalemia Abnormal CT of the chest June 2017 suspicious for possible malignancy. Patient refused any type of diagnostic workup. History of excessive EtOH. COPD Social issues, self describes himself "homeless". Patient seen and examined. Case will be reviewed and discussed with the resident team. Agree with current plan of care as to be discussed with me and documented in the resident note. Discharge Planning Anticipate discharge once pt is able to tolerate PO antibiotics and is clinically stable. (Jose F Josue MD R3) Assessment and Plan Patient seen and examined on the morning of the morning of 08/20/17.. Case reviewed and discussed with resident team. Agree with plan of care is discussed with me and narrated in the resident note. (Clay Steve MD) 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 -Patient found to be C. difficile Positive on PCR -Patient placed on contact isolation -Vancomycin 125mg po QID (2) Decubitus ulcer ICD Codes: L89.90 - Pressure ulcer of unspecified site, unspecified stage Status: Acute Plan: Patient afebrile Patient with sacral ulcer, stage 3 on exam Follow-up with wound culture and blood culture, antibiotics as indicated If IV antibiotics are needed, consult ID for recommendations regarding duration Wound care consulted, recommendations appreciated (3) COPD (chronic obstructive pulmonary disease) ICD Codes: J44.9 - Chronic obstructive pulmonary disease, unspecified Status: Chronic Plan: Continue with DuoNeb and albuterol -CXR : no acute disease -f/u sputum cx (4) Hypokalemia ICD Codes: E87.6 - Hypokalemia Status: Acute Plan: Potassium 3.3 on 08/20 Continue to monitor, Replete as needed Patient placed on telemetry (5) Chest pain ICD Codes: R07.9 - Chest pain, unspecified Status: Acute Plan: Pt with complaints of left-sided chest pain. Currently patient denies chest pain. -ACS ruled out -Telemetry (6) Leukocytosis, unspecified ICD Codes: D72.829 - Elevated white blood cell count, unspecified Plan: Patient with history of increased white blood cell count noted as well on prior admission. Will continue to follow Consider consulting heme onc (7) Tobacco abuse ICD Codes: Z72.0 - Tobacco use Status: Chronic Plan: Nicotine patch ordered (8) Alcohol abuse ICD Codes: F10.10 - Alcohol abuse, uncomplicated Status: Chronic Plan: CIWA protocol Rally pack (9) Nutrition, metabolism, and development symptoms ICD Codes: R63.8 - Other symptoms and signs concerning food and fluid intake Status: Acute Plan: Fluids: NS 100mls/hr Electrolytes: See hypokalemia above, continue to monitor and replete as needed Diet: regular diet DVT ppx: lovenox (Jose F Josue MD R3) Problem Qualifiers (1) Decubitus ulcer: Qualified Codes: L89.152 - Pressure ulcer of sacral region, stage 2 Jose F Josue MD R3 Aug 20, 2017 13:50 Clay Steve MD Aug 21, 2017 10:38
[2017-08-20] MEDS: THIAMINE INJ 100 MG in SODIUM CHLORIDE 0.9% INJ 100 ML IV SCH (16:54)
[2017-08-20] MEDS: ENOXAPARIN SODIUM 40 MG/0.4 ML SYRINGE SQ SCH (16:55)
[2017-08-20] MEDS: MULTIVITAMIN INJ 10 ML, FOLIC ACID INJ 1 MG in SODIUM CHLORID 0.9% 500 ML INJ 500 ML IV SCH (18:16)
[2017-08-20] MEDS: ZOLPIDEM TARTRATE 5 MG TAB PO PRN (23:12)
[2017-08-21] VITALS (8 sets, daily range): BP systolic 114–136; BP diastolic 51–82; PULSE 61–108; RESP 18–20; TEMP 97–98; O2SAT 94–99
[2017-08-21] MEDS: oxyCODONE/ACETAMINOPHEN 10 MG/325 MG TAB PO PRN ×4 (04:15→23:19)
[2017-08-21] MEDS: SODIUM CHLOR 0.9% 1000 ML INJ 1,000 ML IV SCH ×3 (06:20→21:38)
[2017-08-21] MEDS: RESP: ALBUTEROL 2.5 MG/IPRATROPIUM 0.5 MG NEB (SCH) INH ×5 (07:41→19:08)
[2017-08-21] MEDS: REMOVE OLD NICODERM (NICOTINE) PATCH T-DERMAL SCH (09:00)
[2017-08-21] MEDS: NICOTINE 21 MG/24 HR PATCH TD SCH (09:25)
[2017-08-21] MEDS: MORPHINE SULFATE 2 MG/ML INJ IV PUSH PRN (09:25)
[2017-08-21] MEDS: POTASSIUM CHLORIDE 10 MEQ CONTROLLED RELEASE TAB PO SCH ×2 (09:26→21:31)
[2017-08-21] MEDS: VANCOMYCIN 500 MG VIAL (FOR ORAL USE ONLY) PO SCH ×4 (09:26→21:31)
[2017-08-21] MEDS: SODIUM CHLORIDE 0.9% FLUSH 10 ML FLUSH IV FLUSH SCH ×2 (09:29→21:00)
--- NOTE | 2017-08-21 10:21 | HHI.FPPN ---
Subjective Remarks Patient evaluated in resident team on rounds. No acute events overnight, vitals within normal limits. Patient states that he continues to feel sore on his lower back and right elbow. He also states that he has had 7 watery bowel movements this morning. No improvement on bowel movement frequency since admission. He continues to feel short of breath at times, but states that the breathing treatments have been helpful. Objective Vitals Vital Signs Date Time Temp Pulse Resp B/P (MAP) Pulse Ox O2 Delivery O2 Flow Rate FiO2 08/21/17 08:00 97.9 86 20 133/72 (92) 99 08/21/17 07:41 96 21 08/21/17 04:00 87 08/21/17 04:00 97.0 87 18 114/82 (93) 94 08/21/17 00:00 97.2 61 18 117/51 (73) 94 08/21/17 00:00 88 08/20/17 20:22 96 21 08/20/17 20:00 98.0 91 18 127/67 (87) 91 08/20/17 16:00 97.0 88 18 124/65 (84) 99 08/20/17 12:30 95 08/20/17 12:00 97.7 88 18 132/64 (86) 99 I/O 08/20/17 08/20/17 08/20/17 08/21/17 08/21/17 08/21/17 07:00 15:00 23:00 07:00 15:00 23:00 Intake Total 510.2 ml 1000 ml Output Total 550 ml 950 ml Balance 510.2 ml 450 ml -950 ml Intake IV Total 510.2 ml 1000 ml Output Urine Total 550 ml 950 ml # Voids 10 4 6 # Bowel Movements 10 2 5 2 Result Diagram: 08/20/177 08/20/17416 Objective Remarks GENERAL: Thin Male laying in bed, in no apparent distress. SKIN: small ulcerated wound (stage2) over medial right elbow, covered with clear occlusive dressing. Cool and dry. HEAD: Atraumatic. Normocephalic. EYES: Extraocular motions intact. No scleral icterus. No injection or drainage. ENT: Nose without bleeding, purulent drainage or septal hematoma. Throat without erythema, tonsillar hypertrophy or exudate. Uvula midline. Airway patent. NECK: Trachea midline. No JVD or lymphadenopathy. Supple, nontender, no meningeal signs. CARDIOVASCULAR: Regular rate and rhythm without murmurs, gallops, or rubs. RESPIRATORY: Diminished breath sounds. No wheezing appreciated. GASTROINTESTINAL: Abdomen soft, non-tender, nondistended. No palpable masses. No guarding. BACK: Sacral ulcer, stage 3, about 6.5 x 4 cm with granulation tissue present - improved from prior exam. Stage 2 ulcer of the R hip appreciated - unchanged from prior exam MUSCULOSKELETAL: Extremities dirty, without clubbing, cyanosis, or edema. No calf tenderness. Negative Homans sign bilaterally. NEUROLOGICAL: Awake and alert. Normal speech. A/P Assessment and Plan Profuse diarrhea with a positive PCR assay for C. difficile. Exposed to multiple antibiotics over the last month. Complex sacral decubitus stage III plus Stage II ulcers right elbow and right hip Hypokalemia Abnormal CT of the chest June 2017 suspicious for possible malignancy. Patient refused any type of diagnostic workup. History of excessive EtOH. COPD Social issues, self describes himself "homeless". . Discharge Planning Anticipate discharge once pt is able to tolerate PO antibiotics and is clinically stable. 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 Reporting 7 bowel movements over past 3 hours this morning - minimal improvement. -Patient found to be C. difficile Positive on PCR -Stool enteric path and process -Patient placed on contact isolation -Vancomycin 125mg po QID -No change to the treatment at this time, may consider cholestyramine resin packets over the coming days if symptoms do not improve. (2) Decubitus ulcer ICD Codes: L89.90 - Pressure ulcer of unspecified site, unspecified stage Status: Acute Plan: Patient afebrile Patient with sacral ulcer, stage 3 on exam - improved from prior exams and does not appear to be acutely infected Initial wound culture growing Enterobacter, potential contaminant. Repeat cultures on 08/20 pending If IV antibiotics are needed, consult ID for recommendations regarding duration Wound care consulted, recommendations appreciated PO Percocet when necessary for pain (3) COPD (chronic obstructive pulmonary disease) ICD Codes: J44.9 - Chronic obstructive pulmonary disease, unspecified Status: Chronic Plan: Continue with DuoNeb and albuterol -CXR on admission: no acute disease -Sputum culture in process -Follow-up CBC to trend WBCs, will consider another x-ray if patient develops fever, the WBCs trend upwards (4) Hypokalemia ICD Codes: E87.6 - Hypokalemia Status: Acute Plan: Potassium 3.3 on 08/20 Labs on 08/21 pending Potassium chloride 40 mEq 2 times a day Continue to monitor, a.m. labs pending Patient placed on telemetry (5) Chest pain ICD Codes: R07.9 - Chest pain, unspecified Status: Acute Plan: Pt with complaints of left-sided chest pain. Currently patient denies chest pain. -ACS ruled out -Telemetry -Likely secondary to COPD (6) Leukocytosis, unspecified ICD Codes: D72.829 - Elevated white blood cell count, unspecified Plan: Patient with history of increased white blood cell count noted as well on prior admission. Will continue to follow, trended downwards from 08/19-08/20 Consider consulting heme onc pending results of WBCs Patient has denied workup in the past for noted lymphadenopathy (7) Tobacco abuse ICD Codes: Z72.0 - Tobacco use Status: Chronic Plan: Nicotine patch ordered (8) Alcohol abuse ICD Codes: F10.10 - Alcohol abuse, uncomplicated Status: Chronic Plan: CIWA protocol Rally pack (9) Nutrition, metabolism, and development symptoms ICD Codes: R63.8 - Other symptoms and signs concerning food and fluid intake Status: Acute Plan: Fluids: NS 100mls/hr Electrolytes: See hypokalemia above, continue to monitor and replete as needed Diet: regular diet DVT ppx: lovenox Problem Qualifiers (1) Decubitus ulcer: Qualified Codes: L89.152 - Pressure ulcer of sacral region, stage 2 Ross Mckeon MD R1 Aug 21, 2017 10:21
[2017-08-21 10:46] LABS: AUTOMATED NEUTROPHIL # 7.1 TH/MM3 (1.8-7.7); BASOPHIL # 0.1 TH/MM3 (0-0.2); BASOPHIL % 0.9 % (0.0-2.0); EOSINOPHIL # 0.5 TH/MM3 (0-0.4); EOSINOPHIL % 4.9 % (0.0-4.0); HEMATOCRIT 33.6 % (39.0-51.0); HEMOGLOBIN 11.5 GM/DL (13.0-17.0); LYMPH % 18.9 % (9.0-44.0); MEAN CELL VOLUME 97.7 FL (80.0-100.0); MEAN CORPUSCULAR HEMOGLOBIN 33.3 PG (27.0-34.0); MEAN CORPUSCULAR HGB CONC 34.1 % (32.0-36.0); MEAN PLATELET VOLUME 8.4 FL (7.0-11.0); MONO % 7.9 % (0.0-8.0); MONOCYTE # 0.8 TH/MM3 (0-0.9); NEUT % 67.4 % (16.0-70.0); PLATELET COUNT 266 TH/MM3 (150-450); RED BLOOD COUNT 3.44 MIL/MM3 (4.50-5.90); RED CELL DISTRIBUTION WIDTH 13.9 % (11.6-17.2); WHITE BLOOD COUNT 10.6 TH/MM3 (4.0-11.0)
[2017-08-21 11:00] LABS: BICARBONATE 26.4 MEQ/L (21.0-32.0); CALCIUM 8.1 MG/DL (8.5-10.1); CREATININE 0.6 MG/DL (0.60-1.30); MAGNESIUM 1.3 MG/DL (1.5-2.5); PHOSPHORUS 2.1 MG/DL (2.5-4.9)
[2017-08-21] MEDS: PIPERACIL-TAZO 3.375 GM PREMIX 50 ML IV SCH ×2 (16:07→21:31)
[2017-08-21] MEDS: ENOXAPARIN SODIUM 40 MG/0.4 ML SYRINGE SQ SCH (17:15)
[2017-08-21] MEDS: MULTIVITAMIN INJ 10 ML, FOLIC ACID INJ 1 MG in SODIUM CHLORID 0.9% 500 ML INJ 500 ML IV SCH (17:15)
[2017-08-21] MEDS: THIAMINE INJ 100 MG in SODIUM CHLORIDE 0.9% INJ 100 ML IV SCH (19:02)
[2017-08-22] VITALS (10 sets, daily range): BP systolic 105–139; BP diastolic 58–77; PULSE 78–104; RESP 20; TEMP 97.6–97.9; O2SAT 96–100
[2017-08-22] MEDS: RESP: ALBUTEROL 2.5 MG/IPRATROPIUM 0.5 MG NEB (SCH) INH ×7 (00:18→23:04)
[2017-08-22] MEDS: ZOLPIDEM TARTRATE 5 MG TAB PO PRN (01:08)
[2017-08-22] MEDS: PIPERACIL-TAZO 3.375 GM PREMIX 50 ML IV SCH ×4 (03:21→20:40)
[2017-08-22] MEDS: SODIUM CHLOR 0.9% 1000 ML INJ 1,000 ML IV SCH ×2 (04:06→10:03)
[2017-08-22 08:04] LABS: AUTOMATED NEUTROPHIL # 6.7 TH/MM3 (1.8-7.7); BASOPHIL # 0.1 TH/MM3 (0-0.2); EOSINOPHIL # 0.6 TH/MM3 (0-0.4); HEMATOCRIT 33.7 % (39.0-51.0); HEMOGLOBIN 11.5 GM/DL (13.0-17.0); LYMPH % 18.9 % (9.0-44.0); LYMPHOCYTE # 1.9 TH/MM3 (1.0-4.8); MEAN CELL VOLUME 96.8 FL (80.0-100.0); MEAN CORPUSCULAR HEMOGLOBIN 32.9 PG (27.0-34.0); MEAN PLATELET VOLUME 8.5 FL (7.0-11.0); MONO % 9.6 % (0.0-8.0); NEUT % 64.5 % (16.0-70.0); PLATELET COUNT 299 TH/MM3 (150-450); RED BLOOD COUNT 3.48 MIL/MM3 (4.50-5.90); RED CELL DISTRIBUTION WIDTH 13.9 % (11.6-17.2); WHITE BLOOD COUNT 10.3 TH/MM3 (4.0-11.0)
[2017-08-22] MEDS: oxyCODONE/ACETAMINOPHEN 10 MG/325 MG TAB PO PRN ×3 (08:05→20:40)
[2017-08-22] MEDS: POTASSIUM CHLORIDE 10 MEQ CONTROLLED RELEASE TAB PO SCH (08:06)
[2017-08-22] MEDS: VANCOMYCIN 500 MG VIAL (FOR ORAL USE ONLY) PO SCH ×4 (08:06→20:39)
[2017-08-22] MEDS: SODIUM CHLORIDE 0.9% FLUSH 10 ML FLUSH IV FLUSH SCH ×2 (08:06→20:40)
[2017-08-22] MEDS: REMOVE OLD NICODERM (NICOTINE) PATCH T-DERMAL SCH (08:06)
[2017-08-22] MEDS: NICOTINE 21 MG/24 HR PATCH TD SCH (08:07)
[2017-08-22 08:34] LABS: BICARBONATE 30.6 MEQ/L (21.0-32.0); CALCIUM 8.9 MG/DL (8.5-10.1); CREATININE 0.68 MG/DL (0.60-1.30)
--- NOTE | 2017-08-22 10:56 | HHI.FPPN ---
Subjective Remarks Patient seen and examined bedside this morning. Patient continues to complain that he is having diarrhea. He frequently, and he has already had 6 episodes of diarrhea this morning. He feels like he is not getting any better. He continues to complain of crampy lower abdominal pain. He is slightly nauseous but has not vomited. He is tolerating food. He denies any chest pain or shortness of breath or dizziness. Objective Vitals Vital Signs Date Time Temp Pulse Resp B/P (MAP) Pulse Ox O2 Delivery O2 Flow Rate FiO2 08/22/17 08:35 97.9 92 20 111/77 (88) 100 08/22/17 07:48 99 08/22/17 06:19 97.8 89 20 105/71 (82) 99 08/22/17 04:02 78 08/22/17 01:45 97.6 83 20 124/58 (80) 96 08/22/17 00:01 104 08/21/17 20:19 108 08/21/17 18:16 20 08/21/17 16:00 98.0 93 20 124/68 (86) 98 08/21/17 15:48 98 21 08/21/17 12:25 97.1 95 20 136/68 (90) 99 I/O 08/21/17 08/21/17 08/21/17 08/22/17 08/22/17 08/22/17 07:00 15:00 23:00 07:00 15:00 23:00 Intake Total 960 ml 560 ml 1067 ml Output Total 2875 ml 1600 ml 2100 ml Balance -1915 ml -1040 ml -1033 ml Intake Oral 960 ml 240 ml IV Total 320 ml 1067 ml Output Urine Total 2875 ml 1600 ml 2100 ml # Voids 6 3 1 # Bowel Movements 2 2 Result Diagram: 08/22/17 0704 08/22/17 0704 Objective Remarks GENERAL: Thin Male laying in bed, in no apparent distress. SKIN: small ulcerated wound (stage2) over medial right elbow, covered with clear occlusive dressing. Cool and dry. HEAD: Atraumatic. Normocephalic. EYES: Extraocular motions intact. No scleral icterus. No injection or drainage. ENT: Nose without bleeding, purulent drainage or septal hematoma. Throat without erythema, tonsillar hypertrophy or exudate. Uvula midline. Airway patent. NECK: Trachea midline. No JVD or lymphadenopathy. Supple, nontender, no meningeal signs. CARDIOVASCULAR: Regular rate and rhythm without murmurs, gallops, or rubs. RESPIRATORY: Diminished breath sounds. No wheezing appreciated. GASTROINTESTINAL: Abdomen soft, non-tender, mildly distended. Hyperactive bowel sounds. Tenderness to palpation on lower quadrants.. No palpable masses. No peritoneal signs. Guarding from moderate and deep palpation. BACK: Sacral ulcer, stage 3, about 6.5 x 4 cm with granulation tissue present - improved from prior exam. Stage 2 ulcer of the R hip appreciated - unchanged from prior exam MUSCULOSKELETAL: Extremities dirty, without clubbing, cyanosis, or edema. No calf tenderness. Negative Homans sign bilaterally. NEUROLOGICAL: Awake and alert. Normal speech. A/P Assessment and Plan Profuse diarrhea with a positive PCR assay for C. difficile. Exposed to multiple antibiotics over the last month. Complex sacral decubitus stage III plus Stage II ulcers right elbow and right hip Hypokalemia Abnormal CT of the chest June 2017 suspicious for possible malignancy. Patient refused any type of diagnostic workup. History of excessive EtOH. COPD Social issues, self describes himself "homeless". . Discharge Planning Anticipate discharge once pt is able to tolerate PO antibiotics and is clinically stable. 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 Continues to report multiple episodes of diarrhea and abdominal cramping -Patient found to be C. difficile Positive on PCR -Stool enteric path and process -Patient placed on contact isolation -Vancomycin 125mg po QID (08/20-08/22) with no improvement x 48hrs -Increase to Vanc 500mg po QID (08/22- ) - We will consider adding Fidaxomicin 200 twice a day if no improvement over 48 hours . (2) Decubitus ulcer ICD Codes: L89.90 - Pressure ulcer of unspecified site, unspecified stage Status: Acute Plan: Patient afebrile Patient with sacral ulcer, stage 3 on exam - improved from prior exams and does not appear to be acutely infected Initial wound culture growing Enterobacter, potential contaminant Repeat cultures on 08/20 pending Continue Zosyn 3.375mg to cover gram negative wound infxns Wound care consulted PO Percocet when necessary for pain (3) COPD (chronic obstructive pulmonary disease) ICD Codes: J44.9 - Chronic obstructive pulmonary disease, unspecified Status: Chronic Plan: Continue with DuoNeb and albuterol -CXR on admission: no acute disease -Sputum culture in process -Follow-up CBC to trend WBCs, will consider another x-ray if patient develops fever, the WBCs trend upwards (4) Hypokalemia ICD Codes: E87.6 - Hypokalemia Status: Acute Plan: Potassium 3.3 on 08/20, likely due to diarrhea loss K: 4.7 on 08/22 Potassium chloride 40 mEq 2 times a day Decrease to 40 KCl daily Continue to monitor, a.m. labs pending Patient placed on telemetry (5) Leukocytosis, unspecified ICD Codes: D72.829 - Elevated white blood cell count, unspecified Plan: Patient with history of increased white blood cell count noted as well on prior admission. Will continue to follow, trended downwards from 08/19-08/20 Consider consulting heme onc pending results of WBCs Patient has denied workup in the past for noted lymphadenopathy (6) Tobacco abuse ICD Codes: Z72.0 - Tobacco use Status: Chronic Plan: Nicotine patch ordered (7) Alcohol abuse ICD Codes: F10.10 - Alcohol abuse, uncomplicated Status: Chronic Plan: CIWA protocol Rally pack (8) Nutrition, metabolism, and development symptoms ICD Codes: R63.8 - Other symptoms and signs concerning food and fluid intake Status: Acute Plan: Fluids: NS 100mls/hr Electrolytes: See hypokalemia above, continue to monitor and replete as needed Diet: regular diet DVT ppx: lovenox Problem Qualifiers (1) Decubitus ulcer: Qualified Codes: L89.152 - Pressure ulcer of sacral region, stage 2 Tiffany Sosa MD R2 Aug 22, 2017 10:56
--- NOTE | 2017-08-22 11:42 | RADRPT ---
EXAM DATE/TIME: 08/22/2017 11:24 [facility] COMPARISON: No previous studies available for comparison. INDICATIONS : Vomiting and diarrhea for three days. MEDICAL HISTORY : Chronic obstructive pulmonary disease. SURGICAL HISTORY : Rt hip replacement. ENCOUNTER: Subsequent ACUITY: 3 days PAIN SCORE: 0/10 LOCATION: Bilateral Abdomen FINDINGS: Supine and upright views of the abdomen were performed. The abdominal bowel gas pattern is normal. A ir-filled bowel loops without obstruction. No air fluid levels are seen. No abnormal masses, calcifi cations, or organomegaly is seen. The visualized lower lungs are clear. No evidence of free intrape ritoneal gas. The osseous structures are unremarkable. CONCLUSION: Nonobstructive bowel gas pattern. Hector Bonilla MD on August 22, 2017 at 11:38 Board Certified Radiologist. This report was verified electronically.
--- NOTE | 2017-08-22 13:55 | PD.WCN.NOT ---
Wound Consult Description: Consult for PRESSURE ULCER of decubitus sacral per Sheila, MDR2 Communicated with: April RN Dr Mckeon Recommendation: Sacrococcygeal Unstageable Pressure Injury: 1. Cleanse with Normal Saline daily. 2. Protect periwound with skin barrier film and allow to dry. 3. Apply Santyl nickel thickness to necrotic tissue in wound bed. 4. Cover with bordered gauze dressing. 5. Date dressing. Right elbow: 1. Cut Optifoam basic in a small sycuan and place in wound bed Q3D and PRN. 2. Cover foam with bandaid. Additional Information: Patient seen on for evaluation of wound bed to sacrococcygeal area. Patient positioned himself to his left side for assessment. Foam dressing appears to have been dislodged from the sacrococcygeal wound and is now adherent on the left buttock, which was removed from left buttock to reveal intact skin. Wound noted to right side of sacrum extending down to coccyx measures 5cm x 3.4cm x ~0.2cm with ~80% pink moist non granulating tissue and an island of ~20% yellow moist adherent slough. Wound margins are sharp and well defined with blanching purpled discoloration noted to periwound. Wound was cleansed with wound cleanser and pat dry with gauze. There is no odor and no active drainage noted to wound bed. Periwound was prepped with skin barrier film and allowed to dry prior to placing an Optifoam gently border which may remain in place until Santyl obtained from SPD if physician in agreement with recommendations. Absorbant transparent dressing removed from right hip to reveal pink intact skin with scar tissue. Right elbow noted with a dry wound bed measuring 1.2cm x 0.9cm x ~0.3cm of dried exudate. Wound was cleansed with wound cleanser and gauze. Wound is circular with sharp wound margins. Periwound is shiny and pink with blanchable erythema. Wound appears to be of pressure etiology. Optifoam gentle was cut in a sycuan to fit in wound bed and secured with a bandaid that may be changed as needed. Daylin Salas [facility] Aug 22, 2017 13:55
[2017-08-22] MEDS: COLLAGENASE OINT 30 GM TUBE TOPICAL SCH (14:00)
[2017-08-22] MEDS: ENOXAPARIN SODIUM 40 MG/0.4 ML SYRINGE SQ SCH (17:12)
[2017-08-22] MEDS: MULTIVITAMIN INJ 10 ML, FOLIC ACID INJ 1 MG in SODIUM CHLORID 0.9% 500 ML INJ 500 ML IV SCH (17:13)
[2017-08-23] VITALS (9 sets, daily range): BP systolic 107–129; BP diastolic 56–74; PULSE 89–99; RESP 18; TEMP 97.8–98; O2SAT 96–100
[2017-08-23] MEDS: SODIUM CHLOR 0.9% 1000 ML INJ 1,000 ML IV SCH ×3 (00:06→20:06)
[2017-08-23] MEDS: PIPERACIL-TAZO 3.375 GM PREMIX 50 ML IV SCH ×4 (03:00→21:12)
[2017-08-23] MEDS: RESP: ALBUTEROL 2.5 MG/IPRATROPIUM 0.5 MG NEB (SCH) INH ×6 (03:59→19:45)
--- NOTE | 2017-08-23 08:59 | HHI.FPPN ---
Subjective Remarks Patient evaluated by residency team on rounds. No acute events overnight, vital signs remain within normal limits other than occasionally being mildly tachycardic into the mid 90s. Patient states that his diarrhea is much improved today, having only one bowel movement this morning. Also reporting improved abdominal pain. Otherwise has no chest pain, shortness of breath, nausea vomiting. (Ross Mckeon MD R1) Objective Vitals Vital Signs Date Time Temp Pulse Resp B/P (MAP) Pulse Ox O2 Delivery O2 Flow Rate FiO2 08/23/17 04:00 97.9 97 18 123/63 (83) 99 08/23/17 00:00 97.8 94 18 112/65 (81) 97 08/23/17 00:00 90 08/22/17 20:00 99 08/22/17 20:00 97.8 96 20 127/68 (87) 98 08/22/17 17:50 96 08/22/17 16:38 97.9 98 20 139/65 (89) 100 08/22/17 12:37 97.7 97 20 123/70 (87) 98 I/O 08/22/17 08/22/17 08/22/17 08/23/17 08/23/17 08/23/17 07:00 15:00 23:00 07:00 15:00 23:00 Intake Total 1067 ml 2160 ml 700 ml 1144 ml Output Total 2100 ml 1100 ml 3050 ml Balance -1033 ml 1060 ml 700 ml -1906 ml Intake Oral 2160 ml IV Total 1067 ml 700 ml 1144 ml Output Urine Total 2100 ml 1100 ml 3050 ml # Bowel Movements 2 3 1 (Ross Mckeon MD R1) Result Diagram: 08/22/17 0704 08/22/17 0704 Objective Remarks GENERAL: Thin Male laying in bed, in no apparent distress. SKIN: small ulcerated wound (stage2) over medial right elbow, covered with clear occlusive dressing. Cool and dry. HEAD: Atraumatic. Normocephalic. EYES: Extraocular motions intact. No scleral icterus. No injection or drainage. ENT: Nose without bleeding, purulent drainage or septal hematoma. Throat without erythema, tonsillar hypertrophy or exudate. Uvula midline. Airway patent. NECK: Trachea midline. No JVD or lymphadenopathy. Supple, nontender, no meningeal signs. CARDIOVASCULAR: Regular rate and rhythm without murmurs, gallops, or rubs. RESPIRATORY: Diminished breath sounds. No wheezing appreciated. GASTROINTESTINAL: Abdomen soft, non-tender, mildly distended. Normoactive bowel sounds. Mildly tender to palpation, improved from prior exams. No palpable masses. No peritoneal signs. BACK: Sacral ulcer, with clean dry and intact bandage in place. MUSCULOSKELETAL: Extremities dirty, without clubbing, cyanosis, or edema. No calf tenderness. Negative Homans sign bilaterally. NEUROLOGICAL: Awake and alert. Normal speech. (Ross Mckeon MD R1) A/P Assessment and Plan Profuse diarrhea with a positive PCR assay for C. difficile. Exposed to multiple antibiotics over the last month. Complex sacral decubitus stage III plus Stage II ulcers right elbow and right hip Hypokalemia Abnormal CT of the chest June 2017 suspicious for possible malignancy. Patient refused any type of diagnostic workup. History of excessive EtOH. COPD Social issues, self describes himself "homeless". . Discharge Planning Anticipate discharge once pt is able to tolerate PO antibiotics and is clinically stable. (Ross Mckeon MD R1) Attending Attestation Patient seen and examined, discussed with resident team. I agree with assessment and management as documented and discussed with me. (Yocasta Dobbins MD) Problem List: (1) C. difficile diarrhea ICD Codes: A04.72 - Enterocolitis due to Clostridium difficile, not specified as recurrent Status: Chronic Plan: Patient had several weeks of severe diarrhea, occurring several times every hour Today he reports improved abdominal pain, only 1 bowel movement this morning -Patient found to be C. difficile Positive on PCR -Patient placed on contact isolation -Vancomycin 125mg po QID (08/20-08/22) with no improvement x 48hrs -Increase to Vanc 500mg po QID (08/22- ) -We will need total 14 day course of antibiotics . (2) Decubitus ulcer ICD Codes: L89.90 - Pressure ulcer of unspecified site, unspecified stage Status: Acute Plan: Patient afebrile Patient with sacral ulcer, stage 3 on exam - improved from prior exams and does not appear to be acutely infected Initial wound culture growing Enterobacter, potential contaminant Repeat cultures on 08/20 growing Enterobacter, enterococcus, group a strep Continue Zosyn 3.375mg 4 times a day to cover gram negative wound infxns Started on 08/21 (currently received 8 doses - 2 days of treatment) - will need 14 day course pending culture sensitivities Wound care consulted - giving collagenase ointment as indicated PO Percocet when necessary for pain Will inquire about TDaP vaccinations (3) COPD (chronic obstructive pulmonary disease) ICD Codes: J44.9 - Chronic obstructive pulmonary disease, unspecified Status: Chronic Plan: Continue with DuoNeb and albuterol -CXR on admission: no acute disease -Follow-up CBC to trend WBCs, will consider another x-ray if patient develops fever, the WBCs trend upwards (4) Hypokalemia ICD Codes: E87.6 - Hypokalemia Status: Acute Plan: Potassium 3.3 on 08/20, likely due to diarrhea loss K: 4.3 on 08/23 40 KCl by mouth daily Continue to monitor (5) Leukocytosis, unspecified ICD Codes: D72.829 - Elevated white blood cell count, unspecified Plan: Patient with history of increased white blood cell count noted as well on prior admission. Will continue to follow, normalized since 08/21 Patient has denied workup in the past for noted lymphadenopathy (6) Tobacco abuse ICD Codes: Z72.0 - Tobacco use Status: Chronic Plan: Nicotine patch ordered (7) Alcohol abuse ICD Codes: F10.10 - Alcohol abuse, uncomplicated Status: Chronic Plan: CIWA protocol Rally pack (8) Nutrition, metabolism, and development symptoms ICD Codes: R63.8 - Other symptoms and signs concerning food and fluid intake Status: Acute Plan: Fluids: NS 100mls/hr Electrolytes: See hypokalemia above, continue to monitor and replete as needed Diet: regular diet DVT ppx: lovenox (Ross Mckeon MD R1) Problem Qualifiers (1) Decubitus ulcer: Qualified Codes: L89.152 - Pressure ulcer of sacral region, stage 2 Ross Mckeon MD R1 Aug 23, 2017 08:59 Yocasta Dobbins MD Aug 24, 2017 14:11
[2017-08-23] MEDS: POTASSIUM CHLORIDE 10 MEQ CONTROLLED RELEASE TAB PO SCH (09:00)
[2017-08-23] MEDS: SODIUM CHLORIDE 0.9% FLUSH 10 ML FLUSH IV FLUSH SCH ×2 (09:00→21:00)
[2017-08-23] MEDS: REMOVE OLD NICODERM (NICOTINE) PATCH T-DERMAL SCH (09:00)
[2017-08-23] MEDS: THIAMINE HCL 100 MG TAB PO SCH (09:18)
[2017-08-23] MEDS: VANCOMYCIN 500 MG VIAL (FOR ORAL USE ONLY) PO SCH ×4 (09:18→21:11)
[2017-08-23] MEDS: NICOTINE 21 MG/24 HR PATCH TD SCH (09:19)
[2017-08-23] MEDS: oxyCODONE/ACETAMINOPHEN 10 MG/325 MG TAB PO PRN ×3 (09:19→21:11)
[2017-08-23 10:06] LABS: AUTOMATED NEUTROPHIL # 7.1 TH/MM3 (1.8-7.7); BASOPHIL # 0.1 TH/MM3 (0-0.2); BASOPHIL % 0.9 % (0.0-2.0); EOSINOPHIL # 0.6 TH/MM3 (0-0.4); EOSINOPHIL % 6.1 % (0.0-4.0); HEMATOCRIT 36.1 % (39.0-51.0); LYMPH % 16.2 % (9.0-44.0); LYMPHOCYTE # 1.7 TH/MM3 (1.0-4.8); MEAN CELL VOLUME 97.8 FL (80.0-100.0); MEAN CORPUSCULAR HEMOGLOBIN 32.6 PG (27.0-34.0); MEAN CORPUSCULAR HGB CONC 33.3 % (32.0-36.0); MEAN PLATELET VOLUME 8.3 FL (7.0-11.0); MONO % 8.8 % (0.0-8.0); MONOCYTE # 0.9 TH/MM3 (0-0.9); PLATELET COUNT 335 TH/MM3 (150-450); RED BLOOD COUNT 3.69 MIL/MM3 (4.50-5.90); RED CELL DISTRIBUTION WIDTH 13.8 % (11.6-17.2); WHITE BLOOD COUNT 10.5 TH/MM3 (4.0-11.0)
[2017-08-23 10:31] LABS: BICARBONATE 32.5 MEQ/L (21.0-32.0); CALCIUM 8.9 MG/DL (8.5-10.1); CREATININE 0.68 MG/DL (0.60-1.30)
[2017-08-23] MEDS ORDERED: WHEEMIS3 (13:45)
[2017-08-23] MEDS ORDERED: LACTOBACILLUS ACIDOPHILUS 1 GM PACKET PO ONE (14:30)
[2017-08-23] MEDS ORDERED: DIPHTH/TETANUS/ACEL PERTUSSIS (BOOSTER) 0.5 ML VIAL/PFS IM ONE (16:00)
[2017-08-23] MEDS: MULTIVITAMIN INJ 10 ML, FOLIC ACID INJ 1 MG in SODIUM CHLORID 0.9% 500 ML INJ 500 ML IV SCH (17:03)
[2017-08-23] MEDS: ENOXAPARIN SODIUM 40 MG/0.4 ML SYRINGE SQ SCH (17:03)
[2017-08-23] MEDS: COLLAGENASE OINT 30 GM TUBE TOPICAL SCH (17:04)
[2017-08-23] MEDS: CALCIUM CARBONATE 500 MG CHEWABLE TAB CHEW PRN (23:33)
[2017-08-24] VITALS (8 sets, daily range): BP systolic 105–133; BP diastolic 59–73; PULSE 77–93; RESP 18–20; TEMP 97.9–98.4; O2SAT 96–100
[2017-08-24] MEDS: CALCIUM CARBONATE 500 MG CHEWABLE TAB CHEW PRN ×2 (01:00→20:41)
[2017-08-24] MEDS: PIPERACIL-TAZO 3.375 GM PREMIX 50 ML IV SCH ×4 (03:31→20:34)
[2017-08-24] MEDS: SODIUM CHLOR 0.9% 1000 ML INJ 1,000 ML IV SCH (03:36)
[2017-08-24] MEDS: oxyCODONE/ACETAMINOPHEN 10 MG/325 MG TAB PO PRN ×2 (04:12→10:18)
[2017-08-24 05:56] LABS: BASOPHIL # 0.1 TH/MM3 (0-0.2); CALCIUM 10.1 MG/DL (8.5-10.1); CREATININE 0.73 MG/DL (0.60-1.30); EOSINOPHIL # 0.9 TH/MM3 (0-0.4); EOSINOPHIL % 6.3 % (0.0-4.0); HEMATOCRIT 38.3 % (39.0-51.0); HEMOGLOBIN 12.8 GM/DL (13.0-17.0); LYMPH % 17.2 % (9.0-44.0); LYMPHOCYTE # 2.4 TH/MM3 (1.0-4.8); MEAN CELL VOLUME 98.3 FL (80.0-100.0); MEAN CORPUSCULAR HEMOGLOBIN 32.9 PG (27.0-34.0); MEAN CORPUSCULAR HGB CONC 33.5 % (32.0-36.0); MEAN PLATELET VOLUME 8.2 FL (7.0-11.0); MONO % 10.3 % (0.0-8.0); MONOCYTE # 1.4 TH/MM3 (0-0.9); NEUT % 65.2 % (16.0-70.0); PLATELET COUNT 352 TH/MM3 (150-450); RED CELL DISTRIBUTION WIDTH 14.2 % (11.6-17.2); WHITE BLOOD COUNT 13.8 TH/MM3 (4.0-11.0)
[2017-08-24] MEDS: REMOVE OLD NICODERM (NICOTINE) PATCH T-DERMAL SCH (09:00)
[2017-08-24] MEDS: SODIUM CHLORIDE 0.9% FLUSH 10 ML FLUSH IV FLUSH SCH ×2 (09:00→20:35)
[2017-08-24] MEDS: COLLAGENASE OINT 30 GM TUBE TOPICAL SCH (09:00)
[2017-08-24] MEDS: NICOTINE 21 MG/24 HR PATCH TD SCH (09:57)
[2017-08-24] MEDS: POTASSIUM CHLORIDE 10 MEQ CONTROLLED RELEASE TAB PO SCH (09:58)
[2017-08-24] MEDS: VANCOMYCIN 500 MG VIAL (FOR ORAL USE ONLY) PO SCH ×4 (09:58→20:34)
[2017-08-24] MEDS: THIAMINE HCL 100 MG TAB PO SCH (09:58)
--- NOTE | 2017-08-24 14:57 | HHI.FPPN ---
Subjective Remarks No acute issues overnight. Vitals are stable, patient remains afebrile. He notes that his stools have become more formed but remain soft. He continues to have slight abdominal pain, but denies any chest pain, shortness of breath, fever, chills, nausea or vomiting. In terms of social history, patient states that he has a history of alcoholism. The longest he was away from alcohol was one month. This was when he was homeless and could not afford cigarettes or alcohol. He is interested in going to rehabilitation for alcoholism. He is currently homeless. (Betty Foy MD, R3) Objective Vitals Vital Signs Date Time Temp Pulse Resp B/P (MAP) Pulse Ox O2 Delivery O2 Flow Rate FiO2 08/24/17 13:23 98 Nasal Cannula 08/24/17 08:00 98.4 77 20 113/70 (84) 99 08/24/17 07:30 79 08/24/17 04:00 97.9 84 20 110/60 (77) 96 08/24/17 00:00 97.9 93 20 116/59 (78) 99 08/23/17 20:00 98.0 99 18 107/56 (73) 96 08/23/17 19:58 100 08/23/17 16:36 94 08/23/17 16:00 98.0 91 18 129/69 (89) 97 08/23/17 15:39 100 I/O 08/23/17 08/23/17 08/23/17 08/24/17 08/24/17 08/24/17 07:00 15:00 23:00 07:00 15:00 23:00 Intake Total 1144 ml 50 ml 50 ml Output Total 3050 ml 4100 ml Balance -1906 ml -4050 ml 50 ml IV Total 1144 ml 50 ml 50 ml Output Urine Total 3050 ml 4100 ml # Bowel Movements 1 3 (Betty Foy MD, R3) Result Diagram: 08/24/17 0350 08/24/17 0350 Imaging Last Impressions Abdomen X-Ray 08/22/17 0000 Signed Impressions: Service Date/Time: Tuesday, August 22, 2017 11:24 - CONCLUSION: Nonobstructive bowel gas pattern. Hector Bonilla MD Chest X-Ray 08/19/17 1205 Signed Impressions: Service Date/Time: Saturday, August 19, 2017 12:33 - CONCLUSION: No acute disease. Tory Gordon MD Objective Remarks GENERAL: Thin male sitting up in bed, in no apparent distress. SKIN: small ulcerated wound (stage2) over medial right elbow, covered with clear occlusive dressing. Cool and dry. HEAD: Atraumatic. Normocephalic. EYES: Extraocular motions intact. No scleral icterus. No injection or drainage. ENT: Nose without bleeding, purulent drainage or septal hematoma. Airway patent. NECK: Trachea midline. No JVD or lymphadenopathy. CARDIOVASCULAR: Regular rate and rhythm without murmurs, gallops, or rubs. RESPIRATORY: Diminished breath sounds. No wheezing appreciated. GASTROINTESTINAL: Abdomen softer than previous exam, slightly tender to palpation across lower abdomen, improved from previous exam, non-distended. Normoactive bowel sounds. No palpable masses. BACK: Sacral ulcer, with clean dry and intact bandage in place. MUSCULOSKELETAL: Extremities dirty, without clubbing, cyanosis, or edema. No calf tenderness. NEUROLOGICAL: Awake and alert. Normal speech. (Betty Foy MD, R3) A/P Assessment and Plan Patient is a 57-year-old male with past medical history significant for COPD and alcohol abuse who presented for severe diarrhea and abdominal pain and was admitted for C. difficile infection. He was also found to have a stage III decubitus ulcer on initial examination. Discharge Planning Physical therapy recommends home with outpatient PT and a wheelchair. Patient is homeless and does not have health insurance. He does not have access to a wheelchair at this time. Discharge pending patient's ability to walk. Will initiate PT daily. Case management assisting with discharge arrangements, however per their documentation, patient has a chronic pattern of failure to follow-up/ noncompliance and is not eligible for YANNI/SSI. They are unable to arrange for a [facility] rehab bed. Will continue to work with case management regarding discharge options once patient able to ambulate. sdw Dr. Dobbins and Dr. Mckeon R1 (Betty Foy MD, R3) Attending Attestation Patient seen, examined, and discussed with resident team. I agree with assessment and management as documented and discussed with me. (Yocasta Dobbins MD) Problem List: (1) C. difficile diarrhea ICD Codes: A04.72 - Enterocolitis due to Clostridium difficile, not specified as recurrent Status: Acute Plan: Improving C. difficile Positive on PCR -Patient placed on contact isolation -Vancomycin 125mg po QID (08/20-08/22) with no improvement x 48hrs -Continue Vancomycin 500mg po QID (08/22-09/05 to complete a 14 day course of antibiotics) (2) Decubitus ulcer ICD Codes: L89.90 - Pressure ulcer of unspecified site, unspecified stage Status: Acute Plan: Improving Stage 3 decubitus ulcer 08/19 wound culture growing Enterobacter sensitive to Zosyn 08/20 wound culture growing Enterobacter, enterococcus, group a strep 08/19 blood culture growing staph haemolyticus sensitive to Vanc 08/21 blood cultures- one with NGTD, one growing staph sp coagulase negative 08/24 blood cultures pending Plan: - Continue to follow cultures - Continue Zosyn 3.375mg QID (started 08/21) to cover gram negatives. - Wound care consulted - giving collagenase ointment as indicated - PO Percocet PRN for pain, will start titrating Percocet down from 10-235mg to 5-325mg PO PRN breakthrough pain as patient has been taking these around the clock and is high risk for dependence/addiction. Will try alternative pain management with Tylenol 650mg PO Q4H PRN pain 3-6 and Toradol 10mg PO Q6H PRN pain 6-10. (3) COPD (chronic obstructive pulmonary disease) ICD Codes: J44.9 - Chronic obstructive pulmonary disease, unspecified Status: Chronic Plan: Stable Albuterol Neb PRN (4) Tobacco abuse ICD Codes: Z72.0 - Tobacco use Status: Chronic Plan: Nicotine patch ordered (5) Alcohol abuse ICD Codes: F10.10 - Alcohol abuse, uncomplicated Status: Chronic Plan: CIWA protocol Rally pack (6) Nutrition, metabolism, and development symptoms ICD Codes: R63.8 - Other symptoms and signs concerning food and fluid intake Status: Acute Plan: Fluids: DC IV fluids, patient tolerating PO Electrolytes: Continue to monitor and replete as needed Diet: regular diet DVT ppx: Lovenox 40mg SQ Q24H (Betty Foy MD, R3) Problem Qualifiers (1) Decubitus ulcer: Qualified Codes: L89.152 - Pressure ulcer of sacral region, stage 2 (2) COPD (chronic obstructive pulmonary disease): Qualified Codes: J44.9 - Chronic obstructive pulmonary disease, unspecified Betty Foy MD, R3 Aug 24, 2017 14:57 Yocasta Dobbins MD Aug 25, 2017 07:05
[2017-08-24] MEDS ORDERED: ACETAMINOPHEN 325 MG TAB PO PRN (15:00)
[2017-08-24] MEDS: oxyCODONE/ACETAMINOPHEN 5 MG/325 MG TAB PO PRN ×2 (16:28→22:40)
[2017-08-24] MEDS: ENOXAPARIN SODIUM 40 MG/0.4 ML SYRINGE SQ SCH (16:28)
[2017-08-25] VITALS: BP 107/62; PULSE 76; RESP 18; TEMP 98; O2SAT 97
[2017-08-25] MEDS: PIPERACIL-TAZO 3.375 GM PREMIX 50 ML IV SCH ×4 (03:44→21:23)
[2017-08-25 04:00] VITALS: BP 101/63; PULSE 86; RESP 18; TEMP 97.1; O2SAT 98
[2017-08-25] MEDS: oxyCODONE/ACETAMINOPHEN 5 MG/325 MG TAB PO PRN ×4 (05:02→22:46)
[2017-08-25 06:19] LABS: BASOPHIL # 0.2 TH/MM3 (0-0.2); BASOPHIL % 1.1 % (0.0-2.0); EOSINOPHIL # 1.1 TH/MM3 (0-0.4); EOSINOPHIL % 6.3 % (0.0-4.0); HEMATOCRIT 38.9 % (39.0-51.0); HEMOGLOBIN 13.2 GM/DL (13.0-17.0); LYMPH % 17.6 % (9.0-44.0); MEAN CELL VOLUME 98.2 FL (80.0-100.0); MEAN CORPUSCULAR HEMOGLOBIN 33.3 PG (27.0-34.0); MEAN CORPUSCULAR HGB CONC 33.9 % (32.0-36.0); MEAN PLATELET VOLUME 8.2 FL (7.0-11.0); MONO % 9.8 % (0.0-8.0); MONOCYTE # 1.7 TH/MM3 (0-0.9); NEUT % 65.2 % (16.0-70.0); PLATELET COUNT 429 TH/MM3 (150-450); RED BLOOD COUNT 3.97 MIL/MM3 (4.50-5.90); RED CELL DISTRIBUTION WIDTH 14.1 % (11.6-17.2); WHITE BLOOD COUNT 16.8 TH/MM3 (4.0-11.0)
[2017-08-25 08:21] VITALS: BP 99/60; PULSE 98; RESP 18; TEMP 98.4; O2SAT 97
[2017-08-25] MEDS: REMOVE OLD NICODERM (NICOTINE) PATCH T-DERMAL SCH (09:00)
[2017-08-25] MEDS: SODIUM CHLORIDE 0.9% FLUSH 10 ML FLUSH IV FLUSH SCH ×2 (09:00→21:23)
[2017-08-25] MEDS: COLLAGENASE OINT 30 GM TUBE TOPICAL SCH (09:00)
--- NOTE | 2017-08-25 09:41 | HHI.FPPN ---
Subjective Remarks Patient seen and examined bedside this morning. Patient continues to complain of pain in his sacral area. Patient states that his diarrhea has much improved since the time of admission, from 17 episodes per day to 3 episodes per day. Patient does complain of increased productive cough and difficulty breathing over the last few days. He states he has had night sweats as well. Denies any chest pain or acute shortness of breath on inspiration. Denies any palpitations. It was discussed with patient that in light of his weight loss, night sweats, and abnormalities on previous CT thorax imaging, it is possible that he may have a cancer. The patient states that if he does have a cancer he wants to know about it and he would like to go forward with treatment. (Tiffany Sosa MD R2) Objective Vitals Vital Signs Date Time Temp Pulse Resp B/P (MAP) Pulse Ox O2 Delivery O2 Flow Rate FiO2 08/25/17 08:21 98.4 98 18 99/60 (73) 97 08/25/17 04:00 97.1 86 18 101/63 (76) 98 08/25/17 00:00 98.0 76 18 107/62 (77) 97 08/24/17 20:00 98.3 81 18 105/59 (74) 96 08/24/17 16:00 98.3 78 20 133/70 (91) 99 08/24/17 13:23 98 Nasal Cannula 08/24/17 12:00 98.1 81 20 124/73 (90) 100 I/O 08/24/17 08/24/17 08/24/17 08/25/17 08/25/17 08/25/17 07:00 15:00 23:00 07:00 15:00 23:00 Intake Total 50 ml 50 ml 900 ml 50 ml Balance 50 ml 50 ml 900 ml 50 ml IV Total 50 ml 50 ml 900 ml 50 ml # Voids 3 # Bowel Movements 1 1 (Tiffany Sosa MD R2) Result Diagram: 08/25/17 0455 08/24/17 5550 Objective Remarks GENERAL: Thin male sitting up in bed, in no apparent distress. SKIN: small ulcerated wound (stage2) over medial right elbow, covered with clear occlusive dressing. Cool and dry. HEAD: Atraumatic. Normocephalic. EYES: Extraocular motions intact. No scleral icterus. No injection or drainage. ENT: Nose without bleeding, purulent drainage or septal hematoma. Airway patent. NECK: Trachea midline. No JVD or lymphadenopathy. CARDIOVASCULAR: Regular rate and rhythm without murmurs, gallops, or rubs. RESPIRATORY: Diminished breath sounds. No wheezing appreciated. Crackles auscultated on right upper middle and lower lobes, his dependent side. GASTROINTESTINAL: Abdomen softer than previous exam, slightly tender to palpation across lower abdomen, improved from previous exam, non-distended. Normoactive bowel sounds. No palpable masses. BACK: Stage I Sacral ulcer, with clean dry and intact bandage in place, wound is much improved from time of admission. MUSCULOSKELETAL: Extremities dirty, without clubbing, cyanosis, or edema. No calf tenderness. NEUROLOGICAL: Awake and alert. Normal speech. (Tiffany Sosa MD R2) A/P Assessment and Plan Patient is a 57-year-old male with past medical history significant for COPD and alcohol abuse who presented for severe diarrhea and abdominal pain and was admitted for C. difficile infection. He was also found to have a stage III decubitus ulcer on initial examination. Discharge Planning Physical therapy recommends home with outpatient PT and a wheelchair. Patient is homeless and does not have health insurance. He does not have access to a wheelchair at this time. Discharge pending patient's ability to walk. Continue PT daily. Case management assisting with discharge arrangements, however per their documentation, patient has a chronic pattern of failure to follow-up/noncompliance and is not eligible for YANNI/SSI. They are unable to arrange for a [facility] rehab bed. Will continue to work with case management regarding discharge options once patient able to ambulate. Update 08/25/17: Pending clinical evaluation of shortness of breath, cough, night sweats sdw Dr. Dobbins (Tiffany Sosa MD R2) Attending Attestation Patient seen and examined, discussed with Dr. Sosa. I agree with assessment and management as documented and discussed with me. (Yocasta Dobbins MD) Problem List: (1) C. difficile diarrhea ICD Codes: A04.72 - Enterocolitis due to Clostridium difficile, not specified as recurrent Status: Acute Plan: Improving C. difficile Positive on PCR -Patient placed on contact isolation -Vancomycin 125mg po QID (08/20-08/22) with no improvement x 48hrs -Continue Vancomycin 500mg po QID (08/22-09/05 to complete a 14 day course of antibiotics) (2) Decubitus ulcer ICD Codes: L89.90 - Pressure ulcer of unspecified site, unspecified stage Status: Acute Plan: Improving Stage 3 decubitus ulcer 08/19 wound culture growing Enterobacter sensitive to Zosyn 08/20 wound culture growing Enterobacter, enterococcus, group a strep 08/19 blood culture: 07/27 growing staph haemolyticus sensitive to Vanc 08/21 blood cultures- 07/27 growing staph sp coagulase negative, sensitivities pending 08/24 blood cultures pending Plan: - Continue to follow cultures - Continue Zosyn 3.375mg QID (started 08/21) to cover gram negatives. - Wound care consulted - giving collagenase ointment as indicated - PO Percocet PRN for pain, will start titrating Percocet down because of addictive risk -- Percocet 5-325mg every 6 hours when necessary breakthrough pain (3) COPD (chronic obstructive pulmonary disease) ICD Codes: J44.9 - Chronic obstructive pulmonary disease, unspecified Status: Chronic Plan: Increased shortness of breath, cough, night sweats WBC increased today to 16 from 13, afebrile Follow-up CT thorax w/o contrast to eval for pulmonary nodules suggesting malignancy versus pneumonia versus COPD Albuterol Neb PRN (4) Tobacco abuse ICD Codes: Z72.0 - Tobacco use Status: Chronic Plan: Nicotine patch ordered (5) Alcohol abuse ICD Codes: F10.10 - Alcohol abuse, uncomplicated Status: Resolved Plan: CIWA protocol Rally pack (6) Malnutrition ICD Codes: E46 - Unspecified protein-calorie malnutrition Status: Chronic Plan: due to profuse diarrhea and homelessness versus cancer versus chronic disease Follow-up with CT without contrast Consult case management for placement Add ensure shakes to diet (7) Nutrition, metabolism, and development symptoms ICD Codes: R63.8 - Other symptoms and signs concerning food and fluid intake Status: Acute Plan: Fluids: DC IV fluids, patient tolerating PO Electrolytes: Continue to monitor and replete as needed Diet: regular diet DVT ppx: Lovenox 40mg SQ Q24H (Tiffany Sosa MD R2) Problem Qualifiers (1) Decubitus ulcer: Qualified Codes: L89.152 - Pressure ulcer of sacral region, stage 2 (2) COPD (chronic obstructive pulmonary disease): Qualified Codes: J44.9 - Chronic obstructive pulmonary disease, unspecified Tiffany Sosa MD R2 Aug 25, 2017 09:41 Yocasta Dobbins MD Aug 25, 2017 16:22
[2017-08-25] MEDS: POTASSIUM CHLORIDE 10 MEQ CONTROLLED RELEASE TAB PO SCH (10:21)
[2017-08-25] MEDS: NICOTINE 21 MG/24 HR PATCH TD SCH (10:21)
[2017-08-25] MEDS: THIAMINE HCL 100 MG TAB PO SCH (10:21)
[2017-08-25] MEDS: VANCOMYCIN 500 MG VIAL (FOR ORAL USE ONLY) PO SCH ×4 (10:22→21:23)
[2017-08-25 12:33] VITALS: BP 100/63; PULSE 94; RESP 17; TEMP 97.7; O2SAT 99
[2017-08-25 16:03] VITALS: BP 103/67; PULSE 86; RESP 17; TEMP 98.1; O2SAT 98
[2017-08-25] MEDS: ENOXAPARIN SODIUM 40 MG/0.4 ML SYRINGE SQ SCH (16:21)
--- NOTE | 2017-08-25 18:28 | RADRPT ---
EXAM DATE/TIME: 08/25/2017 18:01 [facility] COMPARISON: No previous studies available for comparison. INDICATIONS : Chronic airway obstruction. RADIATION DOSE: 5.10 CTDIvol (mGy) MEDICAL HISTORY : Chronic obstructive pulmonary disease. Cardiovascular disease TB, c-diff SURGICAL HISTORY : Right hip replacement ENCOUNTER: Initial ACUITY: 1 yr PAIN SCALE: 0/10 LOCATION: chest TECHNIQUE: Volumetric scanning of the chest was performed. Using automated exposure control and adjustment of t he mA and/or kV according to patient size, radiation dose was kept as low as reasonably achievable to obtain optimal diagnostic quality images. DICOM format image data is available electronically for r eview and comparison. Follow-up recommendations for detected pulmonary nodules are based at a minimum on nodule size and pa tient risk factors according to Fleischner Society Guidelines. FINDINGS: LUNGS: There is no consolidation or pneumothorax. Very minimal emphysematous changes are noted. Very minimal scattered atelectasis is noted bilaterally. No concerning pulmonary nodule is visualized. PLEURAE: There is no pleural thickening or pleural effusion. MEDIASTINUM: The heart and great vessels demonstrate no acute abnormality. There is an enlarged 1.9 x 1.0 cm preca rinal mediastinal lymph node which is nonspecific. AXILLAE: Within normal limits. No lymphadenopathy. MUSCULOSKELETAL: Within normal limits for patient age. MISCELLANEOUS: Degenerative changes and scoliosis of the thoracic spine are noted. CONCLUSION: 1. Single enlarged precarinal mediastinal lymph node measuring 1.0 x 1.0 cm which is nonspecific. 2. Very minimal emphysematous changes and scattered atelectasis. 3. No acute focal infiltrate or pulmonary vascular congestion. 4. Degenerative changes and scoliosis of the thoracic spine. Manuel Dougherty MD on August 25, 2017 at 18:14 Board Certified Radiologist. This report was verified electronically.
[2017-08-25 20:00] VITALS: BP 103/56; PULSE 90; RESP 18; TEMP 98.4; O2SAT 96
[2017-08-25] MEDS: ZOLPIDEM TARTRATE 5 MG TAB PO PRN (22:46)
[2017-08-26] VITALS: BP 107/58; PULSE 87; RESP 18; TEMP 98.1; O2SAT 94
[2017-08-26 04:00] VITALS: BP 122/69; PULSE 81; RESP 18; TEMP 97.6; O2SAT 98
[2017-08-26] MEDS: PIPERACIL-TAZO 3.375 GM PREMIX 50 ML IV SCH ×4 (04:49→22:58)
[2017-08-26] MEDS: oxyCODONE/ACETAMINOPHEN 5 MG/325 MG TAB PO PRN ×2 (05:07→11:21)
[2017-08-26 07:03] LABS: AUTOMATED NEUTROPHIL # 10.5 TH/MM3 (1.8-7.7); BASOPHIL # 0.2 TH/MM3 (0-0.2); BASOPHIL % 1.2 % (0.0-2.0); EOSINOPHIL # 1.1 TH/MM3 (0-0.4); EOSINOPHIL % 6.5 % (0.0-4.0); HEMATOCRIT 39.5 % (39.0-51.0); HEMOGLOBIN 13.3 GM/DL (13.0-17.0); LYMPHOCYTE # 3.9 TH/MM3 (1.0-4.8); MEAN CELL VOLUME 97.4 FL (80.0-100.0); MEAN CORPUSCULAR HEMOGLOBIN 32.9 PG (27.0-34.0); MEAN CORPUSCULAR HGB CONC 33.8 % (32.0-36.0); MEAN PLATELET VOLUME 8.2 FL (7.0-11.0); MONO % 10.9 % (0.0-8.0); MONOCYTE # 1.9 TH/MM3 (0-0.9); NEUT % 59.4 % (16.0-70.0); PLATELET COUNT 482 TH/MM3 (150-450); RED BLOOD COUNT 4.05 MIL/MM3 (4.50-5.90); RED CELL DISTRIBUTION WIDTH 14.1 % (11.6-17.2); WHITE BLOOD COUNT 17.6 TH/MM3 (4.0-11.0)
[2017-08-26 07:27] LABS: BICARBONATE 27.9 MEQ/L (21.0-32.0); CALCIUM 10.1 MG/DL (8.5-10.1); CREATININE 1.02 MG/DL (0.60-1.30)
[2017-08-26 08:06] VITALS: BP 126/71; PULSE 74; RESP 20; TEMP 98; O2SAT 97
[2017-08-26] MEDS: REMOVE OLD NICODERM (NICOTINE) PATCH T-DERMAL SCH (09:00)
[2017-08-26] MEDS: POTASSIUM CHLORIDE 10 MEQ CONTROLLED RELEASE TAB PO SCH (09:28)
[2017-08-26] MEDS: VANCOMYCIN 500 MG VIAL (FOR ORAL USE ONLY) PO SCH ×4 (09:28→22:58)
[2017-08-26] MEDS: NICOTINE 21 MG/24 HR PATCH TD SCH (09:29)
[2017-08-26] MEDS: COLLAGENASE OINT 30 GM TUBE TOPICAL SCH (09:29)
[2017-08-26] MEDS: SODIUM CHLORIDE 0.9% FLUSH 10 ML FLUSH IV FLUSH SCH ×2 (09:29→22:59)
[2017-08-26] MEDS: THIAMINE HCL 100 MG TAB PO SCH (09:29)
[2017-08-26 12:06] VITALS: BP 106/65; PULSE 86; RESP 20; TEMP 98.3; O2SAT 99
--- NOTE | 2017-08-26 13:07 | HHI.FPPN ---
Subjective Remarks No acute events overnight. Vital signs remained stable. Patient states that he continues to be sore in the area of the sacral wound. Otherwise he is having less bowel movements, feeling somewhat better overall. He says that he's been able to use his walker and ambulate around the room on his own as well as working with PT. Denies chest pain, shortness of breath, nausea vomiting. (Ross Mckeon MD R1) Objective Vitals Vital Signs Date Time Temp Pulse Resp B/P (MAP) Pulse Ox O2 Delivery O2 Flow Rate FiO2 08/26/17 12:06 98.3 86 20 106/65 (79) 99 08/26/17 08:06 98.0 74 20 126/71 (89) 97 08/26/17 04:00 97.6 81 18 122/69 (86) 98 08/26/17 00:00 98.1 87 18 107/58 (74) 94 08/25/17 20:00 98.4 90 18 103/56 (72) 96 08/25/17 16:03 98.1 86 17 103/67 (79) 98 I/O 08/25/17 08/25/17 08/25/17 08/26/17 08/26/17 08/26/17 07:00 15:00 23:00 07:00 15:00 23:00 Intake Total 50 ml 1070 ml 50 ml Output Total 800 ml Balance 50 ml 270 ml 50 ml Intake Oral 1020 ml IV Total 50 ml 50 ml 50 ml Output Urine Total 800 ml # Voids 3 4 # Bowel Movements 1 0 1 (Ross Mckeon MD R1) Result Diagram: 08/26/1728 08/26/17527 Objective Remarks GENERAL: Thin male sitting up in bed, in no apparent distress. SKIN: small ulcerated wound (stage2) over medial right elbow, covered with clear occlusive dressing. Cool and dry. HEAD: Atraumatic. Normocephalic. EYES: Extraocular motions intact. No scleral icterus. No injection or drainage. ENT: Nose without bleeding, purulent drainage or septal hematoma. Airway patent. NECK: Trachea midline. No JVD or lymphadenopathy. CARDIOVASCULAR: Regular rate and rhythm without murmurs, gallops, or rubs. RESPIRATORY: Diminished breath sounds. No wheezing appreciated. Crackles auscultated on right upper middle and lower lobes, his dependent side. GASTROINTESTINAL: Abdomen softer than previous exam, slightly tender to palpation across lower abdomen, improved from previous exam, non-distended. Normoactive bowel sounds. No palpable masses. BACK: Stage II Sacral ulcer visualized with no purulent discharge or bleeding. Wound appears to be more shallow than prior exams.. MUSCULOSKELETAL: Extremities without clubbing, cyanosis, or edema. No calf tenderness. NEUROLOGICAL: Awake and alert. Normal speech. (Ross Mckeon MD R1) A/P Assessment and Plan Patient is a 57-year-old male with past medical history significant for COPD and alcohol abuse who presented for severe diarrhea and abdominal pain and was admitted for C. difficile infection. He was also found to have a stage III decubitus ulcer on initial examination. Discharge Planning Physical therapy recommends home with outpatient PT and a wheelchair. Patient is homeless and does not have health insurance. He does not have access to a wheelchair at this time. Discharge pending patient's ability to walk. Continue PT daily. Case management assisting with discharge arrangements, however per their documentation, patient has a chronic pattern of failure to follow-up/noncompliance and is not eligible for YANNI/SSI. They are unable to arrange for a [facility] rehab bed. Will continue to work with case management regarding discharge options once patient able to ambulate. Update 08/26/17: CT chest significant for 1 x 1 cm precarinal swollen lymph node. No pulmonary nodules appreciated. No further workup needed at this time, can monitor as outpatient. Discharge pending improvement in ambulation sdw Dr. Dobbins (Ross Mckeon MD R1) Attending Attestation Patient seen, examined, and discussed with Dr. Mckeon. I agree with assessment and management as documented and discussed with me. Wound examined by myself, Dr. Mckeon, and NOE Wilson. Sacral ulcer is improving. Encouraged pt to work with PT. (Yocasta Dobbins MD) Problem List: (1) C. difficile diarrhea ICD Codes: A04.72 - Enterocolitis due to Clostridium difficile, not specified as recurrent Status: Acute Plan: Improving C. difficile Positive on PCR -Patient placed on contact isolation -Vancomycin 125mg po QID (08/20-08/22) with no improvement x 48hrs -Continue Vancomycin 500mg po QID (08/22-09/05 to complete a 14 day course of antibiotics) (2) Decubitus ulcer ICD Codes: L89.90 - Pressure ulcer of unspecified site, unspecified stage Status: Acute Plan: Improving Stage 3 decubitus ulcer 08/19 wound culture growing Enterobacter sensitive to Zosyn 08/20 wound culture growing Enterobacter, enterococcus, group a strep 08/19 blood culture: 07/27 growing staph haemolyticus sensitive to Vanc 08/21 blood cultures- 07/27 growing staph sp coagulase negative, sensitivities pending 08/24 blood cultures no growth in 48 hours Plan: - Continue to follow cultures - Continue Zosyn 3.375mg QID (started 08/21) to cover gram negatives. - Wound care consulted - giving collagenase ointment with dressing changes every other day - Had been on by mouth Percocet for breakthrough pain, discontinuing due to addictive risk Pain scale: Ibuprofen pain 1-2, Tylenol pain. 5, Toradol 10 mg pain 6-10 (3) COPD (chronic obstructive pulmonary disease) ICD Codes: J44.9 - Chronic obstructive pulmonary disease, unspecified Status: Chronic Plan: Increased shortness of breath, cough, night sweats WBC increased today to 17.6 from 16.8, afebrile CT thorax showed 1 x 1 cm precarinal lymph node, no pulmonary nodules or pneumonia. Signs of emphysema/COPD No further workup needed at this time, can monitor as outpatient Albuterol Neb PRN Acapella (4) Tobacco abuse ICD Codes: Z72.0 - Tobacco use Status: Chronic Plan: Nicotine patch ordered (5) Alcohol abuse ICD Codes: F10.10 - Alcohol abuse, uncomplicated Status: Resolved Plan: CIWA protocol Rally pack (6) Malnutrition ICD Codes: E46 - Unspecified protein-calorie malnutrition Status: Chronic Plan: due to profuse diarrhea and homelessness versus cancer versus chronic disease CT thorax showing no pulmonary nodules, one precarinal swollen lymph node and liver 1 cm Consult case management for placement Add ensure shakes to diet (7) Nutrition, metabolism, and development symptoms ICD Codes: R63.8 - Other symptoms and signs concerning food and fluid intake Status: Acute Plan: Fluids: DC IV fluids, patient tolerating PO Electrolytes: Continue to monitor and replete as needed Diet: regular diet DVT ppx: Lovenox 40mg SQ Q24H (Ross Mckeon MD R1) Problem Qualifiers (1) Decubitus ulcer: Qualified Codes: L89.152 - Pressure ulcer of sacral region, stage 2 (2) COPD (chronic obstructive pulmonary disease): Qualified Codes: J44.9 - Chronic obstructive pulmonary disease, unspecified Ross Mckeon MD R1 Aug 26, 2017 13:06 Yocasta Dobbins MD Aug 26, 2017 15:21
[2017-08-26 15:43] VITALS: BP 101/61; PULSE 81; RESP 20; TEMP 98.2; O2SAT 98
[2017-08-26] MEDS: ENOXAPARIN SODIUM 40 MG/0.4 ML SYRINGE SQ SCH (16:33)
[2017-08-26] MEDS: KETOROLAC TROMETHAMINE 10 MG TAB PO PRN ×2 (16:55→23:50)
[2017-08-26 20:00] VITALS: BP 107/64; PULSE 78; RESP 20; TEMP 98.2; O2SAT 96
[2017-08-26] MEDS: ZOLPIDEM TARTRATE 5 MG TAB PO PRN (23:02)
[2017-08-27] VITALS (7 sets, daily range): BP systolic 103–169; BP diastolic 58–69; PULSE 63–84; RESP 17–20; TEMP 97–98.6; O2SAT 96–98
[2017-08-27] MEDS: PIPERACIL-TAZO 3.375 GM PREMIX 50 ML IV SCH ×4 (04:36→22:05)
[2017-08-27] MEDS: KETOROLAC TROMETHAMINE 10 MG TAB PO PRN ×4 (05:31→23:53)
[2017-08-27 06:12] LABS: AUTOMATED NEUTROPHIL # 9.3 TH/MM3 (1.8-7.7); BASOPHIL # 0.2 TH/MM3 (0-0.2); BASOPHIL % 1.2 % (0.0-2.0); EOSINOPHIL # 0.9 TH/MM3 (0-0.4); EOSINOPHIL % 5.6 % (0.0-4.0); HEMOGLOBIN 12.7 GM/DL (13.0-17.0); LYMPH % 22.2 % (9.0-44.0); LYMPHOCYTE # 3.4 TH/MM3 (1.0-4.8); MEAN CELL VOLUME 96.8 FL (80.0-100.0); MEAN CORPUSCULAR HEMOGLOBIN 33.3 PG (27.0-34.0); MEAN CORPUSCULAR HGB CONC 34.4 % (32.0-36.0); MEAN PLATELET VOLUME 8.2 FL (7.0-11.0); MONO % 11.2 % (0.0-8.0); MONOCYTE # 1.7 TH/MM3 (0-0.9); NEUT % 59.8 % (16.0-70.0); PLATELET COUNT 419 TH/MM3 (150-450); RED BLOOD COUNT 3.83 MIL/MM3 (4.50-5.90); RED CELL DISTRIBUTION WIDTH 13.8 % (11.6-17.2); WHITE BLOOD COUNT 15.5 TH/MM3 (4.0-11.0)
[2017-08-27 06:33] LABS: BICARBONATE 23.7 MEQ/L (21.0-32.0); CALCIUM 9.8 MG/DL (8.5-10.1); CREATININE 1.03 MG/DL (0.60-1.30)
[2017-08-27] MEDS: REMOVE OLD NICODERM (NICOTINE) PATCH T-DERMAL SCH (09:01)
[2017-08-27] MEDS: NICOTINE 21 MG/24 HR PATCH TD SCH (09:01)
[2017-08-27] MEDS: THIAMINE HCL 100 MG TAB PO SCH (09:01)
[2017-08-27] MEDS: POTASSIUM CHLORIDE 10 MEQ CONTROLLED RELEASE TAB PO SCH (09:01)
[2017-08-27] MEDS: VANCOMYCIN 500 MG VIAL (FOR ORAL USE ONLY) PO SCH ×4 (09:02→22:06)
[2017-08-27] MEDS: COLLAGENASE OINT 30 GM TUBE TOPICAL SCH (09:02)
[2017-08-27] MEDS: SODIUM CHLORIDE 0.9% FLUSH 10 ML FLUSH IV FLUSH SCH ×2 (09:03→22:06)
--- NOTE | 2017-08-27 09:39 | HHI.FPPN ---
Subjective Remarks No acute events overnight. Vital signs remained stable overnight. Patient states that he had trouble sleeping, and so complains of cough/shortness of breath. Says diarrhea has basically resolved this point. Otherwise no chest pain , abdominal pain. (Ross Mckeon MD R1) Objective Vitals Vital Signs Date Time Temp Pulse Resp B/P (MAP) Pulse Ox O2 Delivery O2 Flow Rate FiO2 08/27/17 07:50 98.0 63 20 169/69 (102) 97 08/27/17 04:41 97.6 64 17 135/60 (85) 96 08/27/17 00:16 98.6 74 17 103/59 (74) 96 08/26/17 20:00 98.2 78 20 107/64 (78) 96 08/26/17 15:43 98.2 81 20 101/61 (74) 98 08/26/17 12:06 98.3 86 20 106/65 (79) 99 I/O 08/26/17 08/26/17 08/26/17 08/27/17 08/27/17 08/27/17 07:00 15:00 23:00 07:00 15:00 23:00 Intake Total 50 ml 290 ml Balance 50 ml 290 ml Intake Oral 240 ml IV Total 50 ml 50 ml # Voids 4 2 # Bowel Movements 1 1 (Ross Mckeon MD R1) Result Diagram: 08/27/1745708/27/17457 Objective Remarks GENERAL: Thin male sitting up in bed, in no apparent distress. SKIN: small ulcerated wound (stage2) over medial right elbow, covered with clear occlusive dressing. Cool and dry. HEAD: Atraumatic. Normocephalic. EYES: Extraocular motions intact. No scleral icterus. No injection or drainage. ENT: Nose without bleeding, purulent drainage or septal hematoma. Airway patent. NECK: Trachea midline. No JVD or lymphadenopathy. CARDIOVASCULAR: Regular rate and rhythm without murmurs, gallops, or rubs. RESPIRATORY: Clear to auscultation bilaterally. No wheezes appreciated.. GASTROINTESTINAL: Abdomen is soft, nontender. Normoactive bowel sounds. No palpable masses. BACK: Stage II Sacral ulcer visualized with no purulent discharge or bleeding. Wound appears to be more shallow than prior exams. No bandage in place. MUSCULOSKELETAL: Extremities without clubbing, cyanosis, or edema. No calf tenderness. NEUROLOGICAL: Awake and alert. Normal speech. (Ross Mckeon MD R1) A/P Assessment and Plan Patient is a 57-year-old male with past medical history significant for COPD and alcohol abuse who presented for severe diarrhea and abdominal pain and was admitted for C. difficile infection. He was also found to have a stage III decubitus ulcer on initial examination. Discharge Planning Physical therapy recommends home with outpatient PT and a wheelchair. Patient is homeless and does not have health insurance. He does not have access to a wheelchair at this time. Discharge pending patient's ability to walk. Continue PT daily. Case management assisting with discharge arrangements, however per their documentation, patient has a chronic pattern of failure to follow-up/noncompliance and is not eligible for YANNI/SSI. They are unable to arrange for a mabel rehab bed. Will continue to work with case management regarding discharge options once patient able to ambulate. Update 08/26/17: CT chest significant for 1 x 1 cm precarinal swollen lymph node. No pulmonary nodules appreciated. No further workup needed at this time, can monitor as outpatient. Discharge pending improvement in ambulation sdw Dr. Dobbins (Ross Mckeon MD R1) Attending Attestation Patient seen and examined, discussed with resident team. I agree with assessment and management as documented and discussed with me. (Yocasta Dobbins MD) Problem List: (1) C. difficile diarrhea ICD Codes: A04.72 - Enterocolitis due to Clostridium difficile, not specified as recurrent Status: Acute Plan: Improving - no diarrhea over the last 24 hours. C. difficile Positive on PCR -Patient placed on contact isolation -Vancomycin 125mg po QID (08/20-08/22) with no improvement x 48hrs -Continue Vancomycin 500mg po QID (08/22-09/05 to complete a 14 day course of antibiotics) (2) Decubitus ulcer ICD Codes: L89.90 - Pressure ulcer of unspecified site, unspecified stage Status: Acute Plan: Improving Stage 3 decubitus ulcer 08/19 wound culture growing Enterobacter sensitive to Zosyn 08/20 wound culture growing Enterobacter, enterococcus, group a strep 08/19 blood culture: 07/27 growing staph haemolyticus sensitive to Vanc 08/21 blood cultures- 07/27 growing staph sp coagulase negative, sensitivities pending 08/24 blood cultures no growth in 48 hours Plan: - Continue to follow cultures - Continue Zosyn 3.375mg QID (started 08/21) to cover gram negatives. - Wound care consulted - giving collagenase ointment with dressing changes every other day - Had been on by mouth Percocet for breakthrough pain, discontinuing due to addictive risk Pain scale: Ibuprofen pain 1-2, Tylenol pain. 5, Toradol 10 mg pain 6-10 (3) COPD (chronic obstructive pulmonary disease) ICD Codes: J44.9 - Chronic obstructive pulmonary disease, unspecified Status: Chronic Plan: Patient continues to have shortness of breath, cough WBC decreased to 15.5 on 08/[address] thorax showed 1 x 1 cm precarinal lymph node, no pulmonary nodules or pneumonia. Signs of emphysema/COPD No further workup needed at this time, can monitor as outpatient Albuterol Neb PRN Starting DuoNeb nebs every 6 hours scheduled. Acapella (4) Tobacco abuse ICD Codes: Z72.0 - Tobacco use Status: Chronic Plan: Nicotine patch ordered (5) Alcohol abuse ICD Codes: F10.10 - Alcohol abuse, uncomplicated Status: Resolved Plan: CIWA protocol Rally pack (6) Malnutrition ICD Codes: E46 - Unspecified protein-calorie malnutrition Status: Chronic Plan: due to profuse diarrhea and homelessness versus cancer versus chronic disease CT thorax showing no pulmonary nodules, one precarinal swollen lymph node and liver 1 cm Consult case management for placement Add ensure shakes to diet (7) Nutrition, metabolism, and development symptoms ICD Codes: R63.8 - Other symptoms and signs concerning food and fluid intake Status: Acute Plan: Fluids: No IV fluids at this time Electrolytes: Continue to monitor and replete as needed Diet: regular diet DVT ppx: Lovenox 40mg SQ Q24H (Ross Mckeon MD R1) Problem Qualifiers (1) Decubitus ulcer: Qualified Codes: L89.152 - Pressure ulcer of sacral region, stage 2 (2) COPD (chronic obstructive pulmonary disease): Qualified Codes: J44.9 - Chronic obstructive pulmonary disease, unspecified Ross Mckeon MD R1 Aug 27, 2017 09:39 Yocasta Dobbins MD Aug 28, 2017 16:30
[2017-08-27] MEDS: RESP: ALBUTEROL 2.5 MG/IPRATROPIUM 0.5 MG NEB (SCH) INH ×2 (15:23→21:03)
[2017-08-27] MEDS: ENOXAPARIN SODIUM 40 MG/0.4 ML SYRINGE SQ SCH (17:46)
[2017-08-28] VITALS (7 sets, daily range): BP systolic 101–141; BP diastolic 56–71; PULSE 76–93; RESP 17–20; TEMP 97.4–98.2; O2SAT 97–100
[2017-08-28] MEDS: PIPERACIL-TAZO 3.375 GM PREMIX 50 ML IV SCH ×4 (02:44→21:52)
[2017-08-28] MEDS: RESP: ALBUTEROL 2.5 MG/IPRATROPIUM 0.5 MG NEB (SCH) INH ×5 (03:44→21:04)
[2017-08-28 07:26] LABS: BASOPHIL # 0.2 TH/MM3 (0-0.2); BASOPHIL % 1.2 % (0.0-2.0); EOSINOPHIL # 0.7 TH/MM3 (0-0.4); EOSINOPHIL % 4.4 % (0.0-4.0); HEMATOCRIT 35.5 % (39.0-51.0); HEMOGLOBIN 12.3 GM/DL (13.0-17.0); LYMPH % 18.1 % (9.0-44.0); LYMPHOCYTE # 2.7 TH/MM3 (1.0-4.8); MEAN CELL VOLUME 96.3 FL (80.0-100.0); MEAN CORPUSCULAR HEMOGLOBIN 33.5 PG (27.0-34.0); MEAN CORPUSCULAR HGB CONC 34.8 % (32.0-36.0); MEAN PLATELET VOLUME 7.9 FL (7.0-11.0); MONO % 10.3 % (0.0-8.0); MONOCYTE # 1.6 TH/MM3 (0-0.9); PLATELET COUNT 392 TH/MM3 (150-450); RED BLOOD COUNT 3.69 MIL/MM3 (4.50-5.90); WHITE BLOOD COUNT 15.1 TH/MM3 (4.0-11.0)
[2017-08-28 07:55] LABS: BICARBONATE 22.5 MEQ/L (21.0-32.0); CALCIUM 9.8 MG/DL (8.5-10.1); CREATININE 1.01 MG/DL (0.60-1.30)
[2017-08-28] MEDS: KETOROLAC TROMETHAMINE 10 MG TAB PO PRN ×3 (08:59→22:04)
[2017-08-28] MEDS: THIAMINE HCL 100 MG TAB PO SCH (08:59)
[2017-08-28] MEDS: NICOTINE 21 MG/24 HR PATCH TD SCH (09:00)
[2017-08-28] MEDS: REMOVE OLD NICODERM (NICOTINE) PATCH T-DERMAL SCH (09:00)
[2017-08-28] MEDS: SODIUM CHLORIDE 0.9% FLUSH 10 ML FLUSH IV FLUSH SCH ×2 (09:00→21:52)
[2017-08-28] MEDS: COLLAGENASE OINT 30 GM TUBE TOPICAL SCH (09:00)
[2017-08-28] MEDS: VANCOMYCIN 500 MG VIAL (FOR ORAL USE ONLY) PO SCH ×4 (09:04→21:52)
--- NOTE | 2017-08-28 14:32 | HHI.FPPN ---
Subjective Remarks Patient seen on rounds by resident team. No acute events overnight. I'll signs remained stable. Patient continues to complain of soreness of the sacral ulcer. States that current pain medicines are not helping. Otherwise his bowel movements have improved, no watery stools. He states the breathing treatments as have helped his shortness of breath and has been able to ambulate to the restroom on his own with no difficulty. Denying chest pain, worsening shortness of breath, nausea vomiting. (Ross Mckeon MD R1) Objective Vitals Vital Signs Date Time Temp Pulse Resp B/P (MAP) Pulse Ox O2 Delivery O2 Flow Rate FiO2 08/28/17 11:57 97.8 89 18 126/71 (89) 100 08/28/17 07:46 97.6 76 17 110/58 (75) 98 08/28/17 06:18 97.8 93 20 101/56 (71) 98 08/28/17 02:03 97.7 81 19 109/60 (76) 97 08/27/17 20:53 97.6 84 18 115/58 (77) 97 08/27/17 15:23 96 21 08/27/17 15:19 97.0 69 20 122/60 (80) 96 I/O 08/27/17 08/27/17 08/27/17 08/28/17 08/28/17 08/28/17 07:00 15:00 23:00 07:00 15:00 23:00 Intake Total 290 ml 960 ml 50 ml Output Total 600 ml Balance 290 ml 960 ml -550 ml Intake Oral 240 ml 960 ml IV Total 50 ml 50 ml Output Urine Total 600 ml # Voids 2 3 # Bowel Movements 1 (Ross Mckeon MD R1) Result Diagram: 08/28/17 0630 08/28/17 0630 Objective Remarks GENERAL: Thin male sitting up in bed, in no apparent distress. SKIN: small ulcerated wound (stage2) over medial right elbow, covered with clear occlusive dressing. Cool and dry. HEAD: Atraumatic. Normocephalic. EYES: Extraocular motions intact. No scleral icterus. No injection or drainage. ENT: Nose without bleeding, purulent drainage or septal hematoma. Airway patent. NECK: Trachea midline. No JVD or lymphadenopathy. CARDIOVASCULAR: Regular rate and rhythm without murmurs, gallops, or rubs. RESPIRATORY: Clear to auscultation bilaterally. No wheezes appreciated.. GASTROINTESTINAL: Abdomen is soft, nontender. Normoactive bowel sounds. No palpable masses. MUSCULOSKELETAL: Extremities without clubbing, cyanosis, or edema. No calf tenderness. NEUROLOGICAL: Awake and alert. Normal speech. (Ross Mckeon MD R1) A/P Assessment and Plan Patient is a 57-year-old male with past medical history significant for COPD and alcohol abuse who presented for severe diarrhea and abdominal pain and was admitted for C. difficile infection. He was also found to have a stage III decubitus ulcer on initial examination. Discharge Planning Physical therapy recommends home with outpatient PT and a wheelchair. Patient is homeless and does not have health insurance. He does not have access to a wheelchair at this time. Discharge pending patient's ability to walk. Continue PT daily. Case management assisting with discharge arrangements, however per their documentation, patient has a chronic pattern of failure to follow-up/noncompliance and is not eligible for YANNI/SSI. They are unable to arrange for a [facility]abel rehab bed. Will continue to work with case management regarding discharge options once patient able to ambulate. Update 08/26/17: CT chest significant for 1 x 1 cm precarinal swollen lymph node. No pulmonary nodules appreciated. No further workup needed at this time, can monitor as outpatient. Discharge pending improvement in ambulation sdw Dr. Dobbins (Ross Mckeon MD R1) Attending Attestation Patient seen, examined, and discussed with resident team. I agree with assessment and management as documented and discussed with me. Pt encouraged to continue to work with PT. (Yocasta Dobbins MD) Problem List: (1) C. difficile diarrhea ICD Codes: A04.72 - Enterocolitis due to Clostridium difficile, not specified as recurrent Status: Acute Plan: Improving - patient continues one to 2 bowel movements per day, non- watery. C. difficile Positive on PCR -Patient placed on contact isolation -Vancomycin 125mg po QID (08/20-08/22) with no improvement x 48hrs -Continue Vancomycin 500mg po QID (08/22-09/05 to complete a 14 day course of antibiotics) (2) Decubitus ulcer ICD Codes: L89.90 - Pressure ulcer of unspecified site, unspecified stage Status: Acute Plan: Improving clinically, patient continues to complain of soreness Stage 3 decubitus ulcer 08/19 wound culture growing Enterobacter sensitive to Zosyn 08/20 wound culture growing Enterobacter, enterococcus, group a strep 08/19 blood culture: 07/27 growing staph haemolyticus sensitive to Vanc 08/21 blood cultures- 07/27 growing staph sp coagulase negative, sensitivities pending 08/24 blood cultures no growth in 4 days Plan: - Continue to follow cultures - Continue Zosyn 3.375mg QID (started 08/21) to cover gram negatives. - Wound care consulted - giving collagenase ointment with dressing changes every other day - Had been on by mouth Percocet for breakthrough pain, discontinuing due to addictive risk - Adding IV Tylenol scheduled on 08/28 - Physical therapy has been working with him daily to improve ambulation, recommending wheelchair at this time. Will discuss with case management to help arrange this Pain scale: Ibuprofen pain 1-5, Toradol 10 mg pain 6-10 (3) COPD (chronic obstructive pulmonary disease) ICD Codes: J44.9 - Chronic obstructive pulmonary disease, unspecified Status: Chronic Plan: Patient continues to have shortness of breath, cough WBC decreased to 15.1 on 08/[address] thorax showed 1 x 1 cm precarinal lymph node, no pulmonary nodules or pneumonia. Signs of emphysema/COPD No further workup needed at this time, can monitor as outpatient Albuterol Neb PRN Starting DuoNeb nebs every 6 hours scheduled. Acapella (4) Tobacco abuse ICD Codes: Z72.0 - Tobacco use Status: Chronic Plan: Nicotine patch ordered (5) Alcohol abuse ICD Codes: F10.10 - Alcohol abuse, uncomplicated Status: Resolved Plan: CIWA protocol Rally pack (6) Malnutrition ICD Codes: E46 - Unspecified protein-calorie malnutrition Status: Chronic Plan: due to profuse diarrhea and homelessness versus cancer versus chronic disease CT thorax showing no pulmonary nodules, one precarinal swollen lymph node and liver 1 cm Consult case management for placement Add ensure shakes to diet (7) Nutrition, metabolism, and development symptoms ICD Codes: R63.8 - Other symptoms and signs concerning food and fluid intake Status: Acute Plan: Fluids: No IV fluids at this time Electrolytes: Continue to monitor and replete as needed Diet: regular diet DVT ppx: Lovenox 40mg SQ Q24H (Ross Mckeon MD R1) Problem Qualifiers (1) Decubitus ulcer: Qualified Codes: L89.152 - Pressure ulcer of sacral region, stage 2 (2) COPD (chronic obstructive pulmonary disease): Qualified Codes: J44.9 - Chronic obstructive pulmonary disease, unspecified Ross Mckeon MD R1 Aug 28, 2017 14:32 Yocasta Dobbins MD Aug 28, 2017 16:48
[2017-08-28] MEDS ORDERED: ACETAMINOPHEN 325 MG TAB PO PRN (15:00)
[2017-08-28] MEDS ORDERED: IBUPROFEN 400 MG TAB PO PRN (16:30)
[2017-08-28] MEDS: ACETAMINOPHEN 1000 MG/100 ML 100 ML IV SCH ×2 (16:38→21:52)
[2017-08-28] MEDS: ENOXAPARIN SODIUM 40 MG/0.4 ML SYRINGE SQ SCH (16:43)
--- NOTE | 2017-08-28 16:55 | ECHRPT ---
Indication: VEGETATIONS CONCLUSIONS Normal left ventricular size. Moderate concentric left ventricular hypertrophy. The left ventricular systolic function is normal with an estimated ejection fraction in the range of 55-60%. The left atrial size is xykx-[id number] dilated. The right atrial size is mildly dilated. Fbuim-jk-rixq mitral valve regurgitation. Mild mitral annular calcification. There is trace tricuspid valve regurgitation. The estimated pulmonary arterial pressure is 26 mmHg. BP: 110 / 60 HR: 84 Rhythm: Sinus MEASUREMENTS (Male / Female) Normal Values Technical Quality:Very technically difficult study 2D ECHO LV Diastolic Diameter PLAX 3.8 cm 4.2 - 5.9 / 3.9 - 5.3 cm LV Systolic Diameter PLAX 2.8 cm IVS Diastolic Thickness 1.2 cm 0.6 - 1.0 / 0.6 - 0.9 cm LVPW Diastolic Thickness 1.2 cm 0.6 - 1.0 / 0.6 - 0.9 cm LV Relative Wall Thickness 0.6 RV Internal Dim ED PLAX 2.0 cm LVOT Diameter 1.9 cm Aortic Root Diameter 2.9 cm M-MODE LV Diastolic Diameter MM 4.7 cm 4.2 - 5.9 / 3.9 - 5.3 cm LV Systolic Diameter MM 2.8 cm LV Ejection Fraction MM Teich 70.5 % IVS Diastolic Thickness MM 0.9 cm 0.6 - 1.0 / 0.6 - 0.9 cm LVPW Diastolic Thickness MM 1.0 cm 0.6 - 1.0 / 0.6 - 0.9 cm LV Relative Wall Thickness MM 0.4 0.24 - 0.42 / 0.22 - 0.42 RV Diastolic Diameter MM 1.4 cm DOPPLER AV Peak Velocity 154.0 cm/s AV Peak Gradient 9.5 mmHg AV Mean Gradient 4.0 mmHg AV Velocity Time Integral 25.3 cm LVOT Peak Velocity 109.0 cm/s LVOT Peak Gradient 4.8 mmHg LVOT Velocity Time Integral 20.1 cm AV Area Cont Eq vti 2.3 cm AV Area Cont Eq pk 2.0 cm Mitral E Point Velocity 95.3 cm/s Mitral A Point Velocity 77.0 cm/s Mitral E to A Ratio 1.2 LV E' Lateral Velocity 12.4 cm/s Mitral E to LV E' Lateral Ratio 7.7 LV E' Septal Velocity 10.9 cm/s Mitral E to LV E' Septal Ratio 8.7 TR Peak Velocity 198.0 cm/s TR Peak Gradient 15.7 mmHg FINDINGS LEFT VENTRICLE Normal left ventricular size. Moderate concentric left ventricular hypertrophy. The left ventricular systolic function is normal with an estimated ejection fraction in the range of 55-60%. RIGHT VENTRICLE Normal right ventricular size and systolic function. LEFT ATRIUM The left atrial size is xgqh-mx-ijfluqfbvh dilated. RIGHT ATRIUM The right atrial size is mildly dilated. ATRIAL SEPTUM No atrial level shunt is demonstrated by color flow Doppler interrogation. AORTA The aortic root and proximal ascending aorta are not well visualized. MITRAL VALVE Kkekd-wg-hbsn mitral valve regurgitation. Mild mitral annular calcification. AORTIC VALVE No aortic valve regurgitation. No aortic valve stenosis. TRICUSPID VALVE There is trace tricuspid valve regurgitation. The estimated pulmonary arterial pressure is 26 mmHg. PULMONARY VALVE The pulmonary valve is not well visualized. VESSELS The inferior vena cava is normal in size. PERICARDIUM No pericardial effusion. Eugene Nolan MD, FACC (Electronically Signed) Final Date:28 August 2017 16:54
[2017-08-28] MEDS: ZOLPIDEM TARTRATE 5 MG TAB PO PRN (21:52)
[2017-08-29] VITALS (7 sets, daily range): BP systolic 116–156; BP diastolic 61–76; PULSE 71–95; RESP 17–20; TEMP 97.6–98.1; O2SAT 97–100
[2017-08-29] MEDS: ACETAMINOPHEN 1000 MG/100 ML 100 ML IV SCH ×4 (03:38→21:09)
[2017-08-29] MEDS: PIPERACIL-TAZO 3.375 GM PREMIX 50 ML IV SCH ×4 (03:38→21:16)
[2017-08-29] MEDS: KETOROLAC TROMETHAMINE 10 MG TAB PO PRN ×3 (04:13→18:37)
[2017-08-29] MEDS: RESP: ALBUTEROL 2.5 MG/IPRATROPIUM 0.5 MG NEB (SCH) INH ×4 (04:22→21:19)
[2017-08-29 06:58] LABS: AUTOMATED NEUTROPHIL # 10.6 TH/MM3 (1.8-7.7); BASOPHIL # 0.2 TH/MM3 (0-0.2); BASOPHIL % 1.4 % (0.0-2.0); EOSINOPHIL # 0.9 TH/MM3 (0-0.4); EOSINOPHIL % 5.5 % (0.0-4.0); HEMATOCRIT 35.1 % (39.0-51.0); HEMOGLOBIN 11.8 GM/DL (13.0-17.0); LYMPH % 18.8 % (9.0-44.0); MEAN CELL VOLUME 97.2 FL (80.0-100.0); MEAN CORPUSCULAR HEMOGLOBIN 32.7 PG (27.0-34.0); MEAN CORPUSCULAR HGB CONC 33.7 % (32.0-36.0); MEAN PLATELET VOLUME 7.8 FL (7.0-11.0); MONO % 8.4 % (0.0-8.0); MONOCYTE # 1.3 TH/MM3 (0-0.9); NEUT % 65.9 % (16.0-70.0); PLATELET COUNT 393 TH/MM3 (150-450); RED BLOOD COUNT 3.61 MIL/MM3 (4.50-5.90); RED CELL DISTRIBUTION WIDTH 14.4 % (11.6-17.2)
[2017-08-29 07:25] LABS: ALBUMIN 2.7 GM/DL (3.4-5.0); AST (GOT) 38 U/L (15-37); BICARBONATE 25.1 MEQ/L (21.0-32.0); BLOOD UREA NITROGEN 15 MG/DL (7-18); CALCIUM 9.9 MG/DL (8.5-10.1); CHLORIDE 104 MEQ/L (98-107); CREATININE 1.04 MG/DL (0.60-1.30); GLOMERULAR FILTRATION RATE 74 ML/MIN (>89); GLUCOSE,RANDOM 87 MG/DL (74-106); SODIUM (NA) 136 MEQ/L (136-145)
[2017-08-29 07:26] LABS: ALT (GPT) 30 U/L (12-78)
[2017-08-29 07:29] LABS: ALKALINE PHOSPHATASE 117 U/L (45-117); TOTAL BILIRUBIN ADULT 0.2 MG/DL (0.2-1.0); TOTAL PROTEIN 7.4 GM/DL (6.4-8.2)
[2017-08-29] MEDS: REMOVE OLD NICODERM (NICOTINE) PATCH T-DERMAL SCH (08:51)
[2017-08-29] MEDS: THIAMINE HCL 100 MG TAB PO SCH (08:51)
[2017-08-29] MEDS: SODIUM CHLORIDE 0.9% FLUSH 10 ML FLUSH IV FLUSH SCH ×2 (08:51→21:09)
[2017-08-29] MEDS: NICOTINE 21 MG/24 HR PATCH TD SCH (08:51)
[2017-08-29] MEDS: VANCOMYCIN 500 MG VIAL (FOR ORAL USE ONLY) PO SCH ×4 (08:52→21:16)
[2017-08-29] MEDS: COLLAGENASE OINT 30 GM TUBE TOPICAL SCH (09:00)
--- NOTE | 2017-08-29 09:01 | HHI.FPPN ---
Subjective Remarks Patient seen and examined bedside this morning. Patient continues to complain of some mild pain around his sacral wound. He states his diarrhea is much improved from admission, with only 1-2 bowel movements per day. He is able to eat and drink without difficulty. She has been mobilizing with physical therapy using a wheelchair and is able to go 50 feet recently. He continues to have a chronic productive cough and mild shortness of breath. He has a new complaint of numb feet. He denies any burning or tingling sensations. He denies any chest pain or dizziness. (Tiffany Sosa MD R2) Objective Vitals Vital Signs Date Time Temp Pulse Resp B/P (MAP) Pulse Ox O2 Delivery O2 Flow Rate FiO2 08/29/17 07:57 97.6 84 19 120/68 (85) 100 08/29/17 03:33 97.9 73 17 141/67 (91) 97 08/29/17 00:00 97.7 71 19 127/73 (91) 98 08/28/17 21:15 98 21 08/28/17 20:00 98.2 86 18 141/66 (91) 100 08/28/17 16:00 97.4 86 18 133/66 (88) 99 08/28/17 11:57 97.8 89 18 126/71 (89) 100 I/O 08/28/17 08/28/17 08/28/17 08/29/17 08/29/17 08/29/17 07:00 15:00 23:00 07:00 15:00 23:00 Intake Total 50 ml 1350 ml 150 ml Output Total 600 ml 700 ml 400 ml Balance -550 ml 650 ml 150 ml -400 ml Intake Oral 1200 ml IV Total 50 ml 150 ml 150 ml Output Urine Total 600 ml 700 ml 400 ml # Voids 1 1 # Bowel Movements 0 0 (Tiffany Sosa MD R2) Result Diagram: 08/29/1762608/29/17626 Objective Remarks GENERAL: Thin male sitting up in bed, in no apparent distress. SKIN: small ulcerated wound (stage2) over medial right elbow, covered with clear occlusive dressing. Cool and dry. HEAD: Atraumatic. Normocephalic. EYES: Extraocular motions intact. No scleral icterus. No injection or drainage. ENT: Nose without bleeding, purulent drainage or septal hematoma. Airway patent. NECK: Trachea midline. No JVD or lymphadenopathy. CARDIOVASCULAR: Regular rate and rhythm without murmurs, gallops, or rubs. RESPIRATORY: Clear to auscultation bilaterally. No wheezes appreciated.. GASTROINTESTINAL: Abdomen is soft, nontender. Normoactive bowel sounds. No palpable masses. MUSCULOSKELETAL: Extremities without clubbing, cyanosis, or edema. No calf tenderness. Sensation intact in right and left feet. Dorsalis pedis pulse and posterior tibial pulse cannot be palpated bilaterally. Positive right hip pain on right leg extension. NEUROLOGICAL: Awake and alert. Normal speech. (Tiffany Sosa MD R2) A/P Assessment and Plan Patient is a 57-year-old male with past medical history significant for COPD and alcohol abuse who presented for severe diarrhea and abdominal pain and was admitted for C. difficile infection. He was also found to have a stage III decubitus ulcer on initial examination. Discharge Planning Physical therapy recommends home with outpatient PT and a wheelchair. Patient is homeless and does not have health insurance. He does not have access to a wheelchair at this time. Discharge pending patient's ability to walk. Continue PT daily. Case management assisting with discharge arrangements, however per their documentation, patient has a chronic pattern of failure to follow-up/noncompliance and is not eligible for YANNI/SSI. They are unable to arrange for a mabel rehab bed. Will continue to work with case management regarding discharge options once patient able to ambulate. Update 08/29/17: Case discussed with employment case manager. account manager [employer] would like to discuss options with PT, including number of days for progression to walker. Resources are currently limited for wheelchair. (Tiffany Sosa MD R2) Attending Attestation patient seen and examined, discussed with resident team. I agree with assessment and management as documented and discussed with me. (Yocasta Dobbins MD) Problem List: (1) Numbness in feet ICD Codes: R20.0 - Anesthesia of skin Status: Acute Plan: No known history of diabetes Increased numbness and right foot, which has been dependent foot during hospitalization (lays on his right side) f/u bedside dopplers f/u HbA1c f/u bedside glucose (2) C. difficile diarrhea ICD Codes: A04.72 - Enterocolitis due to Clostridium difficile, not specified as recurrent Status: Acute Plan: Improving - patient continues one to 2 bowel movements per day, non- watery. C. difficile Positive on PCR -Patient placed on contact isolation -Vancomycin 125mg po QID (08/20-08/22) with no improvement x 48hrs -Continue Vancomycin 500mg po QID (08/22-09/05) to complete a 14 day course of antibiotics (3) Decubitus ulcer ICD Codes: L89.90 - Pressure ulcer of unspecified site, unspecified stage Status: Acute Plan: Improving clinically, patient continues to complain of soreness Stage 3 decubitus ulcer 08/19 wound culture growing Enterobacter sensitive to Zosyn 08/20 wound culture growing Enterobacter, enterococcus, group a strep 08/19 blood culture: 07/27 growing staph haemolyticus sensitive to Vanc 08/21 blood cultures- 07/27 growing staph sp coagulase negative, sensitivities pending 08/24 blood cultures no growth in 4 days Plan: - Continue to follow cultures - Continue Zosyn 3.375mg QID (started 08/21) to cover gram negatives. - Wound care consulted - giving collagenase ointment with dressing changes every other day - Had been on by mouth Percocet for breakthrough pain, discontinuing due to addictive risk - Adding IV Tylenol scheduled on 08/28 - Physical therapy has been working with him daily to improve ambulation, recommending wheelchair at this time. Will discuss with case management to help arrange this Pain scale: Ibuprofen pain 1-5, Toradol 10 mg pain 6-10 (4) COPD (chronic obstructive pulmonary disease) ICD Codes: J44.9 - Chronic obstructive pulmonary disease, unspecified Status: Chronic Plan: Patient continues to have shortness of breath, cough, patient denies improvement with addition of DuoNeb treatments WBC stable at 16, afebrile, does not appear to be in exacerbation CT thorax showed 1 x 1 cm precarinal lymph node, no pulmonary nodules or pneumonia. Signs of emphysema/COPD No further workup needed at this time, can monitor as outpatient Albuterol Neb PRN DuoNeb nebs every 6 hours scheduled. Acapella (5) Tobacco abuse ICD Codes: Z72.0 - Tobacco use Status: Chronic Plan: Nicotine patch ordered (6) Alcohol abuse ICD Codes: F10.10 - Alcohol abuse, uncomplicated Status: Resolved Plan: CIWA protocol Rally pack (7) Malnutrition ICD Codes: E46 - Unspecified protein-calorie malnutrition Status: Chronic Plan: due to profuse diarrhea and homelessness versus cancer versus chronic disease CT thorax showing no pulmonary nodules, one precarinal swollen lymph node and liver 1 cm Consult case management for placement Add ensure shakes to diet (8) Nutrition, metabolism, and development symptoms ICD Codes: R63.8 - Other symptoms and signs concerning food and fluid intake Status: Acute Plan: Fluids: No IV fluids at this time Electrolytes: Continue to monitor and replete as needed Diet: regular diet DVT ppx: Lovenox 40mg SQ Q24H (Tiffany Sosa MD R2) Problem Qualifiers (1) Decubitus ulcer: Qualified Codes: L89.152 - Pressure ulcer of sacral region, stage 2 (2) COPD (chronic obstructive pulmonary disease): Qualified Codes: J44.9 - Chronic obstructive pulmonary disease, unspecified Tiffany Sosa MD R2 Aug 29, 2017 09:01 Yocasta Dobbins MD Aug 29, 2017 20:48
[2017-08-29] MEDS: BUDESONIDE-FORMOTEROL 160/4.5 MCG INHALER INH SCH ×2 (12:00→21:09)
[2017-08-29 16:17] LABS: HEMOGLOBIN A1C 4.9 % (4.3-6.0)
[2017-08-29] MEDS: ENOXAPARIN SODIUM 40 MG/0.4 ML SYRINGE SQ SCH (17:23)
[2017-08-29] MEDS: ZOLPIDEM TARTRATE 5 MG TAB PO PRN (21:09)
[2017-08-30 00:34] VITALS: BP 153/78; PULSE 76; RESP 19; TEMP 97.8; O2SAT 97
[2017-08-30] MEDS: KETOROLAC TROMETHAMINE 10 MG TAB PO PRN ×4 (00:35→18:25)
[2017-08-30] MEDS: PIPERACIL-TAZO 3.375 GM PREMIX 50 ML IV SCH ×4 (02:52→21:15)
[2017-08-30] MEDS: ACETAMINOPHEN 1000 MG/100 ML 100 ML IV SCH ×2 (02:52→09:00)
[2017-08-30] MEDS: RESP: ALBUTEROL 2.5 MG/IPRATROPIUM 0.5 MG NEB (SCH) INH ×3 (03:05→21:16)
[2017-08-30 06:19] LABS: AUTOMATED NEUTROPHIL # 11.7 TH/MM3 (1.8-7.7); BASOPHIL # 0.3 TH/MM3 (0-0.2); BASOPHIL % 1.8 % (0.0-2.0); EOSINOPHIL # 1.2 TH/MM3 (0-0.4); EOSINOPHIL % 6.6 % (0.0-4.0); HEMATOCRIT 36.4 % (39.0-51.0); HEMOGLOBIN 12.4 GM/DL (13.0-17.0); LYMPH % 18.3 % (9.0-44.0); LYMPHOCYTE # 3.3 TH/MM3 (1.0-4.8); MEAN CELL VOLUME 97.4 FL (80.0-100.0); MEAN CORPUSCULAR HEMOGLOBIN 33.1 PG (27.0-34.0); MEAN CORPUSCULAR HGB CONC 33.9 % (32.0-36.0); MEAN PLATELET VOLUME 7.8 FL (7.0-11.0); MONO % 8.8 % (0.0-8.0); MONOCYTE # 1.6 TH/MM3 (0-0.9); NEUT % 64.5 % (16.0-70.0); PLATELET COUNT 408 TH/MM3 (150-450); RED BLOOD COUNT 3.74 MIL/MM3 (4.50-5.90); RED CELL DISTRIBUTION WIDTH 14.4 % (11.6-17.2); WHITE BLOOD COUNT 18.1 TH/MM3 (4.0-11.0)
[2017-08-30 06:39] LABS: BICARBONATE 22.1 MEQ/L (21.0-32.0); CALCIUM 9.9 MG/DL (8.5-10.1); CREATININE 1.01 MG/DL (0.60-1.30)
[2017-08-30 08:04] VITALS: BP 140/73; PULSE 74; RESP 20; TEMP 98.1; O2SAT 96
[2017-08-30] MEDS: VANCOMYCIN 500 MG VIAL (FOR ORAL USE ONLY) PO SCH ×4 (09:00→21:15)
[2017-08-30] MEDS: REMOVE OLD NICODERM (NICOTINE) PATCH T-DERMAL SCH (09:00)
[2017-08-30] MEDS: COLLAGENASE OINT 30 GM TUBE TOPICAL SCH (09:00)
[2017-08-30] MEDS: THIAMINE HCL 100 MG TAB PO SCH (09:14)
[2017-08-30] MEDS: NICOTINE 21 MG/24 HR PATCH TD SCH (09:15)
[2017-08-30] MEDS: BUDESONIDE-FORMOTEROL 160/4.5 MCG INHALER INH SCH ×2 (09:16→21:15)
[2017-08-30] MEDS: SODIUM CHLORIDE 0.9% FLUSH 10 ML FLUSH IV FLUSH SCH ×2 (09:17→21:10)
--- NOTE | 2017-08-30 10:27 | HHI.FPPN ---
Subjective Remarks Patient seen and examined bedside. Patient continues to complain of mild pain around his sacral area. Patient is attempting to mobilize with the walker with physical therapy but is having great difficulty. He states his walking is limited due to his pain. Patient states that he thinks he can only go out into the community with a wheelchair. Patient states he continues to have 1-2 bowel movements per day. Denies any chest pain/shortness breath/acute events. No acute events overnight. (Tiffany Sosa MD R2) Objective Vitals Vital Signs Date Time Temp Pulse Resp B/P (MAP) Pulse Ox O2 Delivery O2 Flow Rate FiO2 08/30/17 08:04 98.1 74 20 140/73 (95) 96 08/30/17 07:14 19 08/30/17 00:34 97.8 76 19 153/78 (103) 97 08/29/17 20:26 98.1 80 20 136/63 (87) 97 08/29/17 16:24 98.0 95 18 156/76 (102) 99 08/29/17 11:35 97.8 91 18 116/61 (79) 99 I/O 08/29/17 08/29/17 08/29/17 08/30/17 08/30/17 08/30/17 07:00 15:00 23:00 07:00 15:00 23:00 Intake Total 150 ml 820 ml 479 ml 50 ml Output Total 400 ml 125 ml Balance 150 ml -400 ml 695 ml 479 ml 50 ml Intake Oral 720 ml IV Total 150 ml 100 ml 479 ml 50 ml Output Urine Total 400 ml 125 ml # Voids 1 2 3 # Bowel Movements 0 (Tiffany Sosa MD R2) Result Diagram: 08/30/17 0520 08/30/17 0520 Objective Remarks GENERAL: Thin male sitting up in bed, in no apparent distress. SKIN: small ulcerated wound (stage2) over medial right elbow, covered with clear occlusive dressing. Cool and dry. HEAD: Atraumatic. Normocephalic. EYES: Extraocular motions intact. No scleral icterus. No injection or drainage. ENT: Nose without bleeding, purulent drainage or septal hematoma. Airway patent. NECK: Trachea midline. No JVD or lymphadenopathy. CARDIOVASCULAR: Regular rate and rhythm without murmurs, gallops, or rubs. RESPIRATORY: Clear to auscultation bilaterally. No wheezes appreciated.. GASTROINTESTINAL: Abdomen is soft, nontender. Normoactive bowel sounds. No palpable masses. MUSCULOSKELETAL: Extremities without clubbing, cyanosis, or edema. No calf tenderness. Sensation intact in right and left feet. Dorsalis pedis pulse and posterior tibial pulse cannot be palpated bilaterally. Positive right hip pain on right leg extension. NEUROLOGICAL: Awake and alert. Normal speech. (Tiffany Sosa MD R2) A/P Assessment and Plan Patient is a 57-year-old male with past medical history significant for COPD and alcohol abuse who presented for severe diarrhea and abdominal pain and was admitted for C. difficile infection. He was also found to have a stage III decubitus ulcer on initial examination. Discharge Planning Physical therapy recommends home with outpatient PT and a wheelchair. Patient is homeless and does not have health insurance. He does not have access to a wheelchair at this time. Discharge pending patient's ability to walk. Continue PT daily. Case management assisting with discharge arrangements, however per their documentation, patient has a chronic pattern of failure to follow-up/noncompliance and is not eligible for YANNI/SSI. They are unable to arrange for a mabel rehab bed. Will continue to work with case management regarding discharge options once patient able to ambulate. Update 08/29/17: Case discussed with special education case manager. manager baby would like to discuss options with PT, including number of days for progression to walker. Resources are currently limited for wheelchair. (Tiffany Sosa MD R2) Attending Attestation Patient seen and examined, discussed with resident team. I agree with assessment and management as documented and discussed with me. encouraged pt to continue to work with PT. He reports he will [facility] the hospital if he happens to fall after discharge while using the walker. He is insistent on having a wheelchair. Pt with Avascular Necrosis of R hip: Will start bisphosphonate to try to help bone density; check Vit D level. Nonoperative management at this point, given sacral wound and C Diff. (Yocasta Dobbins MD) Problem List: (1) Avascular necrosis of femur head, left ICD Codes: M87.052 - Idiopathic aseptic necrosis of left femur; G89.29 - Other chronic pain Status: Chronic Plan: Chronic pain and groin, limiting PT and limiting d/c planning CT of the hip without contrast 06/09: Left femoral head fracture of subcortical region, avascular necrosis and severe osteoarthritis Will consider orthopedic consult (2) Numbness in feet ICD Codes: R20.0 - Anesthesia of skin Status: Resolved Plan: No known history of diabetes Increased numbness and right foot, which has been dependent foot during hospitalization (lays on his right side) HbA1c WNL BS WNL (3) C. difficile diarrhea ICD Codes: A04.72 - Enterocolitis due to Clostridium difficile, not specified as recurrent Status: Acute Plan: Improving - patient continues one to 2 bowel movements per day, non- watery. C. difficile Positive on PCR -Patient placed on contact isolation -Vancomycin 125mg po QID (08/20-08/22) with no improvement x 48hrs -Continue Vancomycin 500mg po QID (08/22-09/05) to complete a 14 day course of antibiotics (4) Decubitus ulcer ICD Codes: L89.90 - Pressure ulcer of unspecified site, unspecified stage Status: Acute Plan: Improving clinically, patient continues to complain of soreness Stage 3 decubitus ulcer 08/19 wound culture growing Enterobacter sensitive to Zosyn 08/20 wound culture growing Enterobacter, enterococcus, group a strep 08/19 blood culture: 07/27 growing staph haemolyticus sensitive to Vanc 08/21 blood cultures- 07/27 growing staph sp coagulase negative, sensitivities pending 08/24 blood cultures no growth in 4 days Plan: - Continue to follow cultures - Continue Zosyn 3.375mg QID (started 08/21) to cover gram negatives. - Wound care consulted - giving collagenase ointment with dressing changes every other day - Had been on by mouth Percocet for breakthrough pain, discontinuing due to addictive risk - Adding IV Tylenol scheduled on 08/28 - Physical therapy has been working with him daily to improve ambulation, recommending wheelchair at this time. Will discuss with case management to help arrange this Pain scale: Ibuprofen pain 1-5, Toradol 10 mg pain 6-10 Will consider increasing pain meds due to hip fx (5) COPD (chronic obstructive pulmonary disease) ICD Codes: J44.9 - Chronic obstructive pulmonary disease, unspecified Status: Chronic Plan: Patient continues to have shortness of breath, cough, patient denies improvement with addition of DuoNeb treatments WBC slightly increased to 18 from 16 yesterday, afebrile, does not appear to be in exacerbation CT thorax showed 1 x 1 cm precarinal lymph node, no pulmonary nodules or pneumonia. Signs of emphysema/COPD No further workup needed at this time, can monitor as outpatient Albuterol Neb PRN DuoNeb nebs every 6 hours scheduled. Acapella (6) Tobacco abuse ICD Codes: Z72.0 - Tobacco use Status: Chronic Plan: Nicotine patch ordered (7) Alcohol abuse ICD Codes: F10.10 - Alcohol abuse, uncomplicated Status: Resolved Plan: CIWA protocol Rally pack (8) Malnutrition ICD Codes: E46 - Unspecified protein-calorie malnutrition Status: Chronic Plan: due to profuse diarrhea and homelessness versus cancer versus chronic disease CT thorax showing no pulmonary nodules, one precarinal swollen lymph node and liver 1 cm Consult case management for placement Add ensure shakes to diet (9) Nutrition, metabolism, and development symptoms ICD Codes: R63.8 - Other symptoms and signs concerning food and fluid intake Status: Acute Plan: Fluids: No IV fluids at this time Electrolytes: Continue to monitor and replete as needed Diet: regular diet DVT ppx: Lovenox 40mg SQ Q24H (Tiffany Sosa MD R2) Problem List: (1) Avascular necrosis of femur head, left ICD Codes: M87.052 - Idiopathic aseptic necrosis of left femur; G89.29 - Other chronic pain Status: Chronic Plan: Chronic pain and groin, limiting PT and limiting d/c planning CT of the hip without contrast 06/09: Left femoral head fracture of subcortical region, avascular necrosis and severe osteoarthritis Will consider orthopedic consult (2) Numbness in feet ICD Codes: R20.0 - Anesthesia of skin Status: Resolved Plan: No known history of diabetes Increased numbness and right foot, which has been dependent foot during hospitalization (lays on his right side) HbA1c WNL BS WNL (3) C. difficile diarrhea ICD Codes: A04.72 - Enterocolitis due to Clostridium difficile, not specified as recurrent Status: Acute Plan: Improving - patient continues one to 2 bowel movements per day, non- watery. C. difficile Positive on PCR -Patient placed on contact isolation -Vancomycin 125mg po QID (08/20-08/22) with no improvement x 48hrs -Continue Vancomycin 500mg po QID (08/22-09/05) to complete a 14 day course of antibiotics (4) Decubitus ulcer ICD Codes: L89.90 - Pressure ulcer of unspecified site, unspecified stage Status: Acute Plan: Improving clinically, patient continues to complain of soreness Stage 3 decubitus ulcer 08/19 wound culture growing Enterobacter sensitive to Zosyn 08/20 wound culture growing Enterobacter, enterococcus, group a strep 08/19 blood culture: 07/27 growing staph haemolyticus sensitive to Vanc 08/21 blood cultures- 07/27 growing staph sp coagulase negative, sensitivities pending 08/24 blood cultures no growth in 4 days Plan: - Continue to follow cultures - Continue Zosyn 3.375mg QID (started 08/21) to cover gram negatives. - Wound care consulted - giving collagenase ointment with dressing changes every other day - Had been on by mouth Percocet for breakthrough pain, discontinuing due to addictive risk - Adding IV Tylenol scheduled on 08/28 - Physical therapy has been working with him daily to improve ambulation, recommending wheelchair at this time. Will discuss with case management to help arrange this Pain scale: Ibuprofen pain 1-5, Toradol 10 mg pain 6-10 Will consider increasing pain meds due to hip fx (5) COPD (chronic obstructive pulmonary disease) ICD Codes: J44.9 - Chronic obstructive pulmonary disease, unspecified Status: Chronic Plan: Patient continues to have shortness of breath, cough, patient denies improvement with addition of DuoNeb treatments WBC slightly increased to 18 from 16 yesterday, afebrile, does not appear to be in exacerbation CT thorax showed 1 x 1 cm precarinal lymph node, no pulmonary nodules or pneumonia. Signs of emphysema/COPD No further workup needed at this time, can monitor as outpatient Albuterol Neb PRN DuoNeb nebs every 6 hours scheduled. Acapella (6) Tobacco abuse ICD Codes: Z72.0 - Tobacco use Status: Chronic Plan: Nicotine patch ordered (7) Alcohol abuse ICD Codes: F10.10 - Alcohol abuse, uncomplicated Status: Resolved Plan: CIWA protocol Rally pack (8) Malnutrition ICD Codes: E46 - Unspecified protein-calorie malnutrition Status: Chronic Plan: due to profuse diarrhea and homelessness versus cancer versus chronic disease CT thorax showing no pulmonary nodules, one precarinal swollen lymph node and liver 1 cm Consult case management for placement Add ensure shakes to diet (9) Nutrition, metabolism, and development symptoms ICD Codes: R63.8 - Other symptoms and signs concerning food and fluid intake Status: Acute Plan: Fluids: No IV fluids at this time Electrolytes: Continue to monitor and replete as needed Diet: regular diet DVT ppx: Lovenox 40mg SQ Q24H (Yocasta Dobbins MD) Problem Qualifiers (1) Decubitus ulcer: Qualified Codes: L89.152 - Pressure ulcer of sacral region, stage 2 (2) COPD (chronic obstructive pulmonary disease): Qualified Codes: J44.9 - Chronic obstructive pulmonary disease, unspecified Tiffany Sosa MD R2 Aug 30, 2017 10:27 Yocasta Dobbins MD Aug 30, 2017 17:06
[2017-08-30 11:22] VITALS: BP 129/58; PULSE 78; RESP 20; TEMP 97.6; O2SAT 96
[2017-08-30] MEDS ORDERED: ACETAMINOPHEN 325 MG TAB PO PRN (14:00)
[2017-08-30 16:36] VITALS: BP 142/82; PULSE 76; RESP 20; TEMP 98.8; O2SAT 97
[2017-08-30] MEDS: ENOXAPARIN SODIUM 40 MG/0.4 ML SYRINGE SQ SCH (17:24)
[2017-08-30 20:00] VITALS: BP 124/69; PULSE 75; RESP 18; TEMP 98.3; O2SAT 97
[2017-08-30] MEDS: ZOLPIDEM TARTRATE 5 MG TAB PO PRN (21:09)
[2017-08-31] VITALS (7 sets, daily range): BP systolic 111–140; BP diastolic 57–75; PULSE 64–84; RESP 18; TEMP 97.9–98.3; O2SAT 97–99
[2017-08-31] MEDS: KETOROLAC TROMETHAMINE 10 MG TAB PO PRN (00:19)
[2017-08-31] MEDS: PIPERACIL-TAZO 3.375 GM PREMIX 50 ML IV SCH ×4 (03:34→22:02)
[2017-08-31] MEDS: RESP: ALBUTEROL 2.5 MG/IPRATROPIUM 0.5 MG NEB (SCH) INH ×2 (04:00→08:06)
[2017-08-31] MEDS ORDERED: ALENDRONATE SODIUM 70 MG TAB PO SCH (06:00)
[2017-08-31] MEDS: COLLAGENASE OINT 30 GM TUBE TOPICAL SCH (09:00)
[2017-08-31] MEDS: REMOVE OLD NICODERM (NICOTINE) PATCH T-DERMAL SCH (09:00)
[2017-08-31] MEDS ORDERED: ACETAMINOPHEN 325 MG TAB PO PRN (09:00)
[2017-08-31] MEDS ORDERED: NALOXONE HCL 0.4 MG/ML AMP IV PUSH PRN (09:00)
[2017-08-31] MEDS ORDERED: KETOROLAC TROMETHAMINE 30 MG/ML (IVP) VIAL IV PUSH PRN (09:00)
--- NOTE | 2017-08-31 09:12 | HHI.FPPN ---
Subjective Remarks Patient seen and examined bedside this morning. Patient has been refusing his vancomycin over the last 24 hours because he says it upsets his stomach. He says he gets nauseous and feels a burning in his stomach. He also complains of a acidic taste in his mouth that is affecting his taste of food. Patient has continued to work with physical therapy and attempt to use the walker. He continues to complain of pain in his sacral area. He denies any chest pain/ risks of breath/dizziness. No acute events overnight. (Tiffany Sosa MD R2) Objective Vitals Vital Signs Date Time Temp Pulse Resp B/P (MAP) Pulse Ox O2 Delivery O2 Flow Rate FiO2 08/31/17 08:20 97.9 64 18 128/71 (90) 99 08/31/17 07:00 18 08/31/17 05:07 98.0 69 18 140/75 (96) 98 08/31/17 00:49 97.9 84 18 125/69 (87) 97 08/30/17 20:00 98.3 75 18 124/69 (87) 97 08/30/17 16:36 98.8 76 20 142/82 (102) 97 08/30/17 13:26 18 08/30/17 11:22 97.6 78 20 129/58 (81) 96 I/O 08/30/17 08/30/17 08/30/17 08/31/17 08/31/17 08/31/17 07:00 15:00 23:00 07:00 15:00 23:00 Intake Total 479 ml 990 ml 50 ml Output Total 600 ml Balance 479 ml 990 ml 50 ml -600 ml Intake Oral 940 ml IV Total 479 ml 50 ml 50 ml Output Urine Total 600 ml # Voids 3 3 # Bowel Movements 1 (Tiffany Sosa MD R2) Result Diagram: 08/30/17 0520 08/30/17 0520 Objective Remarks GENERAL: Thin male sitting up in bed, in no apparent distress. SKIN: small ulcerated wound (stage2) over medial right elbow, covered with clear occlusive dressing. Cool and dry. HEAD: Atraumatic. Normocephalic. EYES: Extraocular motions intact. No scleral icterus. No injection or drainage. ENT: Nose without bleeding, purulent drainage or septal hematoma. Airway patent. NECK: Trachea midline. No JVD or lymphadenopathy. CARDIOVASCULAR: Regular rate and rhythm without murmurs, gallops, or rubs. RESPIRATORY: Clear to auscultation bilaterally. No wheezes appreciated.. No coughing at time of exam GASTROINTESTINAL: Abdomen is soft, nontender. Normoactive bowel sounds. No palpable masses. MUSCULOSKELETAL: Extremities without clubbing, cyanosis, or edema. No calf tenderness. Sensation intact in right and left feet. Dorsalis pedis pulse and posterior tibial pulse cannot be palpated bilaterally. Positive right hip pain on right leg extension. NEUROLOGICAL: Awake and alert. Normal speech. (Tiffany Sosa MD R2) A/P Assessment and Plan Patient is a 57-year-old male with past medical history significant for COPD and alcohol abuse who presented for severe diarrhea and abdominal pain and was admitted for C. difficile infection. He was also found to have a stage III decubitus ulcer on initial examination. Discharge Planning Physical therapy recommends home with outpatient PT and a wheelchair, however is working with PT with walker. Patient is homeless and does not have health insurance. He does not have access to a wheelchair at this time. Continue PT daily. Case management assisting with discharge arrangements, however per their documentation, patient has a chronic pattern of failure to follow-up/ noncompliance and is not eligible for YANNI/SSI. They are unable to arrange for a mabel rehab bed. Will continue to work with case management regarding discharge options once patient able to ambulate. Update 08/29/17: Case discussed with case sealer. jewelry manager would like to discuss options with PT, including number of days for progression to walker. Resources are currently limited for wheelchair. Update 08/30/17: PT continues to recommend wheelchair, however is attempting to work with him on PT. (Tiffany Sosa MD R2) Attending Attestation Patient seen, examined, and discussed with resident team around 0830. I agree with assessment and management as documented and discussed with me. Encouraged patient to take oral vancomycin - discussed risks of untreated C Diff infection. Encouraged pt to work with PT. (Yocasta Dobbins MD) Problem List: (1) C. difficile diarrhea ICD Codes: A04.72 - Enterocolitis due to Clostridium difficile, not specified as recurrent Status: Acute Plan: Improving - patient continues one to 2 bowel movements per day, non- watery. Nursing reports patient has been refusing doses of vancomycin since 08/28/17, likely due to acid reflux/nausea -Patient placed on contact isolation -Vancomycin 125mg po QID (08/20-08/22) with no improvement x 48hrs -Continue Vancomycin 500mg po QID (08/22-09/05) to complete a 14 day course of antibiotics - Patient advised to request his Zofran when necessary with dosing - Add pantoprazole 40 daily (2) Avascular necrosis of femur head, left ICD Codes: M87.052 - Idiopathic aseptic necrosis of left femur; G89.29 - Other chronic pain Status: Chronic Plan: Chronic pain and groin due to femoral fracture, limiting PT and limiting d/c planning Due to current infection and high likelihood for infection of hip replacement; patient is not a candidate for hip replacement at this time. Continue to mobilize as tolerated. Start Fosamax 70 mg every [address] of the hip without contrast 06/09: Left femoral head fracture of subcortical region, avascular necrosis and severe osteoarthritis (3) Decubitus ulcer ICD Codes: L89.90 - Pressure ulcer of unspecified site, unspecified stage Status: Acute Plan: Improving clinically, patient continues to complain of soreness Stage 3 decubitus ulcer 08/19 wound culture growing Enterobacter sensitive to Zosyn 08/20 wound culture growing Enterobacter, enterococcus, group a strep 08/19 blood culture: 07/27 growing staph haemolyticus sensitive to Vanc 08/21 blood cultures- 07/27 growing staph sp coagulase negative, sensitivities pending 08/24 blood cultures no growth in 4 days Plan: - Continue to follow cultures - Continue Zosyn 3.375mg QID (started 08/21) to cover gram negatives. - Wound care consulted - giving collagenase ointment with dressing changes every other day - Had been on by mouth Percocet for breakthrough pain, discontinuing due to addictive risk - Physical therapy has been working with him daily to improve ambulation, recommending wheelchair at this time. Will discuss with case management to help arrange this Pain medications: Acetaminophen, Toradol IV, [place] 5 for breakthrough pain (4) COPD (chronic obstructive pulmonary disease) ICD Codes: J44.9 - Chronic obstructive pulmonary disease, unspecified Status: Chronic Plan: Patient continues to have shortness of breath, cough, patient denies improvement with addition of DuoNeb treatments and Symbicort inhaler Follow-up BMP this morning CT thorax showed 1 x 1 cm precarinal lymph node, no pulmonary nodules or pneumonia. Signs of emphysema/COPD No further workup needed at this time, can monitor as outpatient Albuterol Neb PRN DuoNeb nebs every 6 hours scheduled. Symbicort inhaler 2 puffs twice a day Acapella (5) Tobacco abuse ICD Codes: Z72.0 - Tobacco use Status: Chronic Plan: Nicotine patch ordered (6) Alcohol abuse ICD Codes: F10.10 - Alcohol abuse, uncomplicated Status: Resolved Plan: CIWA protocol Rally pack (7) Malnutrition ICD Codes: E46 - Unspecified protein-calorie malnutrition Status: Chronic Plan: due to profuse diarrhea and homelessness versus cancer versus chronic disease CT thorax showing no pulmonary nodules, one precarinal swollen lymph node and liver 1 cm Consult case management for placement Add ensure shakes to diet (8) Nutrition, metabolism, and development symptoms ICD Codes: R63.8 - Other symptoms and signs concerning food and fluid intake Status: Acute Plan: Fluids: No IV fluids at this time Electrolytes: Continue to monitor and replete as needed Diet: regular diet GI prophylaxis: Pantoprazole 40 daily DVT ppx: Lovenox 40mg SQ Q24H (Tiffany Sosa MD R2) Problem Qualifiers (1) Decubitus ulcer: Qualified Codes: L89.152 - Pressure ulcer of sacral region, stage 2 (2) COPD (chronic obstructive pulmonary disease): Qualified Codes: J44.9 - Chronic obstructive pulmonary disease, unspecified Tiffany Sosa MD R2 Aug 31, 2017 09:12 Yocasta Dobbins MD Aug 31, 2017 15:16
[2017-08-31 09:24] LABS: AUTOMATED NEUTROPHIL # 11.8 TH/MM3 (1.8-7.7); BASOPHIL # 0.2 TH/MM3 (0-0.2); BASOPHIL % 1.2 % (0.0-2.0); EOSINOPHIL # 1.1 TH/MM3 (0-0.4); EOSINOPHIL % 6.2 % (0.0-4.0); HEMATOCRIT 37.7 % (39.0-51.0); HEMOGLOBIN 12.9 GM/DL (13.0-17.0); LYMPH % 20.9 % (9.0-44.0); LYMPHOCYTE # 3.7 TH/MM3 (1.0-4.8); MEAN CELL VOLUME 97.4 FL (80.0-100.0); MEAN CORPUSCULAR HEMOGLOBIN 33.2 PG (27.0-34.0); MEAN CORPUSCULAR HGB CONC 34.1 % (32.0-36.0); MEAN PLATELET VOLUME 7.9 FL (7.0-11.0); MONO % 5.7 % (0.0-8.0); PLATELET COUNT 407 TH/MM3 (150-450); RED BLOOD COUNT 3.87 MIL/MM3 (4.50-5.90); RED CELL DISTRIBUTION WIDTH 14.3 % (11.6-17.2); WHITE BLOOD COUNT 17.9 TH/MM3 (4.0-11.0)
[2017-08-31 09:33] LABS: BICARBONATE 24.4 MEQ/L (21.0-32.0); CREATININE 1.06 MG/DL (0.60-1.30)
[2017-08-31] MEDS: SODIUM CHLORIDE 0.9% FLUSH 10 ML FLUSH IV FLUSH SCH ×2 (09:49→22:02)
[2017-08-31] MEDS: KETOROLAC TROMETHAMINE 30 MG/ML (IVP) VIAL IV PUSH PRN ×3 (09:51→22:08)
[2017-08-31] MEDS: THIAMINE HCL 100 MG TAB PO SCH (09:54)
[2017-08-31] MEDS: PANTOPRAZOLE SOD 40 MG DELAYED RELEASE TAB PO SCH (09:54)
[2017-08-31] MEDS: NICOTINE 21 MG/24 HR PATCH TD SCH (09:54)
[2017-08-31] MEDS: VANCOMYCIN 500 MG VIAL (FOR ORAL USE ONLY) PO SCH ×4 (09:54→22:03)
[2017-08-31] MEDS: BUDESONIDE-FORMOTEROL 160/4.5 MCG INHALER INH SCH (09:55)
[2017-08-31] MEDS: ENOXAPARIN SODIUM 40 MG/0.4 ML SYRINGE SQ SCH (17:10)
[2017-08-31] MEDS: ZOLPIDEM TARTRATE 5 MG TAB PO PRN (22:03)
[2017-09-01] VITALS (7 sets, daily range): BP systolic 124–146; BP diastolic 61–79; PULSE 63–77; RESP 16–20; TEMP 97.4–98.3; O2SAT 96–99
[2017-09-01] MEDS: BUDESONIDE-FORMOTEROL 160/4.5 MCG INHALER INH SCH ×3 (02:57→21:35)
[2017-09-01] MEDS: PIPERACIL-TAZO 3.375 GM PREMIX 50 ML IV SCH ×4 (02:57→21:34)
[2017-09-01] MEDS: KETOROLAC TROMETHAMINE 30 MG/ML (IVP) VIAL IV PUSH PRN ×2 (03:39→10:40)
[2017-09-01 07:07] LABS: AUTOMATED NEUTROPHIL # 10.8 TH/MM3 (1.8-7.7); BASOPHIL # 0.3 TH/MM3 (0-0.2); BASOPHIL % 1.7 % (0.0-2.0); EOSINOPHIL # 1.5 TH/MM3 (0-0.4); EOSINOPHIL % 8.6 % (0.0-4.0); HEMATOCRIT 38.1 % (39.0-51.0); HEMOGLOBIN 12.9 GM/DL (13.0-17.0); LYMPH % 18.4 % (9.0-44.0); LYMPHOCYTE # 3.1 TH/MM3 (1.0-4.8); MEAN CELL VOLUME 97.1 FL (80.0-100.0); MEAN CORPUSCULAR HEMOGLOBIN 32.9 PG (27.0-34.0); MEAN CORPUSCULAR HGB CONC 33.9 % (32.0-36.0); MEAN PLATELET VOLUME 8.1 FL (7.0-11.0); MONO % 7.8 % (0.0-8.0); MONOCYTE # 1.3 TH/MM3 (0-0.9); NEUT % 63.5 % (16.0-70.0); PLATELET COUNT 390 TH/MM3 (150-450); RED BLOOD COUNT 3.93 MIL/MM3 (4.50-5.90); RED CELL DISTRIBUTION WIDTH 14.1 % (11.6-17.2)
[2017-09-01 07:30] LABS: BICARBONATE 24.9 MEQ/L (21.0-32.0); CALCIUM 10.2 MG/DL (8.5-10.1); CREATININE 1.26 MG/DL (0.60-1.30)
[2017-09-01] MEDS: REMOVE OLD NICODERM (NICOTINE) PATCH T-DERMAL SCH (07:45)
[2017-09-01] MEDS: PANTOPRAZOLE SOD 40 MG DELAYED RELEASE TAB PO SCH (07:45)
[2017-09-01] MEDS: THIAMINE HCL 100 MG TAB PO SCH (07:45)
[2017-09-01] MEDS: VANCOMYCIN 500 MG VIAL (FOR ORAL USE ONLY) PO SCH (07:45)
[2017-09-01] MEDS: NICOTINE 21 MG/24 HR PATCH TD SCH (07:45)
[2017-09-01] MEDS: SODIUM CHLORIDE 0.9% FLUSH 10 ML FLUSH IV FLUSH SCH ×2 (07:46→21:34)
[2017-09-01] MEDS: COLLAGENASE OINT 30 GM TUBE TOPICAL SCH (07:46)
[2017-09-01 08:18] LABS: BANDS 12 % (0-6); BASOPHILS 1 % (0-2); CORRECTED NUCLEATED RBC 1 /100 WBC (0-0); LYMPHOCYTES 26 % (9-44); MONOCYTES 9 % (0-8); NUCLEATED RED BLOOD CELL 1 (0-0); POLYS (SEG NEUTROPHILS) 41 % (16-70)
--- NOTE | 2017-09-01 11:21 | HHI.FPPN ---
Subjective Remarks No acute events overnight. Vital signs remained stable. Patient continues to complain of soreness on his backside, hip but otherwise is feeling well. His breathing has improved with the continued breathing treatments. Denying chest pain, shortness of breath, nausea vomiting, diarrhea. (Ross Mckeon MD R1) Objective Vitals Vital Signs Date Time Temp Pulse Resp B/P (MAP) Pulse Ox O2 Delivery O2 Flow Rate FiO2 09/01/17 08:38 97.5 64 16 134/77 (96) 97 09/01/17 04:39 97.5 68 18 143/70 (94) 98 09/01/17 01:11 98.3 63 20 143/67 (92) 96 08/31/17 20:43 98.3 70 18 138/57 (84) 98 08/31/17 17:10 19 08/31/17 17:07 98 21 08/31/17 15:46 98.1 76 18 131/74 (93) 98 08/31/17 12:22 98.0 84 18 111/58 (75) 98 I/O 08/31/17 08/31/17 08/31/17 09/01/17 09/01/17 09/01/17 07:00 15:00 23:00 07:00 15:00 23:00 Intake Total 50 ml 290 ml 50 ml 50 ml Output Total 600 ml 500 ml 400 ml Balance -600 ml 50 ml -210 ml -350 ml 50 ml Intake Oral 240 ml IV Total 50 ml 50 ml 50 ml 50 ml Output Urine Total 600 ml 500 ml 400 ml # Bowel Movements 1 (Ross Mckeon MD R1) Result Diagram: 09/01/17 0555 09/01/17 0555 Objective Remarks GENERAL: Thin male sitting up in bed, in no apparent distress. SKIN: small ulcerated wound (stage2) over medial right elbow, covered with clear occlusive dressing. Cool and dry. HEAD: Atraumatic. Normocephalic. EYES: Extraocular motions intact. No scleral icterus. No injection or drainage. ENT: Nose without bleeding, purulent drainage or septal hematoma. Airway patent. NECK: Trachea midline. No JVD or lymphadenopathy. CARDIOVASCULAR: Regular rate and rhythm without murmurs, gallops, or rubs. RESPIRATORY: Clear to auscultation bilaterally. No wheezes appreciated.. No coughing at time of exam GASTROINTESTINAL: Abdomen is soft, nontender. Normoactive bowel sounds. No palpable masses. MUSCULOSKELETAL: Extremities without clubbing, cyanosis, or edema. No calf tenderness. Sensation intact in right and left feet. Dorsalis pedis pulse and posterior tibial pulse cannot be palpated bilaterally. Positive right hip pain on right leg extension. NEUROLOGICAL: Awake and alert. Normal speech. (Ross Mckeon MD R1) A/P Assessment and Plan Patient is a 57-year-old male with past medical history significant for COPD and alcohol abuse who presented for severe diarrhea and abdominal pain and was admitted for C. difficile infection. He was also found to have a stage III decubitus ulcer on initial examination. Discharge Planning Physical therapy recommends home with outpatient PT and a wheelchair, however is working with PT with walker. Patient is homeless and does not have health insurance. He does not have access to a wheelchair at this time. Continue PT daily. Case management assisting with discharge arrangements, however per their documentation, patient has a chronic pattern of failure to follow-up/ noncompliance and is not eligible for YANNI/SSI. They are unable to arrange for a mabel rehab bed. Will continue to work with case management regarding discharge options once patient able to ambulate. Update 08/29/17: Case discussed with rn case manager hospice. sales center manager would like to discuss options with PT, including number of days for progression to walker. Resources are currently limited for wheelchair. Update 08/30/17: PT continues to recommend wheelchair, however is attempting to work with him on PT. (Ross Mckeon MD R1) Attending Attestation Patient seen, examined, and discussed with resident team this morning. I agree with assessment and management as documented and discussed with me. Pt complains of pain as per resident noted dated today. Encouraged pt to work with PT. (Yocasta Dobbins MD) Problem List: (1) C. difficile diarrhea ICD Codes: A04.72 - Enterocolitis due to Clostridium difficile, not specified as recurrent Status: Acute Plan: Improving - patient continues one to 2 bowel movements per day, non- watery. Nursing reports patient has been refusing doses of vancomycin since 08/28/17, likely due to acid reflux/nausea -Patient placed on contact isolation -Vancomycin 125mg po QID (08/20-08/22) with no improvement x 48hrs -Continue Vancomycin 500mg po QID (08/22-09/05) to complete a 14 day course of antibiotics - Patient refused Vanc for 2 days, resumed on 08/31. Will extend length of antibiotic course through 09/07 - Patient advised to request his Zofran when necessary with dosing - Added pantoprazole 40 daily (2) Avascular necrosis of femur head, left ICD Codes: M87.052 - Idiopathic aseptic necrosis of left femur; G89.29 - Other chronic pain Status: Chronic Plan: Chronic pain and groin due to femoral fracture, limiting PT and limiting d/c planning Due to current infection and high likelihood for infection of hip replacement; patient is not a candidate for hip replacement at this time. Continue to mobilize as tolerated. Start Fosamax 70 mg every [address] of the hip without contrast 06/09: Left femoral head fracture of subcortical region, avascular necrosis and severe osteoarthritis (3) Decubitus ulcer ICD Codes: L89.90 - Pressure ulcer of unspecified site, unspecified stage Status: Acute Plan: Improving clinically, patient continues to complain of soreness Stage 3 decubitus ulcer 08/19 wound culture growing Enterobacter sensitive to Zosyn 08/20 wound culture growing Enterobacter, enterococcus, group a strep 08/19 blood culture: 07/27 growing staph haemolyticus sensitive to Vanc 08/21 blood cultures- 07/27 growing staph sp coagulase negative, sensitivities pending 08/24 blood cultures no growth in 4 days Plan: - Continue to follow cultures - Continue Zosyn 3.375mg QID (started 08/21) to cover gram negatives. Will complete course on 09/05. - Wound care consulted - giving collagenase ointment with dressing changes every other day - Had been on by mouth Percocet for breakthrough pain, discontinuing due to addictive risk - Physical therapy has been working with him daily to improve ambulation, recommending wheelchair at this time. Will discuss with case management to help arrange this Pain medications: Acetaminophen, [place], [place] 5mg for breakthrough (4) COPD (chronic obstructive pulmonary disease) ICD Codes: J44.9 - Chronic obstructive pulmonary disease, unspecified Status: Chronic Plan: Patient continues to have shortness of breath, cough but with improvement on DuoNeb treatments and Symbicort inhaler CT thorax showed 1 x 1 cm precarinal lymph node, no pulmonary nodules or pneumonia. Signs of emphysema/COPD No further workup needed at this time, can monitor as outpatient Albuterol Neb PRN DuoNeb nebs every 6 hours scheduled. Symbicort inhaler 2 puffs twice a day Acapella (5) Tobacco abuse ICD Codes: Z72.0 - Tobacco use Status: Chronic Plan: Nicotine patch ordered (6) Alcohol abuse ICD Codes: F10.10 - Alcohol abuse, uncomplicated Status: Resolved Plan: CIWA protocol Rally pack (7) Malnutrition ICD Codes: E46 - Unspecified protein-calorie malnutrition Status: Chronic Plan: due to profuse diarrhea and homelessness versus cancer versus chronic disease CT thorax showing no pulmonary nodules, one precarinal swollen lymph node and liver 1 cm Consult case management for placement Add ensure shakes to diet (8) Nutrition, metabolism, and development symptoms ICD Codes: R63.8 - Other symptoms and signs concerning food and fluid intake Status: Acute Plan: Fluids: No IV fluids at this time Electrolytes: Continue to monitor and replete as needed Diet: regular diet GI prophylaxis: Pantoprazole 40 daily DVT ppx: Lovenox 40mg SQ Q24H (Ross Mckeon MD R1) Problem Qualifiers (1) Decubitus ulcer: Qualified Codes: L89.152 - Pressure ulcer of sacral region, stage 2 (2) COPD (chronic obstructive pulmonary disease): Qualified Codes: J44.9 - Chronic obstructive pulmonary disease, unspecified Ross Mckeon MD R1 Sep 01, 2017 11:21 Yocasta Dobbins MD Sep 01, 2017 14:41
[2017-09-01] MEDS ORDERED: ACETAMINOPHEN 325 MG TAB PO PRN (11:45)
[2017-09-01] MEDS: VANCOMYCIN 25 MG/ML SUSP 100 ML BOTTLE PO SCH ×3 (13:00→21:34)
[2017-09-01] MEDS ORDERED: VANCOMYCIN PO SCH (14:00)
[2017-09-01] MEDS: ACETAMINOPHEN/HYDROcodone 325 MG/5 MG TAB PO PRN ×2 (14:38→21:34)
[2017-09-01] MEDS: VANCOMYCIN 500 MG PO SCH ×2 (14:42→14:45)
[2017-09-01] MEDS: ENOXAPARIN SODIUM 40 MG/0.4 ML SYRINGE SQ SCH (16:21)
[2017-09-01] MEDS: IBUPROFEN 400 MG TAB PO PRN (19:45)
[2017-09-01] MEDS: ZOLPIDEM TARTRATE 5 MG TAB PO PRN (21:34)
[2017-09-02] VITALS (7 sets, daily range): BP systolic 113–144; BP diastolic 64–73; PULSE 65–103; RESP 18; TEMP 97.3–98.2; O2SAT 97–100
[2017-09-02] MEDS: IBUPROFEN 400 MG TAB PO PRN ×2 (02:49→09:19)
[2017-09-02] MEDS: PIPERACIL-TAZO 3.375 GM PREMIX 50 ML IV SCH ×4 (02:49→22:47)
[2017-09-02] MEDS: ACETAMINOPHEN/HYDROcodone 325 MG/5 MG TAB PO PRN (03:55)
[2017-09-02 08:18] LABS: AUTOMATED NEUTROPHIL # 10.3 TH/MM3 (1.8-7.7); BASOPHIL # 0.3 TH/MM3 (0-0.2); BASOPHIL % 1.5 % (0.0-2.0); EOSINOPHIL # 1.5 TH/MM3 (0-0.4); EOSINOPHIL % 8.8 % (0.0-4.0); HEMATOCRIT 36.2 % (39.0-51.0); LYMPH % 19.6 % (9.0-44.0); LYMPHOCYTE # 3.3 TH/MM3 (1.0-4.8); MEAN CELL VOLUME 96.9 FL (80.0-100.0); MEAN CORPUSCULAR HEMOGLOBIN 32.3 PG (27.0-34.0); MEAN CORPUSCULAR HGB CONC 33.3 % (32.0-36.0); MONO % 8.5 % (0.0-8.0); MONOCYTE # 1.4 TH/MM3 (0-0.9); NEUT % 61.6 % (16.0-70.0); PLATELET COUNT 373 TH/MM3 (150-450); RED BLOOD COUNT 3.73 MIL/MM3 (4.50-5.90); WHITE BLOOD COUNT 16.7 TH/MM3 (4.0-11.0)
[2017-09-02 08:43] LABS: CREATININE 1.3 MG/DL (0.60-1.30)
[2017-09-02] MEDS: COLLAGENASE OINT 30 GM TUBE TOPICAL SCH (09:00)
[2017-09-02] MEDS: REMOVE OLD NICODERM (NICOTINE) PATCH T-DERMAL SCH (09:00)
[2017-09-02] MEDS: BUDESONIDE-FORMOTEROL 160/4.5 MCG INHALER INH SCH ×2 (09:00→21:00)
[2017-09-02] MEDS: SODIUM CHLORIDE 0.9% FLUSH 10 ML FLUSH IV FLUSH SCH ×2 (09:10→21:00)
[2017-09-02] MEDS: THIAMINE HCL 100 MG TAB PO SCH (09:10)
[2017-09-02] MEDS: VANCOMYCIN 25 MG/ML SUSP 100 ML BOTTLE PO SCH ×4 (09:11→22:10)
[2017-09-02] MEDS: NICOTINE 21 MG/24 HR PATCH TD SCH (09:13)
[2017-09-02] MEDS: PANTOPRAZOLE SOD 40 MG DELAYED RELEASE TAB PO SCH (09:17)
[2017-09-02] MEDS ORDERED: NALOXONE HCL 0.4 MG/ML AMP IV PUSH PRN (09:30)
[2017-09-02] MEDS ORDERED: ACETAMINOPHEN/HYDROcodone 325 MG/5 MG TAB PO PRN (09:30)
[2017-09-02] MEDS ORDERED: ACETAMINOPHEN 325 MG TAB PO PRN (09:30)
[2017-09-02] MEDS: CELECOXIB 200 MG CAP PO SCH (10:00)
[2017-09-02] MEDS: ACETAMINOPHEN/HYDROcodone 325 MG/10 MG TAB PO PRN ×4 (10:17→22:12)
--- NOTE | 2017-09-02 10:41 | HHI.FPPN ---
Subjective Remarks Patient seen and examined bedside this morning. Patient states that he is continuing to attempt worked with physical therapy but thinks his pain is limiting him. He states he had been having migraines for last 4 days; he is been having throbbing bilateral headaches associated with photophobia and phonophobia. Patient states he continues to have mild coughing with congestion. Denies any chest pain/redness of breath/dizziness. He continues to have 3-4 episodes of diarrhea per day. Objective Vitals Vital Signs Date Time Temp Pulse Resp B/P (MAP) Pulse Ox O2 Delivery O2 Flow Rate FiO2 09/02/17 08:00 97.9 65 18 134/70 (91) 99 09/02/17 05:07 97.7 67 18 113/66 (82) 97 09/02/17 04:18 97 09/02/17 00:58 98.2 68 18 144/64 (90) 99 09/01/17 20:19 98.3 77 18 146/70 (95) 98 09/01/17 16:30 98.2 67 20 146/61 (89) 99 09/01/17 12:44 97.4 74 17 143/79 (100) 99 I/O 09/01/17 09/01/17 09/01/17 09/02/17 09/02/17 09/02/17 07:00 15:00 23:00 07:00 15:00 23:00 Intake Total 50 ml 50 ml 50 ml 50 ml Output Total 400 ml 300 ml Balance -350 ml 50 ml 50 ml -250 ml IV Total 50 ml 50 ml 50 ml 50 ml Output Urine Total 400 ml 300 ml Result Diagram: 09/02/17 0750 09/02/17 0750 Objective Remarks GENERAL: Thin male sitting up in bed, in no apparent distress. SKIN: small ulcerated wound (stage2) over medial right elbow, covered with clear occlusive dressing. Cool and dry. HEAD: Atraumatic. Normocephalic. EYES: Extraocular motions intact. No scleral icterus. No injection or drainage. ENT: Nose without bleeding, purulent drainage or septal hematoma. Airway patent. NECK: Trachea midline. No JVD or lymphadenopathy. CARDIOVASCULAR: Regular rate and rhythm without murmurs, gallops, or rubs. RESPIRATORY: Coarse breath sounds and crackles heard throughout. No wheezes appreciated.. No coughing at time of exam GASTROINTESTINAL: Abdomen is soft, nontender. Normoactive bowel sounds. No palpable masses. MUSCULOSKELETAL: Extremities without clubbing, cyanosis, or edema. No calf tenderness. Sensation intact in right and left feet. Dorsalis pedis pulse and posterior tibial pulse cannot be palpated bilaterally. Positive right hip pain on right leg extension. NEUROLOGICAL: Awake and alert. Normal speech. A/P Assessment and Plan Patient is a 57-year-old male with past medical history significant for COPD and alcohol abuse who presented for severe diarrhea and abdominal pain and was admitted for C. difficile infection. He was also found to have a stage III decubitus ulcer on initial examination. Working with case management and PT to organize safe discharge Discharge Planning Physical therapy recommends home with outpatient PT and a wheelchair, however is working with PT with walker. Patient is homeless and does not have health insurance. He does not have access to a wheelchair at this time. Continue PT daily. Case management assisting with discharge arrangements, however per their documentation, patient has a chronic pattern of failure to follow-up/ noncompliance and is not eligible for [facility]/SSI. They are unable to arrange for a mabel rehab bed. Will continue to work with case management regarding discharge options once patient able to ambulate. Update 08/29/17: Case discussed with patient case coordinator. apartment property manager would like to discuss options with PT, including number of days for progression to walker. Resources are currently limited for wheelchair. Update 08/30/17: PT continues to recommend wheelchair, however is attempting to work with him on PT. Problem List: (1) Migraine with acute onset aura ICD Codes: G43.109 - Migraine with aura, not intractable, without status migrainosus Status: Acute Plan: Abortive therapy Sumatriptan 25 mg by mouth 1 May repeat when necessary Max dosing is 200 mg by mouth in 24 hours (2) C. difficile diarrhea ICD Codes: A04.72 - Enterocolitis due to Clostridium difficile, not specified as recurrent Status: Acute Plan: Patient has 3-4 bowel movements per day, increased from 1-2 last week. However, patient was refusing vancomycin for 2 days Nursing reports patient has been refusing doses of vancomycin since 08/28/17, likely due to acid reflux/nausea -Patient placed on contact isolation -Vancomycin 125mg po QID (08/20-08/22) with no improvement x 48hrs -Continue Vancomycin 500mg po QID (08/22-09/05) to complete a 14 day course of antibiotics - Patient refused Vanc for 2 days, resumed on 08/31. Will extend length of antibiotic course through 09/07 - Patient advised to request his Zofran when necessary with dosing - Added pantoprazole 40 daily (3) Avascular necrosis of femur head, left ICD Codes: M87.052 - Idiopathic aseptic necrosis of left femur; G89.29 - Other chronic pain Status: Chronic Plan: Chronic pain and groin due to femoral fracture, limiting PT and limiting d/c planning Due to current infection and high likelihood for infection of hip replacement; patient is not a candidate for hip replacement at this time. Continue to mobilize as tolerated. Start Fosamax 70 mg every [address] of the hip without contrast 06/09: Left femoral head fracture of subcortical region, avascular necrosis and severe osteoarthritis (4) Decubitus ulcer ICD Codes: L89.90 - Pressure ulcer of unspecified site, unspecified stage Status: Acute Plan: Improving clinically, patient continues to complain of soreness Stage 3 decubitus ulcer 08/19 wound culture growing Enterobacter sensitive to Zosyn 08/20 wound culture growing Enterobacter, enterococcus, group a strep 08/19 blood culture: 07/27 growing staph haemolyticus sensitive to Vanc 08/21 blood cultures- 07/27 growing staph sp coagulase negative, sensitivities pending 08/24 blood cultures no growth Plan: - Continue to follow cultures - Continue Zosyn 3.375mg QID (started 08/21) to cover gram negatives. Will complete course on 09/05. - Wound care consulted - giving collagenase ointment with dressing changes every other day - Had been on by mouth Percocet for breakthrough pain, discontinued due to addictive risk - Physical therapy has been working with him daily to improve ambulation, recommending wheelchair at this time. Will discuss with case management to help arrange this Pain medications: Scheduled Celebrex. Pain scale with Acetaminophen, [place] 5, [place] 10 (5) COPD (chronic obstructive pulmonary disease) ICD Codes: J44.9 - Chronic obstructive pulmonary disease, unspecified Status: Chronic Plan: Patient continues to have shortness of breath, cough but with improvement on DuoNeb treatments and Symbicort inhaler CT thorax showed 1 x 1 cm precarinal lymph node, no pulmonary nodules or pneumonia. Signs of emphysema/COPD No further workup needed at this time, can monitor as outpatient Albuterol Neb PRN DuoNeb nebs every 6 hours scheduled. Symbicort inhaler 2 puffs twice a day Acapella (6) Tobacco abuse ICD Codes: Z72.0 - Tobacco use Status: Chronic Plan: Nicotine patch ordered (7) Alcohol abuse ICD Codes: F10.10 - Alcohol abuse, uncomplicated Status: Resolved Plan: CIWA protocol Rally pack (8) Malnutrition ICD Codes: E46 - Unspecified protein-calorie malnutrition Status: Chronic Plan: due to profuse diarrhea and homelessness versus cancer versus chronic disease CT thorax showing no pulmonary nodules, one precarinal swollen lymph node and liver 1 cm Consult case management for placement Add ensure shakes to diet (9) Nutrition, metabolism, and development symptoms ICD Codes: R63.8 - Other symptoms and signs concerning food and fluid intake Status: Acute Plan: Fluids: No IV fluids at this time Electrolytes: Mild hyperkalemia, Continue to monitor and replete as needed Diet: regular diet GI prophylaxis: Pantoprazole 40 daily DVT ppx: Lovenox 40mg SQ Q24H Problem Qualifiers (1) Decubitus ulcer: Qualified Codes: L89.152 - Pressure ulcer of sacral region, stage 2 (2) COPD (chronic obstructive pulmonary disease): Qualified Codes: J44.9 - Chronic obstructive pulmonary disease, unspecified Tiffany Sosa MD R2 Sep 02, 2017 10:41
[2017-09-02] MEDS ORDERED: SUMAtriptan SUCCINATE 25 MG TAB PO PRN (10:45)
[2017-09-02] MEDS: ENOXAPARIN SODIUM 40 MG/0.4 ML SYRINGE SQ SCH (14:51)
[2017-09-02] MEDS: ZOLPIDEM TARTRATE 5 MG TAB PO PRN (22:10)
[2017-09-03] MEDS: PIPERACIL-TAZO 3.375 GM PREMIX 50 ML IV SCH ×4 (02:56→20:40)
[2017-09-03] MEDS: ACETAMINOPHEN/HYDROcodone 325 MG/10 MG TAB PO PRN ×5 (02:57→20:38)
[2017-09-03 03:01] VITALS: BP 129/72; PULSE 70; RESP 17; TEMP 97.9; O2SAT 98
[2017-09-03] MEDS: PANTOPRAZOLE SOD 40 MG DELAYED RELEASE TAB PO SCH (07:29)
[2017-09-03] MEDS: THIAMINE HCL 100 MG TAB PO SCH (07:30)
[2017-09-03] MEDS: CELECOXIB 200 MG CAP PO SCH (07:30)
[2017-09-03] MEDS: SODIUM CHLORIDE 0.9% FLUSH 10 ML FLUSH IV FLUSH SCH ×2 (07:30→20:40)
[2017-09-03] MEDS: BUDESONIDE-FORMOTEROL 160/4.5 MCG INHALER INH SCH ×2 (07:31→20:40)
[2017-09-03] MEDS: VANCOMYCIN 25 MG/ML SUSP 100 ML BOTTLE PO SCH ×4 (07:32→20:34)
[2017-09-03] MEDS: NICOTINE 21 MG/24 HR PATCH TD SCH (07:32)
[2017-09-03] MEDS: REMOVE OLD NICODERM (NICOTINE) PATCH T-DERMAL SCH (07:32)
[2017-09-03] MEDS: COLLAGENASE OINT 30 GM TUBE TOPICAL SCH (07:34)
[2017-09-03 08:00] VITALS: BP 132/69; PULSE 69; RESP 18; TEMP 97.7; O2SAT 97
--- NOTE | 2017-09-03 10:05 | HHI.FPPN ---
Subjective Remarks No acute events overnight. Vital signs remained stable. Patient states that he was able to ambulate much better yesterday with less pain on the [place]. He continues to have relatively loose stools, not watery. Otherwise denying chest pain, shortness of breath, nausea vomiting. He states he has been able to take the oral vancomycin much better when mixing it with juice and having the Zofran (Ross Mckeon MD R1) Objective Vitals Vital Signs Date Time Temp Pulse Resp B/P (MAP) Pulse Ox O2 Delivery O2 Flow Rate FiO2 09/03/17 08:00 97.7 69 18 132/69 (90) 97 09/03/17 03:01 97.9 70 17 129/72 (91) 98 09/02/17 16:00 97.3 103 18 120/68 (85) 100 09/02/17 12:00 97.6 77 18 119/73 (88) 98 09/02/17 10:20 99 21 I/O 09/02/17 09/02/17 09/02/17 09/03/17 09/03/17 09/03/17 07:00 15:00 23:00 07:00 15:00 23:00 Intake Total 50 ml 400 ml 50 ml Output Total 300 ml Balance -250 ml 400 ml 50 ml Intake Oral 400 ml IV Total 50 ml 50 ml Output Urine Total 300 ml # Voids 3 # Bowel Movements 3 (Ross Mckeon MD R1) Result Diagram: 09/02/17 0750 09/02/17 0750 Objective Remarks GENERAL: Thin male sitting up in bed, in no apparent distress. SKIN: small ulcerated wound (stage2) over medial right elbow, covered with clear occlusive dressing. Cool and dry. HEAD: Atraumatic. Normocephalic. EYES: Extraocular motions intact. No scleral icterus. No injection or drainage. ENT: Nose without bleeding, purulent drainage or septal hematoma. Airway patent. NECK: Trachea midline. No JVD or lymphadenopathy. CARDIOVASCULAR: Regular rate and rhythm without murmurs, gallops, or rubs. RESPIRATORY: Coarse breath sounds and crackles heard throughout. No wheezes appreciated.. No coughing at time of exam GASTROINTESTINAL: Abdomen is soft, nontender. Normoactive bowel sounds. No palpable masses. MUSCULOSKELETAL: Extremities without clubbing, cyanosis, or edema. No calf tenderness. Sensation intact in right and left feet. Dorsalis pedis pulse and posterior tibial pulse cannot be palpated bilaterally. NEUROLOGICAL: Awake and alert. Normal speech. (Ross Mckeon MD R1) A/P Assessment and Plan Patient is a 57-year-old male with past medical history significant for COPD and alcohol abuse who presented for severe diarrhea and abdominal pain and was admitted for C. difficile infection. He was also found to have a stage III decubitus ulcer on initial examination. Working with case management and PT to organize safe discharge Discharge Planning Physical therapy recommends home with outpatient PT and a wheelchair, however is working with PT with walker. Patient is homeless and does not have health insurance. He does not have access to a wheelchair at this time. Continue PT daily. Case management assisting with discharge arrangements, however per their documentation, patient has a chronic pattern of failure to follow-up/ noncompliance and is not eligible for YANNI/SSI. They are unable to arrange for a mabel rehab bed. Will continue to work with case management regarding discharge options once patient able to ambulate. Update 08/29/17: Case discussed with rehabilitation caseworker. computer programming manager would like to discuss options with PT, including number of days for progression to walker. Resources are currently limited for wheelchair. Update 08/30/17: PT continues to recommend wheelchair, however is attempting to work with him on PT. (Ross Mckeon MD R1) Attending Attestation Patient seen, examined, and discussed with Dr. Mckeon on morning rounds today. I agree with assessment and management as documented and discussed with me. Pt reports pain under better control with current regimen. He is working more with PT. Continue current plan of care. (Yocasta Dobbins MD) Problem List: (1) Migraine with acute onset aura ICD Codes: G43.109 - Migraine with aura, not intractable, without status migrainosus Status: Acute Plan: Abortive therapy on 09/02 Sumatriptan 25 mg by mouth 1 May repeat when necessary Max dosing is 200 mg by mouth in 24 hours Currently resolved on 09/03 (2) C. difficile diarrhea ICD Codes: A04.72 - Enterocolitis due to Clostridium difficile, not specified as recurrent Status: Acute Plan: Patient has 3-4 bowel movements per day, increased from 1-2 last week. However, patient was refusing vancomycin for 2 days Nursing reports patient had been refusing doses of vancomycin 08/28/17 11/02/18, likely due to acid reflux/nausea Currently tolerating the oral vancomycin with no nausea or vomiting -Patient placed on contact isolation -Vancomycin 125mg po QID (08/20-08/22) with no improvement x 48hrs -Continue Vancomycin 500mg po QID (08/22-09/05) to complete a 14 day course of antibiotics - Patient refused Vanc for 2 days, resumed on 08/31. Will extend length of antibiotic course through 09/07 - Patient advised to request his Zofran when necessary with dosing - Added pantoprazole 40 daily (3) Avascular necrosis of femur head, left ICD Codes: M87.052 - Idiopathic aseptic necrosis of left femur; G89.29 - Other chronic pain Status: Chronic Plan: Chronic pain and groin due to femoral fracture, limiting PT and limiting d/c planning Due to current infection and high likelihood for infection of hip replacement; patient is not a candidate for hip replacement at this time. Continue to mobilize as tolerated. Start Fosamax 70 mg every [address] of the hip without contrast 06/09: Left femoral head fracture of subcortical region, avascular necrosis and severe osteoarthritis (4) Decubitus ulcer ICD Codes: L89.90 - Pressure ulcer of unspecified site, unspecified stage Status: Acute Plan: Improving clinically, patient continues to complain of soreness Stage 3 decubitus ulcer 08/19 wound culture growing Enterobacter sensitive to Zosyn 08/20 wound culture growing Enterobacter, enterococcus, group a strep 08/19 blood culture: 07/27 growing staph haemolyticus sensitive to Vanc 08/21 blood cultures- 07/27 growing staph sp coagulase negative, sensitivities pending 08/24 blood cultures no growth Plan: - Continue to follow cultures - Continue Zosyn 3.375mg QID (started 08/21) to cover gram negatives. Will complete course on 09/05. - Wound care consulted - giving collagenase ointment with dressing changes every other day - Had been on by mouth Percocet for breakthrough pain, discontinued due to addictive risk - Physical therapy has been working with him daily to improve ambulation, recommending wheelchair at this time. Will discuss with case management to help arrange this Pain medications: Scheduled Celebrex. Pain scale with Acetaminophen, [place] 5, [place] 10 (5) COPD (chronic obstructive pulmonary disease) ICD Codes: J44.9 - Chronic obstructive pulmonary disease, unspecified Status: Chronic Plan: Patient continues to have shortness of breath, cough but with improvement on DuoNeb treatments and Symbicort inhaler CT thorax showed 1 x 1 cm precarinal lymph node, no pulmonary nodules or pneumonia. Signs of emphysema/COPD No further workup needed at this time, can monitor as outpatient Albuterol Neb PRN DuoNeb nebs every 6 hours scheduled. Symbicort inhaler 2 puffs twice a day Acapella (6) Tobacco abuse ICD Codes: Z72.0 - Tobacco use Status: Chronic Plan: Nicotine patch ordered (7) Alcohol abuse ICD Codes: F10.10 - Alcohol abuse, uncomplicated Status: Resolved Plan: CIWA protocol Rally pack (8) Malnutrition ICD Codes: E46 - Unspecified protein-calorie malnutrition Status: Chronic Plan: due to profuse diarrhea and homelessness versus cancer versus chronic disease CT thorax showing no pulmonary nodules, one precarinal swollen lymph node and liver 1 cm Consult case management for placement Add ensure shakes to diet (9) Nutrition, metabolism, and development symptoms ICD Codes: R63.8 - Other symptoms and signs concerning food and fluid intake Status: Acute Plan: Fluids: No IV fluids at this time Electrolytes: Mild hyperkalemia, Continue to monitor and replete as needed Diet: regular diet GI prophylaxis: Pantoprazole 40 daily DVT ppx: Lovenox 40mg SQ Q24H (Ross Mckeon MD R1) Problem Qualifiers (1) Decubitus ulcer: Qualified Codes: L89.152 - Pressure ulcer of sacral region, stage 2 (2) COPD (chronic obstructive pulmonary disease): Qualified Codes: J44.9 - Chronic obstructive pulmonary disease, unspecified Ross Mckeon MD R1 Sep 03, 2017 10:05 Yocasta Dobbins MD Sep 03, 2017 12:46
[2017-09-03 12:00] VITALS: BP 118/63; PULSE 70; RESP 18; TEMP 97.5; O2SAT 98
[2017-09-03 16:00] VITALS: BP 107/56; PULSE 70; RESP 18; TEMP 98; O2SAT 96
[2017-09-03] MEDS: ENOXAPARIN SODIUM 40 MG/0.4 ML SYRINGE SQ SCH (16:20)
[2017-09-03 20:30] VITALS: BP 127/68; PULSE 72; RESP 18; TEMP 97.8
[2017-09-03] MEDS: ZOLPIDEM TARTRATE 5 MG TAB PO PRN (20:38)
[2017-09-04] MEDS: ACETAMINOPHEN/HYDROcodone 325 MG/10 MG TAB PO PRN ×4 (00:56→13:15)
[2017-09-04 00:57] VITALS: BP 115/66; PULSE 75; RESP 16; TEMP 98; O2SAT 98
[2017-09-04 04:00] VITALS: BP 112/57; PULSE 70; RESP 16; TEMP 97.9; O2SAT 95
[2017-09-04] MEDS: PIPERACIL-TAZO 3.375 GM PREMIX 50 ML IV SCH ×2 (04:38→09:00)
[2017-09-04 07:55] VITALS: BP 118/62; PULSE 73; RESP 18; TEMP 97.6; O2SAT 97
[2017-09-04] MEDS: CELECOXIB 200 MG CAP PO SCH (09:00)
[2017-09-04] MEDS: PANTOPRAZOLE SOD 40 MG DELAYED RELEASE TAB PO SCH (09:00)
[2017-09-04] MEDS: COLLAGENASE OINT 30 GM TUBE TOPICAL SCH (09:00)
[2017-09-04] MEDS: THIAMINE HCL 100 MG TAB PO SCH (09:00)
[2017-09-04] MEDS: REMOVE OLD NICODERM (NICOTINE) PATCH T-DERMAL SCH (09:00)
[2017-09-04] MEDS: NICOTINE 21 MG/24 HR PATCH TD SCH (09:01)
[2017-09-04] MEDS: SODIUM CHLORIDE 0.9% FLUSH 10 ML FLUSH IV FLUSH SCH (09:01)
[2017-09-04] MEDS: VANCOMYCIN 25 MG/ML SUSP 100 ML BOTTLE PO SCH ×3 (09:03→16:08)
[2017-09-04] MEDS: BUDESONIDE-FORMOTEROL 160/4.5 MCG INHALER INH SCH (09:05)
--- NOTE | 2017-09-04 09:05 | HHI.FPPN ---
Subjective Remarks Patient seen and examined this morning bedside. Patient states he is continuing to ambulate with physical therapy and thinks he is progressing. He still has some mild left hip pain on movement breathing status is improving. He continues to cough overnight; it is a nonproductive cough, not associated with fever/ chills. He still has some mild pain around his sacral wound area. He denies any chest pain or difficulty breathing. (Tiffany Sosa MD R2) Objective Vitals Vital Signs Date Time Temp Pulse Resp B/P (MAP) Pulse Ox O2 Delivery O2 Flow Rate FiO2 09/04/17 07:55 97.6 73 18 118/62 (80) 97 09/04/17 04:00 97.9 70 16 112/57 (75) 95 09/04/17 00:57 98.0 75 16 115/66 (82) 98 09/03/17 20:30 97.8 72 18 127/68 (87) 09/03/17 16:00 98.0 70 18 107/56 (73) 96 09/03/17 12:00 97.5 70 18 118/63 (81) 98 I/O 09/03/17 09/03/17 09/03/17 09/04/17 09/04/17 09/04/17 07:00 15:00 23:00 07:00 15:00 23:00 Intake Total 400 ml 50 ml 50 ml 1440 ml Balance 400 ml 50 ml 50 ml 1440 ml Intake Oral 400 ml 1440 ml IV Total 50 ml 50 ml # Voids 3 1 # Bowel Movements 2 (Tiffany Sosa MD R2) Result Diagram: 09/02/17 0750 09/02/17 0750 Objective Remarks GENERAL: Thin male sitting up in bed, in no apparent distress. SKIN: small ulcerated wound (stage2) over medial right elbow, covered with clear occlusive dressing. Cool and dry. Sacral wound visualize, no bandage placed at time of exam, sacral wound is superficial in stage I with erythema, no pus HEAD: Atraumatic. Normocephalic. EYES: Extraocular motions intact. No scleral icterus. No injection or drainage. ENT: Nose without bleeding, purulent drainage or septal hematoma. Airway patent. NECK: Trachea midline. No JVD or lymphadenopathy. CARDIOVASCULAR: Regular rate and rhythm without murmurs, gallops, or rubs. RESPIRATORY: Lungs clear to auscultation bilaterally. No wheezes appreciated positive coughing, nonproductive GASTROINTESTINAL: Abdomen is soft, nontender. Normoactive bowel sounds. No palpable masses. MUSCULOSKELETAL: Extremities without clubbing, cyanosis, or edema. No calf tenderness. Sensation intact in right and left feet. Dorsalis pedis pulse and posterior tibial pulse cannot be palpated bilaterally. NEUROLOGICAL: Awake and alert. Normal speech. (Tiffany Sosa MD R2) A/P Assessment and Plan Patient is a 57-year-old male with past medical history significant for COPD and alcohol abuse who presented for severe diarrhea and abdominal pain and was admitted for C. difficile infection. He was also found to have a stage III decubitus ulcer on initial examination. Working with case management and PT to organize safe discharge Discharge Planning Physical therapy recommends home with outpatient PT and a wheelchair, however is working with PT with walker. Patient is homeless and does not have health insurance. He does not have access to a wheelchair at this time. Continue PT daily. Case management assisting with discharge arrangements, however per their documentation, patient has a chronic pattern of failure to follow-up/ noncompliance and is not eligible for [facility]/SSI. They are unable to arrange for a mabel rehab bed. Will continue to work with case management regarding discharge options once patient able to ambulate. Update 08/29/17: Case discussed with patient case coordinator. store loss prevention manager would like to discuss options with PT, including number of days for progression to walker. Resources are currently limited for wheelchair. Update 08/30/17: PT continues to recommend wheelchair, however is attempting to work with him on PT. Update 09/04/17: Message conveyed to nurse, CM, and PT again that patient is medically cleared for discharge, 4-wheeled walker is ready, once he is deemed safe discharge w/ 4-wheel walker. (Tiffany Sosa MD R2) Attending Attestation Patient seen and examined at approx 11:30 on rounds. Discussed with resident team. I agree with assessment and management as documented and discussed with me. Pt resting comfortably. Await continued eval from PT - walked 90 feet with PT and front wheeled walker over the weekend. Once safe from PT perspective for discharge, will plan to discharge patient. Pt is medically stable for discharge, as he is able to take oral vancomycin on his own. (Yocasta Dobbins MD) Problem List: (1) C. difficile diarrhea ICD Codes: A04.72 - Enterocolitis due to Clostridium difficile, not specified as recurrent Status: Acute Plan: Resolved, 1-2 BM/day. However, patient was refusing vancomycin for 2 days Nursing reports patient had been refusing doses of vancomycin 08/28/17 11/02/18, likely due to acid reflux/nausea Currently tolerating the oral vancomycin with no nausea or vomiting -Patient placed on contact isolation -Vancomycin 125mg po QID (08/20-08/22) with no improvement x 48hrs -Continue Vancomycin 500mg po QID (08/22-09/05) to complete a 14 day course of antibiotics - Patient refused Vanc for 2 days, resumed on 08/31. Will extend length of antibiotic course through 09/07 - Patient advised to request his Zofran when necessary with dosing - Added pantoprazole 40 daily (2) Avascular necrosis of femur head, left ICD Codes: M87.052 - Idiopathic aseptic necrosis of left femur; G89.29 - Other chronic pain Status: Chronic Plan: Chronic pain and groin due to femoral fracture, limiting PT and limiting d/c planning Due to current infection and high likelihood for infection of hip replacement; patient is not a candidate for hip replacement at this time. Continue to mobilize as tolerated. Start Fosamax 70 mg every [address] of the hip without contrast 06/09: Left femoral head fracture of subcortical region, avascular necrosis and severe osteoarthritis (3) Decubitus ulcer ICD Codes: L89.90 - Pressure ulcer of unspecified site, unspecified stage Status: Acute Plan: Improved 90% by clinical exam, s/p Zosyn x 14 days Stage 3 decubitus ulcer 08/19 wound culture growing Enterobacter sensitive to Zosyn 08/20 wound culture growing Enterobacter, enterococcus, group a strep 08/19 blood culture: 07/27 growing staph haemolyticus sensitive to Vanc 08/21 blood cultures- 07/27 growing staph sp coagulase negative, sensitivities pending 08/24 blood cultures no growth Plan: -D/C Zosyn 3.375mg QID ( 08/21 - 09/04) - Wound care consulted - giving collagenase ointment with dressing changes every other day - Had been on by mouth Percocet for breakthrough pain, discontinued due to addictive risk - Physical therapy has been working with him daily to improve ambulation, recommending wheelchair at this time. Will discuss with case management to help arrange this Pain medications: Scheduled Celebrex. Pain scale with Acetaminophen, [place] 5, [place] 10 (4) COPD (chronic obstructive pulmonary disease) ICD Codes: J44.9 - Chronic obstructive pulmonary disease, unspecified Status: Chronic Plan: Patient continues to have shortness of breath, cough but with improvement on DuoNeb treatments and Symbicort inhaler CT thorax showed 1 x 1 cm precarinal lymph node, no pulmonary nodules or pneumonia. Signs of emphysema/COPD No further workup needed at this time, can monitor as outpatient Albuterol Neb PRN DuoNeb nebs every 6 hours scheduled. Symbicort inhaler 2 puffs twice a day Acapella (5) Tobacco abuse ICD Codes: Z72.0 - Tobacco use Status: Chronic Plan: Nicotine patch ordered (6) Alcohol abuse ICD Codes: F10.10 - Alcohol abuse, uncomplicated Status: Resolved Plan: CIWA protocol Rally pack (7) Malnutrition ICD Codes: E46 - Unspecified protein-calorie malnutrition Status: Chronic Plan: due to profuse diarrhea and homelessness versus cancer versus chronic disease CT thorax showing no pulmonary nodules, one precarinal swollen lymph node and liver 1 cm Consult case management for placement Add ensure shakes to diet (8) Migraine with acute onset aura ICD Codes: G43.109 - Migraine with aura, not intractable, without status migrainosus Status: Resolved Plan: Abortive therapy on 09/02 Sumatriptan 25 mg by mouth 1 May repeat when necessary Max dosing is 200 mg by mouth in 24 hours Currently resolved on 09/03 (9) Nutrition, metabolism, and development symptoms ICD Codes: R63.8 - Other symptoms and signs concerning food and fluid intake Status: Acute Plan: Fluids: No IV fluids at this time Electrolytes: Mild hyperkalemia on 09/02, f/u BMP on 09/05 Diet: regular diet GI prophylaxis: Pantoprazole 40 daily DVT ppx: Lovenox 40mg SQ Q24H (Tiffany Sosa MD R2) Problem Qualifiers (1) Decubitus ulcer: Qualified Codes: L89.152 - Pressure ulcer of sacral region, stage 2 (2) COPD (chronic obstructive pulmonary disease): Qualified Codes: J44.9 - Chronic obstructive pulmonary disease, unspecified Tiffany Sosa MD R2 Sep 04, 2017 09:05 Yocasta Dobbins MD Sep 04, 2017 11:36
[2017-09-04] MEDS ORDERED: CELE200C PO (09:14)
[2017-09-04] MEDS ORDERED: VANC500I3 PO (09:14)
[2017-09-04] MEDS ORDERED: PANT40TA3 PO (09:14)
[2017-09-04] MEDS ORDERED: Budeson-Formot 160-4.5 Mcg Inh INH (09:14)
[2017-09-04] MEDS ORDERED: COLL30T TOPICAL (09:14)
[2017-09-04] MEDS ORDERED: ALEN1TAB48 PO (09:14)
[2017-09-04] MEDS ORDERED: ACET325T15 PO (09:14)
[2017-09-04] MEDS ORDERED: ZOFR8TAB PO (09:14)
--- NOTE | 2017-09-04 09:14 | HHI.DCPOC ---
Discharge Care Plan Diagnosis: (1) Chronic left hip pain (2) Sepsis (3) Diarrhea (4) Decubitus ulcer Goals to Promote Your Health * To prevent worsening of your condition and complications * To maintain your health at the optimal level Directions to Meet Your Goals Take your medications as prescribed Follow your dietary instruction Follow activity as directed Keep your appointments as scheduled Take your immunizations and boosters as scheduled If your symptoms worsen call your PCP, if no PCP go to Urgent Care Center or Emergency Room Smoking is Dangerous to Your Health. Avoid second hand smoke Call the 24-hour hour crisis hotline for domestic abuse at Tiffany Sosa MD R2 Sep 04, 2017 09:14
[2017-09-04] MEDS: RESP: ALBUTEROL 2.5 MG/IPRATROPIUM 0.5 MG NEB (SCH) NEB ×3 (09:15→15:48)
[2017-09-04] MEDS ORDERED: BENZONATATE 100 MG CAP PO PRN (09:15)
--- NOTE | 2017-09-04 09:16 | HHI.DS ---
Discharge Summary Admission Date Aug 19, 2017 at 15:20 Discharge Date: Sep 04, 2017 Admitting Diagnosis cubitus ulcer. Gastroenteritis. Hypokalemia. (1) C. difficile diarrhea Plan: Resolved, 1-2 BM/day. However, patient was refusing vancomycin for 2 days Nursing reports patient had been refusing doses of vancomycin 08/28/17 11/02/18, likely due to acid reflux/nausea Currently tolerating the oral vancomycin with no nausea or vomiting -Patient placed on contact isolation -Vancomycin 125mg po QID (08/20-08/22) with no improvement x 48hrs -Continue Vancomycin 500mg po QID (08/22-09/05) to complete a 14 day course of antibiotics - Patient refused Vanc for 2 days, resumed on 08/31. Will extend length of antibiotic course through 09/07 - Patient advised to request his Zofran when necessary with dosing - Added pantoprazole 40 daily ICD Codes: A04.72 - Enterocolitis due to Clostridium difficile, not specified as recurrent Status: Acute (2) Avascular necrosis of femur head, left Plan: Chronic pain and groin due to femoral fracture, limiting PT and limiting d/c planning Due to current infection and high likelihood for infection of hip replacement; patient is not a candidate for hip replacement at this time. Continue to mobilize as tolerated. Start Fosamax 70 mg every [address] of the hip without contrast 06/09: Left femoral head fracture of subcortical region, avascular necrosis and severe osteoarthritis ICD Codes: M87.052 - Idiopathic aseptic necrosis of left femur; G89.29 - Other chronic pain Status: Chronic (3) Decubitus ulcer Plan: Improved 90% by clinical exam, s/p Zosyn x 14 days Stage 3 decubitus ulcer 08/19 wound culture growing Enterobacter sensitive to Zosyn 08/20 wound culture growing Enterobacter, enterococcus, group a strep 08/19 blood culture: 07/27 growing staph haemolyticus sensitive to Vanc 08/21 blood cultures- 07/27 growing staph sp coagulase negative, sensitivities pending 08/24 blood cultures no growth Plan: -D/C Zosyn 3.375mg QID ( 08/21 - 09/04) - Wound care consulted - giving collagenase ointment with dressing changes every other day - Had been on by mouth Percocet for breakthrough pain, discontinued due to addictive risk - Physical therapy has been working with him daily to improve ambulation, recommending wheelchair at this time. Will discuss with case management to help arrange this Pain medications: Scheduled Celebrex. Pain scale with Acetaminophen, [place] 5, [place] 10 ICD Codes: L89.90 - Pressure ulcer of unspecified site, unspecified stage Status: Acute (4) COPD (chronic obstructive pulmonary disease) Plan: Patient continues to have shortness of breath, cough but with improvement on DuoNeb treatments and Symbicort inhaler CT thorax showed 1 x 1 cm precarinal lymph node, no pulmonary nodules or pneumonia. Signs of emphysema/COPD No further workup needed at this time, can monitor as outpatient Albuterol Neb PRN DuoNeb nebs every 6 hours scheduled. Symbicort inhaler 2 puffs twice a day Acapella ICD Codes: J44.9 - Chronic obstructive pulmonary disease, unspecified Status: Chronic (5) Tobacco abuse Plan: Nicotine patch ordered ICD Codes: Z72.0 - Tobacco use Status: Chronic (6) Alcohol abuse Plan: CIWA protocol Rally pack ICD Codes: F10.10 - Alcohol abuse, uncomplicated Status: Resolved (7) Malnutrition Plan: due to profuse diarrhea and homelessness versus cancer versus chronic disease CT thorax showing no pulmonary nodules, one precarinal swollen lymph node and liver 1 cm Consult case management for placement Add ensure shakes to diet ICD Codes: E46 - Unspecified protein-calorie malnutrition Status: Chronic (8) Migraine with acute onset aura Plan: Abortive therapy on 09/02 Sumatriptan 25 mg by mouth 1 May repeat when necessary Max dosing is 200 mg by mouth in 24 hours Currently resolved on 09/03 ICD Codes: G43.109 - Migraine with aura, not intractable, without status migrainosus Status: Resolved (9) Nutrition, metabolism, and development symptoms Plan: Fluids: No IV fluids at this time Electrolytes: Mild hyperkalemia on 09/02, f/u BMP on 09/05 Diet: regular diet GI prophylaxis: Pantoprazole 40 daily DVT ppx: Lovenox 40mg SQ Q24H ICD Codes: R63.8 - Other symptoms and signs concerning food and fluid intake Status: Acute Brief History Patient is a 57 year-old M with PMhx of COPD and alcohol abuse presented to the ED with c/o severe diarrhea ( episodes every 10 mins) associated with sharp constant umbilical abdominal pain. Patient stated that the diarrhea began in July 04 and has worsened since his prior discharge. Patient also with c/o of worsening pain of sacral ulcer, describes pains as sharp/stabbing, burning, rates pain as 10/10. Pt has a chronic decubitus ulcer in sacral area that was present before last admission (according to wound care note on 07/18). Wound care note on 07/18: Sacrum presents unstageable pressure related injury measuring 8.8cm x 6.2cm x unknown. Wound is 100% adhered yellow slough .Periwound intact and blanchable fungal rash noted to perineal/groin area. Patient verbalized to [employer] Supervisor that this sore on bottom has been there for months " Wasn't hurting in ED so did not report to any Nurse or physician". Denies fever. Patient endorses vomiting (1 the sodium this morning), chronic symptoms of night sweats, chills, productive cough cough. Patient also reports a 30 pound weight loss in the past 2 months. Patient came to the ED for further evaluation of diarrhea and treatment for sacral ulcer pain. CBC/BMP: 09/02/17 0750 09/02/17 0750 Significant Findings Laboratory Tests Test 09/02/17 07:50 White Blood Count 16.7 TH/MM3 (4.0-11.0) Red Blood Count 3.73 MIL/MM3 (4.50-5.90) Hemoglobin 12.0 GM/DL (13.0-17.0) Hematocrit 36.2 % (39.0-51.0) Monocytes (%) (Auto) 8.5 % (0.0-8.0) Eosinophils (%) (Auto) 8.8 % (0.0-4.0) Neutrophils # (Auto) 10.3 TH/MM3 (1.8-7.7) Monocytes # (Auto) 1.4 TH/MM3 (0-0.9) Eosinophils # (Auto) 1.5 TH/MM3 (0-0.4) Basophils # (Auto) 0.3 TH/MM3 (0-0.2) Potassium Level 5.2 MEQ/L (3.5-5.1) Estimat Glomerular Filtration Rate 57 ML/MIN (>89) PE at Discharge GENERAL: Thin male sitting up in bed, in no apparent distress. SKIN: small ulcerated wound (stage2) over medial right elbow, covered with clear occlusive dressing. Cool and dry. Sacral wound visualize, no bandage placed at time of exam, sacral wound is superficial in stage I with erythema, no pus HEAD: Atraumatic. Normocephalic. EYES: Extraocular motions intact. No scleral icterus. No injection or drainage. ENT: Nose without bleeding, purulent drainage or septal hematoma. Airway patent. NECK: Trachea midline. No JVD or lymphadenopathy. CARDIOVASCULAR: Regular rate and rhythm without murmurs, gallops, or rubs. RESPIRATORY: Lungs clear to auscultation bilaterally. No wheezes appreciated positive coughing, nonproductive GASTROINTESTINAL: Abdomen is soft, nontender. Normoactive bowel sounds. No palpable masses. MUSCULOSKELETAL: Extremities without clubbing, cyanosis, or edema. No calf tenderness. Sensation intact in right and left feet. Dorsalis pedis pulse and posterior tibial pulse cannot be palpated bilaterally. NEUROLOGICAL: Awake and alert. Normal speech. Hospital Course Patient is a 57 year-old homeless M with PMhx of COPD and alcohol abuse presented to the ED with c/o severe diarrhea and decubitus ulcer. C. difficile was initially treated with vancomycin 125 mg by mouth 4 times a day, however there is no improvement so his medication regimen was increased to vancomycin 500 mg by mouth 4 times a day, and then date of 09/07/17. Ulcer was stage III at time of exam and improved to stage I of day of discharge. Patient was treated with Zosyn for the wound culture growing Enterobacter, with N date 09/04/17. During hospital stay the patient continued to complain of left hip pain due to his left femoral head fracture, and patient was started on Fosamax and informed that he could not get any surgical repair to his left hip while he was currently infected. Discharged with medications below. Pt Condition on Discharge: Stable Discharge Instructions New Medications: Misc. Devices (Roller Walker) 1 Mis Mis EA .XX NOW, #1 Ondansetron (Zofran) 8 Mg Tab 8 MG PO TID for Nausea/Vomiting, #15 TAB 0 Refills Acetaminophen (Eq Acetaminophen) 325 Mg Tab 650 MG PO Q6H PRN for PAIN SCALE 1 TO 2, #90 TAB Alendronate (Alendronate) 70 Mg Tab 70 MG PO Q7D, #4 TAB Celecoxib (Celebrex) 200 Mg Cap 200 MG PO DAILY, #30 CAP Collagenase (Santyl) 250 Unit/Gram Oin 1 APPLIC TOPICAL DAILY, #30 TUBE Pantoprazole (Pantoprazole) 40 Mg Tab 40 MG PO DAILY, #30 TAB Vancomycin Inj (Vancomycin Inj) 500 Mg Inj 500 MG PO QID, #16 INJECTION [Budeson-Formot 160-4.5 Mcg Inh] () 60 PUFF AERO 2 PUFF INH Q12HR, #60 AMPULE Tiffany Sosa MD R2 Sep 04, 2017 09:16
[2017-09-04 09:53] VITALS: O2SAT 97
[2017-09-04 11:48] VITALS: BP 106/60; PULSE 84; RESP 18; TEMP 97.6; O2SAT 97
[2017-09-04] MEDS ORDERED: ROLLER WALKER1 MI1 (12:44)
[2017-09-04] MEDS: ENOXAPARIN SODIUM 40 MG/0.4 ML SYRINGE SQ SCH (16:04)
== END 2017-09-04 17:07 | disposition home or self-care (01) | DRG 371 ==
LOC: NEPE 11:19 → NEDA 15:20 → N05B 18:01
PROVIDERS: ADMIT Family Medicine; ATTEND Family Medicine
DX: A04.72 Enterocolitis due to Clostridium difficile, not specified as recurrent (principal); S72.052A Unspecified fracture of head of left femur, initial encounter for closed fracture; L89.153 Pressure ulcer of sacral region, stage 3; L89.211 Pressure ulcer of right hip, stage 1; E46 Unspecified protein-calorie malnutrition; E87.5 Hyperkalemia; B36.9 Superficial mycosis, unspecified; M87.9 Osteonecrosis, unspecified; E87.6 Hypokalemia; J44.9 Chronic obstructive pulmonary disease, unspecified; M16.12 Unilateral primary osteoarthritis, left hip; F10.20 Alcohol dependence, uncomplicated; Z96.641 Presence of right artificial hip joint; F17.210 Nicotine dependence, cigarettes, uncomplicated; R07.89 Other chest pain; K21.9 Gastro-esophageal reflux disease without esophagitis; G89.29 Other chronic pain; G43.109 Migraine with aura, not intractable, without status migrainosus; F32.9 Major depressive disorder, single episode, unspecified; F41.9 Anxiety disorder, unspecified; R20.0 Anesthesia of skin; L89.011 Pressure ulcer of right elbow, stage 1; Z59.0 Homelessness; Z23 Encounter for immunization
CPT/HCPCS: 71045; 71250; 74019; 80048; 80053; 81001; 82306; 82948; 83036; 83735; 84100; 84443; 84484; 85007; 85025; 85027; 85610; 85730; 86403; 87040; 87070; 87077; 87186; 87205; 87493; 90686; 93005; 93308; 94640; 94664; 94667; 94668; 96365; 96375; J0131; J1650; J1885; J2270; J2405; J2543; J3370; J3411; J3480; J7030; J7040; Q2038

== ENCOUNTER 2017-10-07 14:14 | Emergency (ER) | payer SELFPAY ==
[~2017-10-07] VITALS: Ht 177.8 cm; Wt 65.0 kg
[~2017-10-07 14:14] MED LIST changes: +ACET325T15 PO; +ALEN1TAB48 PO; -BACT800T5 PO; +Budeson-Formot 160-4.5 Mcg Inh INH; +CELE200C PO; +COLL30T TOPICAL; +PANT40TA3 PO; +ROLLER WALKER1 MI1; +VANC500I3 PO; +ZOFR8TAB PO
[2017-10-07 14:26] VITALS: BP 103/57; PULSE 70; RESP 17; TEMP 97.5; O2SAT 0; O2SAT 100
--- NOTE | 2017-10-07 15:11 | PD ---
HPI . Apparent fall Chief Complaint: Fall Time Seen by Provider: 14:44 Travel History International Travel<30 days: No Contact w/Intl Traveler<30days: No Traveled to known affect area: No History of Present Illness HPI This is an intoxicated man who was found on the ground beside his walker. I'm not sure where he was found. He was evaluated by EMS and was found to have some abrasions on the left side of his head. He was subsequently brought to us for evaluation. Immobilized by EMS. This patient is intoxicated. He is now sound asleep. He was verbally abusive before he went to sleep. Therefore, I have not tried to awaken him to ask him any further questions. PFSH Past Medical History Asthma: Yes Anxiety: Yes Depression: Yes Cancer: No Cardiovascular Problems: Yes Chest Pain: Yes Congestive Heart Failure: No COPD: Yes Coronary Artery Disease: No Diabetes: No Diminished Hearing: No Endocrine: No Gastrointestinal Disorders: Yes GERD: Yes Genitourinary: No Immune Disorder: No Musculoskeletal: Yes Neurologic: Yes Psychiatric: No Reproductive: No Respiratory: Yes Immunizations Current: No ?: Not Past Surgical History Joint Replacement: Yes (R hip) Other Surgery: Yes (r hip replacement 2011) Social History Alcohol Use: Yes (2 beers daily) Tobacco Use: Yes (1/2 PPD ) Substance Use: No Allergies-Medications (Allergen,Severity, Reaction): Coded Allergies: No Known Allergies (Verified Allergy, Unknown, 10/07/17) Reported Meds & Prescriptions Reported Meds & Active Scripts Active Roller Walker (Misc. Devices) 1 Mis Mis Ea .XX NOW Zofran (Ondansetron HCl) 8 Mg Tab 8 Mg PO TID Alendronate (Alendronate Sodium) 70 Mg Tab 70 Mg PO Q7D Santyl (Collagenase) 250 Unit/Gram Oin 1 Applic TOPICAL DAILY Pantoprazole (Pantoprazole Sodium) 40 Mg Tab 40 Mg PO DAILY [Budeson-Formot 160-4.5 Mcg Inh] 60 PUFF Aero 2 Puff INH Q12HR Eq Acetaminophen (Acetaminophen) 325 Mg Tab 650 Mg PO Q6H PRN Celebrex (Celecoxib) 200 Mg Cap 200 Mg PO DAILY Vancomycin Inj (Vancomycin HCl) 500 Mg Inj 500 Mg PO QID Review of Systems ROS Limitations: Intoxication Physical Exam Narrative GENERAL: Initially verbally abusive. Now sound asleep. SKIN: warm/dry. Abrasion noted on the left side of his forehead. HEAD: Normocephalic. EYES: Pupils equal and round. No scleral icterus. No injection or drainage. ENT: No nasal bleeding or discharge. Mucous membranes pink and moist. NECK: Trachea midline. Full range of motion without pain.. CARDIOVASCULAR: Regular rate and rhythm. RESPIRATORY: No accessory muscle use. Clear to auscultation. Breath sounds equal bilaterally. MUSCULOSKELETAL: No obvious deformities. NEUROLOGICAL: Initially awake and alert. He was moving all 4 extremities equally. No obvious cranial nerve deficits. PSYCHIATRIC: Intoxicated. Poor judgment. Data Data Last Documented VS Vital Signs Date Time Temp Pulse Resp B/P (MAP) Pulse Ox O2 Delivery O2 Flow Rate FiO2 10/07/17 14:26 97.5 70 17 103/57 (72) [address] Brain W/O Iv Contrast(Rout) (10/07/17 14:49) MDM Medical Decision Making Medical Screen Exam Complete: Yes Emergency Medical Condition: Yes Differential Diagnosis My differential diagnosis of head trauma includes but is not limited to scalp contusion, concussion, intracerebral hemorrhage. Narrative Course This patient presents following an apparent fall and injury to his head. CT of his head is pending. He is intoxicated. CT of head is negative. Diagnosis Primary Impression: Scalp contusion Qualified Codes: S00.03XA - Contusion of scalp, initial encounter Additional Impressions: Scalp abrasion Qualified Codes: S00.01XA - Abrasion of scalp, initial encounter Acute alcohol intoxication Qualified Codes: F10.929 - Alcohol use, unspecified with intoxication, unspecified Patient Instructions: Abrasion (ED), Alcohol Intoxication (DC), General Instructions, Scalp Contusion in Adults (ED) Disposition: 01 DISCHARGE HOME Condition: Stable Katherine Hodgson MD Oct 07, 2017 15:11
--- NOTE | 2017-10-07 16:03 | RADRPT ---
EXAM DATE/TIME: 10/07/2017 15:51 [facility] COMPARISON: CT THORAX W/O CONTRAST, August 25, 2017, 18:01. INDICATIONS : Found on ground, laceration left cheek RADIATION DOSE: 56.35 CTDIvol (mGy) MEDICAL HISTORY : Cardiovascular disease. SURGICAL HISTORY : None. ENCOUNTER: Initial ACUITY: 1 day PAIN SCALE: 2/10 LOCATION: cranial TECHNIQUE: Multiple contiguous axial images were obtained of the head. Using automated exposure control and adj ustment of the mA and/or kV according to patient size, radiation dose was kept as low as reasonably a chievable to obtain optimal diagnostic quality images. DICOM format image data is available electro nically for review and comparison. FINDINGS: CEREBRUM: The ventricles are normal for age. No evidence of midline shift, mass lesion, hemorrhage or acute in farction. No extra-axial fluid collections are seen. POSTERIOR FOSSA: The cerebellum and brainstem are intact. The 4th ventricle is midline. The cerebellopontine angle i s unremarkable. EXTRACRANIAL: The visualized portion of the orbits is intact. SKULL: The calvaria is intact. No evidence of skull fracture. CONCLUSION: 1. No acute intracranial abnormality identified. Dexter Coates MD on October 07, 2017 at 16:01 Board Certified Radiologist. This report was verified electronically.
== END 2017-10-07 17:00 | disposition home or self-care (01) ==
LOC: NEPD 14:14
DX: S00.03XA Contusion of scalp, initial encounter (principal); W19.XXXA Unspecified fall, initial encounter; S00.01XA Abrasion of scalp, initial encounter; F10.129 Alcohol abuse with intoxication, unspecified; F41.9 Anxiety disorder, unspecified; F32.9 Major depressive disorder, single episode, unspecified; J44.9 Chronic obstructive pulmonary disease, unspecified; K21.9 Gastro-esophageal reflux disease without esophagitis; F17.200 Nicotine dependence, unspecified, uncomplicated
CPT/HCPCS: 70450

== ENCOUNTER 2017-10-28 09:27 | Emergency (ER) | payer SELFPAY ==
[~2017-10-28 09:27] MED LIST changes: +LIDOCAINE/D5W 2000 MG/500 ML 500 ML IV ONE; +diphenhydrAMINE HCL 50 MG/ML VIAL IV ONE
[2017-10-28] MEDS ORDERED: EPINEPHrine HCL (1:10,000) 1 MG/10 ML SYRINGE IV ONE (09:28)
[2017-10-28] MEDS ORDERED: SODIUM BICARBONATE 8.4% INJ 50 MEQ/50 ML SYR IV ONE (09:28)
[2017-10-28] MEDS ORDERED: MAGNESIUM SULFATE 40 MEQ/10 ML VIAL IV ONE (09:28)
[2017-10-28] MEDS ORDERED: CALCIUM CHLORIDE 10% SOLN 1 GRAM/10 ML SYR IV ONE (09:28)
--- NOTE | 2017-10-28 12:17 | PD ---
HPI Chief Complaint: Code Blue Time Seen by Provider: 10:00 Travel History International Travel<30 days: No Contact w/Intl Traveler<30days: No Traveled to known affect area: No History of Present Illness HPI 57-year-old man, presents emergency department as a cardiac arrest. Patient was witnessed to collapse in the [place]. He is homeless. Bystanders called EMS. EMS found him in asystolic cardiac arrest. ACLS was started. Patient was intubated. They got him into V. fib. Multiple shocks in route. No known medical history. Patient smells of alcohol. History Past Medical History Narrative Medical Unknown Social History Alcohol Use: Yes (2 beers daily) Tobacco Use: Yes (1/2 PPD ) Allergies-Medications (Allergen,Severity, Reaction): Coded Allergies: No Known Allergies (Verified Allergy, Unknown, 10/07/17) Reported Meds & Prescriptions Reported Meds & Active Scripts Active Roller Walker (Misc. Devices) 1 Mis Mis Ea .XX NOW Zofran (Ondansetron HCl) 8 Mg Tab 8 Mg PO TID Alendronate (Alendronate Sodium) 70 Mg Tab 70 Mg PO Q7D Santyl (Collagenase) 250 Unit/Gram Oin 1 Applic TOPICAL DAILY Pantoprazole (Pantoprazole Sodium) 40 Mg Tab 40 Mg PO DAILY [Budeson-Formot 160-4.5 Mcg Inh] 60 PUFF Aero 2 Puff INH Q12HR Eq Acetaminophen (Acetaminophen) 325 Mg Tab 650 Mg PO Q6H PRN Celebrex (Celecoxib) 200 Mg Cap 200 Mg PO DAILY Vancomycin Inj (Vancomycin HCl) 500 Mg Inj 500 Mg PO QID Review of Systems ROS Limitations: Clinical Condition Physical Exam Narrative GENERAL: 57-year-old man, cardiac arrest. SKIN: Mottled and cool. HEAD: Atraumatic. Normocephalic. EYES: Pupils equal and round. No scleral icterus. No injection or drainage. ENT: No nasal bleeding or discharge. Mucous membranes pink and moist. NECK: Trachea midline. No JVD. CARDIOVASCULAR: Pulseless. RESPIRATORY: Occasional agonal respiratory efforts. ET tube in place. GASTROINTESTINAL: Abdomen soft, non-tender, nondistended. Hepatic and splenic margins not palpable. MUSCULOSKELETAL: No obvious deformities. No edema. NEUROLOGICAL: Obtunded, no response to any stimulus. [facility] Medical Decision Making Medical Screen Exam Complete: Yes Emergency Medical Condition: Yes Differential Diagnosis V. fib, ME, or primary arrhythmia, other Narrative Course Medical decision making 57-year-old man presents in cardiac arrest, initially asystole on EMS arrival, V. fib. He had persistent V. fib, multiple shocks. He also received amiodarone 2 in the field. In the emergency department continued ACLS protocol. Continued chest compressions, continued intubation. Continue multiple shocks, appendectomy. At one point it did look like he had some return of spontaneous circulation based on organized rhythm and increase in tidal CO2, but no pulses are palpated on the repeat pulse checks. ACLS was continued for about an hour total, at which point patient was asystolic with occasional agonal PEA. Patient was pronounced . Disposition: 20 Eugene Egan MD Oct 28, 2017 12:17
== END 2017-10-28 19:02 | disposition expired ==
LOC: NEPE 09:27 → NEPI 19:02
DX: I46.9 Cardiac arrest, cause unspecified (principal); F17.210 Nicotine dependence, cigarettes, uncomplicated; Z59.0 Homelessness; Z79.899 Other long term (current) drug therapy
CPT/HCPCS: 92950; 99285; J0171; J1200; J2001; J3475